=== PATIENT | male | born 1945 | race Caucasian/White ===

== ENCOUNTER 2018-06-20 12:46 | Outpatient (CLI) | payer MEDICARE ==
[~2018-06-20] VITALS: Ht 175.3 cm; Wt 126.7 kg
[2018-06-20] MEDS ORDERED: ALBU6.7H8 INH (13:04)
[2018-06-20] MEDS ORDERED: TADA5TAB13 PO (13:04)
[2018-06-20] MEDS ORDERED: WARF6TAB49 PO (13:04)
[2018-06-20] MEDS ORDERED: SIMV20TA3 PO (13:04)
[2018-06-20] MEDS ORDERED: AMLO5TAB9 PO (13:04)
[2018-06-20] MEDS ORDERED: ASPI-586 PO (13:04)
[2018-06-20] MEDS ORDERED: BISO10TA PO (13:04)
[2018-06-20] MEDS ORDERED: LOSA100T57 PO (13:04)
[2018-06-20] MEDS ORDERED: DOXA4TAB2 PO (13:04)
[2018-06-20] MEDS ORDERED: DIGO250T PO (13:04)
[2018-06-20] MEDS ORDERED: HYDR25TA4 PO (13:04)
[2018-06-20 13:09] VITALS: BP 149/86
[2018-06-20 13:30] LABS: BASOPHILS % (AUTO) 0 % (0-10); EOSINOPHILS # (AUTO) 0.2 10^3/uL (0.0-0.3); EOSINOPHILS % (AUTO) 3 % (0-10); HEMATOCRIT 46 % (40-54); HEMOGLOBIN 15.1 G/DL (13.3-17.7); LYMPHOCYTES % (AUTO) 15 % (12-44); MEAN CORPUSCULAR HEMOGLOBIN 29 PG (25-34); MEAN CORPUSCULAR HGB CONC 33 G/DL (32-36); MEAN CORPUSCULAR VOLUME 86 FL (80-99); MEAN PLATELET VOLUME 10.2 FL (7.4-10.4); MONOCYTES # (AUTO) 0.6 X 10^3 (0.0-1.0); MONOCYTES % (AUTO) 9 % (0-12); NEUTROPHILS # (AUTO) 4.9 X 10^3 (1.8-7.8); NEUTROPHILS % (AUTO) 73 % (42-75); PLATELET COUNT 155 10^3/uL (130-400); RED CELL DISTRIBUTION WIDTH 13.9 % (10.0-14.5); WHITE BLOOD COUNT 6.7 10^3/uL (4.3-11.0)
[2018-06-20 13:48] LABS: BUN/CREATININE RATIO 13; CALCIUM 8.9 MG/DL (8.5-10.1); CARBON DIOXIDE 29 MMOL/L (21-32); CHLORIDE 102 MMOL/L (98-107); CREATININE SERUM 1.15 MG/DL (0.60-1.30); GFR ESTIMATED > 60; GLUCOSE 83 MG/DL (70-105); POTASSIUM 3.7 MMOL/L (3.6-5.0); SODIUM 141 MMOL/L (135-145)
--- NOTE | 2018-06-20 15:05 | Diagnostic Imaging Report ---
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 COMPARISON: None. FINDINGS: Frontal and lateral views of the chest demonstrates cardiac enlargement without overt pulmonary edema. Chronic interstitial changes are seen in the lung bases. There is no pneumothorax, effusion or acute appearing infiltrate. Osseous structures are age-appropriate. IMPRESSION: Cardiac enlargement without pulmonary edema or infiltrate. Dictated by: Dictated on workstation # [id number]
== END 2018-06-20 16:00 | disposition home or self-care (01) ==
LOC: PREOP 12:46
PROVIDERS: ATTEND Otolaryngology Otolaryngology/Facial Plastic Surgery
DX: Z01.811 Encounter for preprocedural respiratory examination (principal); Z01.810 Encounter for preprocedural cardiovascular examination; Z01.812 Encounter for preprocedural laboratory examination; Z11.2 Encounter for screening for other bacterial diseases; C00.9 Malignant neoplasm of lip, unspecified; I48.91 Unspecified atrial fibrillation
CPT/HCPCS: 36415; 71046; 80048; 85025; 87081; 93005

== ENCOUNTER 2018-06-27 06:52 | Day surgery (SDC) | payer MEDICARE ==
[~2018-06-27] VITALS: Ht 175.3 cm; Wt 126.7 kg
[~2018-06-27 06:52] MED LIST: ALBU6.7H8 INH; AMLO5TAB9 PO; ASPI-586 PO; BISO10TA PO; DIGO250T PO; DOXA4TAB2 PO; HYDR25TA4 PO; LOSA100T57 PO; SIMV20TA3 PO; TADA5TAB13 PO; WARF6TAB49 PO
[2018-06-27 07:00] VITALS: BP 153/83
--- NOTE | 2018-06-27 07:05 | Progress Note-Pre Operative ---
Pre-Operative Progress Note H&P Reviewed The H&P was reviewed, patient examined and no changes noted. Date Seen by Provider: Jun 27, 2018 Time Seen by Provider: 07:05 Date H&P Reviewed: Jun 27, 2018 Time H&P Reviewed: 07:05 Pre-Operative Diagnosis: Lower Lip Skin Lesions-mucosal surface CHARITO SHIPLEY MD Jun 27, 2018 07:05
--- OUTSIDE RECORDS SUMMARY | 2018-06-27 07:05 | XMS REPORT ---
Author Author KASIE CHAPMAN Organization [facility] [address] [place] [address] Care Team Providers Care Phone Circuit Operator Name Role Phone KASIE CHAPMAN Unavailable PROBLEMS Type Condition ICD9-CM Code RIK43-AP Code Onset Dates Condition Status SNOMED Code Problem prison current use of anticoagulant therapy Z79.01 Active 411540396 Problem Persistent atrial fibrillation I48.1 Active 830024043 Problem Chronic atrial fibrillation I48.2 Active 479734936 Problem Mixed hyperlipidemia E78.2 Active 477417653 Problem Essential (primary) hypertension I10 Active 99084931 Problem Elevated prostate specific antigen [PSA] R97.2 Active 736078931 Problem 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 762596146 Problem Unspecified atrial fibrillation I48.91 Active 33391598 Problem Hyperlipidemia LDL goal <100 E78.5 Active 96551726 Problem Essential hypertension I10 Active 01923722 Problem Obstructive sleep apnea G47.33 Active 39127222 Problem Chronic obstructive pulmonary disease, unspecified COPD type J44.9 Active 36073977 ALLERGIES No Information ENCOUNTERS Encounter Location Date Diagnosis [facility] [address] [place] [address] Feb, [facility] [address] [place] [address] Jan, [facility] [address] [place] [address] Dec, [facility] [address] [place] [address] Dec, [facility] [address] [place] [address] Dec, [facility] [address] [place] [address] Nov, Medicare annual wellness visit, initial Z00.00 ; Screening for colon cancer Z12.11 ; Screening for osteoporosis Z13.820 ; Essential (primary) hypertension I10 and Encounter for immunization Z23 [facility] [address] [place] [address] Nov, [facility] [address] [place] [address] 30 Oct, 2017 prison current use of anticoagulant therapy Z79.01 [facility] [address] [place] [address] Oct, Chronic atrial fibrillation I48.2 ; Essential hypertension I10 and Elevated prostate specific antigen [PSA] R97.2 [facility] [address] [place] [address] Sep, prison current use of anticoagulant therapy Z79.01 [facility] [address] [place] [address] Sep, prison current use of anticoagulant therapy Z79.01 [facility] [address] [place] [address] Sep, terminal carman current use of anticoagulant therapy Z79.01 and Chronic atrial fibrillation I48.2 [facility] [address] [place] [address] 18 Sep, 2017 prison current use of anticoagulant therapy Z79.01 [facility] [address] [place] [address] 15 Sep, 2017 prison current use of anticoagulant therapy Z79.01 [facility] [address] [place] [address] 13 Sep, 2017 terminal carman current use of anticoagulant therapy Z79.01 [facility] [place] [address] [place] [address] Sep, Chronic obstructive pulmonary disease, unspecified COPD type J44.9 [facility] [address] [place] [address] 11 Sep, 2017 terminal carman current use of anticoagulant therapy Z79.01 [facility] [place] [address] [place] [address] 08 Sep, 2017 terminal carman current use of anticoagulant therapy Z79.01 [facility] [place] [address] [place] [address] Sep, [facility] [place] [address] [place] [address] August, terminal carman current use of anticoagulant therapy Z79.01 [facility] [place] [address] [place] [address] August, [facility] [place] [address] [place] [address] August, prison current use of anticoagulant therapy Z79.01 [facility] [place] [address] [place] [address] August, terminal carman current use of anticoagulant therapy Z79.01 [facility] [place] [address] [place] [address] Jul, terminal carman current use of anticoagulant therapy Z79.01 [facility] [place] [address] [place] [address] Jul, terminal carman current use of anticoagulant therapy Z79.01 [facility] [place] [address] [place] [address] Jul, prison current use of anticoagulant therapy Z79.01 [facility] [place] [address] [place] [address] Jul, prison current use of anticoagulant therapy Z79.01 [facility] [place] [address] [place] [address] Jul, 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 [facility] [address] [place] [address] Jul, Chronic obstructive pulmonary disease, unspecified COPD type J44.9 [facility] [place] [address] [place] [address] Jul, prison current use of anticoagulant therapy Z79.01 [facility] [place] [address] [place] [address] Jul, [facility] [place] [address] [place] [address] 10 Jul, 2017 Bleeding from mouth K13.79 and Lip lesion K13.0 [facility] [place] [address] [place] [address] Jul, terminal carman current use of anticoagulant therapy Z79.01 [facility] [address] [place] [address] Jul, terminal carman current use of anticoagulant therapy Z79.01 [facility] [address] [place] [address] Jul, [facility] [address] [place] [address] Jun, Unspecified atrial fibrillation I48.91 [facility] [address] [place] [address] May, Unspecified atrial fibrillation I48.[address] [address] [address] May, Chronic atrial fibrillation I48.2 ; BMI 40.0-44.9, adult Z68.41 ; Hyperlipidemia LDL goal <100 E78.5 ; terminal carman current use of anticoagulant therapy Z79.01 ; Essential hypertension I10 ; Obstructive sleep apnea G47.33 ; Elevated PSA, less than 10 ng/ml R97.20 and Chronic obstructive pulmonary disease, unspecified COPD type J44.9 [facility] [address] [place] [address] Apr, [facility] [address] [address] Apr, Elevated PSA R97.20 [facility] [address] [id number] [place] [address] Apr, Mild persistent asthma, unspecified whether complicated J45.30 [facility] [place] [address] [place] [address] Apr, Chronic obstructive pulmonary disease, unspecified COPD type J44.9 [facility] [address] [place] [address] Mar, [facility] [place] [address] [place] [address] Mar, [facility] [address] [address] [place] [address] Mar, [facility] [place] [address] [place] [address] Mar, Chronic atrial fibrillation I48.2 ; Hyperlipidemia LDL goal <100 E78.5 ; Essential hypertension I10 ; Obstructive sleep apnea G47.33 ; Has stopped breathing R06.81 ; Elevated PSA, less than 10 ng/ml R97.20 ; Chronic obstructive pulmonary disease, unspecified COPD type J44.9 ; Encounter for immunization Z23 and terminal carman current use of anticoagulant therapy Z79.01 [facility] [address] [address] Feb, [facility] [address] [address] Dec, [facility] [address] [address] Nov, Chronic atrial fibrillation I48.2 and Elevated PSA R97.[address] [address] Nov, Chronic atrial fibrillation I48.2 ; Hyperlipidemia LDL goal <100 E78.5 ; Essential hypertension I10 ; Dyspnea on exertion R06.09 and Elevated PSA R97.[address] [address] August, prison current use of anticoagulant therapy Z79.01 ; Bronchitis J40 and Persistent atrial fibrillation I48.[address] [address] August, [address] [address] May, terminal carman current use of anticoagulant therapy Z79.01 ; Encounter for long-term (current) use of other medications Z79.899 ; Fever, unspecified fever cause R50.9 and Influenza A J10.[address] [address] Apr, [address] [address] Apr, Elevated prostate specific antigen [PSA] R97.[address] [address] Feb, [address] [address] Feb, prison current use of anticoagulant therapy Z79.01 ; Atrial fibrillation 427.31 ; Encounter for long-term (current) use of other medications Z79.899 ; Chronic atrial fibrillation I48.2 ; Encounter for immunization Z23 and Actinic keratoses L57.0 [facility] [address] [address] Dec, 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 and Encounter for immunization Z23 [address] [address] Nov, Hemangioma D18.00 and Actinic keratosis L57.[address] [address] Nov, Chronic atrial fibrillation I48.2 ; prison current use of anticoagulant therapy Z79.01 and Skin lesions L98.[address] [address] Oct, Elevated prostate specific antigen [PSA] R97.2 ; Mixed hyperlipidemia E78.2 and Essential (primary) hypertension I10 [address] [address] August, [address] [address] August, Encounter for long-term (current) use of other medications Z79.899 ; prison current use of anticoagulant therapy Z79.01 and Chronic atrial fibrillation I48.[address] [address] Jul, Unspecified atrial fibrillation I48.91 ; Encounter for long-term (current) use of other medications Z79.899 and prison current use of anticoagulant therapy Z79.[address] [address] Jun, Atrial fibrillation 427.31 ; Encounter for long-term (current) use of other medications Z79.899 and terminal carman current use of anticoagulant therapy Z79.01 [facility] [address] [address] [place] [address] Jun, Unspecified atrial fibrillation I48.91 ; Encounter for long-term (current) use of other medications Z79.899 ; terminal carman current use of anticoagulant therapy Z79.01 and Community acquired bacterial pneumonia J15.9 [facility] [address] [address] Jun, Community acquired bacterial pneumonia J15.9 [facility] [address] [address] May, Chronic atrial fibrillation I48.2 ; Encounter for long-term (current) use of other medications Z79.899 and terminal carman current use [facility]agulant [facility]79.01 [facility] [address] [address] Apr, Elevated prostate specific antigen [PSA] R97.[address] [address] Feb, Chronic atrial fibrillation I48.2 ; terminal carman current use of anticoagulant therapy Z79.01 and Encounter for long-term (current) use of other medications Z79.[address] [address] Dec, Atrial fibrillation 427.31 and terminal carman (current) use of anticoagulants V58.[address] [address] Sep, [address] [address] Sep, Atrial fibrillation 427.31 ; Elevated PSA 790.93 ; Benign prostate hyperplasia 600.00 and Renal insufficiency 593.[address] [address] Sep, Atrial fibrillation 427.31 ; Essential hypertension, benign 401.1 ; Elevated prostate specific antigen (PSA) 790.93 and Mixed hyperlipidemia 272.[address] [id number] [address] Jul, [address] [id number] [address] Jul, [facility] [address] [address] Jun, [facility] [place] [address] [place] [address] 16 Jun, 2014 [facility] [address] [place] [address] 15 Apr, 2014 [facility] [place] [address] [place] [address] Apr, [facility] [place] [address] [place] [address] Mar, [facility] [address], [place] [address] Mar, [facility] [place] [address] [place] [address] Mar, [facility] [address] [address] Mar, [facility] [address] [place] [address] Feb, [facility] [place] [address] [place] [address] Feb, [facility] [address] [address] Jan, [facility] [place] [address] [place] [address] Jan, [facility] [address] [address] Dec, [facility] [place] [address] [place] [address] Dec, [facility] [address] [address] Oct, [facility] [place] [address] [place] [address] Oct, [facility] [place] [address] [place] [address] Oct, [facility] [id number] [address] Oct, [facility] [place] [address] [place] [address] Sep, [facility] [id number] [address] Sep, [facility] [address] [id number] [address] August, [facility] [place] [address] [place] [address] August, [facility] [id number] [address] August, [facility] [address], [place] [address] August, [facility] [place] [address] [place] [address] August, [facility] [place] [address] [place] [address] August, [facility] [id number] [address] August, [facility] [place] [address] [place] [address] Jul, [facility] [id number] [address] Jul, [facility] [place] [address] [place] [address] Jul, [facility] [id number] [address] Jul, [facility] [place] [address] [place] [address] May, [facility] [id number] [address] May, [facility] [place] [address] [place] [address] Apr, [facility] [address] [address] Apr, [facility] [place] [address] [place] [address] Mar, [facility] [address], [place] [address] Mar, [facility] [place] [address] [place] [address] Feb, [facility] [address] [place] [id number] [place] [address] Feb, [facility] [id number] [place] [address] Feb, [facility] [address] [place] [id number] [place] [address] Feb, [facility] [place] [address] [place] [address] Feb, [facility] [address] [place] [address] Feb, [facility] [place] [address] [place] [address] Jan, [facility] [address] [place] [address] [address] Jan, [facility] [place] [address] [place] [address] Dec, [facility] [place] [address] [place] [address] Dec, IMMUNIZATIONS No Known Immunizations SOCIAL HISTORY Never Assessed REASON FOR VISIT PLAN OF CARE VITAL SIGNS MEDICATIONS Medication Instructions Dosage Frequency Start Date End Date Duration Status Warfarin Sodium 6MG TAKE ONE TABLET BY MOUTH ONCE DAILY Active Doxazosin Mesylate 4MG Orally Once a day 1 tablet 24h Active RESULTS No Results PROCEDURES No Known procedures INSTRUCTIONS MEDICATIONS ADMINISTERED No Known Medications MEDICAL (GENERAL) HISTORY Type Description Date Medical History Tear of medial cartilage or meniscus of knee, current Medical History Acute upper respiratory infections of unspecified site Medical History Need for prophylactic vaccination and inoculation, Influenza Medical History Atrial fibrillation Medical History Actinic keratosis Medical History Essential hypertension, benign Medical History Nocturia Medical History Elevated prostate specific antigen (PSA) Medical History Mixed hyperlipidemia Medical History Acute pharyngitis Medical History Pain in joint, lower leg Surgical History tonsillectomy 1950 Surgical History orthopedic surgery; jaw 1967 Surgical History heart cath 2016 Surgical History oral surgery Hospitalization History Surgery(s) only
--- OUTSIDE RECORDS SUMMARY | 2018-06-27 07:06 | XMS REPORT ---
Author Author KASIE CHAPMAN Organization [facility] [address] Address [address] [place] [address] Care Team Providers Care Outside Salesman Name Role Phone KASIE CHAPMAN Unavailable PROBLEMS Type Condition ICD9-CM Code PVL06-ZX Code Onset Dates Condition Status SNOMED Code Problem prison current use of anticoagulant therapy Z79.01 Active 304247978 Problem Persistent atrial fibrillation I48.1 Active 065560589 Problem Chronic atrial fibrillation I48.2 Active 437016215 Problem Mixed hyperlipidemia E78.2 Active 101178623 Problem Essential (primary) hypertension I10 Active 49801919 Problem Elevated prostate specific antigen [PSA] R97.2 Active 769504319 Problem 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 [address] [place] [address] Jan, [facility] [address] [place] [address] Dec, [facility] [address] [place] [address] Dec, [facility] [address] [place] [address] Dec, 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 [facility] [place] [address] [place] [address] Oct, Chronic atrial fibrillation I48.2 ; Essential hypertension I10 and Elevated prostate specific antigen [PSA] R97.2 [facility] [place] [address] [place] [address] Sep, prison current use of anticoagulant therapy Z79.01 [facility] [place] [address] [place] [address] Sep, prison current use of anticoagulant therapy Z79.01 [facility] [place] [address] [place] [address] Sep, prison current use of anticoagulant therapy Z79.01 and Chronic atrial fibrillation I48.2 [facility] [place] [address] [place] [address] 18 Sep, 2017 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 [facility] [place] [address] [place] [address] 15 Sep, 2017 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 [facility] [place] [address] [place] [address] 13 Sep, 2017 prison current use of anticoagulant therapy Z79.01 [facility] [place] [address] [place] [address] Sep, Chronic obstructive pulmonary disease, unspecified COPD type J44.9 [facility] [place] [address] [place] [address] 11 Sep, 2017 prison current use of anticoagulant therapy Z79.01 [facility] [place] [address] [place] [address] 08 Sep, 2017 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 [facility] [place] [address] [place] [address] 04 Sep, 2017 [facility] [place] [address] [place] [address] August, prison current use of anticoagulant therapy Z79.01 [facility] [place] [address] [place] [address] August, [facility] [place] [address] [place] [address] August, prison current use of anticoagulant therapy Z79.01 [facility] [place] [address] [place] [address] August, prison current use of anticoagulant therapy Z79.01 [facility] [place] [address] [place] [address] Jul, 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 [facility] [place] [address] [place] [address] Jul, prison current use of anticoagulant therapy Z79.01 [facility] [place] [address] [place] [address] Jul, 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 [facility] [place] [address] [place] [address] Jul, 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 [facility] [place] [address] [place] [address] Jul, 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 [facility] [address] [place] [address] Jul, Chronic obstructive pulmonary disease, unspecified COPD type J44.9 [facility] [place] [address] [place] [address] Jul, 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 [facility] [place] [address] [place] [address] Jul, [facility] [place] [address] [place] [address] Jul, Bleeding from mouth K13.79 and Lip lesion K13.0 [facility] [place] [address] [place] [address] Jul, prison current use of anticoagulant therapy Z79.01 [facility] [place] [address] [place] [address] Jul, 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 [facility] [address] [address] [place] [address] Jul, [facility] [address] [place] [address] Jun, Unspecified atrial fibrillation I48.[address] [facility] [address] [address] May, Unspecified atrial fibrillation I48.91 [facility] [address] [place] [address] May, Chronic atrial fibrillation I48.2 ; BMI 40.0-44.9, adult Z68.41 ; Hyperlipidemia LDL goal <100 E78.5 ; 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 ; Essential hypertension I10 ; Obstructive sleep apnea G47.33 ; Elevated PSA, less than 10 ng/ml R97.20 and Chronic obstructive pulmonary disease, unspecified COPD type J44.9 [facility] [address] [place] [address] Apr, [facility] [address] [address] Apr, Elevated PSA R97.20 [facility] [address] [id number] [place] [address] Apr, Mild persistent asthma, unspecified whether complicated J45.30 [facility] [address] [place] [address] Apr, Chronic obstructive pulmonary disease, unspecified COPD type J44.9 [facility] [address] [place] [address] Mar, [facility] [address] [address] [place] [address] Mar, [facility] [place] [address] [place] [address] Mar, [facility] [address] [place] [address] Mar, Chronic atrial fibrillation I48.2 ; Hyperlipidemia LDL goal <100 E78.5 ; Essential hypertension I10 ; Obstructive sleep apnea G47.33 ; Has stopped breathing R06.81 ; Elevated PSA, less than 10 ng/ml R97.20 ; Chronic obstructive pulmonary disease, unspecified COPD type J44.9 ; Encounter for immunization Z23 and 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 [facility] [address] [address] Feb, [facility] [address] [address] Dec, [facility] [address] [address] Nov, Chronic atrial fibrillation I48.2 and Elevated PSA R97.20 [facility] [address] [address] Nov, Chronic atrial fibrillation I48.2 ; Hyperlipidemia LDL goal <100 E78.5 ; Essential hypertension I10 ; Dyspnea on exertion R06.09 and Elevated PSA R97.[address] [address] August, 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 ; Bronchitis J40 and Persistent atrial fibrillation I48.[address] [address] August, [address] [address] May, prison current use of anticoagulant therapy Z79.01 ; Encounter for long-term (current) use of other medications Z79.899 ; Fever, unspecified fever cause R50.9 and Influenza A J10.[address] [address] Apr, [facility] [address] [address] Apr, Elevated prostate specific antigen [PSA] R97.20 [facility] [address] [address] Feb, [address] [address] Feb, 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 ; Atrial fibrillation 427.31 ; Encounter for long-term (current) use of other medications Z79.899 ; Chronic atrial fibrillation I48.2 ; Encounter for immunization Z23 and Actinic keratoses L57.0 [facility] [address] [address] 14 Dec, 2015 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 and Encounter for immunization Z23 [facility] [address] [address] Nov, Hemangioma D18.00 and Actinic keratosis L57.[address] [address] Nov, Chronic atrial fibrillation I48.2 ; prison current use of anticoagulant therapy Z79.01 and Skin lesions L98.[address] [address] Oct, Elevated prostate specific antigen [PSA] R97.2 ; Mixed hyperlipidemia E78.2 and Essential (primary) hypertension I10 [address] [address] August, [address] [address] August, Encounter for long-term (current) use of other medications Z79.899 ; prison current use of anticoagulant therapy Z79.01 and Chronic atrial fibrillation I48.[address] [address] Jul, Unspecified atrial fibrillation I48.91 ; Encounter for long-term (current) use of other medications Z79.899 and prison current use of anticoagulant therapy Z79.[address] [address] Jun, Atrial fibrillation 427.31 ; Encounter for long-term (current) use of other medications Z79.899 and 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 [address] Jun, Unspecified atrial fibrillation I48.91 ; Encounter for long-term (current) use of other medications Z79.899 ; prison current use of anticoagulant therapy Z79.01 and Community acquired bacterial pneumonia J15.9 [facility] [address] [address] Jun, Community acquired bacterial pneumonia J15.[address] [address] May, Chronic atrial fibrillation I48.2 ; Encounter for long-term (current) use of other medications Z79.899 and 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 [facility] [address] [address] Apr, Elevated prostate specific antigen [PSA] R97.[address] [address] Feb, Chronic atrial fibrillation I48.2 ; 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 and Encounter for long-term (current) use of other medications Z79.[address] [address] Dec, Atrial fibrillation 427.31 and prison (current) use of anticoagulants V58.[address] [address] Sep, [address] [address] Sep, Atrial fibrillation 427.31 ; Elevated PSA 790.93 ; Benign prostate hyperplasia 600.00 and Renal insufficiency 593.[address] [address] Sep, Atrial fibrillation 427.31 ; Essential hypertension, benign 401.1 ; Elevated prostate specific antigen (PSA) 790.93 and Mixed hyperlipidemia 272.2 [facility] [address] [facility] [id number] [address] Jul, [facility] [address] [place] [address] [id number] [address] Jul, [facility] [address] [address] Jun, [facility] [place] [address] [place] [address] Jun, [facility] [address] [address] Apr, [facility] [place] [address] [place] [address] Apr, [facility] [place] [address] [place] [address] Mar, [facility] [address] [place] [address] Mar, [facility] [place] [address] [place] [address] Mar, [facility] [address] [place] [address] Mar, [facility] [address] [address] Feb, [facility] [place] [address] [place] [address] Feb, [facility] [address] [address] Jan, [facility] [place] [address] [place] [address] Jan, [facility] [address] [address] Dec, [facility] [place] [address] [place] [address] Dec, [facility] [address] [address] Oct, [facility] [place] [address] [place] [address] Oct, [facility] [place] [address] [place] [address] Oct, [facility] [address] [facility] [id number] [address] Oct, [facility] [place] [address] [place] [address] Sep, [facility] [address] [facility] [id number] [address] Sep, [facility] [id number] [address] August, [facility] [place] [address] [place] [address] August, [facility] [id number] [address] August, [facility] [id number] [address] August, [facility] [place] [address] [place] [address] August, [facility] [place] [address] [place] [address] August, [facility] [id number] [address] August, [facility] [place] [address] [place] [address] Jul, [facility] [id number] [address] Jul, [facility] [place] [address] [place] [address] Jul, [facility] [address] [facility] [id number] [address] Jul, [facility] [place] [address] [place] [address] May, [facility] [address] [facility] [id number], [place] [address] May, [facility] [place] [address] [place] [address] Apr, [facility] [address] [address] Apr, [address] [address] Mar, [facility] [id number] [address] Mar, [facility] [address] [place] [address] Feb, [facility] [address] [address] Feb, [facility] [address] [place] [id number] [place] [address] Feb, [facility] [address] [address] Feb, [address] [address] Feb, [address] [address] Feb, [address] [address] Jan, [facility] [address] [place], [place] [id number] [address] Jan, [address] [address] Dec, [address] [address] Dec, IMMUNIZATIONS No Known Immunizations SOCIAL HISTORY Never Assessed REASON FOR VISIT med refill request PLAN OF CARE VITAL SIGNS MEDICATIONS Medication Instructions Dosage Frequency Start Date End Date Duration Status Simvastatin 20 mg TAKE ONE TABLET BY MOUTH AT BEDTIME 90 Active Lanoxin 0.25MG Orally Once a day TAKE 1 Tablet 24h Active RESULTS No Results PROCEDURES No [...]
--- OUTSIDE RECORDS SUMMARY | 2018-06-27 07:06 | XMS REPORT ---
Author Author [facility]MAN [facility] [address] Address [address] [place] [address] Care Team Providers Care Ticket Counter Name Role Phone KASIE CHAPMAN Unavailable PROBLEMS ALLERGIES No Information ENCOUNTERS IMMUNIZATIONS No Known Immunizations SOCIAL HISTORY No smoking Hx information available REASON FOR VISIT PLAN OF CARE VITAL SIGNS MEDICATIONS Unknown Medications RESULTS No Results PROCEDURES No Known procedures INSTRUCTIONS MEDICATIONS ADMINISTERED No Known Medications MEDICAL (GENERAL) HISTORY
--- OUTSIDE RECORDS SUMMARY | 2018-06-27 07:06 | XMS REPORT ---
Author Author KASIE CHAPMAN Organization [facility] [address] Address [address] [place] [address] Care Team Providers Care Lawn Care Technician Name Role Phone KASIE CHAPMAN Unavailable PROBLEMS Type Condition ICD9-CM Code XNA23-CH Code Onset Dates Condition Status SNOMED Code Problem residential current use of anticoagulant therapy Z79.01 Active 360890593 Problem Persistent atrial fibrillation I48.1 Active 711026871 Problem Chronic atrial fibrillation I48.2 Active 577309434 Problem Mixed hyperlipidemia E78.2 Active 043294806 Problem Essential (primary) hypertension I10 Active 83343016 Problem Elevated prostate specific antigen [PSA] R97.2 Active 681118467 Problem 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 317373911 Problem Unspecified atrial fibrillation I48.91 Active 24754342 Problem Hyperlipidemia LDL goal <100 E78.5 Active 79278605 Problem Essential hypertension I10 Active 66511243 Problem Obstructive sleep apnea G47.33 Active 10384706 Problem Chronic obstructive pulmonary disease, unspecified COPD type J44.9 Active 50343540 ALLERGIES Substance Reaction Event Type Date Status Sulfasalazine Unknown Drug Allergy Nov, Active ENCOUNTERS Encounter Location Date Diagnosis [facility] [address] [place] [address] Dec, [facility] [address] [place] [address] Dec, [facility] [address] [place] [address] Dec[facility] [address] [place] [address] Nov, Medicare annual wellness visit, initial Z00.00 ; Screening for colon cancer Z12.11 ; Screening for osteoporosis Z13.820 ; Essential (primary) hypertension I10 and En[facility] for [facility] [address] [place] [address] Nov, [facility] [address] [place] [address] Oct, residential current use of anticoagulant therapy Z79.[facility] [place] [address] [place] [address] Oct, Chronic atrial fibrillation I48.2 ; Essential hypertension I10 and Elevated prostate specific antigen [PSA] R97.[address] [facility] [place] [address] [place] [address] Sep, residential current use of anticoagulant therapy Z79.01 [facility] [place] [address] [place] [address] Sep, [employer] current use of anticoagulant therapy Z79.[address] [facility] [place] [address] [place] [address] Sep, residential current use of anticoagulant therapy Z79.01 and Chronic atrial fibrillation I48.[address] [facility] [place] [address] [place] [address] Sep, [employer] current use of anticoagulant therapy Z79.01 [facility] [place] [address] [place] [address] 15 Sep, 2017 [employer] current use of anticoagulant therapy Z79.01 [facility] [place] [address] [place] [address] 13 Sep, 2017 residential current use of anticoagulant therapy Z79.01 [facility] [place] [address] [place] [address] Sep, Chronic obstructive pulmonary disease, unspecified COPD type J44.9 [facility] [place] [address] [place] [address] Sep, residential current use of anticoagulant therapy Z79.01 [facility] [place] [address] [place] [address] 08 Sep, 2017 residential current use of anticoagulant therapy Z79.01 [facility] [place] [address] [place] [address] Sep, [facility] [place] [address] [place] [address] August, [employer] current use of anticoagulant therapy Z79.01 [facility] [place] [address] [place] [address] August, [facility] [address] [place] [address] August, residential current use of anticoagulant therapy Z79.01 [facility] [place] [address] [place] [address] August, residential current use of anticoagulant therapy Z79.01 [facility] [address] [place] [address] Jul, [employer] current use of anticoagulant therapy Z79.01 [facility] [place] [address] [place] [address] Jul, [employer] current use of anticoagulant therapy Z79.01 [facility] [place] [address] [place] [address] Jul, residential current use of anticoagulant therapy Z79.01 [facility] [place] [address] [place] [address] Jul, [employer] current use of anticoagulant therapy Z79.01 [facility] [place] [address] [place] [address] Jul, 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 [facility] [place] [address] [place] [address] Jul, Chronic obstructive pulmonary disease, unspecified COPD type J44.9 [facility] [place] [address] [place] [address] Jul, [employer] current use of anticoagulant therapy Z79.01 [facility] [place] [address] [place] [address] Jul, [facility] [address] [place] [address] 10 Jul, 2017 Bleeding from mouth K13.79 and Lip lesion K13.0 [facility] [place] [address] [place] [address] 09 Jul, 2017 [employer] current use of anticoagulant therapy Z79.01 [facility] [place] [address] [place] [address] Jul, residential current use of anticoagulant therapy Z79.01 [facility] [address] [place] [address] Jul, [facility] [address] [place] [address] Jun, Unspecified atrial fibrillation I48.[address] [address] May, Unspecified atrial fibrillation [facility]48.91 [facility] [address] [address] May, Chronic atrial fibrillation I48.2 ; BMI 40.0-44.9, adult Z68.41 ; Hyperlipidemia LDL goal <100 E78.5 ; residential current use of anticoagulant therapy Z79.01 ; Essential hypertension I10 ; Obstructive sleep apnea G47.33 ; Elevated PSA, less than 10 ng/ml R97.20 and Chronic obstructive pulmonary disease, unspecified COPD type J44.[address] [address] Apr, [facility] [address] [address] Apr, Elevated PSA R97.20 [facility] [id number] [address] Apr, Mild persistent asthma, unspecified whether complicated J45.30 [facility] [address] [place] [address] Apr, Chronic obstructive pulmonary disease, unspecified COPD type [facility]44.9 [facility] [address] [address] Mar, [facility] [address] [address] Mar, [facility] [address] [address] Mar, [facility] [address] [address] Mar, Chronic atrial fibrillation I48.2 ; Hyperlipidemia LDL goal <100 E78.5 ; Essential hypertension I10 ; Obstructive sleep apnea G47.33 ; Has stopped breathing R06.81 ; Elevated PSA, less than 10 ng/ml R97.20 ; Chronic obstructive pulmonary disease, unspecified COPD type J44.9 ; Encounter for immunization Z23 and residential current use of anticoagulant therapy [facility]79.01 [facility] [address] [address] Feb, [facility] [address] [address] Dec, [facility] [address] [address] Nov, Chronic atrial fibrillation I48.2 and Elevated PSA R97.[address] [address] Nov, Chronic atrial fibrillation I48.2 ; Hyperlipidemia LDL goal <100 E78.5 ; Essential hypertension I10 ; Dyspnea on exertion R06.09 and Elevated PSA R97.[address] [address] August, residential current use of anticoagulant therapy Z79.01 ; Bronchitis J40 and Persistent atrial fibrillation I48.[address] [address] August, [address] [address] May, residential current use of anticoagulant therapy Z79.01 ; Encounter for long-term (current) use of other medications Z79.899 ; Fever, unspecified fever cause R50.9 and Influenza A J10.1 [facility] [address] [address] Apr, [facility] [address] [address] Apr, Elevated prostate specific antigen [PSA] R97.[address] [address] Feb, [address] [address] Feb, [employer] current use of anticoagulant therapy Z79.01 ; Atrial fibrillation 427.31 ; Encounter for long-term (current) use of other medications Z79.899 ; Chronic atrial fibrillation I48.2 ; Encounter for immunization Z23 and Actinic keratoses L57.0 [facility] [address] [address] 14 Dec, 2015 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 and Encounter for immunization Z23 [address] [address] Nov, Hemangioma D18.00 and Actinic keratosis L57.[address] [address] Nov, Chronic atrial fibrillation I48.2 ; residential current use of anticoagulant therapy Z79.01 and Skin lesions L98.[address] [address] Oct, Elevated prostate specific antigen [PSA] R97.2 ; Mixed hyperlipidemia E78.2 and Essential (primary) hypertension I10 [address] [address] August, [facility] [address] [address] August, Encounter for long-term (current) use of other medications Z79.899 ; [employer] current use of anticoagulant therapy Z79.01 and Chronic atrial fibrillation I48.[address] [address] 05 Jul, 2015 Unspecified atrial fibrillation I48.91 ; Encounter for long-term (current) use of other medications Z79.899 and [employer] current use of anticoagulant therapy Z79.[address] [address] 15 Jun, 2015 Atrial fibrillation 427.31 ; Encounter for long-term (current) use of other medications Z79.899 and residential current use of anticoagulant therapy Z79.[address] [address] 08 Jun, 2015 Unspecified atrial fibrillation I48.91 ; Encounter for long-term (current) use of other medications Z79.899 ; residential current use of anticoagulant therapy Z79.01 and Community acquired bacterial pneumonia J15.[address] [address] Jun, Community acquired bacterial pneumonia J15.[address] [address] May, Chronic atrial fibrillation I48.2 ; Encounter for long-term (current) use of other medications Z79.899 and residential current use of anticoagulant therapy Z79.[address] [address] Apr, Elevated prostate specific antigen [PSA] R97.[address] [address] Feb, Chronic atrial fibrillation I48.2 ; [employer] current use of anticoagulant therapy Z79.01 and Encounter for long-term (current) use of other medications Z79.[address] [address] Dec, Atrial fibrillation 427.31 and [employer] (current) use of anticoagulants V58.[address] [address] Sep, [address] [address] Sep, Atrial fibrillation 427.31 ; Elevated PSA 790.93 ; Benign prostate hyperplasia 600.00 and Renal insufficiency 593.[address] [address] Sep, Atrial fibrillation 427.31 ; Essential hypertension, benign 401.1 ; Elevated prostate specific antigen (PSA) 790.93 and Mixed hyperlipidemia 272.2 [facility] [place] [address] [place], [place] [id number] [address] Jul, [facility] [place] [address] [place] [id number] [address] Jul, [place] [id number] [address] 16 Jun, 2014 [facility] [place] [address] [place] [address] Jun, [facility] [id number], [place] [address] Apr, [facility] [place] [address] [place] [address] Apr, [facility] [place] [address] [place] [address] Mar, [facility] [place] [address] [id number], [place] [address] Mar, [facility] [place] [address] [place] [address] Mar, [facility] [place] [address], [place] [address] Mar, [facility] [place] [id number], [place] [address] Feb, [facility] [place] [address] [place] [address] Feb, [facility] [place] [address] [id number], [place] [address] Jan, [facility] [place] [address] [place] [address] Jan, [facility] [place] [id number], [place] [address] Dec, [facility] [place] [address] [place] [address] Dec, [facility] [id number], [place] [address] Oct, [facility] [place] [address] [place] [address] Oct, [facility] [place] [address] [place] [address] Oct, [facility] [address], [place] [address] Oct, [facility] [place] [address] [place] [address] Sep, [facility] [place] [address] [facility] [id number], [place] [address] Sep, [facility] [place] [address], [place] [address] August, [facility] [place] [address] [place] [address] August, [facility] [place] [id number], [place] [address] August, [facility] [place] [address], [place] [address] August, [facility] [place] [address] [place] [address] August, [facility] [place] [address] [place] [address] August, [facility] [place] [address], [place] [address] August, [facility] [place] [address] [place] [address] Jul, [facility] [place] [address], [place] [address] Jul, [facility] [place] [address] [place] [address] Jul, [facility] [place] [id number], [place] [address] Jul, [facility] [address] [place] [address] May, [facility] [place] [id number], [place] [address] May, [facility] [place] [address] [place] [address] Apr, [facility] [place] [id number], [place] [address] Apr, [facility] [address] [place] [address] Mar, [facility] [place] [address], [place] [address] Mar, [facility] [address] [place] [address] Feb, [facility] [place] [address], [place] [address] Feb, [facility] [place] [address], [place] [address] Feb, [facility] [place] [address], [place] [address] Feb, [facility] [address] [place] [address] Feb, [facility] [address] [place] [address] Feb, [facility] [address] [place] [address] Jan, [facility] [place] [id number], [place] [address] Jan, [facility] [address] [place] [address] Dec, [facility] [address] [place] [address] Dec, IMMUNIZATIONS Vaccine Route Administration Date Status PPSV23 (PNEUMOVAX) IM Intramuscular Nov 29, 2017 Administered SOCIAL HISTORY Never Assessed REASON FOR VISIT Medicare AWV, [facility] PLAN OF CARE Activity Details Follow Up 1 Year Reason: Pending Test Bone Density VITAL SIGNS Height 70 in 2017-11-29 Weight 276.7 lbs 2017-11-29 Temperature 96.6 degrees Fahrenheit 2017-11-29 Heart Rate 65 bpm 2017-11-29 Respiratory Rate 16 2017-11-29 BMI 39.70 kg/m2 2017-11-29 Blood pressure systolic 130 mmHg 2017-11-29 Blood pressure diastolic 84 mmHg 2017-11-29 MEDICATIONS Medication Instructions Dosage Frequency Start Date End Date Duration Status Doxazosin Mesylate 4MG Orally Once a day 1 tablet 24h Active Lovenox 120 MG/0.8ML Subcutaneous 2 times a day 0.8ml 12h 30 Jun, 2017 05 days Active Zocor 20 mg 1 Tablet by Oral route 1 time per day at bedtime August, Active Qvar 80 MCG/ACT Inhalation Twice a day 1 puff 12h 12 May, 2017 Active Warfarin Sodium 6MG TAKE ONE TABLET BY MOUTH ONCE DAILY Active Shingrix 50 mcg as directed Nov, Active Zoster Vaccine Live 06335 UNT/0.65ML as directed Mar, Not-Taking Cialis 5MG TAKE ONE TABLET BY MOUTH ONCE DAILY 30 Active Lanoxin 250 MCG TAKE 1 Tablet by Oral route 1 time per day August, 90 days Active Qvar 40 MCG/ACT Inhalation Twice a day 2 puff 12h Nov, Active Losartan Potassium-HCTZ 100-25 TAKE ONE TABLET BY MOUTH ONCE DAILY 90 days Active Efudex 5 % 1 neha by Topical route 2 times per day Jun, Active Flovent Diskus 100 MCG/BLIST Inhalation Twice a day 1 puff 12h 15 Apr, 2017 Active Simvastatin 20MG TAKE ONE TABLET BY MOUTH AT BEDTIME 90 Active Bisoprolol Fumarate 10 mg Orally Once a day 1 tablet 24h Nov, 90 days Active Lanoxin 0.25MG Orally Once a day TAKE 1 Tablet 24h Active Zithromax Tri-Jamaal 500 MG Orally Once a day 1 TAB 24h 03 days Active Zostavax 77417 UNT/0.65ML as directed Mar, Not-Taking Claritin 10 mg 1 Tablet by Oral route 1 time per day PRN Feb, Active RESULTS No Results PROCEDURES Procedure Date Ordered Result Body Site [facility] VISIT IPPE/AWV Nov 29, 2017 ANNUAL TANISHA VST; JIANL PPS INIT Nov 29, 2017 ADMN PNEUMCOC VAC NO FEE DAY Nov 29, 2017 PPSV23 (PNEUMOVAX) Nov 29, 2017 SINGLE IMMUNIZATION ADMIN Nov 29, 2017 INSTRUCTIONS MEDICATIONS ADMINISTERED No Known Medications MEDICAL [...]
--- OUTSIDE RECORDS SUMMARY | 2018-06-27 07:06 | XMS REPORT ---
Author Author KASIE CHAPMAN [facility] [address] Address [address] [place] [address] Care Team Providers Care Visitor Service Assistant Name Role Phone KASIE CHAPMAN Unavailable PROBLEMS Type Condition ICD9-CM Code OGL89-HD Code Onset Dates Condition Status SNOMED Code Problem jail current use of anticoagulant therapy Z79.01 Active 690472104 Problem Persistent atrial fibrillation I48.1 Active 626106149 Problem Chronic atrial fibrillation I48.2 Active 675678563 Problem Mixed hyperlipidemia E78.2 Active 201407863 Problem Essential (primary) hypertension I10 Active 36411052 Problem Elevated prostate specific antigen [PSA] R97.2 Active 034122402 Problem 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 [address] [place] [address] Dec, [facility] [address] [place] [address] Dec, [facility] [address] [place] [address] Dec, [facility] [address] [place] [address] Nov, Medicare annual wellness visit, initial Z00.00 ; Screening for colon cancer Z12.11 ; Screening for osteoporosis Z13.820 ; Essential (primary) hypertension I10 and [facility] for [facility] [address] [place] [address] 16 Nov, [address] 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 [facility] [place] [address] [place] [address] Oct, Chronic atrial fibrillation I48.2 ; Essential hypertension I10 and Elevated prostate specific antigen [PSA] R97.[address] [facility] [place] [address] [place] [address] Sep, jail current use of anticoagulant therapy Z79.01 [facility] [place] [address] [place] [address] Sep, jail current use of anticoagulant therapy Z79.[address] [facility] [place] [address] [place] [address] Sep, jail current use of anticoagulant therapy Z79.01 and Chronic atrial fibrillation I48.2 [facility] [address] [place] [address] 18 Sep, 2017 jail current use of anticoagulant therapy Z79.01 [facility] [place] [address] [place] [address] 15 Sep, 2017 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 [facility] [place] [address] [place] [address] 13 Sep, 2017 jail current use of anticoagulant therapy Z79.01 [facility] [place] [address] [place] [address] Sep, Chronic obstructive pulmonary disease, unspecified COPD type J44.9 [facility] [place] [address] [place] [address] Sep, 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 [facility] [place] [address] [place] [address] Sep, 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 [facility] [place] [address] [place] [address] Sep, [facility] [place] [address] [place] [address] August, 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 [facility] [place] [address] [place] [address] August, [facility] [place] [address] [place] [address] August, 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 [facility] [place] [address] [place] [address] August, 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 [facility] [place] [address] [place] [address] Jul, 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 [facility] [place] [address] [place] [address] Jul, 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 [facility] [place] [address] [place] [address] Jul, 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 [facility] [address] [place] [address] Jul, 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 [facility] [place] [address] [place] [address] Jul, 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 [facility] [address] [address] Jul, Chronic obstructive pulmonary disease, unspecified COPD type J44.[address] [facility] [address] [address] Jul, 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 [facility] [place] [address] [place] [address] Jul, [facility] [place] [address] [place] [address] Jul, Bleeding from mouth K13.79 and Lip lesion K13.0 [facility] [address] [address] [place] [address] Jul, 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 [facility] [place] [address] [place] [address] Jul, jail current use of anticoagulant therapy Z79.01 [facility] [place] [address] [place] [address] Jul, [facility] [address] [address] Jun, Unspecified atrial fibrillation I48.[address] [facility] [address] [address] May, Unspecified atrial fibrillation I48.[address] [address] May, Chronic atrial fibrillation I48.2 ; BMI 40.0-44.9, adult Z68.41 ; Hyperlipidemia LDL goal <100 E78.5 ; jail current use of anticoagulant therapy Z79.01 ; Essential hypertension I10 ; Obstructive sleep apnea G47.33 ; Elevated PSA, less than 10 ng/ml R97.20 and Chronic obstructive pulmonary disease, unspecified COPD type J44.[address] [address] Apr, [facility] [address] Apr, Elevated PSA R97.20 [facility] [address] [id number] [place] [address] Apr, Mild persistent asthma, unspecified whether complicated J45.[address] [facility] [address] [address] Apr, Chronic obstructive pulmonary disease, unspecified COPD type J44.[address] [address] Mar, [facility] [address] Mar, [facility] [address] Mar, [facility] [address] [address] Mar, Chronic atrial fibrillation I48.2 ; Hyperlipidemia LDL goal <100 E78.5 ; Essential hypertension I10 ; Obstructive sleep apnea G47.33 ; Has stopped breathing R06.81 ; Elevated PSA, less than 10 ng/ml R97.20 ; Chronic obstructive pulmonary disease, unspecified COPD type J44.9 ; Encounter for immunization Z23 and 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 [facility] [address] [address] Feb, [facility] [address] [address] Dec, [facility] [address] [address] Nov, Chronic atrial fibrillation I48.2 and Elevated PSA R97.20 [facility] [address] [address] Nov, Chronic atrial fibrillation I48.2 ; Hyperlipidemia LDL goal <100 E78.5 ; Essential hypertension I10 ; Dyspnea on exertion R06.09 and Elevated PSA R97.20 [facility] [address] [address] August, 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 ; Bronchitis J40 and Persistent atrial fibrillation I48.[address] [address] August, [facility] [address] [address] May, jail current use of anticoagulant therapy Z79.01 ; Encounter for long-term (current) use of other medications Z79.899 ; Fever, unspecified fever cause R50.9 and Influenza A J10.1 [facility] [address] [address] Apr, [facility] [address] [address] Apr, Elevated prostate specific antigen [PSA] R97.20 [facility] [address] [address] Feb, [facility] [address] [address] Feb, jail current use of anticoagulant therapy Z79.01 ; Atrial fibrillation 427.31 ; Encounter for long-term (current) use of other medications Z79.899 ; Chronic atrial fibrillation I48.2 ; Encounter for immunization Z23 and Actinic keratoses L57.[address] [address] 14 Dec, 2015 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 and Encounter for immunization Z23 [address] [address] Nov, Hemangioma D18.00 and Actinic keratosis L57.[address] [address] Nov, Chronic atrial fibrillation I48.2 ; 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 and Skin lesions L98.[address] [address] Oct, Elevated prostate specific antigen [PSA] R97.2 ; Mixed hyperlipidemia E78.2 and Essential (primary) hypertension I10 [address] [address] August, [address] [address] August, Encounter for long-term (current) use of other medications Z79.899 ; jail current use of anticoagulant therapy Z79.01 and Chronic atrial fibrillation I48.[address] [address] Jul, Unspecified atrial fibrillation I48.91 ; Encounter for long-term (current) use of other medications Z79.899 and 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 [address] Jun, Atrial fibrillation 427.31 ; Encounter for long-term (current) use of other medications Z79.899 and jail current use of anticoagulant therapy Z79.[address] [address] Jun, Unspecified atrial fibrillation I48.91 ; Encounter for long-term (current) use of other medications Z79.899 ; 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 and Community acquired bacterial pneumonia J15.9 [facility] [address] [address] Jun, Community acquired bacterial pneumonia J15.[address] [address] May, Chronic atrial fibrillation I48.2 ; Encounter for long-term (current) use of other medications Z79.899 and jail current use of anticoagulant therapy Z79.[address] [address] Apr, Elevated prostate specific antigen [PSA] R97.[address] [address] Feb, Chronic atrial fibrillation I48.2 ; 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 and Encounter for long-term (current) use of other medications Z79.[address] [address] Dec, Atrial fibrillation 427.31 and jail (current) use of anticoagulants V58.[address] [address] Sep, [address] [address] Sep, Atrial fibrillation 427.31 ; Elevated PSA 790.93 ; Benign prostate hyperplasia 600.00 and Renal insufficiency 593.[address] [address] Sep, Atrial fibrillation 427.31 ; Essential hypertension, benign 401.1 ; Elevated prostate specific antigen (PSA) 790.93 and Mixed hyperlipidemia [id number] [address] Jul, [facility] [address] [place] [id number] [address] Jul, [place] [id number] [address] Jun, [facility] [place] [address] [place] [address] Jun, [facility] [id number] [address] Apr, [facility] [place] [address] [place] [address] Apr, [facility] [place] [address] [place] [address] Mar, [facility] [id number] [address] Mar, [facility] [place] [address] [place] [address] Mar, [facility] [id number] [address] Mar, [facility] [id number] [address] Feb, [facility] [place] [address] [place] [address] Feb, [facility] [id number] [address] Jan, [facility] [place] [address] [place] [address] Jan, [facility] [id number] [address] Dec, [facility] [place] [address] [place] [address] Dec, [facility] [id number] [address] Oct, [facility] [place] [address] [place] [address] Oct, [facility] [place] [address] [place] [address] Oct, [facility] [id number] [address] Oct, [facility] [place] [address] [place] [address] Sep, [facility] [id number] [address] Sep, [facility] [id number] [address] August, [facility] [place] [address] [place] [address] August, [facility] [id number] [address] August, [facility] [id number] [address] August, [facility] [place] [address] [place] [address] August, [facility] [place] [address] [place] [address] August, [facility] [id number] [address] August, [facility] [place] [address] [place] [address] Jul, [facility] [id number] [address] Jul, [facility] [place] [address] [place] [address] Jul, [facility] [id number] [address] Jul, [facility] [place] [address] [place] [address] May, [facility] [id number] [address] May, [facility] [place] [address] [place] [address] Apr, [facility] [address] [address] Apr, [facility] [place] [address] [place] [address] Mar, [facility] [address] [address] Mar, [facility] [place] [address] [place] [address] Feb, [facility] [address] [place] [address] [place] [address] Feb, [facility] [address] [place] [address] [address] Feb, [facility] [address] [place] [address] [address] Feb, [facility] [place] [address] [place] [address] Feb, [facility] [place] [address] [place] [address] Feb, [facility] [place] [address] [place] [address] Jan, [facility] [address] [place] [address]100[place] [address] Jan, [facility] [place] [address] [place] [address] Dec, [facility] [address] [place] [address] Dec, IMMUNIZATIONS No Known Immunizations SOCIAL HISTORY Never Assessed REASON FOR VISIT Qvar discontinued PLAN OF CARE VITAL SIGNS MEDICATIONS Unknown [...] tonsillectomy 1950 Surgical History orthopedic surgery; jaw 1968 Surgical History heart cath 2017 Surgical History oral surgery -2017 Hospitalization History Surgery(s) only
--- OUTSIDE RECORDS SUMMARY | 2018-06-27 07:07 | XMS REPORT ---
Author Author KASIE CHAPMAN Organization [facility] [address] Address [address] [place] [address] Care Team Providers Care Casing Wringer Operator Name Role Phone KASIE CHAPMAN Unavailable PROBLEMS Type Condition ICD9-CM Code ZGX57-SC Code Onset Dates Condition Status SNOMED Code Problem detention current use of anticoagulant therapy Z79.01 Active 951724789 Problem Persistent atrial fibrillation I48.1 Active 798659868 Problem Chronic atrial fibrillation I48.2 Active 410795483 Problem Mixed hyperlipidemia E78.2 Active 991433876 Problem Essential (primary) hypertension I10 Active 62782531 Problem Elevated prostate specific antigen [PSA] R97.2 Active 142263969 Problem 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 081846719 Problem Unspecified atrial fibrillation I48.91 Active 21930929 Problem Hyperlipidemia LDL goal <100 E78.5 Active 12657411 Problem Essential hypertension I10 Active 61775982 Problem Obstructive sleep apnea G47.33 Active 13982216 Problem Chronic obstructive pulmonary disease, unspecified COPD type J44.9 Active 16003864 ALLERGIES No Information ENCOUNTERS Encounter Location Date Diagnosis [facility] [address] [place] [address] Nov, Medicare annual wellness visit, initial Z00.00 ; Screening for colon cancer Z12.11 ; Screening for osteoporosis Z13.820 ; Essential (primary) hypertension I10 and Encounter for immunization [facility] [address] [place] [address] Nov, [facility] [address] [place] [address] Oct, detention current use of anticoagulant therapy Z79.01 [facility] [address] [place] [address] Oct, Chronic atrial fibrillation I48.2 ; Essential hypertension I10 and Elevated prostate specific antigen [PSA] R97.2 [facility] [address] [place] [address] 29 Sep, 2017 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 [facility] [place] [address] [place] [address] 22 Sep, 2017 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 [facility] [place] [address] [place] [address] 20 Sep, 2017 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 and Chronic atrial fibrillation I48.2 [facility] [place] [address] [place] [address] 18 Sep, 2017 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 [facility] [place] [address] [place] [address] 15 Sep, 2017 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 [facility] [place] [address] [place] [address] 13 Sep, 2017 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 [facility] [place] [address] [place] [address] Sep, Chronic obstructive pulmonary disease, unspecified COPD type J44.9 [facility] [place] [address] [place] [address] Sep, detention current use of anticoagulant therapy Z79.01 [facility] [place] [address] [place] [address] Sep, 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 [facility] [place] [address] [place] [address] Sep, [facility] [address] [place] [address] August, 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 [facility] [place] [address] [place] [address] August, [facility] [address] [place] [address] August, detention current use of anticoagulant therapy Z79.01 [facility] [place] [address] [place] [address] August, detention current use of anticoagulant therapy Z79.01 [facility] [place] [address] [place] [address] Jul, detention current use of anticoagulant therapy Z79.01 [facility] [place] [address] [place] [address] Jul, detention current use of anticoagulant therapy Z79.01 [facility] [place] [address] [place] [address] Jul, 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 [facility] [place] [address] [place] [address] Jul, 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 [facility] [place] [address] [place] [address] Jul, 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 [facility] [place] [address] [place] [address] Jul, 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 [facility] [place] [address] [place] [address] Jul, [facility] [place] [address] [place] [address] Jun, Unspecified atrial fibrillation I48.91 [facility] [address] [place] [address] [place] [address] 13 May, 2017 Unspecified atrial fibrillation I48.[address] [address] 12 May, 2017 Chronic atrial fibrillation I48.2 ; BMI 40.0-44.9, adult Z68.41 ; Hyperlipidemia LDL goal <100 E78.5 ; detention current use of anticoagulant therapy Z79.01 ; Essential hypertension I10 ; Obstructive sleep apnea G47.33 ; Elevated PSA, less than 10 ng/ml R97.20 and Chronic obstructive pulmonary disease, unspecified COPD type J44.[address] [address] Apr, [address] [address] Apr, Elevated PSA R97.20 [facility] [id number] [address] Apr, Mild persistent asthma, unspecified whether complicated J45.[address] [address] Apr, Chronic obstructive pulmonary disease, unspecified COPD type J44.[address] [address] Mar, [address] [address] Mar, [address] [address] Mar, [address] [address] Mar, Chronic atrial fibrillation I48.2 ; Hyperlipidemia LDL goal <100 E78.5 ; Essential hypertension I10 ; Obstructive sleep apnea G47.33 ; Has stopped breathing R06.81 ; Elevated PSA, less than 10 ng/ml R97.20 ; Chronic obstructive pulmonary disease, unspecified COPD type J44.9 ; Encounter for immunization Z23 and detention current use of anticoagulant therapy Z79.[address] [address] Feb, [facility] [address] [address] Dec, [facility] [address] [address] Nov, Chronic atrial fibrillation I48.2 and [facility]vated PSA R97.20 [facility] [address] [place] [address] Nov, Chronic atrial fibrillation I48.2 ; Hyperlipidemia LDL goal <100 E78.5 ; Essential hypertension I10 ; Dyspnea on exertion R06.09 and Elevated PSA R97.20 [facility] [address] [address] August, detention current use of anticoagulant therapy Z79.01 ; Bronchitis J40 and Persistent atrial fibrillation I48.1 [facility] [address] [address] August, [facility] [address] [address] May, 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 ; Encounter for long-term (current) use of other medications Z79.899 ; Fever, unspecified fever cause R50.9 and Influenza A J10.1 [facility] [address] [address] Apr, [facility] [address] [address] Apr, Elevated prostate specific antigen [PSA] R97.[address] [address] Feb, [facility] [address] [address] 16 Feb, 2016 detention current use of anticoagulant therapy Z79.01 ; Atrial fibrillation 427.31 ; Encounter for long-term (current) use of other medications Z79.899 ; Chronic atrial fibrillation I48.2 ; Encounter for immunization Z23 and Actinic keratoses L57.0 [facility] [address] [address] 14 Dec, 2015 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 and Encounter for immunization Z23 [address] [address] Nov, Hemangioma D18.00 and Actinic keratosis L57.[address] [address] Nov, Chronic atrial fibrillation I48.2 ; detention current use of anticoagulant therapy Z79.01 and Skin lesions L98.[address] [address] Oct, Elevated prostate specific antigen [PSA] R97.2 ; Mixed hyperlipidemia E78.2 and Essential (primary) hypertension I10 [address] [address] August, [address] [address] August, Encounter for long-term (current) use of other medications Z79.899 ; detention current use of anticoagulant therapy Z79.01 and Chronic atrial fibrillation I48.[address] [address] Jul, Unspecified atrial fibrillation I48.91 ; Encounter for long-term (current) use of other medications Z79.899 and 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 [address] Jun, Atrial fibrillation 427.31 ; Encounter for long-term (current) use of other medications Z79.899 and detention current use of anticoagulant therapy Z79.[address] [address] Jun, Unspecified atrial fibrillation I48.91 ; Encounter for long-term (current) use of other medications Z79.899 ; detention current use of anticoagulant therapy Z79.01 and Community acquired bacterial pneumonia J15.[address] [address] Jun, Community acquired bacterial pneumonia J15.[address] [address] May, Chronic atrial fibrillation I48.2 ; Encounter for long-term (current) use of other medications Z79.899 and detention current use of anticoagulant therapy Z79.01 [facility] [address] [address] Apr, Elevated prostate specific antigen [PSA] R97.[address] [address] Feb, Chronic atrial fibrillation I48.2 ; detention current use of anticoagulant therapy Z79.01 and Encounter for long-term (current) use of other medications Z79.[address] [address] Dec, Atrial fibrillation 427.31 and terminal make up operator (current) use of anticoagulants V58.[address] [address] Sep, [address] [address] Sep, Atrial fibrillation 427.31 ; Elevated PSA 790.93 ; Benign prostate hyperplasia 600.00 and Renal insufficiency 593.[address] [address] Sep, Atrial fibrillation 427.31 ; Essential hypertension, benign 401.1 ; Elevated prostate specific antigen (PSA) 790.93 and Mixed hyperlipidemia 272.[address] [place] [address] Jul, [place] [id number] [place] [address] Jul, [place] [id number] [place] [address] Jun, [address] [address] Jun, [address] [place] [address] Apr, [address] [address] Apr, [facility] [address] [place] [address] Mar, [facility] [address] [address] Mar, [facility] [place] [address] [place] [address] Mar, [facility] [id number], [place] [address] Mar, [facility] [id number] [place] [address] Feb, [facility] [place] [address] [place] [address] Feb, [facility] [id number], [place] [address] Jan, [facility] [place] [address] [place] [address] Jan, [facility] [id number] [address] Dec, [facility] [place] [address] [place] [address] Dec, [facility] [id number] [address] Oct, [facility] [place] [address] [place] [address] Oct, [facility] [place] [address] [place] [address] Oct, [facility] [id number] [address] Oct, [facility] [place] [address] [place] [address] Sep, [facility] [id number] [address] Sep, [facility] [address], [place] [address] August, [facility] [address] [place] [address] August, [facility] [id number] [address] August, [facility] [id number] [address] August, [facility] [address] [place] [address] August, [facility] [place] [address] [place] [address] August, [facility] [id number] [address] August, [facility] [address] [place] [address] Jul, [facility] [id number], [place] [address] Jul, [facility] [address] [place] [address] Jul, [facility] [id number] [address] Jul, [facility] [place] [address] [place] [address] May, [facility] [id number] [address] May, [facility] [address] [place] [address] Apr, [facility] [id number] [address] Apr, [facility] [address] [place] [address] Mar, [facility] [id number] [address] Mar, [facility] [address] [place] [address] Feb, [facility] [id number] [address] Feb, [facility] [id number] [address] Feb, [facility] [id number] [address] Feb, [facility] [address] [place] [address] Feb, [facility] [address] [place] [address] Feb, [facility] [place] [address] [place] [address] Jan, [facility] [id number] [address] Jan, [facility] [address] [place] [address] Dec, [facility] [address] [place] [address] Dec, IMMUNIZATIONS No Known Immunizations SOCIAL HISTORY Never Assessed REASON FOR VISIT med refill Qvar PLAN OF CARE VITAL SIGNS MEDICATIONS Medication Instructions Dosage Frequency Start Date End Date Duration Status Qvar 40 MCG/ACT Inhalation Twice a day 2 puff 12h 16 Nov, 2017 Active RESULTS No Results PROCEDURES No Known [...] surgery; jaw 1967 Surgical History heart cath 2017 Surgical History oral surgery -2017 Hospitalization History Surgery(s) only
--- OUTSIDE RECORDS SUMMARY | 2018-06-27 07:07 | XMS REPORT ---
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 Name Role Phone KASIE CHAPMAN Unavailable PROBLEMS Type Condition ICD9-CM Code [id number] Code Onset Dates Condition Status SNOMED Code Problem alf current use of anticoagulant therapy Z79.01 Active 448506137 Problem Persistent atrial fibrillation I48.1 Active 002126327 Problem Chronic atrial fibrillation I48.2 Active 991972019 Problem Mixed hyperlipidemia E78.2 Active 203833943 Problem Essential (primary) hypertension I10 Active 69240480 Problem Elevated prostate specific antigen [PSA] R97.2 Active 547386678 Problem 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 067793503 Problem Unspecified atrial fibrillation I48.91 Active 58980270 Problem Hyperlipidemia LDL goal <100 E78.5 Active 96738818 Problem Essential hypertension I10 Active 71022552 Problem Obstructive sleep apnea G47.33 Active 36291164 Problem Chronic obstructive pulmonary disease, unspecified COPD type J44.9 Active 86499173 ALLERGIES No Information ENCOUNTERS Encounter Location Date Diagnosis [facility] [address] [place] [address] Nov, Medicare annual wellness visit, initial Z00.00 ; Screening for colon cancer Z12.11 ; Screening for osteoporosis Z13.820 ; Essential (primary) hypertension I10 and Encounter for immunization [facility] [address] [place] [address] Nov, [facility] [address] [place] [address] Oct, alf current use of anticoagulant therapy Z79.01 [facility] [address] [place] [address] Oct, Chronic atrial fibrillation I48.2 ; Essential hypertension I10 and Elevated prostate specific antigen [PSA] R97.2 [facility] [address] [place] [address] 29 Sep, 2017 [employer] current use of anticoagulant therapy Z79.01 [facility] [place] [address] [place] [address] 22 Sep, 2017 [employer] current use of anticoagulant therapy Z79.01 [facility] [place] [address] [place] [address] 20 Sep, 2017 [employer] current use of anticoagulant therapy Z79.01 and Chronic atrial fibrillation I48.2 [facility] [place] [address] [place] [address] 18 Sep, 2017 [employer] current use of anticoagulant therapy Z79.01 [facility] [place] [address] [place] [address] 15 Sep, 2017 [employer] current use of anticoagulant therapy Z79.01 [facility] [place] [address] [place] [address] 13 Sep, 2017 [employer] current use of anticoagulant therapy Z79.01 [facility] [place] [address] [place] [address] Sep, Chronic obstructive pulmonary disease, unspecified COPD type J44.9 [facility] [place] [address] [place] [address] Sep, alf current use of anticoagulant therapy Z79.01 [facility] [place] [address] [place] [address] Sep, [employer] current use of anticoagulant therapy Z79.01 [facility] [place] [address] [place] [address] Sep, [facility] [place] [address] [place] [address] August, [employer] current use of anticoagulant therapy Z79.01 [facility] [place] [address] [place] [address] August, [facility] [place] [address] [place] [address] August, alf current use of anticoagulant therapy Z79.01 [facility] [place] [address] [place] [address] August, alf current use of anticoagulant therapy Z79.01 [facility] [place] [address] [place] [address] Jul, alf current use of anticoagulant therapy Z79.01 [facility] [place] [address] [place] [address] Jul, alf current use of anticoagulant therapy Z79.01 [facility] [place] [address] [place] [address] Jul, [employer] current use of anticoagulant therapy Z79.01 [facility] [place] [address] [place] [address] Jul, [employer] current use of anticoagulant therapy Z79.01 [facility] [place] [address] [place] [address] Jul, 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 [facility] [place] [address] [place] [address] Jul, Chronic obstructive pulmonary disease, unspecified COPD type J44.9 [facility] [address] [place] [address] Jul, [employer] current use of anticoagulant therapy Z79.01 [facility] [place] [address] [place] [address] Jul, [facility] [place] [address] [place] [address] Jul, Bleeding from mouth K13.79 and Lip lesion K13.0 [facility] [place] [address] [place] [address] Jul, [employer] current use of anticoagulant therapy Z79.01 [facility] [place] [address] [place] [address] Jul, [employer] current use of anticoagulant therapy Z79.01 [facility] [place] [address] [place] [address] Jul, [facility] [place] [address] [place] [address] Jun, Unspecified atrial fibrillation I48.91 [facility] [place] [address] [place] [address] [place] [address] 13 May, 2017 Unspecified atrial fibrillation I48.[address] [address] 12 May, 2017 Chronic atrial fibrillation I48.2 ; BMI 40.0-44.9, adult Z68.41 ; Hyperlipidemia LDL goal <100 E78.5 ; alf current use of anticoagulant therapy Z79.01 ; Essential hypertension I10 ; Obstructive sleep apnea G47.33 ; Elevated PSA, less than 10 ng/ml R97.20 and Chronic obstructive pulmonary disease, unspecified COPD type J44.[address] [address] Apr, [address] [address] Apr, Elevated PSA R97.20 [facility] [id number] [place] [address] Apr, Mild persistent asthma, unspecified whether complicated J45.[address] [address] Apr, Chronic obstructive pulmonary disease, unspecified COPD type J44.[address] [address] Mar, [address] [address] Mar, [address] [address] Mar, [address] [address] Mar, Chronic atrial fibrillation I48.2 ; Hyperlipidemia LDL goal <100 E78.5 ; Essential hypertension I10 ; Obstructive sleep apnea G47.33 ; Has stopped breathing R06.81 ; Elevated PSA, less than 10 ng/ml R97.20 ; Chronic obstructive pulmonary disease, unspecified COPD type J44.9 ; Encounter for immunization Z23 and alf current use of anticoagulant therapy Z79.[address] [address] Feb, [facility] [address] [address] Dec, [facility] [address] [address] Nov, Chronic atrial fibrillation I48.2 and Elevated PSA R97.20 [facility] [place] [address] [place] [address] Nov, Chronic atrial fibrillation I48.2 ; Hyperlipidemia LDL goal <100 E78.5 ; Essential hypertension I10 ; Dyspnea on exertion R06.09 and Elevated PSA R97.20 [facility] [address] [address] August, alf current use of anticoagulant therapy Z79.01 ; Bronchitis J40 and Persistent atrial fibrillation I48.1 [facility] [address] [address] August, [facility] [address] [address] May, [employer] current use of anticoagulant therapy Z79.01 ; Encounter for long-term (current) use of other medications Z79.899 ; Fever, unspecified fever cause R50.9 and Influenza A J10.1 [facility] [address] [address] Apr, [facility] [address] [address] Apr, Elevated prostate specific antigen [PSA] R97.[address] [address] Feb, [facility] [address] [address] 16 Feb, 2016 alf current use of anticoagulant therapy Z79.01 ; Atrial fibrillation 427.31 ; Encounter for long-term (current) use of other medications Z79.899 ; Chronic atrial fibrillation I48.2 ; Encounter for immunization Z23 and Actinic keratoses L57.0 [facility] [address] [address] 14 Dec, 2015 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 and Encounter for immunization Z23 [address] [address] Nov, Hemangioma D18.00 and Actinic keratosis L57.[address] [address] Nov, Chronic atrial fibrillation I48.2 ; alf current use of anticoagulant therapy Z79.01 and Skin lesions L98.[address] [address] Oct, Elevated prostate specific antigen [PSA] R97.2 ; Mixed hyperlipidemia E78.2 and Essential (primary) hypertension I10 [address] [address] August, [address] [address] August, Encounter for long-term (current) use of other medications Z79.899 ; alf current use of anticoagulant therapy Z79.01 and Chronic atrial fibrillation I48.[address] [address] Jul, Unspecified atrial fibrillation I48.91 ; Encounter for long-term (current) use of other medications Z79.899 and [employer] current use of anticoagulant therapy Z79.[address] [address] Jun, Atrial fibrillation 427.31 ; Encounter for long-term (current) use of other medications Z79.899 and alf current use of anticoagulant therapy Z79.[address] [address] Jun, Unspecified atrial fibrillation I48.91 ; Encounter for long-term (current) use of other medications Z79.899 ; alf current use of anticoagulant therapy Z79.01 and Community acquired bacterial pneumonia J15.[address] [address] Jun, Community acquired bacterial pneumonia J15.[address] [address] May, Chronic atrial fibrillation I48.2 ; Encounter for long-term (current) use of other medications Z79.899 and alf current use of anticoagulant therapy Z79.01 [facility] [address] [address] Apr, Elevated prostate specific antigen [PSA] R97.[address] [address] Feb, Chronic atrial fibrillation I48.2 ; alf current use of anticoagulant therapy Z79.01 and Encounter for long-term (current) use of other medications Z79.[address] [address] Dec, Atrial fibrillation 427.31 and [employer] (current) use of anticoagulants V58.[address] [address] Sep, [address] [address] Sep, Atrial fibrillation 427.31 ; Elevated PSA 790.93 ; Benign prostate hyperplasia 600.00 and Renal insufficiency 593.[address] [address] Sep, Atrial fibrillation 427.31 ; Essential hypertension, benign 401.1 ; Elevated prostate specific antigen (PSA) 790.93 and Mixed hyperlipidemia 272.[address] [place] [address] Jul, [place] [id number] [place] [address] Jul, [place] [id number] [place] [address] [address] Jun, [address] [address] Jun, [address] [place] [address] Apr, [address] [address] Apr, [facility] [place] [address] [place] [facility] [place] [address] Mar, [facility] [address] [address] Mar, [facility] [place] [address] [place] [address] Mar, [facility] [address], [place] [address] Mar, [facility] [address] [id number] [place] [address] Feb, [facility] [place] [address] [place] [address] Feb, [facility] [address] [address] Jan, [facility] [place] [address] [place] [address] Jan, [facility] [id number], [place] [address] Dec, [facility] [place] [address] [place] [address] Dec, [facility] [id number], [place] [address] Oct, [facility] [place] [address] [place] [address] Oct, [facility] [place] [address] [place] [address] Oct, [facility] [id number] [address] Oct, [facility] [place] [address] [place] [address] Sep, [facility] [id number], [place] [address] Sep, [facility] [address], [place] [address] August, [facility] [place] [address] [place] [address] August, [facility] [id number], [place] [address] August, [facility] [id number], [place] [address] August, [facility] [place] [address] [place] [address] August, [facility] [place] [address] [place] [address] August, [facility] [id number], [place] [address] August, [facility] [place] [address] [place] [address] Jul, [facility] [address], [place] [address] Jul, [facility] [place] [address] [place] [address] Jul, [facility] [id number], [place] [address] Jul, [facility] [place] [address] [place] [address] May, [facility] [id number], [place] [address] May, [facility] [place] [address] [place] [address] Apr, [facility] [id number], [place] [address] Apr, [facility] [place] [address] [place] [address] Mar, [facility] [id number], [place] [address] Mar, [facility] [place] [address] [place] [address] Feb, [facility] [id number], [place] [address] Feb, [facility] [id number], [place] [address] Feb, [facility] [address] [id number], [place] [address] Feb, [facility] [place] [address] [place] [address] Feb, [facility] [place] [address] [place] [address] Feb, [facility] [place] [address] [place] [address] Jan, [facility] [address] [place] [address] [address] Jan, [facility] [place] [address] [place] [address] Dec, [facility] [place] [address] [place] [address] Dec, IMMUNIZATIONS No Known Immunizations SOCIAL HISTORY Never Assessed REASON FOR VISIT INR. KMillerLPN PLAN OF CARE Activity Details Follow Up prn Reason: VITAL SIGNS MEDICATIONS Unknown Medications RESULTS Name Result Date Reference Range INR (IN HOUSE) INR 3.2 1.10 - 3.30 PREVIOUS INR 3.1 CURRENT COUMADIN DOSE 6mg QD NEW COUMADIN DOSE Lot # [id number] Exp date 11/06/18 PROCEDURES Procedure Date Ordered Result Body Site PROTHROMBIN TIME November 05, 2017 INSTRUCTIONS MEDICATIONS ADMINISTERED No Known Medications [...]
--- OUTSIDE RECORDS SUMMARY | 2018-06-27 07:07 | XMS REPORT ---
Author Author KSAIE CHAPMAN Organization [facility] [address] Address [address] [place] [address] Care Team Providers Care [facility] Location Manager Name Role Phone KASIE CHAPMAN Unavailable PROBLEMS Type Condition ICD9-CM Code IGW46-AD Code Onset Dates Condition Status SNOMED Code Problem longterm current use of anticoagulant therapy Z79.01 Active 286706492 Problem Persistent atrial fibrillation I48.1 Active 039584164 Problem Chronic atrial fibrillation I48.2 Active 476260401 Problem Mixed hyperlipidemia E78.2 Active 983262021 Problem Essential (primary) hypertension I10 Active 39257075 Problem Elevated prostate specific antigen [PSA] R97.2 Active 884486436 Problem 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 051940414 Problem Unspecified atrial fibrillation I48.91 Active 93111122 Problem Hyperlipidemia LDL goal <100 E78.5 Active 04605438 Problem Essential hypertension I10 Active 34975226 Problem Obstructive sleep apnea G47.33 Active 76323944 Problem Chronic obstructive pulmonary disease, unspecified COPD type J44.9 Active 97753402 ALLERGIES No Information ENCOUNTERS Encounter Location Date Diagnosis [facility] [address] [place] [id number] Nov, Medicare annual wellness visit, initial Z00.00 ; Screening for colon cancer Z12.11 ; Screening for osteoporosis Z13.820 ; Essential (primary) hypertension I10 and Encounter for immunization Z23 [facility] [address] [place] [address] Nov, [facility] [address] [place] [address] Oct, longterm current use of anticoagulant therapy Z79.01 [facility] [address] [place] [address] Oct, Chronic atrial fibrillation I48.2 ; Essential hypertension I10 and Elevated prostate specific antigen [PSA] R97.2 [facility] [address] [place] [address] 29 Sep, 2017 longterm current use of anticoagulant therapy Z79.01 [facility] [address] [place] [address] Sep, 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 [facility] [address] [place] [address] 20 Sep, 2017 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 and Chronic atrial fibrillation I48.2 [facility] [address] [place] [address] 18 Sep, 2017 longterm current use of anticoagulant therapy Z79.01 [facility] [address] [place] [address] 15 Sep, 2017 longterm current use of anticoagulant therapy Z79.01 [facility] [address] [place] [address] 13 Sep, 2017 longterm current use of anticoagulant therapy Z79.01 [facility] [address] [place] [address] Sep, Chronic obstructive pulmonary disease, unspecified COPD type J44.9 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 [facility] [address] [place] [address] August, [facility] [address] [place] [address] August, longterm current use of anticoagulant therapy Z79.01 [facility] [address] [place] [address] August, 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 [facility] [address] [place] [address] Jul, longterm current use of anticoagulant therapy Z79.01 [facility] [address] [place] [address] Jul, longterm current use of anticoagulant therapy Z79.01 [facility] [address] [place] [address] Jul, 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 [facility] [address] [place] [address] 16 Jul, 2017 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 [facility] [address] [place] [address] Jul, 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 [address] Jul, Chronic obstructive pulmonary disease, unspecified COPD type J44.[address] [address] Jul, 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 [address] Jul, [address] [address] Jul, Bleeding from mouth K13.79 and Lip lesion K13.[address] [address] Jul, 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 [address] Jul, longterm current use of anticoagulant therapy Z79.[address] [address] Jul, [address] [address] Jun, Unspecified atrial fibrillation I48.[address] [address] May, Unspecified atrial fibrillation I48.[address] [address] May, Chronic atrial fibrillation I48.2 ; BMI 40.0-44.9, adult Z68.41 ; Hyperlipidemia LDL goal <100 E78.5 ; 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 ; Essential hypertension I10 ; Obstructive sleep apnea G47.33 ; Elevated PSA, less than 10 ng/ml R97.20 and Chronic obstructive pulmonary disease, unspecified COPD type J44.[address] [address] Apr, [address] [address] Apr, Elevated PSA R97.20 [facility] [address] [id number] [place] [address] Apr, Mild persistent asthma, unspecified whether complicated J45.[address] [address] Apr, Chronic obstructive pulmonary disease, unspecified COPD type J44.[address] [address] Mar, [address] [address] Mar, [address] [address] Mar, [address] [address] Mar, Chronic atrial fibrillation I48.2 ; Hyperlipidemia LDL goal <100 E78.5 ; Essential hypertension I10 ; Obstructive sleep apnea G47.33 ; Has stopped breathing R06.81 ; Elevated PSA, less than 10 ng/ml R97.20 ; Chronic obstructive pulmonary disease, unspecified COPD type J44.9 ; Encounter for immunization Z23 and 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 [address] Feb, [address] [address] Dec, [address] [address] Nov, Chronic atrial fibrillation I48.2 and Elevated PSA R97.[address] [address] Nov, Chronic atrial fibrillation I48.2 ; Hyperlipidemia LDL goal <100 E78.5 ; Essential hypertension I10 ; Dyspnea on exertion R06.09 and Elevated PSA R97.[address] [address] August, 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 ; Bronchitis J40 and Persistent atrial fibrillation I48.[address] [address] August, [address] [address] May, longterm current use of anticoagulant therapy Z79.01 ; Encounter for long-term (current) use of other medications Z79.899 ; Fever, unspecified fever cause R50.9 and Influenza A J10.[address] [address] Apr, [address] [address] Apr, Elevated prostate specific antigen [PSA] R97.[address] [address] Feb, [address] [address] Feb, longterm current use of anticoagulant therapy Z79.01 ; Atrial fibrillation 427.31 ; Encounter for long-term (current) use of other medications Z79.899 ; Chronic atrial fibrillation I48.2 ; Encounter for immunization Z23 and Actinic keratoses L57.[address] [address] Dec, 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 and Encounter for immunization Z23 [address] [address] Nov, Hemangioma D18.00 and Actinic keratosis L57.[address] [address] Nov, Chronic atrial fibrillation I48.2 ; 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 and Skin lesions L98.[address] [address] Oct, Elevated prostate specific antigen [PSA] R97.2 ; Mixed hyperlipidemia E78.2 and Essential (primary) hypertension I10 [address] [address] August, [address] [address] August, Encounter for long-term (current) use of other medications Z79.899 ; longterm current use of anticoagulant therapy Z79.01 and Chronic atrial fibrillation I48.[address] [address] Jul, Unspecified atrial fibrillation I48.91 ; Encounter for long-term (current) use of other medications Z79.899 and longterm current use of anticoagulant therapy Z79.[address] [address] Jun, Atrial fibrillation 427.31 ; Encounter for long-term (current) use of other medications Z79.899 and 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 [address] Jun, Unspecified atrial fibrillation I48.91 ; Encounter for long-term (current) use of other medications Z79.899 ; longterm current use of anticoagulant therapy Z79.01 and Community acquired bacterial pneumonia J15.[address] [address] Jun, Community acquired bacterial pneumonia J15.[address] [address] May, Chronic atrial fibrillation I48.2 ; Encounter for long-term (current) use of other medications Z79.899 and longterm current use of anticoagulant therapy Z79.[address] [address] Apr, Elevated prostate specific antigen [PSA] R97.[address] [address] Feb, Chronic atrial fibrillation I48.2 ; longterm current use of anticoagulant therapy Z79.01 and Encounter for long-term (current) use of other medications Z79.[address] [address] Dec, Atrial fibrillation 427.31 and longterm (current) use of anticoagulants V58.[address] [address] Sep, [address] [address] Sep, Atrial fibrillation 427.31 ; Elevated PSA 790.93 ; Benign prostate hyperplasia 600.00 and Renal insufficiency 593.[address] [address] Sep, Atrial fibrillation 427.31 ; Essential hypertension, benign 401.1 ; Elevated prostate specific antigen (PSA) 790.93 and Mixed hyperlipidemia 272.2 [place] [id number] [place] [address] 14 Jul, 2014 [place] [id number] [place] [address] 13 Jul, 2014 [place] [id number] [place] [address] 16 Jun, [address] [address] Jun, [place] [id number] [place] [address] 15 Apr, [address] [address] Apr, [address] [address] Mar, [place] [id number] [place] [address] Mar, [address] [address] Mar, [place] [id number] [place] [address] Mar, [address] [address] Feb, [facility] [address] [facility] [place] [address] Feb, [facility] [address] [facility] [id number] [address] Jan, [facility] [address] [facility] [place] [address] Jan, [facility] [address] [facility] [id number] [address] Dec, [facility] [address] [facility] [place] [address] Dec, [facility] [address] [facility] [id number] [address] Oct, [facility] [address] [place] [address] Oct, [facility] [address] [place] [address] Oct, [facility] [address] [id number] [address] Oct, [facility] [address] [place] [address] Sep, [facility] [address] [id number] [address] Sep, [facility] [address] [id number] [address] August, [facility] [address] [place] [address] August, [facility] [address] [facility] [id number] [address] August, [facility] [address] [facility] [id number] [address] August, [facility] [address] [facility] [place] [address] August, [facility] [address] [facility] [place] [address] August, [facility] [address] [facility] [id number][place] [address] August, [facility] [address] [place] [address] Jul, [facility] [address] [facility] [id number] [address] Jul, [facility] [address] [place] [address] Jul, [facility] [address] [id number] [address] Jul, [facility] [address] [place] [address] May, [facility] [address] [id number] [address] May, [facility] [address] [place] [address] Apr, [facility] [address] [id number] [address] Apr, [facility] [address] [place] [address] Mar, [facility] [address] [id number] [address] Mar, [facility] [address] [place] [address] Feb, [facility] [address] [id number] [address] Feb, [facility] [address] [id number] [address] Feb, [facility] [address] [id number] [address] Feb, [facility] [address] [place] [address] 14 Feb, 2013 [facility] [address] [place] [address] Feb, [facility] [address] [place] [address] Jan, [facility] [address] [facility] [id number] [place] [address] Jan, [facility] [address] [place] [address] Dec, [facility] [address] [place] [address] Dec, IMMUNIZATIONS No Known Immunizations SOCIAL HISTORY Never Assessed REASON FOR VISIT Lab (walk-in). [place] PLAN OF CARE Activity Details Follow Up prn Reason: VITAL SIGNS MEDICATIONS Unknown Medications RESULTS No Results PROCEDURES Procedure Date Ordered Result Body Site LAB NOT BILLED BY [facility] October 15, 2017 VENIPUNCT, ROUTINE* October 15, 2017 INSTRUCTIONS MEDICATIONS ADMINISTERED No Known Medications [...]
--- OUTSIDE RECORDS SUMMARY | 2018-06-27 07:08 | XMS REPORT ---
Author Author KASIE CHAPMAN Organization [facility] [address] [place] [address] Care Team Providers Care New Product Trainer Name Role Phone KASIE CHAPMAN Unavailable PROBLEMS Type Condition ICD9-CM Code [id number] Code Onset Dates Condition Status SNOMED Code Problem skilled nursing current use of anticoagulant therapy Z79.01 Active 370590794 Problem Persistent atrial fibrillation I48.1 Active 207087017 Problem Chronic atrial fibrillation I48.2 Active 773643367 Problem Mixed hyperlipidemia E78.2 Active 934325130 Problem Essential (primary) hypertension I10 Active 93465648 Problem Elevated prostate specific antigen [PSA] R97.2 Active 994538797 Problem 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 825761617 Problem Unspecified atrial fibrillation I48.91 Active 37517070 Problem Hyperlipidemia LDL goal <100 E78.5 Active 89740366 Problem Essential hypertension I10 Active 45146769 Problem Obstructive sleep apnea G47.33 Active 32797692 Problem Chronic obstructive pulmonary disease, unspecified COPD type J44.9 Active 47427336 ALLERGIES No Information ENCOUNTERS Encounter Location Date Diagnosis [facility] [address] [place] [address] Nov, Medicare annual wellness visit, initial Z00.00 ; Screening for colon cancer Z12.11 ; Screening for osteoporosis Z13.820 ; Essential (primary) hypertension I10 and Encounter for immunization Z23 [facility] [address] [place] [address] Nov, [facility] [address] [place] [address] Oct, skilled nursing current use of anticoagulant therapy Z79.01 [facility] [address] [place] [address] Oct, Chronic atrial fibrillation I48.2 ; Essential hypertension I10 and Elevated prostate specific antigen [PSA] R97.2 [facility] [address] [place] [address] 29 Sep, 2017 skilled nursing current use of anticoagulant therapy Z79.01 [facility] [address] [place] [address] Sep, 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 [facility] [address] [place] [address] 20 Sep, 2017 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 and Chronic atrial fibrillation I48.2 [facility] [address] [place] [address] 18 Sep, 2017 skilled nursing current use of anticoagulant therapy Z79.01 [facility] [address] [place] [address] 15 Sep, 2017 skilled nursing current use of anticoagulant therapy Z79.01 [facility] [address] [place] [address] 13 Sep, 2017 skilled nursing current use of anticoagulant therapy Z79.01 [facility] [address] [place] [address] Sep, Chronic obstructive pulmonary disease, unspecified COPD type J44.9 [facility] [address] [place] [address] Sep, skilled nursing current use of anticoagulant therapy Z79.01 [facility] [address] [place] [address] Sep, skilled nursing current use of anticoagulant therapy Z79.01 [facility] [address] [place] [address] Sep, [facility] [address] [place] [address] August, 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 [facility] [address] [place] [address] August, [facility] [address] [place] [address] August, skilled nursing current use of anticoagulant therapy Z79.01 [facility] [address] [place] [address] August, 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 [facility] [address] [place] [address] Jul, skilled nursing current use of anticoagulant therapy Z79.01 [facility] [address] [place] [address] Jul, skilled nursing current use of anticoagulant therapy Z79.01 [facility] [address] [place] [address] Jul, 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 [facility] [address] [place] [address] 16 Jul, 2017 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 [facility] [address] [place] [address] Jul, 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 [address] Jul, Chronic obstructive pulmonary disease, unspecified COPD type J44.[address] [address] Jul, 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 [address] Jul, [address] [address] Jul, Bleeding from mouth K13.79 and Lip lesion K13.[address] [address] Jul, 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 [address] Jul, skilled nursing current use of anticoagulant therapy Z79.[address] [address] Jul, [address] [address] Jun, Unspecified atrial fibrillation I48.[address] [address] May, Unspecified atrial fibrillation I48.[address] [address] May, Chronic atrial fibrillation I48.2 ; BMI 40.0-44.9, adult Z68.41 ; Hyperlipidemia LDL goal <100 E78.5 ; 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 ; Essential hypertension I10 ; Obstructive sleep apnea G47.33 ; Elevated PSA, less than 10 ng/ml R97.20 and Chronic obstructive pulmonary disease, unspecified COPD type J44.[address] [address] Apr, [address] [address] Apr, Elevated PSA R97.20 [facility] [address] [id number] [address] Apr, Mild persistent asthma, unspecified whether complicated J45.[address] [address] Apr, Chronic obstructive pulmonary disease, unspecified COPD type J44.[address] [address] Mar, [address] [address] Mar, [address] [address] Mar, [address] [address] Mar, Chronic atrial fibrillation I48.2 ; Hyperlipidemia LDL goal <100 E78.5 ; Essential hypertension I10 ; Obstructive sleep apnea G47.33 ; Has stopped breathing R06.81 ; Elevated PSA, less than 10 ng/ml R97.20 ; Chronic obstructive pulmonary disease, unspecified COPD type J44.9 ; Encounter for immunization Z23 and 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 [address] Feb, [address] [address] Dec, [address] [address] Nov, Chronic atrial fibrillation I48.2 and Elevated PSA R97.[address] [address] Nov, Chronic atrial fibrillation I48.2 ; Hyperlipidemia LDL goal <100 E78.5 ; Essential hypertension I10 ; Dyspnea on exertion R06.09 and Elevated PSA R97.[address] [address] August, 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 ; Bronchitis J40 and Persistent atrial fibrillation I48.[address] [address] August, [address] [address] May, skilled nursing current use of anticoagulant therapy Z79.01 ; Encounter for long-term (current) use of other medications Z79.899 ; Fever, unspecified fever cause R50.9 and Influenza A J10.[address] [address] Apr, [address] [address] Apr, Elevated prostate specific antigen [PSA] R97.[address] [address] Feb, [address] [address] Feb, skilled nursing current use of anticoagulant therapy Z79.01 ; Atrial fibrillation 427.31 ; Encounter for long-term (current) use of other medications Z79.899 ; Chronic atrial fibrillation I48.2 ; Encounter for immunization Z23 and Actinic keratoses L57.[address] [address] Dec, 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 and Encounter for immunization Z23 [address] [address] Nov, Hemangioma D18.00 and Actinic keratosis L57.[address] [address] Nov, Chronic atrial fibrillation I48.2 ; 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 and Skin lesions L98.[address] [address] Oct, Elevated prostate specific antigen [PSA] R97.2 ; Mixed hyperlipidemia E78.2 and Essential (primary) hypertension I10 [address] [address] August, [address] [address] August, Encounter for long-term (current) use of other medications Z79.899 ; skilled nursing current use of anticoagulant therapy Z79.01 and Chronic atrial fibrillation I48.[address] [address] Jul, Unspecified atrial fibrillation I48.91 ; Encounter for long-term (current) use of other medications Z79.899 and skilled nursing current use of anticoagulant therapy Z79.[address] [address] Jun, Atrial fibrillation 427.31 ; Encounter for long-term (current) use of other medications Z79.899 and 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 [address] Jun, Unspecified atrial fibrillation I48.91 ; Encounter for long-term (current) use of other medications Z79.899 ; skilled nursing current use of anticoagulant therapy Z79.01 and Community acquired bacterial pneumonia J15.[address] [address] Jun, Community acquired bacterial pneumonia J15.[address] [address] May, Chronic atrial fibrillation I48.2 ; Encounter for long-term (current) use of other medications Z79.899 and skilled nursing current use of anticoagulant therapy Z79.[address] [address] Apr, Elevated prostate specific antigen [PSA] R97.[address] [address] Feb, Chronic atrial fibrillation I48.2 ; skilled nursing current use of anticoagulant therapy Z79.01 and Encounter for long-term (current) use of other medications Z79.[address] [address] Dec, Atrial fibrillation 427.31 and skilled nursing (current) use of anticoagulants V58.[address] [address] Sep, [address] [address] Sep, Atrial fibrillation 427.31 ; Elevated PSA 790.93 ; Benign prostate hyperplasia 600.00 and Renal insufficiency 593.[address] [address] Sep, Atrial fibrillation 427.31 ; Essential hypertension, benign 401.1 ; Elevated prostate specific antigen (PSA) 790.93 and Mixed hyperlipidemia 272.[address] [place] [id number] [place] [address] 14 Jul, [address] [place] [id number] [place] [address] 13 Jul, [address] [place] [id number] [place] [address] 16 Jun, [address] [address] Jun, [place] [id number] [place] [address] 15 Apr, [address] [address] Apr, [address] [address] Mar, [place] [id number] [place] [address] Mar, [address] [address] Mar, [place] [id number] [place] [address] Mar, [address] [address] Feb, [facility] [address] [facility] [place] [address] Feb, [facility] [address] [facility] [id number], [place] [address] Jan, [facility] [address] [facility] [place] [address] Jan, [facility] [address] [facility] [id number] [address] Dec, [facility] [address] [facility] [place] [address] Dec, [facility] [address] [facility] [id number], [place] [address] Oct, [facility] [address] [place] [address] Oct, [facility] [address] [place] [address] Oct, [facility] [address] [place] [id number] [address] Oct, [facility] [address] [place] [address] Sep, [facility] [address] [id number], [place] [address] Sep, [facility] [address] [id number], [place] [address] August, [facility] [address] [place] [address] August, [facility] [address] [facility] [id number], [place] [address] August, [facility] [address] [facility] [id number], [place] [address] August, [facility] [address] [facility] [place] [address] August, [facility] [address] [facility] [place] [address] August, [facility] [address] [facility] [id number], [place] [address] August, [facility] [address] [place] [address] Jul, [facility] [address] [facility] [id number], [place] [address] Jul, [facility] [address] [place] [address] Jul, [facility] [address] [id number], [place] [address] Jul, [facility] [address] [place] [address] May, [facility] [address] [id number], [place] [address] May, [facility] [address] [place] [address] Apr, [facility] [address] [id number], [place] [address] Apr, [facility] [address] [place] [address] Mar, [facility] [address] [id number], [place] [address] Mar, [facility] [address] [place] [address] Feb, [facility] [address] [id number], [place] [address] Feb, [facility] [address] [id number], [place] [address] Feb, [facility] [address] [id number], [place] [address] Feb, [facility] [address] [place] [address] 14 Feb, 2013 [facility] [address] [place] [address] Feb, [facility] [address] [place] [address] Jan, [facility] [address] [facility] [id number] [place] [address] Jan, [facility] [address] [place] [address] Dec, [facility] [address] [place] [address] Dec, IMMUNIZATIONS No Known Immunizations SOCIAL HISTORY Never Assessed REASON FOR VISIT INR 2.5-amorrisonlpn PLAN OF CARE Activity Details Follow Up prn Reason: VITAL SIGNS MEDICATIONS Unknown Medications RESULTS Name Result Date Reference Range INR (IN HOUSE) 2017-09-26 INR 2.5 1.10 - 3.30 PREVIOUS INR 2.3 CURRENT COUMADIN DOSE 6mg QD NEW COUMADIN DOSE Lot # [id number] Exp date 10/06/2018 PROCEDURES Procedure Date Ordered Result Body Site PROTHROMBIN TIME September 26, 2017 INSTRUCTIONS MEDICATIONS ADMINISTERED No Known Medications [...]
--- OUTSIDE RECORDS SUMMARY | 2018-06-27 07:08 | XMS REPORT ---
Author Author KASIE CHAPMAN Organization [facility] [address] [place] [address] Care Team Providers Care Vtc Technician Name Role Phone KASIE CHAPMAN Unavailable PROBLEMS Type Condition ICD9-CM Code SKL25-XB Code Onset Dates Condition Status SNOMED Code Problem senior care current use of anticoagulant therapy Z79.01 Active 195291037 Problem Persistent atrial fibrillation I48.1 Active 865394290 Problem Chronic atrial fibrillation I48.2 Active 934002917 Problem Mixed hyperlipidemia E78.2 Active 867825254 Problem Essential (primary) hypertension I10 Active 78920535 Problem Elevated prostate specific antigen [PSA] R97.2 Active 057775800 Problem 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 [address] [place] [address] Nov, Medicare annual wellness visit, initial Z00.00 ; Screening for colon cancer Z12.11 ; Screening for osteoporosis Z13.820 ; Essential (primary) hypertension I10 and Encounter for immunization Z23 [facility] [address] [place] [phone] Nov, 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 [facility] [address] [place] [address] 20 Sep, 2017 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 and Chronic atrial fibrillation I48.2 [facility] [address] [place] [address] 18 Sep, 2017 senior care current use of anticoagulant therapy Z79.01 [facility] [place] [address] [place] [address] 15 Sep, 2017 senior care current use of anticoagulant therapy Z79.01 [facility] [address] [place] [address] 13 Sep, 2017 senior care current use of anticoagulant therapy Z79.01 [facility] [address] [place] [address] Sep, Chronic obstructive pulmonary disease, unspecified COPD type J44.9 [facility] [address] [place] [address] Sep, senior care current use of anticoagulant therapy Z79.01 [facility] [address] [place] [address] Sep, senior care current use of anticoagulant therapy Z79.01 [facility] [place] [address] [place] [address] Sep, [facility] [address] [place] [address] August, 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 [facility] [address] [place] [address] August, [facility] [address] [place] [address] August, senior care current use of anticoagulant therapy Z79.01 [facility] [place] [address] [place] [address] August, 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 [facility] [address] [place] [address] Jul, senior care current use of anticoagulant therapy Z79.01 [facility] [address] [place] [address] Jul, senior care current use of anticoagulant therapy Z79.01 [facility] [place] [address] [place] [address] Jul, 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 [facility] [address] [place] [address] 16 Jul, 2017 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 [facility] [address] [place] [address] Jul, 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 [address] Jul, Chronic obstructive pulmonary disease, unspecified COPD type J44.[address] [address] Jul, 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 [address] Jul, [address] [address] Jul, Bleeding from mouth K13.79 and Lip lesion K13.[address] [address] Jul, 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 [address] Jul, senior care current use of anticoagulant therapy Z79.[address] [address] Jul, [address] [address] Jun, Unspecified atrial fibrillation I48.[address] [address] May, Unspecified atrial fibrillation I48.[address] [address] May, Chronic atrial fibrillation I48.2 ; BMI 40.0-44.9, adult Z68.41 ; Hyperlipidemia LDL goal <100 E78.5 ; 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 ; Essential hypertension I10 ; Obstructive sleep apnea G47.33 ; Elevated PSA, less than 10 ng/ml R97.20 and Chronic obstructive pulmonary disease, unspecified COPD type J44.[address] [address] Apr, [address] [address] Apr, Elevated PSA R97.20 [facility] [address] [id number] [place] [address] Apr, Mild persistent asthma, unspecified whether complicated J45.[address] [address] Apr, Chronic obstructive pulmonary disease, unspecified COPD type J44.[address] [address] Mar, [address] [address] Mar, [address] [address] Mar, [address] [address] Mar, Chronic atrial fibrillation I48.2 ; Hyperlipidemia LDL goal <100 E78.5 ; Essential hypertension I10 ; Obstructive sleep apnea G47.33 ; Has stopped breathing R06.81 ; Elevated PSA, less than 10 ng/ml R97.20 ; Chronic obstructive pulmonary disease, unspecified COPD type J44.9 ; Encounter for immunization Z23 and 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 [address] Feb, [address] [address] Dec, [address] [address] Nov, Chronic atrial fibrillation I48.2 and Elevated PSA R97.[address] [address] Nov, Chronic atrial fibrillation I48.2 ; Hyperlipidemia LDL goal <100 E78.5 ; Essential hypertension I10 ; Dyspnea on exertion R06.09 and Elevated PSA R97.[address] [address] August, 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 ; Bronchitis J40 and Persistent atrial fibrillation I48.[address] [address] August, [address] [address] May, senior care current use of anticoagulant therapy Z79.01 ; Encounter for long-term (current) use of other medications Z79.899 ; Fever, unspecified fever cause R50.9 and Influenza A J10.[address] [address] Apr, [address] [address] Apr, Elevated prostate specific antigen [PSA] R97.[address] [address] Feb, [address] [address] Feb, senior care current use of anticoagulant therapy Z79.01 ; Atrial fibrillation 427.31 ; Encounter for long-term (current) use of other medications Z79.899 ; Chronic atrial fibrillation I48.2 ; Encounter for immunization Z23 and Actinic keratoses L57.[address] [address] Dec, 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 and Encounter for immunization Z23 [address] [address] Nov, Hemangioma D18.00 and Actinic keratosis L57.[address] [address] Nov, Chronic atrial fibrillation I48.2 ; 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 and Skin lesions L98.[address] [address] Oct, Elevated prostate specific antigen [PSA] R97.2 ; Mixed hyperlipidemia E78.2 and Essential (primary) hypertension I10 [address] [address] August, [address] [address] August, Encounter for long-term (current) use of other medications Z79.899 ; senior care current use of anticoagulant therapy Z79.01 and Chronic atrial fibrillation I48.[address] [address] Jul, Unspecified atrial fibrillation I48.91 ; Encounter for long-term (current) use of other medications Z79.899 and senior care current use of anticoagulant therapy Z79.[address] [address] Jun, Atrial fibrillation 427.31 ; Encounter for long-term (current) use of other medications Z79.899 and 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 [address] Jun, Unspecified atrial fibrillation I48.91 ; Encounter for long-term (current) use of other medications Z79.899 ; senior care current use of anticoagulant therapy Z79.01 and Community acquired bacterial pneumonia J15.[address] [address] Jun, Community acquired bacterial pneumonia J15.[address] [address] May, Chronic atrial fibrillation I48.2 ; Encounter for long-term (current) use of other medications Z79.899 and senior care current use of anticoagulant therapy Z79.[address] [address] Apr, Elevated prostate specific antigen [PSA] R97.[address] [address] Feb, Chronic atrial fibrillation I48.2 ; senior care current use of anticoagulant therapy Z79.01 and Encounter for long-term (current) use of other medications Z79.[address] [address] Dec, Atrial fibrillation 427.31 and senior care (current) use of anticoagulants V58.[address] [address] Sep, [address] [address] Sep, Atrial fibrillation 427.31 ; Elevated PSA 790.93 ; Benign prostate hyperplasia 600.00 and Renal insufficiency 593.[address] [address] Sep, Atrial fibrillation 427.31 ; Essential hypertension, benign 401.1 ; Elevated prostate specific antigen (PSA) 790.93 and Mixed hyperlipidemia 272.[address] [place] [id number] [place] [address] 14 Jul, [address] [place] [id number] [place] [address] 13 Jul, [address] [place] [id number] [place] [address] 16 Jun, [address] [address] Jun, [place] [id number] [place] [address] 15 Apr, [address] [address] Apr, [address] [address] Mar, [place] [id number] [place] [address] Mar, [address] [address] Mar, [place] [id number] [place] [address] Mar, [address] [address] Feb, [facility] [address] [facility] [place] [address] Feb, [facility] [address] [facility] [id number] [address] Jan, [facility] [address] [facility] [place] [address] Jan, [facility] [address] [facility] [id number], [place] [address] Dec, [facility] [address] [facility] [place] [address] Dec, [facility] [address] [facility] [id number], [place] [address] Oct, [facility] [address] [place] [address] Oct, [facility] [address] [place] [address] Oct, [facility] [address] [id number] [address] Oct, [facility] [address] [place] [address] Sep, [facility] [address] [id number], [place] [address] Sep, [facility] [address] [id number], [place] [address] August, [facility] [address] [place] [address] August, [facility] [address] [facility] [id number][place] [address] August, [facility] [address] [facility] [id number], [place] [address] August, [facility] [address] [facility] [place] [address] August, [facility] [address] [place] [address] August, [facility] [address] [facility] [id number], [place] [address] August, [facility] [address] [place] [address] Jul, [facility] [address] [facility] [id number], [place] [address] Jul, [facility] [address] [place] [address] Jul, [facility] [address] [id number], [place] [address] Jul, [facility] [address] [place] [address] May, [facility] [address] [id number], [place] [address] May, [facility] [address] [place] [address] Apr, [facility] [address] [id number], [place] [address] Apr, [facility] [address] [place] [address] Mar, [facility] [address] [id number], [place] [address] Mar, [facility] [address] [place] [address] Feb, [facility] [address] [id number], [place] [address] Feb, [facility] [address] [id number], [place] [address] Feb, [facility] [address] [id number], [place] [address] Feb, [facility] [address] [place] [address] 14 Feb, 2013 [facility] [address] [place] [address] Feb, [facility] [address] [place] [address] Jan, [facility] [address] [facility] [id number] [place] [address] Jan, [facility] [address] [place] [address] Dec, [facility] [address] [place] [address] Dec, IMMUNIZATIONS No Known Immunizations SOCIAL HISTORY Never Assessed REASON FOR VISIT INR check only Zurdo Cabrera RN PLAN OF CARE Activity Details Follow Up 2 Weeks Reason: VITAL SIGNS MEDICATIONS Unknown Medications RESULTS Name Result Date Reference Range INR (IN HOUSE) 2017-10-05 INR 3.1 1.10 - 3.30 PREVIOUS INR 2.5 CURRENT COUMADIN DOSE 6 mg QD NEW COUMADIN DOSE Lot # [id number] Exp date 10/06/18 PROCEDURES Procedure Date Ordered Result Body Site PROTHROMBIN TIME October 05, 2017 INSTRUCTIONS MEDICATIONS ADMINISTERED No Known [...] heart cath 2016 Surgical History oral surgery -2017 Hospitalization History Surgery(s) only
--- OUTSIDE RECORDS SUMMARY | 2018-06-27 07:08 | XMS REPORT ---
Author Author KASIE CHAPMAN Organization [facility] [address] Address [address] [place] [address] Care Team Providers Care Hospice Fellow Name Role Phone KASIE CHAPMAN Unavailable PROBLEMS Type Condition ICD9-CM Code CZG94-RX Code Onset Dates Condition Status SNOMED Code Problem custodial current use of anticoagulant therapy Z79.01 Active 444017892 Problem Persistent atrial fibrillation I48.1 Active 420788031 Problem Chronic atrial fibrillation I48.2 Active 003349745 Problem Mixed hyperlipidemia E78.2 Active 922474080 Problem Essential (primary) hypertension I10 Active 09440768 Problem Elevated prostate specific antigen [PSA] R97.2 Active 480074706 Problem 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 673476505 Problem Unspecified atrial fibrillation I48.91 Active 28390159 Problem Hyperlipidemia LDL goal <100 E78.5 Active 49533912 Problem Essential hypertension I10 Active 03843860 Problem Obstructive sleep apnea G47.33 Active 01904063 Problem Chronic obstructive pulmonary disease, unspecified COPD type J44.9 Active 08145994 ALLERGIES No Information ENCOUNTERS Encounter Location Date Diagnosis [facility] [address] [place] [address] Nov, Medicare annual wellness visit, initial Z00.00 ; Screening for colon cancer Z12.11 ; Screening for osteoporosis Z13.820 ; Essential (primary) hypertension I10 and Encounter for immunization Z23 [facility] [address] [place] [address] Nov, [facility] [address] [place] [address] Oct, custodial current use of anticoagulant therapy Z79.01 [facility] [address] [place] [address] Oct, Chronic atrial fibrillation I48.2 ; Essential hypertension I10 and Elevated prostate specific antigen [PSA] R97.2 [facility] [address] [place] [address] 29 Sep, 2017 custodial current use of anticoagulant therapy Z79.01 [facility] [address] [place] [address] Sep, terminal gauger current use of anticoagulant therapy Z79.01 [facility] [address] [place] [address] 20 Sep, 2017 terminal gauger current use of anticoagulant therapy Z79.01 and Chronic atrial fibrillation I48.2 [facility] [address] [place] [address] 18 Sep, 2017 custodial current use of anticoagulant therapy Z79.01 [facility] [address] [place] [address] 15 Sep, 2017 custodial current use of anticoagulant therapy Z79.01 [facility] [address] [place] [address] 13 Sep, 2017 custodial current use of anticoagulant therapy Z79.01 [facility] [address] [place] [address] Sep, Chronic obstructive pulmonary disease, unspecified COPD type J44.9 [facility] [address] [place] [address] Sep, custodial current use of anticoagulant therapy Z79.01 [facility] [address] [place] [address] Sep, custodial current use of anticoagulant therapy Z79.01 [facility] [address] [place] [address] Sep, [facility] [address] [place] [address] August, terminal gauger current use of anticoagulant therapy Z79.01 [facility] [address] [place] [address] August, [facility] [address] [place] [address] August, custodial current use of anticoagulant therapy Z79.01 [facility] [address] [place] [address] August, terminal gauger current use of anticoagulant therapy Z79.01 [facility] [address] [place] [address] Jul, custodial current use of anticoagulant therapy Z79.01 [facility] [address] [place] [address] Jul, custodial current use of anticoagulant therapy Z79.01 [facility] [address] [place] [address] Jul, terminal gauger current use of anticoagulant therapy Z79.01 [facility] [address] [place] [address] 16 Jul, 2017 terminal gauger current use of anticoagulant therapy Z79.01 [facility] [address] [place] [address] Jul, 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 [address] Jul, Chronic obstructive pulmonary disease, unspecified COPD type J44.[address] [address] Jul, terminal gauger current use of anticoagulant therapy Z79.[address] [address] Jul, [address] [address] Jul, Bleeding from mouth K13.79 and Lip lesion K13.[address] [address] Jul, terminal gauger current use of anticoagulant therapy Z79.[address] [address] Jul, custodial current use of anticoagulant therapy Z79.[address] [address] Jul, [address] [address] Jun, Unspecified atrial fibrillation I48.[address] [address] May, Unspecified atrial fibrillation I48.[address] [address] May, Chronic atrial fibrillation I48.2 ; BMI 40.0-44.9, adult Z68.41 ; Hyperlipidemia LDL goal <100 E78.5 ; terminal gauger current use of anticoagulant therapy Z79.01 ; Essential hypertension I10 ; Obstructive sleep apnea G47.33 ; Elevated PSA, less than 10 ng/ml R97.20 and Chronic obstructive pulmonary disease, unspecified COPD type J44.[address] [address] Apr, [address] [address] Apr, Elevated PSA R97.20 [facility] [id number] [address] Apr, Mild persistent asthma, unspecified whether complicated J45.[address] [address] Apr, Chronic obstructive pulmonary disease, unspecified COPD type J44.[address] [address] Mar, [address] [address] Mar, [address] [address] Mar, [address] [address] Mar, Chronic atrial fibrillation I48.2 ; Hyperlipidemia LDL goal <100 E78.5 ; Essential hypertension I10 ; Obstructive sleep apnea G47.33 ; Has stopped breathing R06.81 ; Elevated PSA, less than 10 ng/ml R97.20 ; Chronic obstructive pulmonary disease, unspecified COPD type J44.9 ; Encounter for immunization Z23 and terminal gauger current use of anticoagulant therapy Z79.[address] [address] Feb, [address] [address] Dec, [address] [address] Nov, Chronic atrial fibrillation I48.2 and Elevated PSA R97.[address] [address] Nov, Chronic atrial fibrillation I48.2 ; Hyperlipidemia LDL goal <100 E78.5 ; Essential hypertension I10 ; Dyspnea on exertion R06.09 and Elevated PSA R97.[address] [address] August, terminal gauger current use of anticoagulant therapy Z79.01 ; Bronchitis J40 and Persistent atrial fibrillation I48.[address] [address] August, [address] [address] May, custodial current use of anticoagulant therapy Z79.01 ; Encounter for long-term (current) use of other medications Z79.899 ; Fever, unspecified fever cause R50.9 and Influenza A J10.[address] [address] Apr, [address] [address] Apr, Elevated prostate specific antigen [PSA] R97.[address] [address] Feb, [address] [address] Feb, custodial current use of anticoagulant therapy Z79.01 ; Atrial fibrillation 427.31 ; Encounter for long-term (current) use of other medications Z79.899 ; Chronic atrial fibrillation I48.2 ; Encounter for immunization Z23 and Actinic keratoses L57.[address] [address] Dec, 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 and Encounter for immunization Z23 [address] [address] Nov, Hemangioma D18.00 and Actinic keratosis L57.[address] [address] Nov, Chronic atrial fibrillation I48.2 ; terminal gauger current use of anticoagulant therapy Z79.01 and Skin lesions L98.[address] [address] Oct, Elevated prostate specific antigen [PSA] R97.2 ; Mixed hyperlipidemia E78.2 and Essential (primary) hypertension I10 [address] [address] August, [address] [address] August, Encounter for long-term (current) use of other medications Z79.899 ; custodial current use of anticoagulant therapy Z79.01 and Chronic atrial fibrillation I48.[address] [address] Jul, Unspecified atrial fibrillation I48.91 ; Encounter for long-term (current) use of other medications Z79.899 and custodial current use of anticoagulant therapy Z79.[address] [address] Jun, Atrial fibrillation 427.31 ; Encounter for long-term (current) use of other medications Z79.899 and terminal gauger current use of anticoagulant therapy Z79.[address] [address] Jun, Unspecified atrial fibrillation I48.91 ; Encounter for long-term (current) use of other medications Z79.899 ; custodial current use of anticoagulant therapy Z79.01 and Community acquired bacterial pneumonia J15.[address] [address] Jun, Community acquired bacterial pneumonia J15.[address] [address] May, Chronic atrial fibrillation I48.2 ; Encounter for long-term (current) use of other medications Z79.899 and custodial current use of anticoagulant therapy Z79.[address] [address] Apr, Elevated prostate specific antigen [PSA] R97.[address] [address] Feb, Chronic atrial fibrillation I48.2 ; custodial current use of anticoagulant therapy Z79.01 and Encounter for long-term (current) use of other medications Z79.[address] [address] Dec, Atrial fibrillation 427.31 and custodial (current) use of anticoagulants V58.[address] [address] Sep, [address] [address] Sep, Atrial fibrillation 427.31 ; Elevated PSA 790.93 ; Benign prostate hyperplasia 600.00 and Renal insufficiency 593.[address] [address] Sep, Atrial fibrillation 427.31 ; Essential hypertension, benign 401.1 ; Elevated prostate specific antigen (PSA) 790.93 and Mixed hyperlipidemia 272.2 [place] [place] [id number] [place] [address] 14 Jul, 2014 [place] [id number] [place] [address] 13 Jul, 2014 [place] [id number] [place] [address] 16 Jun, [address] [address] Jun, [place] [id number] [place] [address] 15 Apr, [address] [address] Apr, [address] [address] Mar, [place] [id number] [place] [address] Mar, [address] [address] Mar, [place] [id number] [place] [address] Mar, [address] [address] Feb, [facility] [address] [facility] [place] [address] Feb, [facility] [address] [facility] [id number] [address] Jan, [facility] [address] [facility] [place] [address] Jan, [facility] [address] [facility] [id number] [address] Dec, [facility] [address] [facility] [place] [address] Dec, [facility] [address] [facility] [id number], [place] [address] Oct, [facility] [address] [place] [address] Oct, [facility] [address] [place] [address] Oct, [facility] [id number] [address] Oct, [facility] [address] [place] [address] Sep, [facility] [id number] [address] Sep, [facility] [id number] [address] August, [facility] [address] [place] [address] August, [facility] [address] [facility] [id number], [place] [address] August, [facility] [address] [facility] [id number], [place] [address] August, [facility] [address] [facility] [place] [address] August, [facility] [address] [facility] [place] [address] August, [facility] [address] [facility] [id number], [place] [address] August, [facility] [address] [place] [address] Jul, [facility] [address] [facility] [id number], [place] [address] Jul, [facility] [address] [place] [address] Jul, [facility] [id number], [place] [address] Jul, [facility] [address] [place] [address] May, [facility] [id number], [place] [address] May, [facility] [address] [place] [address] Apr, [facility] [id number], [place] [address] Apr, [facility] [address] [place] [address] Mar, [facility] [id number], [place] [address] Mar, [facility] [address] [place] [address] Feb, [facility] [id number], [place] [address] Feb, [facility] [id number], [place] [address] Feb, [facility] [id number], [place] [address] Feb, [facility] [address] [place] [address] 14 Feb, 2013 [facility] [address] [place] [address] Feb, [facility] [address] [place] [address] Jan, [facility] [address] [facility] [id number] [place] [address] Jan, [facility] [address] [place] [address] Dec, [facility] [address] [place] [address] Dec, IMMUNIZATIONS No Known Immunizations SOCIAL HISTORY Never Assessed REASON FOR VISIT INR JBishop PLAN OF CARE Activity Details Follow Up prn Reason: VITAL SIGNS MEDICATIONS Unknown Medications RESULTS Name Result Date Reference Range INR (IN HOUSE) 2017-09-24 INR 2.3 1.10 - 3.30 PREVIOUS INR 1.8 CURRENT COUMADIN DOSE 6MG NEW COUMADIN DOSE Lot # [id number] Exp date 10-06-2018 PROCEDURES Procedure Date Ordered Result Body Site PROTHROMBIN TIME September 24, 2017 INSTRUCTIONS MEDICATIONS ADMINISTERED No Known Medications [...]
--- OUTSIDE RECORDS SUMMARY | 2018-06-27 07:09 | XMS REPORT ---
Author Author KASIE CHAPMAN Organization [facility] [address] Address [address] [place] [address] Care Team Providers Care Production Service Manager Name Role Phone KASIE CHAPMAN Unavailable PROBLEMS Type Condition ICD9-CM Code [id number] Code Onset Dates Condition Status SNOMED Code Problem retirement current use of anticoagulant therapy Z79.01 Active 976873809 Problem Persistent atrial fibrillation I48.1 Active 284916024 Problem Chronic atrial fibrillation I48.2 Active 512150494 Problem Mixed hyperlipidemia E78.2 Active 755957127 Problem Essential (primary) hypertension I10 Active 90872018 Problem Elevated prostate specific antigen [PSA] R97.2 Active 696907191 Problem 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 944641502 Problem Unspecified atrial fibrillation I48.91 Active 24818086 Problem Hyperlipidemia LDL goal <100 E78.5 Active 68331779 Problem Essential hypertension I10 Active 58529927 Problem Obstructive sleep apnea G47.33 Active 63221490 Problem Chronic obstructive pulmonary disease, unspecified COPD type J44.9 Active 19455240 ALLERGIES No Information ENCOUNTERS Encounter Location Date Diagnosis [facility] [address] [place] [phone] Nov, Medicare annual wellness visit, initial Z00.00 ; Screening for colon cancer Z12.11 ; Screening for osteoporosis Z13.820 ; Essential (primary) hypertension I10 and Encounter for immunization Z23 [facility] [address] [place] [phone] Nov, [facility] [address] [place] [address] Oct, retirement current use of anticoagulant therapy Z79.01 [facility] [address] [place] [address] Oct, Chronic atrial fibrillation I48.2 ; Essential hypertension I10 and Elevated prostate specific antigen [PSA] R97.2 [facility] [address] [place] [address] 29 Sep, 2017 retirement current use of anticoagulant therapy Z79.01 [facility] [address] [place] [address] Sep, long term care pharmacist current use of anticoagulant therapy Z79.01 [facility] [address] [place] [address] 20 Sep, 2017 long term care pharmacist current use of anticoagulant therapy Z79.01 and Chronic atrial fibrillation I48.2 [facility] [address] [place] [address] 18 Sep, 2017 retirement current use of anticoagulant therapy Z79.01 [facility] [place] [address] [place] [address] 15 Sep, 2017 retirement current use of anticoagulant therapy Z79.01 [facility] [place] [address] [place] [address] 13 Sep, 2017 retirement current use of anticoagulant therapy Z79.01 [facility] [place] [address] [place] [address] Sep, Chronic obstructive pulmonary disease, unspecified COPD type J44.9 [facility] [address] [place] [address] Sep, retirement current use of anticoagulant therapy Z79.01 [facility] [place] [address] [place] [address] Sep, retirement current use of anticoagulant therapy Z79.01 [facility] [place] [address] [place] [address] Sep, [facility] [place] [address] [place] [address] August, long term care pharmacist current use of anticoagulant therapy Z79.01 [facility] [place] [address] [place] [address] August, [facility] [address] [place] [address] August, retirement current use of anticoagulant therapy Z79.01 [facility] [place] [address] [place] [address] August, long term care pharmacist current use of anticoagulant therapy Z79.01 [facility] [place] [address] [place] [address] Jul, retirement current use of anticoagulant therapy Z79.01 [facility] [address] [place] [address] Jul, retirement current use of anticoagulant therapy Z79.01 [facility] [address] [place] [address] Jul, long term care pharmacist current use of anticoagulant therapy Z79.01 [facility] [address] [place] [address] 16 Jul, 2017 long term care pharmacist current use of anticoagulant therapy Z79.01 [facility] [address] [place] [address] Jul, 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 [address] Jul, Chronic obstructive pulmonary disease, unspecified COPD type J44.[address] [address] Jul, long term care pharmacist current use of anticoagulant therapy Z79.[address] [address] Jul, [address] [address] Jul, Bleeding from mouth K13.79 and Lip lesion K13.[address] [address] Jul, long term care pharmacist current use of anticoagulant therapy Z79.[address] [address] Jul, retirement current use of anticoagulant therapy Z79.[address] [address] Jul, [address] [address] Jun, Unspecified atrial fibrillation I48.[address] [address] May, Unspecified atrial fibrillation I48.[address] [address] May, Chronic atrial fibrillation I48.2 ; BMI 40.0-44.9, adult Z68.41 ; Hyperlipidemia LDL goal <100 E78.5 ; long term care pharmacist current use of anticoagulant therapy Z79.01 ; Essential hypertension I10 ; Obstructive sleep apnea G47.33 ; Elevated PSA, less than 10 ng/ml R97.20 and Chronic obstructive pulmonary disease, unspecified COPD type J44.[address] [address] Apr, [address] [address] Apr, Elevated PSA R97.20 [facility] [id number] [place] [address] Apr, Mild persistent asthma, unspecified whether complicated J45.[address] [address] Apr, Chronic obstructive pulmonary disease, unspecified COPD type J44.[address] [address] Mar, [address] [address] Mar, [address] [address] Mar, [address] [address] Mar, Chronic atrial fibrillation I48.2 ; Hyperlipidemia LDL goal <100 E78.5 ; Essential hypertension I10 ; Obstructive sleep apnea G47.33 ; Has stopped breathing R06.81 ; Elevated PSA, less than 10 ng/ml R97.20 ; Chronic obstructive pulmonary disease, unspecified COPD type J44.9 ; Encounter for immunization Z23 and long term care pharmacist current use of anticoagulant therapy Z79.[address] [address] Feb, [address] [address] Dec, [address] [address] Nov, Chronic atrial fibrillation I48.2 and Elevated PSA R97.[address] [address] Nov, Chronic atrial fibrillation I48.2 ; Hyperlipidemia LDL goal <100 E78.5 ; Essential hypertension I10 ; Dyspnea on exertion R06.09 and Elevated PSA R97.[address] [address] August, long term care pharmacist current use of anticoagulant therapy Z79.01 ; Bronchitis J40 and Persistent atrial fibrillation I48.[address] [address] August, [address] [address] May, retirement current use of anticoagulant therapy Z79.01 ; Encounter for long-term (current) use of other medications Z79.899 ; Fever, unspecified fever cause R50.9 and Influenza A J10.[address] [address] Apr, [address] [address] Apr, Elevated prostate specific antigen [PSA] R97.[address] [address] Feb, [address] [address] Feb, retirement current use of anticoagulant therapy Z79.01 ; Atrial fibrillation 427.31 ; Encounter for long-term (current) use of other medications Z79.899 ; Chronic atrial fibrillation I48.2 ; Encounter for immunization Z23 and Actinic keratoses L57.[address] [address] Dec, 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 and Encounter for immunization Z23 [address] [address] Nov, Hemangioma D18.00 and Actinic keratosis L57.[address] [address] Nov, Chronic atrial fibrillation I48.2 ; long term care pharmacist current use of anticoagulant therapy Z79.01 and Skin lesions L98.[address] [address] Oct, Elevated prostate specific antigen [PSA] R97.2 ; Mixed hyperlipidemia E78.2 and Essential (primary) hypertension I10 [address] [address] August, [address] [address] August, Encounter for long-term (current) use of other medications Z79.899 ; retirement current use of anticoagulant therapy Z79.01 and Chronic atrial fibrillation I48.[address] [address] Jul, Unspecified atrial fibrillation I48.91 ; Encounter for long-term (current) use of other medications Z79.899 and retirement current use of anticoagulant therapy Z79.[address] [address] Jun, Atrial fibrillation 427.31 ; Encounter for long-term (current) use of other medications Z79.899 and long term care pharmacist current use of anticoagulant therapy Z79.[address] [address] Jun, Unspecified atrial fibrillation I48.91 ; Encounter for long-term (current) use of other medications Z79.899 ; retirement current use of anticoagulant therapy Z79.01 and Community acquired bacterial pneumonia J15.[address] [address] Jun, Community acquired bacterial pneumonia J15.[address] [address] May, Chronic atrial fibrillation I48.2 ; Encounter for long-term (current) use of other medications Z79.899 and retirement current use of anticoagulant therapy Z79.[address] [address] Apr, Elevated prostate specific antigen [PSA] R97.[address] [address] Feb, Chronic atrial fibrillation I48.2 ; retirement current use of anticoagulant therapy Z79.01 and Encounter for long-term (current) use of other medications Z79.[address] [address] Dec, Atrial fibrillation 427.31 and retirement (current) use of anticoagulants V58.[address] [address] Sep, [address] [address] Sep, Atrial fibrillation 427.31 ; Elevated PSA 790.93 ; Benign prostate hyperplasia 600.00 and Renal insufficiency 593.[address] [address] Sep, Atrial fibrillation 427.31 ; Essential hypertension, benign 401.1 ; Elevated prostate specific antigen (PSA) 790.93 and Mixed hyperlipidemia 272.[address] [facility] [id number] [place] [address] 14 Jul, [address] [facility] [place] [id number] [place] [address] 13 Jul, [address] [facility] [id number] [place] [address] 16 Jun, [address] [address] Jun, [facility] [id number] [place] [address] 15 Apr, [address] [address] Apr, [address] [address] Mar, [facility] [id number] [place] [address] Mar, [address] [address] Mar, [facility] [id number] [place] [address] Mar, [address] [address] Feb, [facility] [address] [facility] [place] [address] Feb, [facility] [address] [facility] [id number] [address] Jan, [facility] [address] [facility] [place] [address] Jan, [facility] [address] [facility] [id number], [place] [address] Dec, [facility] [address] [facility] [place] [address] Dec, [facility] [address] [facility] [id number], [place] [address] Oct, [facility] [address] [place] [address] Oct, [facility] [address] [place] [address] Oct, [facility] [address] [place] [id number], [place] [address] Oct, [facility] [address] [place] [address] Sep, [facility] [address] [id number], [place] [address] Sep, [facility] [address] [id number], [place] [address] August, [facility] [address] [place] [address] August, [facility] [address] [facility] [id number], [place] [address] August, [facility] [address] [facility] [id number], [place] [address] August, [facility] [address] [facility] [place] [address] August, [facility] [address] [facility] [place] [address] August, [facility] [address] [facility] [id number], [place] [address] August, [facility] [address] [place] [address] Jul, [facility] [address] [facility] [id number], [place] [address] Jul, [facility] [address] [place] [address] Jul, [facility] [address] [id number], [place] [address] Jul, [facility] [address] [place] [address] May, [facility] [address] [id number], [place] [address] May, [facility] [address] [place] [address] Apr, [facility] [address] [id number], [place] [address] Apr, [facility] [address] [place] [address] Mar, [facility] [address] [id number], [place] [address] Mar, [facility] [address] [place] [address] Feb, [facility] [address] [id number], [place] [address] Feb, [facility] [address] [id number], [place] [address] Feb, [facility] [address] [id number], [place] [address] Feb, [facility] [address] [place] [address] 14 Feb, 2013 [facility] [address] [place] [address] Feb, [facility] [address] [place] [address] Jan, [facility] [address] [facility] [id number] [place] [address] Jan, [facility] [address] [place] [address] Dec, [facility] [address] [place] [address] Dec, IMMUNIZATIONS No Known Immunizations SOCIAL HISTORY Never Assessed REASON FOR VISIT Lab (walk-in) INR=1.5, [facility] PLAN OF CARE Activity Details Follow Up prn Reason: VITAL SIGNS MEDICATIONS Unknown Medications RESULTS Name Result Date Reference Range INR (IN HOUSE) 2017-09-19 INR 1.5 1.10 - 3.30 PREVIOUS INR 1.3 CURRENT COUMADIN DOSE NEW COUMADIN DOSE Lot # [id number] Exp date 10/06/2018 PROCEDURES Procedure Date Ordered Result Body Site PROTHROMBIN TIME September 19, 2017 INSTRUCTIONS MEDICATIONS ADMINISTERED No Known Medications [...]
--- OUTSIDE RECORDS SUMMARY | 2018-06-27 07:09 | XMS REPORT ---
Author Author KASIE CHAPMAN Organization [facility] [address] Address [address] [place] [address] Care Team Providers Care Social And Political Studies Professor Name Role Phone KASIE CHAPMAN Unavailable PROBLEMS Type Condition ICD9-CM Code [id number] Code Onset Dates Condition Status SNOMED Code Problem half-way current use of anticoagulant therapy Z79.01 Active 928087078 Problem Persistent atrial fibrillation I48.1 Active 622499138 Problem Chronic atrial fibrillation I48.2 Active 586231687 Problem Mixed hyperlipidemia E78.2 Active 326055723 Problem Essential (primary) hypertension I10 Active 12850261 Problem Elevated prostate specific antigen [PSA] R97.2 Active 838578214 Problem 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 860343388 Problem Unspecified atrial fibrillation I48.91 Active 34282814 Problem Hyperlipidemia LDL goal <100 E78.5 Active 02135546 Problem Essential hypertension I10 Active 39932265 Problem Obstructive sleep apnea G47.33 Active 79875598 Problem Chronic obstructive pulmonary disease, unspecified COPD type J44.9 Active [id number] ALLERGIES No Information ENCOUNTERS Encounter Location Date Diagnosis [facility] [address] [place] [id number] Nov, Medicare annual wellness visit, initial Z00.00 ; Screening for colon cancer Z12.11 ; Screening for osteoporosis Z13.820 ; Essential (primary) hypertension I10 and Encounter for immunization Z23 [facility] [address] [place] [phone] Nov, [facility] [address] [place] [address] Oct, half-way current use of anticoagulant therapy Z79.01 [facility] [address] [place] [address] Oct, Chronic atrial fibrillation I48.2 ; Essential hypertension I10 and Elevated prostate specific antigen [PSA] R97.2 [facility] [address] [place] [address] 29 Sep, 2017 half-way current use of anticoagulant therapy Z79.01 [facility] [address] [place] [address] Sep, 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 [facility] [place] [address] [place] [phone] 20 Sep, 2017 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 and Chronic atrial fibrillation I48.2 [facility] [address] [place] [phone] 18 Sep, 2017 half-way current use of anticoagulant therapy Z79.01 [facility] [address] [place] [phone] 15 Sep, 2017 half-way current use of anticoagulant therapy Z79.01 [facility] [address] [place] [phone] 13 Sep, 2017 half-way current use of anticoagulant therapy Z79.01 [facility] [place] [address] [place] [phone] Sep, Chronic obstructive pulmonary disease, unspecified COPD type J44.9 [facility] [address] [place] [address] Sep, half-way current use of anticoagulant therapy Z79.01 [facility] [address] [place] [phone] Sep, half-way current use of anticoagulant therapy Z79.01 [facility] [address] [place] [address] Sep, [facility] [address] [place] [address] August, 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 [facility] [address] [place] [phone] August, [facility] [address] [place] [address] August, half-way current use of anticoagulant therapy Z79.01 [facility] [address] [place] [address] August, 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 [facility] [address] [place] [address] Jul, half-way current use of anticoagulant therapy Z79.01 [facility] [address] [place] [address] Jul, half-way current use of anticoagulant therapy Z79.01 [facility] [place] [address] [place] [address] Jul, 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 [facility] [address] [place] [address] 16 Jul, 2017 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 [facility] [address] [place] [address] Jul, 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 [address] Jul, Chronic obstructive pulmonary disease, unspecified COPD type J44.[address] [address] Jul, 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 [address] Jul, [address] [address] Jul, Bleeding from mouth K13.79 and Lip lesion K13.[address] [address] Jul, 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 [address] Jul, half-way current use of anticoagulant therapy Z79.[address] [address] Jul, [address] [address] Jun, Unspecified atrial fibrillation I48.[address] [address] May, Unspecified atrial fibrillation I48.[address] [address] May, Chronic atrial fibrillation I48.2 ; BMI 40.0-44.9, adult Z68.41 ; Hyperlipidemia LDL goal <100 E78.5 ; 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 ; Essential hypertension I10 ; Obstructive sleep apnea G47.33 ; Elevated PSA, less than 10 ng/ml R97.20 and Chronic obstructive pulmonary disease, unspecified COPD type J44.[address] [address] Apr, [address] [address] Apr, Elevated PSA R97.20 [facility] [address] [id number] [address] Apr, Mild persistent asthma, unspecified whether complicated J45.[address] [address] Apr, Chronic obstructive pulmonary disease, unspecified COPD type J44.[address] [address] Mar, [address] [address] Mar, [address] [address] Mar, [address] [address] Mar, Chronic atrial fibrillation I48.2 ; Hyperlipidemia LDL goal <100 E78.5 ; Essential hypertension I10 ; Obstructive sleep apnea G47.33 ; Has stopped breathing R06.81 ; Elevated PSA, less than 10 ng/ml R97.20 ; Chronic obstructive pulmonary disease, unspecified COPD type J44.9 ; Encounter for immunization Z23 and 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 [address] Feb, [address] [address] Dec, [address] [address] Nov, Chronic atrial fibrillation I48.2 and Elevated PSA R97.[address] [address] Nov, Chronic atrial fibrillation I48.2 ; Hyperlipidemia LDL goal <100 E78.5 ; Essential hypertension I10 ; Dyspnea on exertion R06.09 and Elevated PSA R97.[address] [address] August, 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 ; Bronchitis J40 and Persistent atrial fibrillation I48.[address] [address] August, [address] [address] May, half-way current use of anticoagulant therapy Z79.01 ; Encounter for long-term (current) use of other medications Z79.899 ; Fever, unspecified fever cause R50.9 and Influenza A J10.[address] [address] Apr, [address] [address] Apr, Elevated prostate specific antigen [PSA] R97.[address] [address] Feb, [address] [address] Feb, half-way current use of anticoagulant therapy Z79.01 ; Atrial fibrillation 427.31 ; Encounter for long-term (current) use of other medications Z79.899 ; Chronic atrial fibrillation I48.2 ; Encounter for immunization Z23 and Actinic keratoses L57.[address] [address] Dec, 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 and Encounter for immunization Z23 [address] [address] Nov, Hemangioma D18.00 and Actinic keratosis L57.[address] [address] Nov, Chronic atrial fibrillation I48.2 ; 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 and Skin lesions L98.[address] [address] Oct, Elevated prostate specific antigen [PSA] R97.2 ; Mixed hyperlipidemia E78.2 and Essential (primary) hypertension I10 [address] [address] August, [address] [address] August, Encounter for long-term (current) use of other medications Z79.899 ; half-way current use of anticoagulant therapy Z79.01 and Chronic atrial fibrillation I48.[address] [address] Jul, Unspecified atrial fibrillation I48.91 ; Encounter for long-term (current) use of other medications Z79.899 and half-way current use of anticoagulant therapy Z79.[address] [address] Jun, Atrial fibrillation 427.31 ; Encounter for long-term (current) use of other medications Z79.899 and 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 [address] Jun, Unspecified atrial fibrillation I48.91 ; Encounter for long-term (current) use of other medications Z79.899 ; half-way current use of anticoagulant therapy Z79.01 and Community acquired bacterial pneumonia J15.[address] [address] Jun, Community acquired bacterial pneumonia J15.[address] [address] May, Chronic atrial fibrillation I48.2 ; Encounter for long-term (current) use of other medications Z79.899 and half-way current use of anticoagulant therapy Z79.[address] [address] Apr, Elevated prostate specific antigen [PSA] R97.[address] [address] Feb, Chronic atrial fibrillation I48.2 ; half-way current use of anticoagulant therapy Z79.01 and Encounter for long-term (current) use of other medications Z79.[address] [address] Dec, Atrial fibrillation 427.31 and half-way (current) use of anticoagulants V58.[address] [address] Sep, [address] [address] Sep, Atrial fibrillation 427.31 ; Elevated PSA 790.93 ; Benign prostate hyperplasia 600.00 and Renal insufficiency 593.[address] [address] Sep, Atrial fibrillation 427.31 ; Essential hypertension, benign 401.1 ; Elevated prostate specific antigen (PSA) 790.93 and Mixed hyperlipidemia 272.[address] [place] [id number] [place] [address] 14 Jul, [address] [place] [id number] [place] [address] 13 Jul, [address] [place] [id number] [place] [address] 16 Jun, [address] [address] Jun, [place] [id number] [place] [address] 15 Apr, [address] [address] Apr, [address] [address] Mar, [place] [id number] [place] [address] [address] Mar, [address] [address] Mar, [place] [id number] [place] [address] Mar, [id number] [address] Feb, [facility] [address] [facility] [place] [address] Feb, [facility] [address] [facility] [id number] [address] Jan, [facility] [address] [facility] [place] [address] Jan, [facility] [address] [facility] [id number] [place] [address] Dec, [facility] [address] [facility] [place] [address] Dec, [facility] [address] [facility] [id number] [place] [address] Oct, [facility] [address] [place] [address] Oct, [facility] [address] [place] [address] Oct, [facility] [id number] [address] Oct, [facility] [address] [place] [address] Sep, [facility] [id number] [address] Sep, [facility] [id number] [address] August, [facility] [address] [place] [address] August, [facility] [address] [facility] [id number] [place] [address] August, [facility] [address] [facility] [id number] [place] [address] August, [facility] [address] [facility] [place] [address] August, [facility] [address] [facility] [place] [address] August, [facility] [address] [facility] [id number] [place] [address] August, [facility] [address] [place] [address] Jul, [facility] [address] [facility] [id number] [place] [address] Jul, [facility] [address] [place] [address] Jul, [facility] [id number] [address] Jul, [facility] [address] [place] [address] May, [facility] [id number] [address] May, [facility] [address] [place] [address] Apr, [facility] [id number] [address] Apr, [facility] [address] [place] [address] Mar, [facility] [id number] [address] Mar, [facility] [address] [place] [address] Feb, [facility] [id number] [address] Feb, [facility] [id number] [address] Feb, [facility] [id number] [address] Feb, [facility] [address] [place] [address] 14 Feb, 2013 [facility] [address] [place] [address] Feb, [facility] [address] [place] [address] Jan, [facility] [address] [facility] [id number] [place] [address] Jan, [facility] [address] [place] [address] Dec, [facility] [address] [place] [address] Dec, IMMUNIZATIONS No Known Immunizations SOCIAL HISTORY Never Assessed REASON FOR VISIT PLAN OF CARE VITAL SIGNS MEDICATIONS Medication Instructions Dosage Frequency Start Date End Date Duration Status Qvar 80 MCG/ACT Inhalation Twice a day 1 puff 12h 12 May, 2017 Active RESULTS No Results PROCEDURES No [...]
--- OUTSIDE RECORDS SUMMARY | 2018-06-27 07:09 | XMS REPORT ---
Author Author KASIE CHAPMAN Organization [facility] [address] Address [address] [place] [address] Care Team Providers Care Chemical Tester Name Role Phone KASIE CHAPMAN Unavailable PROBLEMS Type Condition ICD9-CM Code WHG78-IA Code Onset Dates Condition Status SNOMED Code Problem intermediate current use of anticoagulant therapy Z79.01 Active 004604526 Problem Persistent atrial fibrillation I48.1 Active 076363885 Problem Chronic atrial fibrillation I48.2 Active 428608241 Problem Mixed hyperlipidemia E78.2 Active 717007593 Problem Essential (primary) hypertension I10 Active 74382337 Problem Elevated prostate specific antigen [PSA] R97.2 Active 821240006 Problem 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 788634363 Problem Unspecified atrial fibrillation I48.91 Active 87438161 Problem Hyperlipidemia LDL goal <100 E78.5 Active 03225471 Problem Essential hypertension I10 Active 57664882 Problem Obstructive sleep apnea G47.33 Active 58927538 Problem Chronic obstructive pulmonary disease, unspecified COPD type J44.9 Active 29245438 ALLERGIES No Information ENCOUNTERS Encounter Location Date Diagnosis [facility] [address] [place] [address] Nov, Medicare annual wellness visit, initial Z00.00 ; Screening for colon cancer Z12.11 ; Screening for osteoporosis Z13.820 ; Essential (primary) hypertension I10 and Encounter for immunization Z23 [facility] [address] [place] [address] Nov, [facility] [address] [place] [address] Oct, intermediate current use of anticoagulant therapy Z79.01 [facility] [address] [place] [address] Oct, Chronic atrial fibrillation I48.2 ; Essential hypertension I10 and Elevated prostate specific antigen [PSA] R97.2 [facility] [address] [place] [address] 29 Sep, 2017 intermediate current use of anticoagulant therapy Z79.01 [facility] [address] [place] [address] Sep, 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 [facility] [address] [place] [address] 20 Sep, 2017 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 and Chronic atrial fibrillation I48.2 [facility] [place] [address] [place] [address] 18 Sep, 2017 intermediate current use of anticoagulant therapy Z79.01 [facility] [place] [address] [place] [address] 15 Sep, 2017 intermediate current use of anticoagulant therapy Z79.01 [facility] [place] [address] [place] [address] 13 Sep, 2017 intermediate current use of anticoagulant therapy Z79.01 [facility] [place] [address] [place] [address] Sep, Chronic obstructive pulmonary disease, unspecified COPD type J44.9 [facility] [address] [place] [address] Sep, intermediate current use of anticoagulant therapy Z79.01 [facility] [place] [address] [place] [address] Sep, intermediate current use of anticoagulant therapy Z79.01 [facility] [place] [address] [place] [address] Sep, [facility] [place] [address] [place] [address] August, 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 [facility] [place] [address] [place] [address] August, [facility] [place] [address] [place] [address] August, intermediate current use of anticoagulant therapy Z79.01 [facility] [address] [place] [address] August, 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 [facility] [place] [address] [place] [address] Jul, intermediate current use of anticoagulant therapy Z79.01 [facility] [address] [place] [address] Jul, intermediate current use of anticoagulant therapy Z79.01 [facility] [place] [address] [place] [address] Jul, 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 [facility] [address] [place] [address] 16 Jul, 2017 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 [facility] [address] [place] [address] Jul, 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 [address] Jul, Chronic obstructive pulmonary disease, unspecified COPD type J44.[address] [address] Jul, 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 [address] Jul, [address] [address] Jul, Bleeding from mouth K13.79 and Lip lesion K13.[address] [address] Jul, 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 [address] Jul, intermediate current use of anticoagulant therapy Z79.[address] [address] Jul, [address] [address] Jun, Unspecified atrial fibrillation I48.[address] [address] May, Unspecified atrial fibrillation I48.[address] [address] May, Chronic atrial fibrillation I48.2 ; BMI 40.0-44.9, adult Z68.41 ; Hyperlipidemia LDL goal <100 E78.5 ; 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 ; Essential hypertension I10 ; Obstructive sleep apnea G47.33 ; Elevated PSA, less than 10 ng/ml R97.20 and Chronic obstructive pulmonary disease, unspecified COPD type J44.[address] [address] Apr, [address] [address] Apr, Elevated PSA R97.20 [facility] [address] [id number] [place] [address] Apr, Mild persistent asthma, unspecified whether complicated J45.[address] [address] Apr, Chronic obstructive pulmonary disease, unspecified COPD type J44.[address] [address] Mar, [address] [address] Mar, [address] [address] Mar, [address] [address] Mar, Chronic atrial fibrillation I48.2 ; Hyperlipidemia LDL goal <100 E78.5 ; Essential hypertension I10 ; Obstructive sleep apnea G47.33 ; Has stopped breathing R06.81 ; Elevated PSA, less than 10 ng/ml R97.20 ; Chronic obstructive pulmonary disease, unspecified COPD type J44.9 ; Encounter for immunization Z23 and 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 [address] Feb, [address] [address] Dec, [address] [address] Nov, Chronic atrial fibrillation I48.2 and Elevated PSA R97.[address] [address] Nov, Chronic atrial fibrillation I48.2 ; Hyperlipidemia LDL goal <100 E78.5 ; Essential hypertension I10 ; Dyspnea on exertion R06.09 and Elevated PSA R97.[address] [address] August, 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 ; Bronchitis J40 and Persistent atrial fibrillation I48.[address] [address] August, [address] [address] May, intermediate current use of anticoagulant therapy Z79.01 ; Encounter for long-term (current) use of other medications Z79.899 ; Fever, unspecified fever cause R50.9 and Influenza A J10.[address] [address] Apr, [address] [address] Apr, Elevated prostate specific antigen [PSA] R97.[address] [address] Feb, [address] [address] Feb, intermediate current use of anticoagulant therapy Z79.01 ; Atrial fibrillation 427.31 ; Encounter for long-term (current) use of other medications Z79.899 ; Chronic atrial fibrillation I48.2 ; Encounter for immunization Z23 and Actinic keratoses L57.[address] [address] Dec, 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 and Encounter for immunization Z23 [address] [address] Nov, Hemangioma D18.00 and Actinic keratosis L57.[address] [address] Nov, Chronic atrial fibrillation I48.2 ; 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 and Skin lesions L98.[address] [address] Oct, Elevated prostate specific antigen [PSA] R97.2 ; Mixed hyperlipidemia E78.2 and Essential (primary) hypertension I10 [address] [address] August, [address] [address] August, Encounter for long-term (current) use of other medications Z79.899 ; intermediate current use of anticoagulant therapy Z79.01 and Chronic atrial fibrillation I48.[address] [address] Jul, Unspecified atrial fibrillation I48.91 ; Encounter for long-term (current) use of other medications Z79.899 and intermediate current use of anticoagulant therapy Z79.[address] [address] Jun, Atrial fibrillation 427.31 ; Encounter for long-term (current) use of other medications Z79.899 and 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 [address] Jun, Unspecified atrial fibrillation I48.91 ; Encounter for long-term (current) use of other medications Z79.899 ; intermediate current use of anticoagulant therapy Z79.01 and Community acquired bacterial pneumonia J15.[address] [address] Jun, Community acquired bacterial pneumonia J15.[address] [address] May, Chronic atrial fibrillation I48.2 ; Encounter for long-term (current) use of other medications Z79.899 and intermediate current use of anticoagulant therapy Z79.[address] [address] Apr, Elevated prostate specific antigen [PSA] R97.[address] [address] Feb, Chronic atrial fibrillation I48.2 ; intermediate current use of anticoagulant therapy Z79.01 and Encounter for long-term (current) use of other medications Z79.[address] [address] Dec, Atrial fibrillation 427.31 and intermediate (current) use of anticoagulants V58.[address] [address] Sep, [address] [address] Sep, Atrial fibrillation 427.31 ; Elevated PSA 790.93 ; Benign prostate hyperplasia 600.00 and Renal insufficiency 593.[address] [address] Sep, Atrial fibrillation 427.31 ; Essential hypertension, benign 401.1 ; Elevated prostate specific antigen (PSA) 790.93 and Mixed hyperlipidemia 272.[address] [place] [id number] [place] [address] 14 Jul, 2014 [place] [id number] [place] [address] 13 Jul, 2014 [place] [id number] [place] [address] 16 Jun, [address] [address] Jun, [place] [id number] [place] [address] 15 Apr, [address] [address] Apr, [address] [address] Mar, [place] [id number] [place] [address] Mar, [address] [address] Mar, [place] [id number] [place] [address] Mar, [address] [address] Feb, [facility] [address] [place] [facility] [place] [address] Feb, [facility] [address] [facility] [id number], [place] [address] Jan, [facility] [address] [place] [facility] [place] [address] Jan, [facility] [address] [facility] [id number], [place] [address] Dec, [facility] [address] [place] [facility] [place] [address] Dec, [facility] [address] [facility] [id number], [place] [address] Oct, [facility] [address] [place] [address] Oct, [facility] [address] [place] [address] Oct, [facility] [address] [id number], [place] [address] Oct, [facility] [address] [place] [address] Sep, [facility] [address] [place] [id number], [place] [address] Sep, [facility] [address] [id number], [place] [address] August, [facility] [address] [place] [address] August, [facility] [address] [facility] [id number], [place] [address] August, [facility] [address] [facility] [id number], [place] [address] August, [facility] [address] [place] [facility] [place] [address] August, [facility] [address] [place] [facility] [place] [address] August, [facility] [address] [facility] [id number], [place] [address] August, [facility] [address] [place] [address] Jul, [facility] [address] [facility] [id number], [place] [address] Jul, [facility] [address] [place] [address] Jul, [facility] [address] [place] [id number], [place] [address] Jul, [facility] [address] [place] [address] May, [facility] [address] [id number], [place] [address] May, [facility] [address] [place] [address] Apr, [facility] [address] [place] [id number], [place] [address] Apr, [facility] [address] [place] [address] Mar, [facility] [address] [id number], [place] [address] Mar, [facility] [address] [place] [address] Feb, [facility] [address] [id number], [place] [address] Feb, [facility] [id number], [place] [address] Feb, [facility] [id number], [place] [address] Feb, [facility] [address] [place] [address] 14 Feb, 2013 [facility] [address] [place] [address] Feb, [facility] [address] [place] [address] Jan, [facility] [address] [facility] [id number] [place] [address] Jan, [facility] [address] [place] [address] Dec, [facility] [address] [place] [address] Dec, IMMUNIZATIONS No Known Immunizations SOCIAL HISTORY Never Assessed REASON FOR VISIT inr=1.3, [employer] PLAN OF CARE Activity Details Follow Up prn Reason: VITAL SIGNS MEDICATIONS Unknown Medications RESULTS Name Result Date Reference Range INR (IN HOUSE) 2017-09-17 INR 1.3 1.10 - 3.30 PREVIOUS INR 1.5 CURRENT COUMADIN DOSE NEW COUMADIN DOSE Lot # [id number] Exp date 10/06/2018 PROCEDURES Procedure Date Ordered Result Body Site PROTHROMBIN TIME September 17, 2017 INSTRUCTIONS MEDICATIONS ADMINISTERED No Known Medications [...]
--- OUTSIDE RECORDS SUMMARY | 2018-06-27 07:10 | XMS REPORT ---
Author Author KASIE CHAPMAN [facility] [address] Address [address] [place] [address] Care Team Providers Care Acquisition Analyst Name Role Phone KASIE CHAPMAN Unavailable PROBLEMS Type Condition ICD9-CM Code TWD95-VC Code Onset Dates Condition Status SNOMED Code Problem detention current use of anticoagulant therapy Z79.01 Active 845113450 Problem Persistent atrial fibrillation I48.1 Active 424709469 Problem Chronic atrial fibrillation I48.2 Active 856433253 Problem Mixed hyperlipidemia E78.2 Active 356606299 Problem Essential (primary) hypertension I10 Active 72106731 Problem Elevated prostate specific antigen [PSA] R97.2 Active 436372707 Problem 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 236601015 Problem Unspecified atrial fibrillation I48.91 Active 94400661 Problem Hyperlipidemia LDL goal <100 E78.5 Active 61515828 Problem Essential hypertension I10 Active 78895490 Problem Obstructive sleep apnea G47.33 Active 44333857 Problem Chronic obstructive pulmonary disease, unspecified COPD type J44.9 Active 58837800 ALLERGIES No Information ENCOUNTERS Encounter Location Date Diagnosis [facility] [address] [place] [address] Nov, Medicare annual wellness visit, initial Z00.00 [facility] [address] [place] [address] Nov, [facility] [address] [place] [address] Oct, detention current use of anticoagulant therapy Z79.01 [facility] [address] [place] [address] Oct, Chronic atrial fibrillation I48.2 ; Essential hypertension I10 and Elevated prostate specific antigen [PSA] R97.2 [facility] [address] [place] [address] Sep, 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.01 [facility] [address] [place] [address] 22 Sep, 2017 detention current use of anticoagulant therapy Z79.01 [facility] [address] [place] [address] 20 Sep, 2017 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.01 and Chronic atrial fibrillation I48.2 [facility] [address] [place] [address] 18 Sep, 2017 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.01 [facility] [address] [place] [address] 15 Sep, 2017 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.01 [facility] [address] [place] [address] 13 Sep, 2017 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.01 [facility] [address] [place] [address] 11 Sep, 2017 Chronic obstructive pulmonary disease, unspecified COPD type J44.9 [facility] [address] [place] [address] Sep, 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.01 [facility] [address] [place] [address] Sep, detention current use of anticoagulant therapy Z79.01 [facility] [address] [place] [address] Sep, [facility] [address] [place] [address] August, detention current use of anticoagulant therapy Z79.01 [facility] [address] [place] [address] August, [facility] [address] [place] [address] August, detention current use of anticoagulant therapy Z79.01 [facility] [address] [place] [address] August, 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.01 [facility] [address] [place] [address] Jul, 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.01 [facility] [address] [place] [address] Jul, detention current use of anticoagulant therapy Z79.01 [facility] [address] [place] [address] 18 Jul, 2017 detention current use of anticoagulant therapy Z79.01 [facility] [address] [place] [address] 16 Jul, 2017 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.[address] [address] Jul, 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 [address] Jul, Chronic obstructive pulmonary disease, unspecified COPD type J44.[address] [address] Jul, detention current use of anticoagulant therapy Z79.[address] [address] Jul, [address] [address] Jul, Bleeding from mouth K13.79 and Lip lesion K13.[address] [address] Jul, detention current use of anticoagulant therapy Z79.[address] [address] Jul, detention current use of anticoagulant therapy Z79.[address] [address] Jul, [address] [address] Jun, Unspecified atrial fibrillation I48.[address] [address] May, Unspecified atrial fibrillation I48.[address] [address] May, Chronic atrial fibrillation I48.2 ; BMI 40.0-44.9, adult Z68.41 ; Hyperlipidemia LDL goal <100 E78.5 ; detention current use of anticoagulant therapy Z79.01 ; Essential hypertension I10 ; Obstructive sleep apnea G47.33 ; Elevated PSA, less than 10 ng/ml R97.20 and Chronic obstructive pulmonary disease, unspecified COPD type J44.[address] [address] Apr, [address] [address] Apr, Elevated PSA R97.20 [facility] [address] [id number] [address] Apr, Mild persistent asthma, unspecified whether complicated J45.[address] [address] Apr, Chronic obstructive pulmonary disease, unspecified COPD type J44.[address] [address] Mar, [address] [address] Mar, [address] [address] Mar, [address] [address] Mar, Chronic atrial fibrillation I48.2 ; Hyperlipidemia LDL goal <100 E78.5 ; Essential hypertension I10 ; Obstructive sleep apnea G47.33 ; Has stopped breathing R06.81 ; Elevated PSA, less than 10 ng/ml R97.20 ; Chronic obstructive pulmonary disease, unspecified COPD type J44.9 ; Encounter for immunization Z23 and 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.[address] [address] Feb, [address] [address] Dec, [address] [address] Nov, Chronic atrial fibrillation I48.2 and Elevated PSA R97.[address] [address] Nov, Chronic atrial fibrillation I48.2 ; Hyperlipidemia LDL goal <100 E78.5 ; Essential hypertension I10 ; Dyspnea on exertion R06.09 and Elevated PSA R97.[address] [address] August, detention current use of anticoagulant therapy Z79.01 ; Bronchitis J40 and Persistent atrial fibrillation I48.[address] [address] August, [address] [address] May, 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.01 ; Encounter for long-term (current) use of other medications Z79.899 ; Fever, unspecified fever cause R50.9 and Influenza A J10.[address] [address] Apr, [address] [address] Apr, Elevated prostate specific antigen [PSA] R97.[address] [address] Feb, [address] [address] Feb, 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.01 ; Atrial fibrillation 427.31 ; Encounter for long-term (current) use of other medications Z79.899 ; Chronic atrial fibrillation I48.2 ; Encounter for immunization Z23 and Actinic keratoses L57.[address] [address] Dec, 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 and Encounter for immunization Z23 [address] [address] Nov, Hemangioma D18.00 and Actinic keratosis L57.[address] [address] Nov, Chronic atrial fibrillation I48.2 ; 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.01 and Skin lesions L98.[address] [address] Oct, Elevated prostate specific antigen [PSA] R97.2 ; Mixed hyperlipidemia E78.2 and Essential (primary) hypertension I10 [address] [address] August, [address] [address] August, Encounter for long-term (current) use of other medications Z79.899 ; 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.01 and Chronic atrial fibrillation I48.[address] [address] Jul, Unspecified atrial fibrillation I48.91 ; Encounter for long-term (current) use of other medications Z79.899 and detention current use of anticoagulant therapy Z79.[address] [address] Jun, Atrial fibrillation 427.31 ; Encounter for long-term (current) use of other medications Z79.899 and 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.[address] [address] Jun, Unspecified atrial fibrillation I48.91 ; Encounter for long-term (current) use of other medications Z79.899 ; 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.01 and Community acquired bacterial pneumonia J15.[address] [address] Jun, Community acquired bacterial pneumonia J15.[address] [address] May, Chronic atrial fibrillation I48.2 ; Encounter for long-term (current) use of other medications Z79.899 and detention current use of anticoagulant therapy Z79.[address] [address] Apr, Elevated prostate specific antigen [PSA] R97.[address] [address] Feb, Chronic atrial fibrillation I48.2 ; detention current use of anticoagulant therapy Z79.01 and Encounter for long-term (current) use of other medications Z79.[address] [place] [address] Dec, Atrial fibrillation 427.31 and terminal operations manager (current) use of anticoagulants V58.[address] [address] Sep, [address] [address] Sep, Atrial fibrillation 427.31 ; Elevated PSA 790.93 ; Benign prostate hyperplasia 600.00 and Renal insufficiency 593.[address] [address] Sep, Atrial fibrillation 427.31 ; Essential hypertension, benign 401.1 ; Elevated prostate specific antigen (PSA) 790.93 and Mixed hyperlipidemia 272.[id number] [place] [address] 14 Jul, 2014 [place] [id number] [place] [address] Jul, [place] [id number] [place] [address] 16 Jun, [address] [address] Jun, [id number] [place] [address] Apr, [address] [address] Apr, [address] [address] Mar, [facility] [address] [place] [id number] [place] [address] Mar, [address] [address] Mar, [id number] [place] [address] Mar, [facility] [address] [place] [id number] [address] Feb, [address] [place] [address] Feb, [facility] [place] [facility] [address] [facility] [id number] [place] [address] Jan, [facility] [address] [place] [facility] [address] Jan, [facility] [place] [facility] [address] [id number] [address] Dec, [facility] [address] [place] [facility] [place] [address] Dec, [facility] [place] [facility] [address] [facility] [id number] [address] Oct, [facility] [address] [place] [address] Oct, [facility] [address] [place] [address] Oct, [facility] [place] [facility] [address] [id number] [address] Oct, [facility] [address] [place] [address] Sep, [facility] [place] [facility] [address] [id number] [address] Sep, [facility] [place] [facility] [address] [id number] [address] August, [facility] [address] [place] [address] August, [facility] [place] [facility] [address] [id number] [address] August, [facility] [place] [facility] [address] [facility] [id number] [place] [address] August, [facility] [address] [place] [address] August, [facility] [address] [place] [address] August, [facility] [place] [facility] [address] [id number], [place] [address] August, [facility] [address] [place] [facility] [address] Jul, [facility] [place] [facility] [address] [id number] [address] Jul, [facility] [address] [place] [address] Jul, [facility] [place] [facility] [address] [id number] [address] Jul, [facility] [address] [place] [address] May, [facility] [place] [facility] [address] [id number] [address] May, [facility] [address] [place] [address] Apr, [facility] [place] [facility] [address] [id number] [address] Apr, [facility] [address] [place] [address] Mar, [facility] [place] [facility] [address] [id number], [place] [address] Mar, [facility] [address] [place] [address] Feb, [facility] [place] [facility] [address] [id number] [address] 20 Feb, 2013 [facility] [place] [facility] [address] [id number] [address] 14 Feb, 2013 [facility] [place] [facility] [address] [id number] [address] 14 Feb, 2013 [facility] [address] [place] [address] 14 Feb, 2013 [facility] [address] [place] [address] 14 Feb, 2013 [facility] [address] [place] [address] 24 Jan, 2013 [facility] [place] [facility] [address] [id number] [address] Jan, [facility] [address] [place] [address] Dec, [facility] [address] [place] [address] Dec, IMMUNIZATIONS No Known Immunizations SOCIAL HISTORY Never Assessed REASON FOR VISIT FYI only PLAN OF CARE VITAL SIGNS MEDICATIONS Unknown [...]
--- OUTSIDE RECORDS SUMMARY | 2018-06-27 07:10 | XMS REPORT ---
Author Author KASIE CHAPMAN [facility] [address] Address [address] [place] [address] Care Team Providers Care Meat Counter Worker Name Role Phone KASIE CHAPMAN Unavailable PROBLEMS Type Condition ICD9-CM Code ZAL49-ZR Code Onset Dates Condition Status SNOMED Code Problem snf current use of anticoagulant therapy Z79.01 Active 546788079 Problem Persistent atrial fibrillation I48.1 Active 927076177 Problem Chronic atrial fibrillation I48.2 Active 580144462 Problem Mixed hyperlipidemia E78.2 Active 036206516 Problem Essential (primary) hypertension I10 Active 36509247 Problem Elevated prostate specific antigen [PSA] R97.2 Active 674361579 Problem 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 010677363 Problem Unspecified atrial fibrillation I48.91 Active 38148292 Problem Hyperlipidemia LDL goal <100 E78.5 Active 06260166 Problem Essential hypertension I10 Active 39922447 Problem Obstructive sleep apnea G47.33 Active 91225769 Problem Chronic obstructive pulmonary disease, unspecified COPD type J44.9 Active 56935038 ALLERGIES No Information ENCOUNTERS Encounter Location Date Diagnosis [facility] [address] [place] [phone] Nov, [facility] [address] [place] [address] Oct, 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 [facility] [address] [place] [address] Oct, Chronic atrial fibrillation I48.2 ; Essential hypertension I10 and Elevated prostate specific antigen [PSA] R97.2 [facility] [address] [place] [address] Sep, 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 [facility] [address] [place] [address] Sep, 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 [facility] [address] [place] [address] 20 Sep, 2017 snf current use of anticoagulant therapy Z79.01 and Chronic atrial fibrillation I48.2 [facility] [address] [place] [address] 18 Sep, 2017 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 [facility] [place] [address] [place] [address] 15 Sep, 2017 snf current use of anticoagulant therapy Z79.01 [facility] [place] [address] [place] [address] 13 Sep, 2017 snf current use of anticoagulant therapy Z79.01 [facility] [place] [address] [place] [address] 11 Sep, 2017 Chronic obstructive pulmonary disease, unspecified COPD type J44.9 [facility] [address] [address] 11 Sep, 2017 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 [facility] [place] [address] [place] [address] 08 Sep, 2017 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 [facility] [place] [address] [place] [address] Sep, [facility] [place] [address] [place] [address] August, snf current use of anticoagulant therapy Z79.01 [facility] [place] [address] [place] [address] August, [facility] [place] [address] [place] [address] August, 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 [facility] [place] [address] [place] [address] August, 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 [facility] [place] [address] [place] [address] Jul, 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 [facility] [place] [address] [place] [address] Jul, snf current use of anticoagulant therapy Z79.01 [facility] [place] [address] [place] [address] 18 Jul, 2017 snf current use of anticoagulant therapy Z79.[address] [address] 16 Jul, 2017 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 [address] 13 Jul, 2017 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 [address] Jul, Chronic obstructive pulmonary disease, unspecified COPD type J44.[address] [address] Jul, snf current use of anticoagulant therapy Z79.[address] [address] Jul, [address] [address] Jul, Bleeding from mouth K13.79 and Lip lesion K13.[address] [address] Jul, snf current use of anticoagulant therapy Z79.[address] [address] Jul, 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 [address] Jul, [address] [address] Jun, Unspecified atrial fibrillation I48.[address] [address] May, Unspecified atrial fibrillation I48.[address] [address] May, Chronic atrial fibrillation I48.2 ; BMI 40.0-44.9, adult Z68.41 ; Hyperlipidemia LDL goal <100 E78.5 ; 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 ; Essential hypertension I10 ; Obstructive sleep apnea G47.33 ; Elevated PSA, less than 10 ng/ml R97.20 and Chronic obstructive pulmonary disease, unspecified COPD type J44.[address] [address] Apr, [address] [address] Apr, Elevated PSA R97.20 [facility] [address] [id number] [place] [address] Apr, Mild persistent asthma, unspecified whether complicated J45.[address] [address] Apr, Chronic obstructive pulmonary disease, unspecified COPD type J44.[address] [address] Mar, [address] [address] Mar, [address] [address] Mar, [address] [address] Mar, Chronic atrial fibrillation I48.2 ; Hyperlipidemia LDL goal <100 E78.5 ; Essential hypertension I10 ; Obstructive sleep apnea G47.33 ; Has stopped breathing R06.81 ; Elevated PSA, less than 10 ng/ml R97.20 ; Chronic obstructive pulmonary disease, unspecified COPD type J44.9 ; Encounter for immunization Z23 and snf current use of anticoagulant therapy Z79.[address] [address] Feb, [address] [address] Dec, [address] [address] Nov, Chronic atrial fibrillation I48.2 and Elevated PSA R97.[address] [address] Nov, Chronic atrial fibrillation I48.2 ; Hyperlipidemia LDL goal <100 E78.5 ; Essential hypertension I10 ; Dyspnea on exertion R06.09 and Elevated PSA R97.[address] [address] August, snf current use of anticoagulant therapy Z79.01 ; Bronchitis J40 and Persistent atrial fibrillation I48.[address] [address] August, [address] [address] May, snf current use of anticoagulant therapy Z79.01 ; Encounter for long-term (current) use of other medications Z79.899 ; Fever, unspecified fever cause R50.9 and Influenza A J10.[address] [address] Apr, [address] [address] Apr, Elevated prostate specific antigen [PSA] R97.[address] [address] Feb, [address] [address] Feb, snf current use of anticoagulant therapy Z79.01 ; Atrial fibrillation 427.31 ; Encounter for long-term (current) use of other medications Z79.899 ; Chronic atrial fibrillation I48.2 ; Encounter for immunization Z23 and Actinic keratoses L57.[address] [address] Dec, 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 and Encounter for immunization Z23 [address] [address] Nov, Hemangioma D18.00 and Actinic keratosis L57.[address] [address] Nov, Chronic atrial fibrillation I48.2 ; 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 and Skin lesions L98.[address] [address] Oct, Elevated prostate specific antigen [PSA] R97.2 ; Mixed hyperlipidemia E78.2 and Essential (primary) hypertension I10 [address] [address] August, [address] [address] August, Encounter for long-term (current) use of other medications Z79.899 ; snf current use of anticoagulant therapy Z79.01 and Chronic atrial fibrillation I48.[address] [address] Jul, Unspecified atrial fibrillation I48.91 ; Encounter for long-term (current) use of other medications Z79.899 and 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 [address] Jun, Atrial fibrillation 427.31 ; Encounter for long-term (current) use of other medications Z79.899 and 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 [address] Jun, Unspecified atrial fibrillation I48.91 ; Encounter for long-term (current) use of other medications Z79.899 ; 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 and Community acquired bacterial pneumonia J15.[address] [address] Jun, Community acquired bacterial pneumonia J15.[address] [address] May, Chronic atrial fibrillation I48.2 ; Encounter for long-term (current) use of other medications Z79.899 and 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 [address] Apr, Elevated prostate specific antigen [PSA] R97.[address] [address] Feb, Chronic atrial fibrillation I48.2 ; 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 and Encounter for long-term (current) use of other medications Z79.[address] [address] Dec, Atrial fibrillation 427.31 and buttermaker continuous churn (current) use of anticoagulants V58.61 [facility] [address] [place] [address] Sep, [facility] [address] [place] [address] Sep, Atrial fibrillation 427.31 ; Elevated PSA 790.93 ; Benign prostate hyperplasia 600.00 and Renal insufficiency 593.9 [facility] [address] [place] [address] 17 Sep, 2014 Atrial fibrillation 427.31 ; Essential hypertension, benign 401.1 ; Elevated prostate specific antigen (PSA) 790.93 and Mixed hyperlipidemia 272.2 [facility] [address] [id number] [address] 14 Jul, 2014 [facility] [address] [place] [id number] [place] [address] Jul, [facility] [address] [place] [id number] [place] [address] 16 Jun, [address] [address] Jun, [facility] [address] [place] [id number] [place] [address] Apr, [address] [address] Apr, [address] [address] Mar, [facility] [address] [id number] [address] Mar, [address] [address] Mar, [facility] [address] [id number] [address] Mar, [facility] [address] [place] [id number] [place] [address] Feb, [address] [address] Feb, [facility] [address] [place] [id number] [place] [address] Jan, [facility] [address] [facility] [place] [address] Jan, [facility] [place] [facility] [address] [facility] [id number] [address] Dec, [facility] [address] [facility] [place] [address] Dec, [facility] [place] [facility] [address] [id number] [address] Oct, [facility] [address] [facility] [place] [address] Oct, [facility] [address] [facility] [place] [address] Oct, [facility] [place] [facility] [address] [id number] [address] Oct, [facility] [address] [place] [address] Sep, [facility] [place] [facility] [address] [id number] [address] Sep, [facility] [place] [facility] [address] [id number] [address] August, [facility] [address] [place] [address] August, [facility] [place] [facility] [address] [id number] [address] August, [facility] [place] [facility] [address] [facility] [id number] [address] August, [facility] [address] [facility] [place] [address] August, [facility] [address] [facility] [place] [address] August, [facility] [place] [facility] [address] [facility] [id number] [place] [address] August, [facility] [address] [facility] [place] [address] Jul, [facility] [place] [facility] [address] [id number] [address] Jul, [facility] [address] [place] [address] Jul, [facility] [place] [facility] [address] [id number] [address] Jul, [facility] [address] [place] [address] May, [facility] [place] [facility] [address] [id number] [address] May, [facility] [address] [place] [address] Apr, [facility] [place] [facility] [address] [id number] [address] Apr, [facility] [address] [place] [address] Mar, [facility] [address] [id number] [address] 17 Mar, 2013 [facility] [address] [place] [address] Feb, [facility] [address] [id number] [address] 20 Feb, 2013 [facility] [address] [id number] [address] 14 Feb, 2013 [facility] [place] [facility] [address] [id number] [address] 14 Feb, 2013 [facility] [address] [place] [address] 14 Feb, 2013 [facility] [address] [place] [address] 14 Feb, 2013 [facility] [address] [place] [address] 24 Jan, 2013 [facility] [place] [facility] [id number] [address] Jan, [facility] [address] [place] [address] Dec, [facility] [address] [place] [address] Dec, IMMUNIZATIONS No Known Immunizations SOCIAL HISTORY Never Assessed REASON FOR VISIT INR JBishop PLAN OF CARE Activity Details Follow Up prn Reason: VITAL SIGNS MEDICATIONS Unknown Medications RESULTS Name Result Date Reference Range INR (IN HOUSE) 2017-08-28 INR 3.0 1.10 - 3.30 PREVIOUS INR 2.8 CURRENT COUMADIN DOSE 6MG daily NEW COUMADIN DOSE Lot # [id number] Exp date 10/06/2018 PROCEDURES Procedure Date Ordered Result Body Site PROTHROMBIN TIME August 28, 2017 INSTRUCTIONS MEDICATIONS ADMINISTERED No Known Medications [...]
--- OUTSIDE RECORDS SUMMARY | 2018-06-27 07:10 | XMS REPORT ---
Author Author KASIE CHAPMAN [facility] [address] [place] [address] Care Team Providers Care Room Service Clerk Name Role Phone KASIE CHAPMAN Unavailable PROBLEMS Type Condition ICD9-CM Code HCP43-QC Code Onset Dates Condition Status SNOMED Code Problem half-way current use of anticoagulant therapy Z79.01 Active 020445200 Problem Persistent atrial fibrillation I48.1 Active 487601525 Problem Chronic atrial fibrillation I48.2 Active 153875197 Problem Mixed hyperlipidemia E78.2 Active 650226918 Problem Essential (primary) hypertension I10 Active 04993227 Problem Elevated prostate specific antigen [PSA] R97.2 Active 157331033 Problem 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 588904304 Problem Unspecified atrial fibrillation I48.91 Active 39420995 Problem Hyperlipidemia LDL goal <100 E78.5 Active 94234644 Problem Essential hypertension I10 Active 61070970 Problem Obstructive sleep apnea G47.33 Active 63781171 Problem Chronic obstructive pulmonary disease, unspecified COPD type J44.9 Active 38483993 ALLERGIES No Information ENCOUNTERS Encounter Location Date Diagnosis [facility] [address] [place] [address] Nov, Medicare annual wellness visit, initial Z00.00 [facility] [address] [place] [address] Nov, [facility] [address] [place] [address] Oct, half-way current use of anticoagulant therapy Z79.01 [facility] [address] [place] [address] Oct, Chronic atrial fibrillation I48.2 ; Essential hypertension I10 and Elevated prostate specific antigen [PSA] R97.2 [facility] [address] [place] [address] Sep, 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 [facility] [address] [place] [address] 22 Sep, 2017 half-way current use of anticoagulant therapy Z79.01 [facility] [address] [place] [address] 20 Sep, 2017 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 and Chronic atrial fibrillation I48.2 [facility] [address] [place] [address] 18 Sep, 2017 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 [facility] [address] [place] [address] 15 Sep, 2017 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 [facility] [address] [place] [address] 13 Sep, 2017 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 [facility] [address] [place] [address] 11 Sep, 2017 Chronic obstructive pulmonary disease, unspecified COPD type J44.9 [facility] [place] [address] [place] [address] Sep, 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 [facility] [address] [place] [address] Sep, half-way current use of anticoagulant therapy Z79.01 [facility] [address] [place] [address] Sep, [facility] [address] [place] [address] August, half-way current use of anticoagulant therapy Z79.01 [facility] [address] [place] [address] August, [facility] [address] [place] [address] August, half-way current use of anticoagulant therapy Z79.01 [facility] [address] [place] [address] August, 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 [facility] [address] [place] [address] Jul, 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 [facility] [address] [place] [address] Jul, half-way current use of anticoagulant therapy Z79.01 [facility] [address] [place] [address] 18 Jul, 2017 half-way current use of anticoagulant therapy Z79.01 [facility] [address] [place] [address] 16 Jul, 2017 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 [address] Jul, 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 [address] Jul, Chronic obstructive pulmonary disease, unspecified COPD type J44.[address] [address] Jul, half-way current use of anticoagulant therapy Z79.[address] [address] Jul, [address] [address] Jul, Bleeding from mouth K13.79 and Lip lesion K13.[address] [address] Jul, half-way current use of anticoagulant therapy Z79.[address] [address] Jul, half-way current use of anticoagulant therapy Z79.[address] [address] Jul, [address] [address] Jun, Unspecified atrial fibrillation I48.[address] [address] May, Unspecified atrial fibrillation I48.[address] [address] May, Chronic atrial fibrillation I48.2 ; BMI 40.0-44.9, adult Z68.41 ; Hyperlipidemia LDL goal <100 E78.5 ; half-way current use of anticoagulant therapy Z79.01 ; Essential hypertension I10 ; Obstructive sleep apnea G47.33 ; Elevated PSA, less than 10 ng/ml R97.20 and Chronic obstructive pulmonary disease, unspecified COPD type J44.[address] [address] Apr, [address] [address] Apr, Elevated PSA R97.20 [facility] [address] [id number] [place] [address] Apr, Mild persistent asthma, unspecified whether complicated J45.[address] [address] Apr, Chronic obstructive pulmonary disease, unspecified COPD type J44.[address] [address] Mar, [address] [address] Mar, [address] [address] Mar, [address] [address] Mar, Chronic atrial fibrillation I48.2 ; Hyperlipidemia LDL goal <100 E78.5 ; Essential hypertension I10 ; Obstructive sleep apnea G47.33 ; Has stopped breathing R06.81 ; Elevated PSA, less than 10 ng/ml R97.20 ; Chronic obstructive pulmonary disease, unspecified COPD type J44.9 ; Encounter for immunization Z23 and 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 [address] Feb, [address] [address] Dec, [address] [address] Nov, Chronic atrial fibrillation I48.2 and Elevated PSA R97.[address] [address] Nov, Chronic atrial fibrillation I48.2 ; Hyperlipidemia LDL goal <100 E78.5 ; Essential hypertension I10 ; Dyspnea on exertion R06.09 and Elevated PSA R97.[address] [address] August, half-way current use of anticoagulant therapy Z79.01 ; Bronchitis J40 and Persistent atrial fibrillation I48.[address] [address] August, [address] [address] May, 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 ; Encounter for long-term (current) use of other medications Z79.899 ; Fever, unspecified fever cause R50.9 and Influenza A J10.[address] [address] Apr, [address] [address] Apr, Elevated prostate specific antigen [PSA] R97.[address] [address] Feb, [address] [address] Feb, 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 ; Atrial fibrillation 427.31 ; Encounter for long-term (current) use of other medications Z79.899 ; Chronic atrial fibrillation I48.2 ; Encounter for immunization Z23 and Actinic keratoses L57.[address] [address] Dec, 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 and Encounter for immunization Z23 [address] [address] Nov, Hemangioma D18.00 and Actinic keratosis L57.[address] [address] Nov, Chronic atrial fibrillation I48.2 ; 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 and Skin lesions L98.[address] [address] Oct, Elevated prostate specific antigen [PSA] R97.2 ; Mixed hyperlipidemia E78.2 and Essential (primary) hypertension I10 [address] [address] August, [address] [address] August, Encounter for long-term (current) use of other medications Z79.899 ; 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 and Chronic atrial fibrillation I48.[address] [address] Jul, Unspecified atrial fibrillation I48.91 ; Encounter for long-term (current) use of other medications Z79.899 and half-way current use of anticoagulant therapy Z79.[address] [address] Jun, Atrial fibrillation 427.31 ; Encounter for long-term (current) use of other medications Z79.899 and 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 [address] Jun, Unspecified atrial fibrillation I48.91 ; Encounter for long-term (current) use of other medications Z79.899 ; 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 and Community acquired bacterial pneumonia J15.[address] [address] Jun, Community acquired bacterial pneumonia J15.[address] [address] May, Chronic atrial fibrillation I48.2 ; Encounter for long-term (current) use of other medications Z79.899 and half-way current use of anticoagulant therapy Z79.[address] [address] Apr, Elevated prostate specific antigen [PSA] R97.[address] [address] Feb, Chronic atrial fibrillation I48.2 ; half-way current use of anticoagulant therapy Z79.01 and Encounter for long-term (current) use of other medications Z79.[address] [place] [address] Dec, Atrial fibrillation 427.31 and terminal operator (current) use of anticoagulants V58.[address] [address] Sep, [address] [address] Sep, Atrial fibrillation 427.31 ; Elevated PSA 790.93 ; Benign prostate hyperplasia 600.00 and Renal insufficiency 593.[address] [address] Sep, Atrial fibrillation 427.31 ; Essential hypertension, benign 401.1 ; Elevated prostate specific antigen (PSA) 790.93 and Mixed hyperlipidemia 272.[id number] [place] [address] 14 Jul, [address] [place] [id number] [place] [address] Jul, [place] [id number] [place] [address] 16 Jun, [address] [address] Jun, [id number] [place] [address] Apr, [address] [address] Apr, [address] [address] Mar, [facility] [address] [place], [place] [id number] [place] [address] Mar, [address] [address] Mar, [id number] [place] [address] Mar, [facility] [address] [place] [id number] [address] Feb, [address] [place] [address] Feb, [facility] [place] [facility] [address] [facility] [id number] [place] [address] Jan, [facility] [address] [facility] [place] [address] Jan, [facility] [place] [facility] [id number] [address] Dec, [facility] [address] [facility] [place] [address] Dec, [facility] [place] [facility] [address] [facility] [id number] [address] Oct, [facility] [address] [place] [address] Oct, [facility] [address] [place] [address] Oct, [facility] [place] [facility] [id number] [address] Oct, [facility] [address] [place] [address] Sep, [facility] [place] [facility] [id number] [address] Sep, [facility] [place] [facility] [id number] [address] August, [facility] [address] [place] [address] August, [facility] [place] [facility] [id number] [address] August, [facility] [place] [facility] [address] [facility] [id number] [place] [address] August, [facility] [address] [place] [address] August, [facility] [address] [place] [address] August, [facility] [place] [facility] [id number] [address] August, [facility] [address] [facility] [place] [address] Jul, [facility] [place] [facility] [id number] [address] Jul, [facility] [address] [place] [address] Jul, [facility] [place] [facility] [id number] [address] Jul, [facility] [address] [place] [address] May, [facility] [place] [facility] [id number] [address] May, [facility] [address] [place] [address] Apr, [facility] [place] [facility] [id number] [address] Apr, [facility] [address] [place] [address] Mar, [facility] [place] [facility] [id number] [address] Mar, [facility] [address] [place] [address] Feb, [facility] [place] [facility] [id number] [address] 20 Feb, 2013 [facility] [place] [facility] [id number] [address] 14 Feb, 2013 [facility] [place] [facility] [id number] [address] 14 Feb, 2013 [facility] [address] [place] [address] 14 Feb, 2013 [facility] [address] [place] [address] 14 Feb, 2013 [facility] [address] [place] [address] 24 Jan, 2013 [facility] [place] [facility] [id number] [address] Jan, [facility] [address] [place] [address] Dec, [facility] [address] [place] [address] Dec, IMMUNIZATIONS No Known Immunizations SOCIAL HISTORY Never Assessed REASON FOR VISIT Lab (walk-in) [facility] VITAL SIGNS MEDICATIONS Unknown Medications RESULTS Name Result Date Reference Range INR (IN HOUSE) INR 1.5 1.10 - 3.30 PREVIOUS INR 3.0 CURRENT COUMADIN DOSE on hold NEW COUMADIN DOSE Lot # [id number] Exp date 10/06/18 PROCEDURES Procedure Date Ordered Result Body Site PROTHROMBIN TIME September 14, 2017 INSTRUCTIONS MEDICATIONS ADMINISTERED No Known Medications [...]
--- OUTSIDE RECORDS SUMMARY | 2018-06-27 07:11 | XMS REPORT ---
Author Author KASIE CHAPMAN Organization [facility] [address] [place] [address] Care Team Providers Care Litigation Counsel Name Role Phone KASIE CHAPMAN Unavailable PROBLEMS Type Condition ICD9-CM Code [id number] Code Onset Dates Condition Status SNOMED Code Problem penitentiary current use of anticoagulant therapy Z79.01 Active 266102150 Problem Persistent atrial fibrillation I48.1 Active 481978611 Problem Chronic atrial fibrillation I48.2 Active 488536966 Problem Mixed hyperlipidemia E78.2 Active 430277013 Problem Essential (primary) hypertension I10 Active 12995224 Problem Elevated prostate specific antigen [PSA] R97.2 Active 651739744 Problem 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 385397991 Problem Unspecified atrial fibrillation I48.91 Active 12498896 Problem Hyperlipidemia LDL goal <100 E78.5 Active 01413209 Problem Essential hypertension I10 Active 89037908 Problem Obstructive sleep apnea G47.33 Active 92093517 Problem Chronic obstructive pulmonary disease, unspecified COPD type J44.9 Active 34992720 ALLERGIES No Information ENCOUNTERS Encounter Location Date Diagnosis [facility] [address] [place] [address] Nov, [facility] [address] [place] [address] Oct, 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 [facility] [place] [address] [place] [address] Oct, Chronic atrial fibrillation I48.2 ; Essential hypertension I10 and Elevated prostate specific antigen [PSA] R97.2 [facility] [address] [place] [address] Sep, penitentiary current use of anticoagulant therapy Z79.01 [facility] [address] [place] [address] Sep, 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 [facility] [place] [address] [place] [address] 20 Sep, 2017 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 and Chronic atrial fibrillation I48.2 [facility] [place] [address] [place] [address] 18 Sep, 2017 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 [facility] [place] [address] [place] [address] 15 Sep, 2017 penitentiary current use of anticoagulant therapy Z79.01 [facility] [place] [address] [place] [address] 13 Sep, 2017 penitentiary current use of anticoagulant therapy Z79.01 [facility] [place] [address] [place] [address] 11 Sep, 2017 Chronic obstructive pulmonary disease, unspecified COPD type J44.9 [facility] [place] [address] [place] [address] 11 Sep, 2017 penitentiary current use of anticoagulant therapy Z79.01 [facility] [place] [address] [place] [address] 08 Sep, 2017 penitentiary current use of anticoagulant therapy Z79.01 [facility] [place] [address] [place] [address] Sep, [facility] [place] [address] [place] [address] August, penitentiary current use of anticoagulant therapy Z79.01 [facility] [place] [address] [place] [address] August, [facility] [place] [address] [place] [address] August, 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 [facility] [place] [address] [place] [address] August, penitentiary current use of anticoagulant therapy Z79.01 [facility] [place] [address] [place] [address] Jul, 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 [facility] [place] [address] [place] [address] Jul, penitentiary current use of anticoagulant therapy Z79.01 [facility] [place] [address] [place] [address] Jul, 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 [facility] [place] [address] [place] [address] Jul, 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 [facility] [place] [address] [place] [address] Jul, 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 [facility] [place] [address] [place] [address] Jul, Chronic obstructive pulmonary disease, unspecified COPD type J44.9 [facility] [place] [address] [place] [address] Jul, 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 [facility] [place] [address] [place] [address] Jul, [facility] [place] [address] [place] [address] Jul, Bleeding from mouth K13.79 and Lip lesion K13.0 [facility] [place] [address] [place] [address] Jul, penitentiary current use of anticoagulant therapy Z79.01 [facility] [address] [address] Jul, penitentiary current use of anticoagulant therapy Z79.01 [facility] [address] [address] Jul, [facility] [address] [address] Jun, Unspecified atrial fibrillation I48.91 [facility] [address] [address] May, Unspecified atrial fibrillation I48.91 [facility] [address] [address] May, Chronic atrial fibrillation I48.2 ; BMI 40.0-44.9, adult Z68.41 ; Hyperlipidemia LDL goal <100 E78.5 ; penitentiary current use of anticoagulant therapy Z79.01 ; Essential hypertension I10 ; Obstructive sleep apnea G47.33 ; Elevated PSA, less than 10 ng/ml R97.20 and Chronic obstructive pulmonary disease, unspecified COPD type J44.9 [facility] [address] [address] Apr, [facility] [place] [address] [place] [address] Apr, Elevated PSA R97.20 [facility] [id number] [place] [address] Apr, Mild persistent asthma, unspecified whether complicated J45.[address] [address] Apr, Chronic obstructive pulmonary disease, unspecified COPD type J44.[address] [address] Mar, [address] [address] Mar, [address] [address] Mar, [address] [address] Mar, Chronic atrial fibrillation I48.2 ; Hyperlipidemia LDL goal <100 E78.5 ; Essential hypertension I10 ; Obstructive sleep apnea G47.33 ; Has stopped breathing R06.81 ; Elevated PSA, less than 10 ng/ml R97.20 ; Chronic obstructive pulmonary disease, unspecified COPD type J44.9 ; Encounter for immunization Z23 and 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 [address] Feb, [address] [address] Dec, [address] [address] Nov, Chronic atrial fibrillation I48.2 and Elevated PSA R97.[address] [address] Nov, Chronic atrial fibrillation I48.2 ; Hyperlipidemia LDL goal <100 E78.5 ; Essential hypertension I10 ; Dyspnea on exertion R06.09 and Elevated PSA R97.[address] [address] August, 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 ; Bronchitis J40 and Persistent atrial fibrillation I48.[address] [address] August, [address] [address] May, penitentiary current use of anticoagulant therapy Z79.01 ; Encounter for long-term (current) use of other medications Z79.899 ; Fever, unspecified fever cause R50.9 and Influenza A J10.[address] [address] Apr, [address] [address] 10 Apr, 2016 Elevated prostate specific antigen [PSA] R97.[address] [address] Feb, [address] [address] Feb, 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 ; Atrial fibrillation 427.31 ; Encounter for long-term (current) use of other medications Z79.899 ; Chronic atrial fibrillation I48.2 ; Encounter for immunization Z23 and Actinic keratoses L57.[address] [address] 14 Dec, 2015 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 and Encounter for immunization Z23 [address] [address] Nov, Hemangioma D18.00 and Actinic keratosis L57.[address] [address] Nov, Chronic atrial fibrillation I48.2 ; 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 and Skin lesions L98.[address] [address] Oct, Elevated prostate specific antigen [PSA] R97.2 ; Mixed hyperlipidemia E78.2 and Essential (primary) hypertension I10 [address] [address] August, [address] [address] August, Encounter for long-term (current) use of other medications Z79.899 ; 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 and Chronic atrial fibrillation I48.[address] [address] Jul, Unspecified atrial fibrillation I48.91 ; Encounter for long-term (current) use of other medications Z79.899 and 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 [address] Jun, Atrial fibrillation 427.31 ; Encounter for long-term (current) use of other medications Z79.899 and penitentiary current use of anticoagulant therapy Z79.[address] [address] Jun, Unspecified atrial fibrillation I48.91 ; Encounter for long-term (current) use of other medications Z79.899 ; 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 and Community acquired bacterial pneumonia J15.[address] [address] Jun, Community acquired bacterial pneumonia J15.[address] [address] May, Chronic atrial fibrillation I48.2 ; Encounter for long-term (current) use of other medications Z79.899 and 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 [address] Apr, Elevated prostate specific antigen [PSA] R97.[address] [address] Feb, Chronic atrial fibrillation I48.2 ; 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 and Encounter for long-term (current) use of other medications Z79.[address] [address] Dec, Atrial fibrillation 427.31 and penitentiary (current) use of anticoagulants V58.[address] [address] Sep, [address] [address] Sep, Atrial fibrillation 427.31 ; Elevated PSA 790.93 ; Benign prostate hyperplasia 600.00 and Renal insufficiency 593.[address] [address] Sep, Atrial fibrillation 427.31 ; Essential hypertension, benign 401.1 ; Elevated prostate specific antigen (PSA) 790.93 and Mixed hyperlipidemia 272.2 [facility] [id number] [address] 14 Jul, 2014 [facility] [address] [address] 13 Jul, 2014 [facility] [id number] [address] 16 Jun, 2014 [facility] [place] [address] [place] [address] 16 Jun, 2014 [facility] [address], [place] [address] 15 Apr, 2014 [facility] [place] [address] [place] [address] Apr, [facility] [place] [address] [place] [address] Mar, [facility] [address], [place] [address] Mar, [facility] [place] [address] [place] [address] Mar, [facility] [address], [place] [address] Mar, [facility] [address], [place] [address] Feb, [facility] [place] [address] [place] [address] Feb, [facility] [address], [place] [address] Jan, [facility] [place] [address] [place] [address] Jan, [facility] [address], [place] [address] Dec, [facility] [place] [address] [place] [address] Dec, [facility] [address], [place] [address] Oct, [facility] [place] [address] [place] [address] Oct, [facility] [place] [address] [place] [address] Oct, [facility] [address] [facility] [id number] [address] Oct, [facility] [place] [address] [place] [address] Sep, [facility] [address] [facility] [id number] [address] Sep, [facility] [address] [facility] [id number] [place] [address] August, [facility] [place] [address] [place] [address] August, [facility] [id number] [place] [address] August, [facility] [id number] [place] [address] August, [facility] [place] [address] [place] [address] August, [facility] [place] [address] [place] [address] August, [facility] [id number], [place] [address] August, [facility] [place] [address] [place] [address] Jul, [facility] [id number] [address] Jul, [facility] [place] [address] [place] [address] Jul, [facility] [address] [facility] [id number] [address] Jul, [facility] [place] [address] [facility] [place] [address] May, [facility] [id number] [address] May, [facility] [place] [address] [place] [address] Apr, [facility] [id number], [place] [address] Apr, [facility] [address] [place] [address] Mar, [facility] [address], [place] [address] Mar, [facility] [address] [place] [address] Feb, [facility] [address], [place] [address] Feb, [facility] [id number] [place] [address] Feb, [facility] [address], [place] [address] Feb, [facility] [address] [place] [address] Feb, [facility] [address] [place] [address] Feb, [facility] [address] [place] [address] Jan, [facility] [address], [place] [address] Jan, [facility] [address] [place] [address] Dec, [facility] [address] [place] [address] Dec, IMMUNIZATIONS No Known Immunizations SOCIAL HISTORY Never Assessed REASON FOR VISIT INR recheck per PCP ...........................[id number] PLAN OF CARE Activity Details Follow Up 08/27/2017 @0900 am Reason: VITAL SIGNS MEDICATIONS Unknown Medications RESULTS Name Result Date Reference Range INR (IN HOUSE) INR 2.8 1.10 - 3.30 PREVIOUS INR 3.1 CURRENT COUMADIN DOSE 6 mg daily NEW COUMADIN DOSE Lot # [id number] Exp date 09/06/2018 PROCEDURES Procedure Date Ordered Result Body Site PROTHROMBIN TIME August 14, 2017 INSTRUCTIONS MEDICATIONS ADMINISTERED No Known [...]
--- OUTSIDE RECORDS SUMMARY | 2018-06-27 07:11 | XMS REPORT ---
Author Author KASIE CHAPMAN Organization [facility] [address] [place] [address] Care Team Providers Care Smash Hand Name Role Phone KASIE CHAPMAN Unavailable PROBLEMS Type Condition ICD9-CM Code BSN73-DP Code Onset Dates Condition Status SNOMED Code Problem correction current use of anticoagulant therapy Z79.01 Active 302397556 Problem Persistent atrial fibrillation I48.1 Active 000692792 Problem Chronic atrial fibrillation I48.2 Active 472442090 Problem Mixed hyperlipidemia E78.2 Active 395443111 Problem Essential (primary) hypertension I10 Active 78125435 Problem Elevated prostate specific antigen [PSA] R97.2 Active 541492023 Problem 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 945084782 Problem Unspecified atrial fibrillation I48.91 Active 75968663 Problem Hyperlipidemia LDL goal <100 E78.5 Active 39850852 Problem Essential hypertension I10 Active 25455086 Problem Obstructive sleep apnea G47.33 Active 20078368 Problem Chronic obstructive pulmonary disease, unspecified COPD type J44.9 Active 41301100 ALLERGIES No Information ENCOUNTERS Encounter Location Date Diagnosis [facility] [address] [place] [address] Nov, [facility] [address] [place] [address] Oct, medical terminologist current use of anticoagulant therapy Z79.01 [facility] [place] [address] [place] [address] Oct, Chronic atrial fibrillation I48.2 ; Essential hypertension I10 and Elevated prostate specific antigen [PSA] R97.2 [facility] [address] [place] [address] Sep, correction current use of anticoagulant therapy Z79.01 [facility] [address] [place] [address] Sep, medical terminologist current use of anticoagulant therapy Z79.01 [facility] [place] [address] [place] [address] 20 Sep, 2017 medical terminologist current use of anticoagulant therapy Z79.01 and Chronic atrial fibrillation I48.2 [facility] [place] [address] [place] [address] 18 Sep, 2017 medical terminologist current use of anticoagulant therapy Z79.01 [facility] [place] [address] [place] [address] 15 Sep, 2017 correction current use of anticoagulant therapy Z79.01 [facility] [place] [address] [place] [address] 13 Sep, 2017 correction current use of anticoagulant therapy Z79.01 [facility] [place] [address] [place] [address] 11 Sep, 2017 Chronic obstructive pulmonary disease, unspecified COPD type J44.9 [facility] [place] [address] [place] [address] 11 Sep, 2017 correction current use of anticoagulant therapy Z79.01 [facility] [place] [address] [place] [address] 08 Sep, 2017 correction current use of anticoagulant therapy Z79.01 [facility] [place] [address] [place] [address] Sep, [facility] [place] [address] [place] [address] August, correction current use of anticoagulant therapy Z79.01 [facility] [place] [address] [place] [address] August, [facility] [place] [address] [place] [address] August, medical terminologist current use of anticoagulant therapy Z79.01 [facility] [place] [address] [place] [address] August, correction current use of anticoagulant therapy Z79.01 [facility] [place] [address] [place] [address] Jul, medical terminologist current use of anticoagulant therapy Z79.01 [facility] [place] [address] [place] [address] Jul, correction current use of anticoagulant therapy Z79.01 [facility] [place] [address] [place] [address] Jul, medical terminologist current use of anticoagulant therapy Z79.01 [facility] [place] [address] [place] [address] Jul, medical terminologist current use of anticoagulant therapy Z79.01 [facility] [place] [address] [place] [address] Jul, 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 [facility] [place] [address] [place] [address] Jul, Chronic obstructive pulmonary disease, unspecified COPD type J44.9 [facility] [place] [address] [place] [address] Jul, medical terminologist current use of anticoagulant therapy Z79.01 [facility] [place] [address] [place] [address] Jul, [facility] [place] [address] [place] [address] Jul, Bleeding from mouth K13.79 and Lip lesion K13.0 [facility] [place] [address] [place] [address] Jul, correction current use of anticoagulant therapy Z79.01 [facility] [address] [address] Jul, correction current use of anticoagulant therapy Z79.01 [facility] [address] [address] Jul, [facility] [address] [address] Jun, Unspecified atrial fibrillation I48.91 [facility] [address] [address] May, Unspecified atrial fibrillation I48.91 [facility] [address] [address] May, Chronic atrial fibrillation I48.2 ; BMI 40.0-44.9, adult Z68.41 ; Hyperlipidemia LDL goal <100 E78.5 ; correction current use of anticoagulant therapy Z79.01 ; Essential hypertension I10 ; Obstructive sleep apnea G47.33 ; Elevated PSA, less than 10 ng/ml R97.20 and Chronic obstructive pulmonary disease, unspecified COPD type J44.9 [facility] [address] [address] Apr, [facility] [place] [address] [place] [address] Apr, Elevated PSA R97.20 [facility] [id number] [place] [address] Apr, Mild persistent asthma, unspecified whether complicated J45.[address] [address] Apr, Chronic obstructive pulmonary disease, unspecified COPD type J44.[address] [address] Mar, [address] [address] Mar, [address] [address] Mar, [address] [address] Mar, Chronic atrial fibrillation I48.2 ; Hyperlipidemia LDL goal <100 E78.5 ; Essential hypertension I10 ; Obstructive sleep apnea G47.33 ; Has stopped breathing R06.81 ; Elevated PSA, less than 10 ng/ml R97.20 ; Chronic obstructive pulmonary disease, unspecified COPD type J44.9 ; Encounter for immunization Z23 and medical terminologist current use of anticoagulant therapy Z79.[address] [address] Feb, [address] [address] Dec, [address] [address] Nov, Chronic atrial fibrillation I48.2 and Elevated PSA R97.[address] [address] Nov, Chronic atrial fibrillation I48.2 ; Hyperlipidemia LDL goal <100 E78.5 ; Essential hypertension I10 ; Dyspnea on exertion R06.09 and Elevated PSA R97.[address] [address] August, medical terminologist current use of anticoagulant therapy Z79.01 ; Bronchitis J40 and Persistent atrial fibrillation I48.[address] [address] August, [address] [address] May, correction current use of anticoagulant therapy Z79.01 ; Encounter for long-term (current) use of other medications Z79.899 ; Fever, unspecified fever cause R50.9 and Influenza A J10.[address] [address] Apr, [address] [address] 10 Apr, 2016 Elevated prostate specific antigen [PSA] R97.[address] [address] Feb, [address] [address] Feb, medical terminologist current use of anticoagulant therapy Z79.01 ; Atrial fibrillation 427.31 ; Encounter for long-term (current) use of other medications Z79.899 ; Chronic atrial fibrillation I48.2 ; Encounter for immunization Z23 and Actinic keratoses L57.[address] [address] 14 Dec, 2015 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 and Encounter for immunization Z23 [address] [address] Nov, Hemangioma D18.00 and Actinic keratosis L57.[address] [address] Nov, Chronic atrial fibrillation I48.2 ; medical terminologist current use of anticoagulant therapy Z79.01 and Skin lesions L98.[address] [address] Oct, Elevated prostate specific antigen [PSA] R97.2 ; Mixed hyperlipidemia E78.2 and Essential (primary) hypertension I10 [address] [address] August, [address] [address] August, Encounter for long-term (current) use of other medications Z79.899 ; medical terminologist current use of anticoagulant therapy Z79.01 and Chronic atrial fibrillation I48.[address] [address] Jul, Unspecified atrial fibrillation I48.91 ; Encounter for long-term (current) use of other medications Z79.899 and medical terminologist current use of anticoagulant therapy Z79.[address] [address] Jun, Atrial fibrillation 427.31 ; Encounter for long-term (current) use of other medications Z79.899 and correction current use of anticoagulant therapy Z79.[address] [address] Jun, Unspecified atrial fibrillation I48.91 ; Encounter for long-term (current) use of other medications Z79.899 ; medical terminologist current use of anticoagulant therapy Z79.01 and Community acquired bacterial pneumonia J15.[address] [address] Jun, Community acquired bacterial pneumonia J15.[address] [address] May, Chronic atrial fibrillation I48.2 ; Encounter for long-term (current) use of other medications Z79.899 and medical terminologist current use of anticoagulant therapy Z79.[address] [address] Apr, Elevated prostate specific antigen [PSA] R97.[address] [address] Feb, Chronic atrial fibrillation I48.2 ; medical terminologist current use of anticoagulant therapy Z79.01 and Encounter for long-term (current) use of other medications Z79.[address] [address] Dec, Atrial fibrillation 427.31 and correction (current) use of anticoagulants V58.[address] [address] Sep, [address] [address] Sep, Atrial fibrillation 427.31 ; Elevated PSA 790.93 ; Benign prostate hyperplasia 600.00 and Renal insufficiency 593.[address] [address] Sep, Atrial fibrillation 427.31 ; Essential hypertension, benign 401.1 ; Elevated prostate specific antigen (PSA) 790.93 and Mixed hyperlipidemia 272.2 [facility] [id number] [address] 14 Jul, 2014 [facility] [address], [place] [address] 13 Jul, 2014 [facility] [address] [id number], [place] [address] 16 Jun, 2014 [facility] [place] [address] [place] [address] 16 Jun, 2014 [facility] [address], [place] [address] 15 Apr, 2014 [facility] [place] [address] [place] [address] Apr, [facility] [place] [address] [place] [address] Mar, [facility] [address], [place] [address] Mar, [facility] [place] [address] [place] [address] Mar, [facility] [address], [place] [address] Mar, [facility] [address], [place] [address] Feb, [facility] [place] [address] [place] [address] Feb, [facility] [address], [place] [address] Jan, [facility] [place] [address] [place] [address] Jan, [facility] [address], [place] [address] Dec, [facility] [place] [address] [place] [address] Dec, [facility] [address], [place] [address] Oct, [facility] [place] [address] [place] [address] Oct, [facility] [place] [address] [place] [address] Oct, [facility] [address] [facility] [id number], [place] [address] Oct, [facility] [place] [address] [place] [address] Sep, [facility] [address] [facility] [id number], [place] [address] Sep, [facility] [address] [facility] [id number] [place] [address] August, [facility] [place] [address] [place] [address] August, [facility] [id number] [place] [address] August, [facility] [id number] [place] [address] August, [facility] [place] [address] [place] [address] August, [facility] [place] [address] [place] [address] August, [facility] [id number], [place] [address] August, [facility] [place] [address] [place] [address] Jul, [facility] [id number], [place] [address] Jul, [facility] [place] [address] [place] [address] Jul, [facility] [address] [facility] [id number], [place] [address] Jul, [facility] [place] [address] [place] [address] May, [facility] [id number], [place] [address] May, [facility] [place] [address] [place] [address] Apr, [facility] [id number], [place] [address] Apr, [facility] [address] [place] [address] Mar, [facility] [id number], [place] [address] Mar, [facility] [address] [place] [address] Feb, [facility] [address], [place] [address] Feb, [facility] [address], [place] [address] Feb, [facility] [address], [place] [address] Feb, [facility] [address] [place] [address] Feb, [facility] [address] [place] [address] Feb, [facility] [address] [place] [address] Jan, [facility] [address], [place] [address] Jan, [facility] [address] [place] [address] Dec, [facility] [address] [place] [address] Dec, IMMUNIZATIONS No Known Immunizations SOCIAL HISTORY Never Assessed REASON FOR VISIT f/u INR PLAN OF CARE VITAL SIGNS MEDICATIONS Unknown [...]
--- OUTSIDE RECORDS SUMMARY | 2018-06-27 07:11 | XMS REPORT ---
Author Author KASIE CHAPMAN Organization [facility] [address] [place] [address] Care Team Providers Care Mobile Heavy Equipment Operator Name Role Phone KASIE CHAPMAN Unavailable PROBLEMS Type Condition ICD9-CM Code MEX60-DA Code Onset Dates Condition Status SNOMED Code Problem USP current use of anticoagulant therapy Z79.01 Active 365742983 Problem Persistent atrial fibrillation I48.1 Active 571808647 Problem Chronic atrial fibrillation I48.2 Active 743742456 Problem Mixed hyperlipidemia E78.2 Active 011478949 Problem Essential (primary) hypertension I10 Active 78017539 Problem Elevated prostate specific antigen [PSA] R97.2 Active 090210499 Problem 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 398253971 Problem Unspecified atrial fibrillation I48.91 Active 60531292 Problem Hyperlipidemia LDL goal <100 E78.5 Active 15626699 Problem Essential hypertension I10 Active 55162621 Problem Obstructive sleep apnea G47.33 Active 46699875 Problem Chronic obstructive pulmonary disease, unspecified COPD type J44.9 Active 28226882 ALLERGIES No Information ENCOUNTERS Encounter Location Date Diagnosis [facility] [address] [place] [address] Nov, [facility] [address] [place] [address] Oct, 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 [facility] [place] [address] [place] [address] Oct, Chronic atrial fibrillation I48.2 ; Essential hypertension I10 and Elevated prostate specific antigen [PSA] R97.2 [facility] [address] [place] [address] Sep, USP current use of anticoagulant therapy Z79.01 [facility] [address] [place] [address] Sep, 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 [facility] [place] [address] [place] [address] 20 Sep, 2017 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 and Chronic atrial fibrillation I48.2 [facility] [place] [address] [place] [address] 18 Sep, 2017 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 [facility] [place] [address] [place] [address] 15 Sep, 2017 USP current use of anticoagulant therapy Z79.01 [facility] [place] [address] [place] [address] 13 Sep, 2017 USP current use of anticoagulant therapy Z79.01 [facility] [place] [address] [place] [address] 11 Sep, 2017 Chronic obstructive pulmonary disease, unspecified COPD type J44.9 [facility] [place] [address] [place] [address] 11 Sep, 2017 USP current use of anticoagulant therapy Z79.01 [facility] [place] [address] [place] [address] 08 Sep, 2017 USP current use of anticoagulant therapy Z79.01 [facility] [place] [address] [place] [address] Sep, [facility] [place] [address] [place] [address] August, USP current use of anticoagulant therapy Z79.01 [facility] [place] [address] [place] [address] August, [facility] [place] [address] [place] [address] August, 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 [facility] [place] [address] [place] [address] August, USP current use of anticoagulant therapy Z79.01 [facility] [place] [address] [place] [address] Jul, 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 [facility] [place] [address] [place] [address] Jul, USP current use of anticoagulant therapy Z79.01 [facility] [place] [address] [place] [address] Jul, 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 [facility] [place] [address] [place] [address] Jul, 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 [facility] [place] [address] [place] [address] Jul, 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 [facility] [place] [address] [place] [address] Jul, Chronic obstructive pulmonary disease, unspecified COPD type J44.9 [facility] [place] [address] [place] [address] Jul, 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 [facility] [place] [address] [place] [address] Jul, [facility] [place] [address] [place] [address] Jul, Bleeding from mouth K13.79 and Lip lesion K13.0 [facility] [place] [address] [place] [address] Jul, USP current use of anticoagulant therapy Z79.01 [facility] [address] [address] Jul, USP current use of anticoagulant therapy Z79.01 [facility] [address] [address] Jul, [facility] [address] [address] Jun, Unspecified atrial fibrillation I48.91 [facility] [address] [address] May, Unspecified atrial fibrillation I48.91 [facility] [address] [address] May, Chronic atrial fibrillation I48.2 ; BMI 40.0-44.9, adult Z68.41 ; Hyperlipidemia LDL goal <100 E78.5 ; USP current use of anticoagulant therapy Z79.01 ; Essential hypertension I10 ; Obstructive sleep apnea G47.33 ; Elevated PSA, less than 10 ng/ml R97.20 and Chronic obstructive pulmonary disease, unspecified COPD type J44.9 [facility] [address] [address] Apr, [facility] [place] [address] [place] [address] Apr, Elevated PSA R97.20 [facility] [address] [id number] [address] Apr, Mild persistent asthma, unspecified whether complicated J45.[address] [address] Apr, Chronic obstructive pulmonary disease, unspecified COPD type J44.[address] [address] Mar, [address] [address] Mar, [address] [address] Mar, [address] [address] Mar, Chronic atrial fibrillation I48.2 ; Hyperlipidemia LDL goal <100 E78.5 ; Essential hypertension I10 ; Obstructive sleep apnea G47.33 ; Has stopped breathing R06.81 ; Elevated PSA, less than 10 ng/ml R97.20 ; Chronic obstructive pulmonary disease, unspecified COPD type J44.9 ; Encounter for immunization Z23 and 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 [address] Feb, [address] [address] Dec, [address] [address] Nov, Chronic atrial fibrillation I48.2 and Elevated PSA R97.[address] [address] Nov, Chronic atrial fibrillation I48.2 ; Hyperlipidemia LDL goal <100 E78.5 ; Essential hypertension I10 ; Dyspnea on exertion R06.09 and Elevated PSA R97.[address] [address] August, 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 ; Bronchitis J40 and Persistent atrial fibrillation I48.[address] [address] August, [address] [address] May, USP current use of anticoagulant therapy Z79.01 ; Encounter for long-term (current) use of other medications Z79.899 ; Fever, unspecified fever cause R50.9 and Influenza A J10.[address] [address] Apr, [address] [address] 10 Apr, 2016 Elevated prostate specific antigen [PSA] R97.[address] [address] Feb, [address] [address] Feb, 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 ; Atrial fibrillation 427.31 ; Encounter for long-term (current) use of other medications Z79.899 ; Chronic atrial fibrillation I48.2 ; Encounter for immunization Z23 and Actinic keratoses L57.[address] [address] 14 Dec, 2015 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 and Encounter for immunization Z23 [address] [address] Nov, Hemangioma D18.00 and Actinic keratosis L57.[address] [address] Nov, Chronic atrial fibrillation I48.2 ; 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 and Skin lesions L98.[address] [address] Oct, Elevated prostate specific antigen [PSA] R97.2 ; Mixed hyperlipidemia E78.2 and Essential (primary) hypertension I10 [address] [address] August, [address] [address] August, Encounter for long-term (current) use of other medications Z79.899 ; 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 and Chronic atrial fibrillation I48.[address] [address] Jul, Unspecified atrial fibrillation I48.91 ; Encounter for long-term (current) use of other medications Z79.899 and 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 [address] Jun, Atrial fibrillation 427.31 ; Encounter for long-term (current) use of other medications Z79.899 and USP current use of anticoagulant therapy Z79.[address] [address] Jun, Unspecified atrial fibrillation I48.91 ; Encounter for long-term (current) use of other medications Z79.899 ; 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 and Community acquired bacterial pneumonia J15.[address] [address] Jun, Community acquired bacterial pneumonia J15.[address] [address] May, Chronic atrial fibrillation I48.2 ; Encounter for long-term (current) use of other medications Z79.899 and 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 [address] Apr, Elevated prostate specific antigen [PSA] R97.[address] [address] Feb, Chronic atrial fibrillation I48.2 ; 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 and Encounter for long-term (current) use of other medications Z79.[address] [address] Dec, Atrial fibrillation 427.31 and USP (current) use of anticoagulants V58.[address] [address] Sep, [address] [address] Sep, Atrial fibrillation 427.31 ; Elevated PSA 790.93 ; Benign prostate hyperplasia 600.00 and Renal insufficiency 593.[address] [address] Sep, Atrial fibrillation 427.31 ; Essential hypertension, benign 401.1 ; Elevated prostate specific antigen (PSA) 790.93 and Mixed hyperlipidemia 272.2 [facility] [id number], [place] [address] 14 Jul, 2014 [facility] [address], [place] [address] 13 Jul, 2014 [facility] [id number], [place] [address] 16 Jun, 2014 [facility] [place] [address] [place] [address] 16 Jun, 2014 [facility] [address], [place] [address] 15 Apr, 2014 [facility] [place] [address] [place] [address] Apr, [facility] [place] [address] [place] [address] Mar, [facility] [address], [place] [address] Mar, [facility] [place] [address] [place] [address] Mar, [facility] [address], [place] [address] Mar, [facility] [address], [place] [address] Feb, [facility] [place] [address] [place] [address] Feb, [facility] [address], [place] [address] Jan, [facility] [place] [address] [place] [address] Jan, [facility] [address], [place] [address] Dec, [facility] [place] [address] [place] [address] Dec, [facility] [address], [place] [address] Oct, [facility] [place] [address] [place] [address] Oct, [facility] [place] [address] [place] [address] Oct, [facility] [address] [facility] [id number], [place] [address] Oct, [facility] [place] [address] [place] [address] Sep, [facility] [address] [facility] [id number], [place] [address] Sep, [facility] [address] [facility] [id number] [place] [address] August, [facility] [place] [address] [facility] [address] August, [facility] [id number] [place] [address] August, [facility] [id number] [place] [address] August, [facility] [place] [address] [facility] [address] August, [facility] [place] [address] [facility] [address] August, [facility] [id number], [place] [address] August, [facility] [place] [address] [place] [address] Jul, [facility] [id number], [place] [address] Jul, [facility] [place] [address] [place] [address] Jul, [facility] [address] [facility] [id number], [place] [address] Jul, [facility] [place] [address] [facility] [place] [address] May, [facility] [id number], [place] [address] May, [facility] [place] [address] [facility] [address] Apr, [facility] [id number], [place] [address] Apr, [facility] [address] [place] [address] Mar, [facility] [address], [place] [address] Mar, [facility] [address] [place] [address] Feb, [facility] [address], [place] [address] Feb, [facility] [id number] [place] [address] Feb, [facility] [address], [place] [address] Feb, [facility] [address] [place] [address] Feb, [facility] [address] [place] [address] Feb, [facility] [address] [place] [address] Jan, [facility] [address], [place] [address] Jan, [facility] [address] [place] [address] Dec, [facility] [address] [place] [address] Dec, IMMUNIZATIONS No Known Immunizations SOCIAL HISTORY Never Assessed REASON FOR VISIT INR PLAN OF CARE Activity Details Follow Up 1 Week Reason: VITAL SIGNS MEDICATIONS Unknown Medications RESULTS Name Result Date Reference Range INR (IN HOUSE) 2017-08-07 INR 3.1 1.10 - 3.30 PREVIOUS INR 2.2 CURRENT COUMADIN DOSE 6mg NEW COUMADIN DOSE Lot # [id number] Exp date 09/06/2018 PROCEDURES Procedure Date Ordered Result Body Site PROTHROMBIN TIME August 07, 2017 INSTRUCTIONS MEDICATIONS ADMINISTERED No Known Medications [...]
--- OUTSIDE RECORDS SUMMARY | 2018-06-27 07:12 | XMS REPORT ---
Author Author KASIE CHAPMAN Organization [facility] [address] [place] [address] Care Team Providers Care [facility] Receptionist Name Role Phone KASIE CHAPMAN Unavailable PROBLEMS Type Condition ICD9-CM Code ZQQ45-PM Code Onset Dates Condition Status SNOMED Code Problem halfway current use of anticoagulant therapy Z79.01 Active 512436021 Problem Persistent atrial fibrillation I48.1 Active 239203363 Problem Chronic atrial fibrillation I48.2 Active 872059684 Problem Mixed hyperlipidemia E78.2 Active 553830527 Problem Essential (primary) hypertension I10 Active 74802666 Problem Elevated prostate specific antigen [PSA] R97.2 Active 953108945 Problem 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 [address] [place] [phone] Nov, [facility] [address] [place] [address] Oct, halfway current use of anticoagulant therapy Z79.01 [facility] [address] [place] [address] Oct, Chronic atrial fibrillation I48.2 ; Essential hypertension I10 and Elevated prostate specific antigen [PSA] R97.2 [facility] [address] [place] [address] Sep, halfway current use of anticoagulant therapy Z79.01 [facility] [address] [place] [address] Sep, halfway current use of anticoagulant therapy Z79.01 [facility] [place] [address] [place] [address] 20 Sep, 2017 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 and Chronic atrial fibrillation I48.2 [facility] [place] [address] [place] [phone] 18 Sep, 2017 halfway current use of anticoagulant therapy Z79.01 [facility] [place] [address] [place] [address] 15 Sep, 2017 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 [facility] [place] [address] [place] [address] 13 Sep, 2017 halfway current use of anticoagulant therapy Z79.01 [facility] [place] [address] [place] [address] 11 Sep, 2017 Chronic obstructive pulmonary disease, unspecified COPD type J44.9 [facility] [place] [address] [place] [address] 11 Sep, 2017 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 [facility] [place] [address] [place] [address] 08 Sep, 2017 halfway current use of anticoagulant therapy Z79.01 [facility] [place] [address] [place] [address] Sep, [facility] [place] [address] [place] [address] August, 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 [facility] [place] [address] [place] [address] August, [facility] [place] [address] [place] [phone] August, 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 [facility] [place] [address] [place] [address] August, halfway current use of anticoagulant therapy Z79.01 [facility] [place] [address] [place] [address] Jul, 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 [facility] [place] [address] [place] [address] Jul, halfway current use of anticoagulant therapy Z79.01 [facility] [place] [address] [place] [address] Jul, 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 [facility] [place] [address] [place] [address] 16 Jul, 2017 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 [facility] [place] [address] [place] [address] Jul, 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 [facility] [place] [address] [place] [address] Jul, Chronic obstructive pulmonary disease, unspecified COPD type J44.[address] [address] Jul, halfway current use of anticoagulant therapy Z79.01 [facility] [address] [place] [address] Jul, [facility] [address] [address] Jul, Bleeding from mouth K13.79 and Lip lesion K13.[address] [address] Jul, halfway current use of anticoagulant therapy Z79.01 [facility] [address] [address] Jul, 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 [address] Jul, [facility] [address] [address] Jun, Unspecified atrial fibrillation I48.[address] [address] May, Unspecified atrial fibrillation I48.[address] [address] May, Chronic atrial fibrillation I48.2 ; BMI 40.0-44.9, adult Z68.41 ; Hyperlipidemia LDL goal <100 E78.5 ; halfway current use of anticoagulant therapy Z79.01 ; Essential hypertension I10 ; Obstructive sleep apnea G47.33 ; Elevated PSA, less than 10 ng/ml R97.20 and Chronic obstructive pulmonary disease, unspecified COPD type J44.[address] [address] Apr, [facility] [address] [address] Apr, Elevated PSA R97.20 [facility] [id number] [place] [address] Apr, Mild persistent asthma, unspecified whether complicated J45.[address] [address] Apr, Chronic obstructive pulmonary disease, unspecified COPD type J44.[address] [address] Mar, [address] [address] Mar, [address] [address] Mar, [address] [address] Mar, Chronic atrial fibrillation I48.2 ; Hyperlipidemia LDL goal <100 E78.5 ; Essential hypertension I10 ; Obstructive sleep apnea G47.33 ; Has stopped breathing R06.81 ; Elevated PSA, less than 10 ng/ml R97.20 ; Chronic obstructive pulmonary disease, unspecified COPD type J44.9 ; Encounter for immunization Z23 and 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 [address] Feb, [address] [address] Dec, [address] [address] Nov, Chronic atrial fibrillation I48.2 and Elevated PSA R97.[address] [address] Nov, Chronic atrial fibrillation I48.2 ; Hyperlipidemia LDL goal <100 E78.5 ; Essential hypertension I10 ; Dyspnea on exertion R06.09 and Elevated PSA R97.[address] [address] August, 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 ; Bronchitis J40 and Persistent atrial fibrillation I48.[address] [address] August, [address] [address] May, halfway current use of anticoagulant therapy Z79.01 ; Encounter for long-term (current) use of other medications Z79.899 ; Fever, unspecified fever cause R50.9 and Influenza A J10.[address] [address] Apr, [address] [address] Apr, Elevated prostate specific antigen [PSA] R97.[address] [address] Feb, [address] [address] Feb, 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 ; Atrial fibrillation 427.31 ; Encounter for long-term (current) use of other medications Z79.899 ; Chronic atrial fibrillation I48.2 ; Encounter for immunization Z23 and Actinic keratoses L57.[address] [address] Dec, 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 and Encounter for immunization Z23 [address] [address] Nov, Hemangioma D18.00 and Actinic keratosis L57.[address] [address] Nov, Chronic atrial fibrillation I48.2 ; halfway current use of anticoagulant therapy Z79.01 and Skin lesions L98.[address] [address] Oct, Elevated prostate specific antigen [PSA] R97.2 ; Mixed hyperlipidemia E78.2 and Essential (primary) hypertension I10 [address] [address] August, [address] [address] August, Encounter for long-term (current) use of other medications Z79.899 ; 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 and Chronic atrial fibrillation I48.[address] [address] Jul, Unspecified atrial fibrillation I48.91 ; Encounter for long-term (current) use of other medications Z79.899 and 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 [address] Jun, Atrial fibrillation 427.31 ; Encounter for long-term (current) use of other medications Z79.899 and 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 [address] Jun, Unspecified atrial fibrillation I48.91 ; Encounter for long-term (current) use of other medications Z79.899 ; halfway current use of anticoagulant therapy Z79.01 and Community acquired bacterial pneumonia J15.[address] [address] Jun, Community acquired bacterial pneumonia J15.[address] [address] May, Chronic atrial fibrillation I48.2 ; Encounter for long-term (current) use of other medications Z79.899 and halfway current use of anticoagulant therapy Z79.[address] [address] Apr, Elevated prostate specific antigen [PSA] R97.[address] [address] Feb, Chronic atrial fibrillation I48.2 ; 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 and Encounter for long-term (current) use of other medications Z79.[address] [address] Dec, Atrial fibrillation 427.31 and halfway (current) use of anticoagulants V58.[address] [address] Sep, [address] [address] Sep, Atrial fibrillation 427.31 ; Elevated PSA 790.93 ; Benign prostate hyperplasia 600.00 and Renal insufficiency 593.[address] [address] Sep, Atrial fibrillation 427.31 ; Essential hypertension, benign 401.1 ; Elevated prostate specific antigen (PSA) 790.93 and Mixed hyperlipidemia 272.2 [facility] [address] [address] 14 Jul, 2014 [facility] [address] [address] 13 Jul, 2014 [facility] [address] [place] [address] 16 Jun, 2014 [facility] [address] [place] [address] Jun, [facility] [address] [place] [address] Apr, [facility] [place] [address] [place] [address] Apr, [facility] [address] [place] [address] Mar, [facility] [address] [place] [address] Mar, [facility] [place] [address] [place] [address] Mar, [facility] [address] [place] [address] Mar, [facility] [address] [address] Feb, [facility] [place] [address] [place] [address] Feb, [facility] [address] [address] Jan, [facility] [place] [address] [place] [address] Jan, [facility] [address] [place] [address] Dec, [facility] [place] [address] [place] [address] Dec, [facility] [address] [address] Oct, [facility] [place] [address] [place] [address] Oct, [facility] [place] [address] [place] [address] Oct, [facility] [address] [facility] [id number] [address] Oct, [facility] [place] [address] [place] [address] Sep, [facility] [address] [facility] [id number] [address] Sep, [facility] [address] [facility] [id number] [address] August, [facility] [place] [address] [place] [address] August, [facility] [id number] [address] August, [facility] [id number] [address] August, [facility] [place] [address] [place] [address] August, [facility] [place] [address] [place] [address] August, [facility] [id number] [address] August, [facility] [place] [address] [place] [address] Jul, [facility] [address] [facility] [id number] [address] Jul, [facility] [place] [address] [place] [address] Jul, [facility] [address] [facility] [id number] [address] Jul, [facility] [place] [address] [place] [address] May, [facility] [address] [facility] [id number] [address] May, [facility] [place] [address] [place] [address] Apr, [facility] [address] [address] Apr, [facility] [place] [address] [place] [address] Mar, [facility] [address] [address] Mar, [facility] [address] [place] [address] Feb, [facility] [address] [address] Feb, [facility] [id number] [place] [address] Feb, [facility] [address] [address] Feb, [facility] [place] [address] [place] [address] Feb, [facility] [address] [place] [address] Feb, [facility] [address] [place] [address] Jan, [facility] [address] [address] Jan, [facility] [address] [place] [address] Dec, [facility] [address] [address] [place] [address] Dec, IMMUNIZATIONS No Known Immunizations SOCIAL HISTORY Never Assessed REASON FOR VISIT Hospital f/u, had oral surgery on 07-13 continueing to bleed [facility] PLAN OF CARE Activity Details Follow Up 2 days Reason:recheck bleeding VITAL SIGNS Height 70 in 2017-07-17 Temperature 98.4 degrees Fahrenheit 2017-07-17 Heart Rate 70 bpm 2017-07-17 Respiratory Rate 20 2017-07-17 Blood pressure systolic 128 mmHg 2017-07-17 Blood pressure diastolic 66 mmHg 2017-07-17 MEDICATIONS Medication Instructions Dosage Frequency Start Date End Date Duration Status Zoster Vaccine Live 79342 UNT/0.65ML as directed Mar, Active Lovenox 120 MG/0.8ML Subcutaneous 2 times a day 0.8ml 12h 30 Jun, 2017 05 days Active Losartan Potassium-HCTZ 100-25 TAKE ONE TABLET BY MOUTH ONCE DAILY 90 Active Zostavax 09612 UNT/0.65ML as directed Mar, Active Doxazosin Mesylate 4MG Orally Once a day 1 tablet 24h Active Cialis 5MG TAKE ONE TABLET BY MOUTH ONCE DAILY 30 Active Claritin 10 mg 1 Tablet by Oral route 1 time per day PRN Feb, Active Qvar 80 MCG/ACT Inhalation Twice a day 1 puff 12h 12 May, 2017 Active Efudex 5 % 1 neha by Topical route 2 times per day Jun, Active Zocor 20 mg 1 Tablet by Oral route 1 time per day at bedtime August, Active Lanoxin 0.25MG Orally Once a day TAKE 1 Tablet 24h Active Lanoxin 250 MCG TAKE 1 Tablet by Oral route 1 time per day August, 90 days Active Warfarin Sodium 6MG TAKE ONE TABLET BY MOUTH ONCE DAILY Active Flovent Diskus 100 MCG/BLIST Inhalation Twice a day 1 puff 12h 15 Apr, 2017 Active Bisoprolol-Hydrochlorothiazide 10/6.25MG Orally Once a day TAKE ONE TABLET BY MOUTH ONCE DAILY 24h 90 Active Simvastatin 20MG TAKE ONE TABLET BY MOUTH AT BEDTIME 90 Active Zithromax Tri-Jamaal 500 MG Orally Once a day 1 TAB 24h 03 days Active RESULTS No Results PROCEDURES Procedure Date Ordered Result Body Site [facility] VISIT ESTABLISHED PATIENT July 17, 2017 INSTRUCTIONS MEDICATIONS ADMINISTERED No Known [...]
--- OUTSIDE RECORDS SUMMARY | 2018-06-27 07:12 | XMS REPORT ---
Author Author KASIE CHAPMAN Organization [facility] [address] [place] [address] Care Team Providers Care Pressure Dispatcher Name Role Phone KASIE CHAPMAN Unavailable PROBLEMS Type Condition ICD9-CM Code BPT77-NF Code Onset Dates Condition Status SNOMED Code Problem FDC current use of anticoagulant therapy Z79.01 Active 806056713 Problem Persistent atrial fibrillation I48.1 Active 947374488 Problem Chronic atrial fibrillation I48.2 Active 121846717 Problem Mixed hyperlipidemia E78.2 Active 692097096 Problem Essential (primary) hypertension I10 Active 30478669 Problem Elevated prostate specific antigen [PSA] R97.2 Active 890686198 Problem 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 238521169 Problem Unspecified atrial fibrillation I48.91 Active 94986718 Problem Hyperlipidemia LDL goal <100 E78.5 Active 35160576 Problem Essential hypertension I10 Active 36109973 Problem Obstructive sleep apnea G47.33 Active 64868231 Problem Chronic obstructive pulmonary disease, unspecified COPD type J44.9 Active [id number] ALLERGIES No Information ENCOUNTERS Encounter Location Date Diagnosis [facility] [address] [place] [address] Nov, [facility] [address] [place] [address] Oct, oysterman current use of anticoagulant therapy Z79.01 [facility] [place] [address] [place] [address] Oct, Chronic atrial fibrillation I48.2 ; Essential hypertension I10 and Elevated prostate specific antigen [PSA] R97.2 [facility] [address] [place] [address] Sep, FDC current use of anticoagulant therapy Z79.01 [facility] [address] [place] [address] Sep, oysterman current use of anticoagulant therapy Z79.01 [facility] [place] [address] [place] [address] 20 Sep, 2017 oysterman current use of anticoagulant therapy Z79.01 and Chronic atrial fibrillation I48.2 [facility] [place] [address] [place] [address] 18 Sep, 2017 oysterman current use of anticoagulant therapy Z79.01 [facility] [place] [address] [place] [address] 15 Sep, 2017 FDC current use of anticoagulant therapy Z79.01 [facility] [place] [address] [place] [address] 13 Sep, 2017 FDC current use of anticoagulant therapy Z79.01 [facility] [place] [address] [place] [address] 11 Sep, 2017 Chronic obstructive pulmonary disease, unspecified COPD type J44.9 [facility] [place] [address] [place] [address] 11 Sep, 2017 FDC current use of anticoagulant therapy Z79.01 [facility] [place] [address] [place] [address] 08 Sep, 2017 FDC current use of anticoagulant therapy Z79.01 [facility] [place] [address] [place] [address] Sep, [facility] [place] [address] [place] [address] August, FDC current use of anticoagulant therapy Z79.01 [facility] [place] [address] [place] [address] August, [facility] [place] [address] [place] [address] August, oysterman current use of anticoagulant therapy Z79.01 [facility] [place] [address] [place] [address] August, FDC current use of anticoagulant therapy Z79.01 [facility] [place] [address] [place] [address] Jul, oysterman current use of anticoagulant therapy Z79.01 [facility] [place] [address] [place] [address] Jul, FDC current use of anticoagulant therapy Z79.01 [facility] [place] [address] [place] [address] Jul, oysterman current use of anticoagulant therapy Z79.01 [facility] [place] [address] [place] [address] Jul, oysterman current use of anticoagulant therapy Z79.01 [facility] [place] [address] [place] [address] Jul, 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 [facility] [place] [address] [place] [address] Jul, Chronic obstructive pulmonary disease, unspecified COPD type J44.9 [facility] [place] [address] [place] [phone] Jul, oysterman current use of anticoagulant therapy Z79.01 [facility] [place] [address] [place] [address] Jul, [facility] [place] [address] [place] [address] Jul, Bleeding from mouth K13.79 and Lip lesion K13.0 [facility] [place] [address] [place] [address] Jul, FDC current use of anticoagulant therapy Z79.01 [facility] [address] [address] Jul, FDC current use of anticoagulant therapy Z79.01 [facility] [address] [address] Jul, [facility] [address] [address] Jun, Unspecified atrial fibrillation I48.91 [facility] [address] [address] May, Unspecified atrial fibrillation I48.91 [facility] [address] [address] May, Chronic atrial fibrillation I48.2 ; BMI 40.0-44.9, adult Z68.41 ; Hyperlipidemia LDL goal <100 E78.5 ; FDC current use of anticoagulant therapy Z79.01 ; Essential hypertension I10 ; Obstructive sleep apnea G47.33 ; Elevated PSA, less than 10 ng/ml R97.20 and Chronic obstructive pulmonary disease, unspecified COPD type J44.9 [facility] [address] [address] Apr, [facility] [place] [address] [place] [address] Apr, Elevated PSA R97.20 [facility] [address] [id number] [address] Apr, Mild persistent asthma, unspecified whether complicated J45.[address] [address] Apr, Chronic obstructive pulmonary disease, unspecified COPD type J44.[address] [address] Mar, [address] [address] Mar, [address] [address] Mar, [address] [address] Mar, Chronic atrial fibrillation I48.2 ; Hyperlipidemia LDL goal <100 E78.5 ; Essential hypertension I10 ; Obstructive sleep apnea G47.33 ; Has stopped breathing R06.81 ; Elevated PSA, less than 10 ng/ml R97.20 ; Chronic obstructive pulmonary disease, unspecified COPD type J44.9 ; Encounter for immunization Z23 and oysterman current use of anticoagulant therapy Z79.[address] [address] Feb, [address] [address] Dec, [address] [address] Nov, Chronic atrial fibrillation I48.2 and Elevated PSA R97.[address] [address] Nov, Chronic atrial fibrillation I48.2 ; Hyperlipidemia LDL goal <100 E78.5 ; Essential hypertension I10 ; Dyspnea on exertion R06.09 and Elevated PSA R97.[address] [address] August, oysterman current use of anticoagulant therapy Z79.01 ; Bronchitis J40 and Persistent atrial fibrillation I48.[address] [address] August, [address] [address] May, FDC current use of anticoagulant therapy Z79.01 ; Encounter for long-term (current) use of other medications Z79.899 ; Fever, unspecified fever cause R50.9 and Influenza A J10.[address] [address] Apr, [address] [address] 10 Apr, 2016 Elevated prostate specific antigen [PSA] R97.[address] [address] Feb, [address] [address] Feb, oysterman current use of anticoagulant therapy Z79.01 ; Atrial fibrillation 427.31 ; Encounter for long-term (current) use of other medications Z79.899 ; Chronic atrial fibrillation I48.2 ; Encounter for immunization Z23 and Actinic keratoses L57.[address] [address] 14 Dec, 2015 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 and Encounter for immunization Z23 [address] [address] Nov, Hemangioma D18.00 and Actinic keratosis L57.[address] [address] Nov, Chronic atrial fibrillation I48.2 ; oysterman current use of anticoagulant therapy Z79.01 and Skin lesions L98.[address] [address] Oct, Elevated prostate specific antigen [PSA] R97.2 ; Mixed hyperlipidemia E78.2 and Essential (primary) hypertension I10 [address] [address] August, [address] [address] August, Encounter for long-term (current) use of other medications Z79.899 ; oysterman current use of anticoagulant therapy Z79.01 and Chronic atrial fibrillation I48.[address] [address] Jul, Unspecified atrial fibrillation I48.91 ; Encounter for long-term (current) use of other medications Z79.899 and oysterman current use of anticoagulant therapy Z79.[address] [address] Jun, Atrial fibrillation 427.31 ; Encounter for long-term (current) use of other medications Z79.899 and FDC current use of anticoagulant therapy Z79.[address] [address] Jun, Unspecified atrial fibrillation I48.91 ; Encounter for long-term (current) use of other medications Z79.899 ; oysterman current use of anticoagulant therapy Z79.01 and Community acquired bacterial pneumonia J15.[address] [address] Jun, Community acquired bacterial pneumonia J15.[address] [address] May, Chronic atrial fibrillation I48.2 ; Encounter for long-term (current) use of other medications Z79.899 and oysterman current use of anticoagulant therapy Z79.[address] [address] Apr, Elevated prostate specific antigen [PSA] R97.[address] [address] Feb, Chronic atrial fibrillation I48.2 ; oysterman current use of anticoagulant therapy Z79.01 and Encounter for long-term (current) use of other medications Z79.[address] [address] Dec, Atrial fibrillation 427.31 and FDC (current) use of anticoagulants V58.[address] [address] Sep, [address] [address] Sep, Atrial fibrillation 427.31 ; Elevated PSA 790.93 ; Benign prostate hyperplasia 600.00 and Renal insufficiency 593.[address] [address] Sep, Atrial fibrillation 427.31 ; Essential hypertension, benign 401.1 ; Elevated prostate specific antigen (PSA) 790.93 and Mixed hyperlipidemia 272.2 [facility] [id number] [address] 14 Jul, 2014 [facility] [address] [address] 13 Jul, 2014 [facility] [id number] [address] 16 Jun, 2014 [facility] [place] [address] [place] [address] 16 Jun, 2014 [facility] [address], [place] [address] 15 Apr, 2014 [facility] [place] [address] [place] [address] Apr, [facility] [place] [address] [place] [address] Mar, [facility] [address] [address] Mar, [facility] [place] [address] [place] [address] Mar, [facility] [address] [address] Mar, [facility] [address] [address] Feb, [facility] [place] [address] [place] [address] Feb, [facility] [address] [address] Jan, [facility] [place] [address] [place] [address] Jan, [facility] [address] [address] Dec, [facility] [place] [address] [place] [address] Dec, [facility] [address] [address] Oct, [facility] [place] [address] [place] [address] Oct, [facility] [place] [address] [facility] [place] [address] Oct, [facility] [address] [facility] [id number] [address] Oct, [facility] [place] [address] [facility] [place] [address] Sep, [facility] [address] [facility] [id number] [address] Sep, [facility] [address] [facility] [id number] [place] [address] August, [facility] [place] [address] [facility] [place] [address] August, [facility] [id number] [place] [address] August, [facility] [address] [place] [address] August, [facility] [place] [address] [facility] [place] [address] August, [facility] [place] [address] [facility] [place] [address] August, [facility] [id number] [address] August, [facility] [place] [address] [place] [address] Jul, [facility] [id number] [address] Jul, [facility] [place] [address] [place] [address] Jul, [facility] [address] [facility] [id number] [address] Jul, [facility] [place] [address] [place] [address] May, [facility] [id number] [address] May, [facility] [place] [address] [facility] [place] [address] Apr, [facility] [id number] [address] Apr, [facility] [address] [place] [address] Mar, [facility] [id number] [address] Mar, [facility] [address] [place] [address] Feb, [facility] [address] [address] Feb, [facility] [address] [place] [address] Feb, [facility] [address] [address] Feb, [facility] [address] [place] [address] Feb, [facility] [address] [place] [address] Feb, [facility] [address] [place] [address] Jan, [facility] [address] [address] Jan, [facility] [address] [place] [address] Dec, [facility] [address] [place] [address] Dec, IMMUNIZATIONS No Known Immunizations SOCIAL HISTORY Never Assessed REASON FOR VISIT INR, 2.2 Dasia Myers RN PLAN OF CARE Activity Details Follow Up prn, 4 Weeks Reason: VITAL SIGNS MEDICATIONS Unknown Medications RESULTS Name Result Date Reference Range INR (IN HOUSE) 2017-07-31 INR 2.2 1.10 - 3.30 PREVIOUS INR 1.7 CURRENT COUMADIN DOSE 6 mg NEW COUMADIN DOSE Lot # [id number] Exp date 09/06/2018 PROCEDURES Procedure Date Ordered Result Body Site PROTHROMBIN TIME July 31, 2017 INSTRUCTIONS MEDICATIONS ADMINISTERED No Known Medications [...]
--- OUTSIDE RECORDS SUMMARY | 2018-06-27 07:12 | XMS REPORT ---
Author Author KASIE CHAPMAN Organization [facility] [address] [place] [address] Care Team Providers Care Front End Java Developer Name Role Phone KASIE CHAPMAN Unavailable PROBLEMS Type Condition ICD9-CM Code AFP28-ZN Code Onset Dates Condition Status SNOMED Code Problem intermediate current use of anticoagulant therapy Z79.01 Active 449454288 Problem Persistent atrial fibrillation I48.1 Active 176685990 Problem Chronic atrial fibrillation I48.2 Active 580671670 Problem Mixed hyperlipidemia E78.2 Active 353833614 Problem Essential (primary) hypertension I10 Active 54491074 Problem Elevated prostate specific antigen [PSA] R97.2 Active 839544633 Problem 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 282061087 Problem Unspecified atrial fibrillation I48.91 Active 71681434 Problem Hyperlipidemia LDL goal <100 E78.5 Active 26753227 Problem Essential hypertension I10 Active 09502939 Problem Obstructive sleep apnea G47.33 Active 79743865 Problem Chronic obstructive pulmonary disease, unspecified COPD type J44.9 Active 48492618 ALLERGIES No Information ENCOUNTERS Encounter Location Date Diagnosis [facility] [address] [place] [address] Nov, [facility] [address] [place] [address] Oct, certified nursing assistant current use of anticoagulant therapy Z79.01 [facility] [place] [address] [place] [address] Oct, Chronic atrial fibrillation I48.2 ; Essential hypertension I10 and Elevated prostate specific antigen [PSA] R97.2 [facility] [address] [place] [address] Sep, intermediate current use of anticoagulant therapy Z79.01 [facility] [address] [place] [address] Sep, certified nursing assistant current use of anticoagulant therapy Z79.01 [facility] [place] [address] [place] [address] 20 Sep, 2017 certified nursing assistant current use of anticoagulant therapy Z79.01 and Chronic atrial fibrillation I48.2 [facility] [place] [address] [place] [address] 18 Sep, 2017 certified nursing assistant current use of anticoagulant therapy Z79.01 [facility] [place] [address] [place] [address] 15 Sep, 2017 intermediate current use of anticoagulant therapy Z79.01 [facility] [place] [address] [place] [address] 13 Sep, 2017 intermediate current use of anticoagulant therapy Z79.01 [facility] [place] [address] [place] [address] 11 Sep, 2017 Chronic obstructive pulmonary disease, unspecified COPD type J44.9 [facility] [place] [address] [place] [address] 11 Sep, 2017 intermediate current use of anticoagulant therapy Z79.01 [facility] [place] [address] [place] [address] 08 Sep, 2017 intermediate current use of anticoagulant therapy Z79.01 [facility] [place] [address] [place] [address] Sep, [facility] [place] [address] [place] [address] August, intermediate current use of anticoagulant therapy Z79.01 [facility] [place] [address] [place] [address] August, [facility] [place] [address] [place] [address] August, certified nursing assistant current use of anticoagulant therapy Z79.01 [facility] [place] [address] [place] [address] August, intermediate current use of anticoagulant therapy Z79.01 [facility] [place] [address] [place] [address] Jul, certified nursing assistant current use of anticoagulant therapy Z79.01 [facility] [place] [address] [place] [address] Jul, intermediate current use of anticoagulant therapy Z79.01 [facility] [place] [address] [place] [address] Jul, certified nursing assistant current use of anticoagulant therapy Z79.01 [facility] [place] [address] [place] [address] Jul, certified nursing assistant current use of anticoagulant therapy Z79.01 [facility] [place] [address] [place] [address] Jul, 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 [facility] [place] [address] [place] [address] Jul, Chronic obstructive pulmonary disease, unspecified COPD type J44.9 [facility] [place] [address] [place] [address] Jul, certified nursing assistant current use of anticoagulant therapy Z79.01 [facility] [place] [address] [place] [address] Jul, [facility] [place] [address] [place] [address] Jul, Bleeding from mouth K13.79 and Lip lesion K13.0 [facility] [place] [address] [place] [address] Jul, intermediate current use of anticoagulant therapy Z79.01 [facility] [address] [address] Jul, intermediate current use of anticoagulant therapy Z79.01 [facility] [address] [address] Jul, [facility] [address] [address] Jun, Unspecified atrial fibrillation I48.91 [facility] [address] [address] May, Unspecified atrial fibrillation I48.91 [facility] [address] [address] May, Chronic atrial fibrillation I48.2 ; BMI 40.0-44.9, adult Z68.41 ; Hyperlipidemia LDL goal <100 E78.5 ; intermediate current use of anticoagulant therapy Z79.01 ; Essential hypertension I10 ; Obstructive sleep apnea G47.33 ; Elevated PSA, less than 10 ng/ml R97.20 and Chronic obstructive pulmonary disease, unspecified COPD type J44.9 [facility] [address] [address] Apr, [facility] [place] [address] [place] [address] Apr, Elevated PSA R97.20 [facility] [address] [id number] [address] Apr, Mild persistent asthma, unspecified whether complicated J45.[address] [address] Apr, Chronic obstructive pulmonary disease, unspecified COPD type J44.[address] [address] Mar, [address] [address] Mar, [address] [address] Mar, [address] [address] Mar, Chronic atrial fibrillation I48.2 ; Hyperlipidemia LDL goal <100 E78.5 ; Essential hypertension I10 ; Obstructive sleep apnea G47.33 ; Has stopped breathing R06.81 ; Elevated PSA, less than 10 ng/ml R97.20 ; Chronic obstructive pulmonary disease, unspecified COPD type J44.9 ; Encounter for immunization Z23 and certified nursing assistant current use of anticoagulant therapy Z79.[address] [address] Feb, [address] [address] Dec, [address] [address] Nov, Chronic atrial fibrillation I48.2 and Elevated PSA R97.[address] [address] Nov, Chronic atrial fibrillation I48.2 ; Hyperlipidemia LDL goal <100 E78.5 ; Essential hypertension I10 ; Dyspnea on exertion R06.09 and Elevated PSA R97.[address] [address] August, certified nursing assistant current use of anticoagulant therapy Z79.01 ; Bronchitis J40 and Persistent atrial fibrillation I48.[address] [address] August, [address] [address] May, intermediate current use of anticoagulant therapy Z79.01 ; Encounter for long-term (current) use of other medications Z79.899 ; Fever, unspecified fever cause R50.9 and Influenza A J10.[address] [address] Apr, [address] [address] 10 Apr, 2016 Elevated prostate specific antigen [PSA] R97.[address] [address] Feb, [address] [address] Feb, certified nursing assistant current use of anticoagulant therapy Z79.01 ; Atrial fibrillation 427.31 ; Encounter for long-term (current) use of other medications Z79.899 ; Chronic atrial fibrillation I48.2 ; Encounter for immunization Z23 and Actinic keratoses L57.[address] [address] 14 Dec, 2015 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 and Encounter for immunization Z23 [address] [address] Nov, Hemangioma D18.00 and Actinic keratosis L57.[address] [address] Nov, Chronic atrial fibrillation I48.2 ; certified nursing assistant current use of anticoagulant therapy Z79.01 and Skin lesions L98.[address] [address] Oct, Elevated prostate specific antigen [PSA] R97.2 ; Mixed hyperlipidemia E78.2 and Essential (primary) hypertension I10 [address] [address] August, [address] [address] August, Encounter for long-term (current) use of other medications Z79.899 ; certified nursing assistant current use of anticoagulant therapy Z79.01 and Chronic atrial fibrillation I48.[address] [address] Jul, Unspecified atrial fibrillation I48.91 ; Encounter for long-term (current) use of other medications Z79.899 and certified nursing assistant current use of anticoagulant therapy Z79.[address] [address] Jun, Atrial fibrillation 427.31 ; Encounter for long-term (current) use of other medications Z79.899 and intermediate current use of anticoagulant therapy Z79.[address] [address] Jun, Unspecified atrial fibrillation I48.91 ; Encounter for long-term (current) use of other medications Z79.899 ; certified nursing assistant current use of anticoagulant therapy Z79.01 and Community acquired bacterial pneumonia J15.[address] [address] Jun, Community acquired bacterial pneumonia J15.[address] [address] May, Chronic atrial fibrillation I48.2 ; Encounter for long-term (current) use of other medications Z79.899 and certified nursing assistant current use of anticoagulant therapy Z79.[address] [address] Apr, Elevated prostate specific antigen [PSA] R97.[address] [address] Feb, Chronic atrial fibrillation I48.2 ; certified nursing assistant current use of anticoagulant therapy Z79.01 and Encounter for long-term (current) use of other medications Z79.[address] [address] Dec, Atrial fibrillation 427.31 and intermediate (current) use of anticoagulants V58.[address] [address] Sep, [address] [address] Sep, Atrial fibrillation 427.31 ; Elevated PSA 790.93 ; Benign prostate hyperplasia 600.00 and Renal insufficiency 593.[address] [address] Sep, Atrial fibrillation 427.31 ; Essential hypertension, benign 401.1 ; Elevated prostate specific antigen (PSA) 790.93 and Mixed hyperlipidemia 272.2 [facility] [id number] [address] 14 Jul, 2014 [facility] [address] [place] [address] 13 Jul, 2014 [facility] [id number], [place] [address] 16 Jun, 2014 [facility] [place] [address] [place] [address] 16 Jun, 2014 [facility] [address], [place] [address] 15 Apr, 2014 [facility] [place] [address] [place] [address] Apr, [facility] [place] [address] [place] [address] Mar, [facility] [address], [place] [address] Mar, [facility] [place] [address] [place] [address] Mar, [facility] [address], [place] [address] Mar, [facility] [address], [place] [address] Feb, [facility] [place] [address] [place] [address] Feb, [facility] [address], [place] [address] Jan, [facility] [place] [address] [place] [address] Jan, [facility] [address], [place] [address] Dec, [facility] [place] [address] [place] [address] Dec, [facility] [address], [place] [address] Oct, [facility] [place] [address] [place] [address] Oct, [facility] [place] [address] [place] [address] Oct, [facility] [address] [facility] [id number], [place] [address] Oct, [facility] [place] [address] [place] [address] Sep, [facility] [address] [facility] [id number], [place] [address] Sep, [facility] [address] [facility] [id number] [place] [address] August, [facility] [place] [address] [place] [address] August, [facility] [id number] [place] [address] August, [facility] [id number] [place] [address] August, [facility] [place] [address] [place] [address] August, [facility] [place] [address] [place] [address] August, [facility] [id number], [place] [address] August, [facility] [place] [address] [place] [address] Jul, [facility] [id number], [place] [address] Jul, [facility] [place] [address] [place] [address] Jul, [facility] [address] [facility] [id number], [place] [address] Jul, [facility] [place] [address] [place] [address] May, [facility] [id number], [place] [address] May, [facility] [place] [address] [place] [address] Apr, [facility] [id number], [place] [address] Apr, [facility] [address] [place] [address] Mar, [facility] [address], [place] [address] Mar, [facility] [address] [place] [address] Feb, [facility] [address], [place] [address] Feb, [facility] [address] [place] [address] Feb, [facility] [address], [place] [address] Feb, [facility] [address] [place] [address] Feb, [facility] [address] [place] [address] Feb, [facility] [address] [place] [address] Jan, [facility] [address], [place] [address] Jan, [facility] [address] [place] [address] Dec, [facility] [address] [place] [address] Dec, IMMUNIZATIONS No Known Immunizations SOCIAL HISTORY Never Assessed [facility] OF CARE Activity Details Follow Up prn Reason: VITAL SIGNS MEDICATIONS Unknown Medications RESULTS Name Result Date Reference Range INR (IN HOUSE) 2017-07-26 INR 1.7 1.10 - 3.30 PREVIOUS INR 1.6 CURRENT COUMADIN DOSE 6MG NEW COUMADIN DOSE Lot # [id number] Exp date 09-06-2018 PROCEDURES Procedure Date Ordered Result Body Site PROTHROMBIN TIME July 26, 2017 INSTRUCTIONS MEDICATIONS ADMINISTERED No Known [...]
--- OUTSIDE RECORDS SUMMARY | 2018-06-27 07:13 | XMS REPORT ---
Author Author KASIE CHAPMAN Organization [facility] [address] [place] [address] Care Team Providers Care Aerobics Instructor Name Role Phone KASIE CHAPMAN Unavailable PROBLEMS Type Condition ICD9-CM Code ATT20-LT Code Onset Dates Condition Status SNOMED Code Problem nursing home current use of anticoagulant therapy Z79.01 Active 846447401 Problem Persistent atrial fibrillation I48.1 Active 266607694 Problem Chronic atrial fibrillation I48.2 Active 932243152 Problem Mixed hyperlipidemia E78.2 Active 770490531 Problem Essential (primary) hypertension I10 Active 85842475 Problem Elevated prostate specific antigen [PSA] R97.2 Active 116414786 Problem 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 025946518 Problem Unspecified atrial fibrillation I48.91 Active 41969474 Problem Hyperlipidemia LDL goal <100 E78.5 Active 43890168 Problem Essential hypertension I10 Active 48154144 Problem Obstructive sleep apnea G47.33 Active 28337919 Problem Chronic obstructive pulmonary disease, unspecified COPD type J44.9 Active 86573427 ALLERGIES No Information ENCOUNTERS Encounter Location Date Diagnosis [facility] [address] [place] [address] Nov, [facility] [address] [place] [address] Oct, [employer] current use of anticoagulant therapy Z79.01 [facility] [place] [address] [place] [address] Oct, Chronic atrial fibrillation I48.2 ; Essential hypertension I10 and Elevated prostate specific antigen [PSA] R97.2 [facility] [address] [place] [address] Sep, nursing home current use of anticoagulant therapy Z79.01 [facility] [address] [place] [address] Sep, [employer] current use of anticoagulant therapy Z79.01 [facility] [place] [address] [place] [address] 20 Sep, 2017 [employer] current use of anticoagulant therapy Z79.01 and Chronic atrial fibrillation I48.2 [facility] [place] [address] [place] [address] 18 Sep, 2017 [employer] current use of anticoagulant therapy Z79.01 [facility] [place] [address] [place] [address] 15 Sep, 2017 nursing home current use of anticoagulant therapy Z79.01 [facility] [place] [address] [place] [address] 13 Sep, 2017 nursing home current use of anticoagulant therapy Z79.01 [facility] [place] [address] [place] [address] 11 Sep, 2017 Chronic obstructive pulmonary disease, unspecified COPD type J44.9 [facility] [place] [address] [place] [address] 11 Sep, 2017 nursing home current use of anticoagulant therapy Z79.01 [facility] [place] [address] [place] [address] 08 Sep, 2017 nursing home current use of anticoagulant therapy Z79.01 [facility] [place] [address] [place] [address] Sep, [facility] [place] [address] [place] [address] August, nursing home current use of anticoagulant therapy Z79.01 [facility] [place] [address] [place] [address] August, [facility] [place] [address] [place] [address] August, [employer] current use of anticoagulant therapy Z79.01 [facility] [place] [address] [place] [address] August, nursing home current use of anticoagulant therapy Z79.01 [facility] [place] [address] [place] [address] Jul, [employer] current use of anticoagulant therapy Z79.01 [facility] [place] [address] [place] [address] Jul, nursing home current use of anticoagulant therapy Z79.01 [facility] [place] [address] [place] [address] Jul, [employer] current use of anticoagulant therapy Z79.01 [facility] [place] [address] [place] [address] Jul, [employer] current use of anticoagulant therapy Z79.01 [facility] [place] [address] [place] [address] Jul, 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 [facility] [place] [address] [place] [address] Jul, Chronic obstructive pulmonary disease, unspecified COPD type J44.9 [facility] [place] [address] [place] [address] Jul, [employer] intermedi[employer] current use of anticoagulant therapy Z79.01 [facility] [place] [address] [place] [address] Jul, [facility] [place] [address] [place] [address] Jul, Bleeding from mouth K13.79 and Lip lesion K13.0 [facility] [place] [address] [place] [address] Jul, nursing home current use of anticoagulant therapy Z79.01 [facility] [address] [address] Jul, nursing home current use of anticoagulant therapy Z79.01 [facility] [address] [address] Jul, [facility] [address] [address] Jun, Unspecified atrial fibrillation I48.91 [facility] [address] [address] May, Unspecified atrial fibrillation I48.91 [facility] [address] [address] May, Chronic atrial fibrillation I48.2 ; BMI 40.0-44.9, adult Z68.41 ; Hyperlipidemia LDL goal <100 E78.5 ; nursing home current use of anticoagulant therapy Z79.01 ; Essential hypertension I10 ; Obstructive sleep apnea G47.33 ; Elevated PSA, less than 10 ng/ml R97.20 and Chronic obstructive pulmonary disease, unspecified COPD type J44.9 [facility] [address] [address] Apr, [facility] [place] [address] [place] [address] Apr, Elevated PSA R97.20 [facility] [address] [id number] [place] [address] Apr, Mild persistent asthma, unspecified whether complicated J45.[address] [address] Apr, Chronic obstructive pulmonary disease, unspecified COPD type J44.[address] [address] Mar, [address] [address] Mar, [address] [address] Mar, [address] [address] Mar, Chronic atrial fibrillation I48.2 ; Hyperlipidemia LDL goal <100 E78.5 ; Essential hypertension I10 ; Obstructive sleep apnea G47.33 ; Has stopped breathing R06.81 ; Elevated PSA, less than 10 ng/ml R97.20 ; Chronic obstructive pulmonary disease, unspecified COPD type J44.9 ; Encounter for immunization Z23 and [employer] intermedi[employer] current use of anticoagulant therapy Z79.[address] [address] Feb, [address] [address] Dec, [address] [address] Nov, Chronic atrial fibrillation I48.2 and Elevated PSA R97.[address] [address] Nov, Chronic atrial fibrillation I48.2 ; Hyperlipidemia LDL goal <100 E78.5 ; Essential hypertension I10 ; Dyspnea on exertion R06.09 and Elevated PSA R97.[address] [address] August, [employer] current use of anticoagulant therapy Z79.01 ; Bronchitis J40 and Persistent atrial fibrillation I48.[address] [address] August, [address] [address] May, nursing home current use of anticoagulant therapy Z79.01 ; Encounter for long-term (current) use of other medications Z79.899 ; Fever, unspecified fever cause R50.9 and Influenza A J10.[address] [address] Apr, [address] [address] 10 Apr, 2016 Elevated prostate specific antigen [PSA] R97.[address] [address] Feb, [address] [address] Feb, [employer] current use of anticoagulant therapy Z79.01 ; Atrial fibrillation 427.31 ; Encounter for long-term (current) use of other medications Z79.899 ; Chronic atrial fibrillation I48.2 ; Encounter for immunization Z23 and Actinic keratoses L57.[address] [address] 14 Dec, 2015 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 and Encounter for immunization Z23 [address] [address] Nov, Hemangioma D18.00 and Actinic keratosis L57.[address] [address] Nov, Chronic atrial fibrillation I48.2 ; [employer] current use of anticoagulant therapy Z79.01 and Skin lesions L98.[address] [address] Oct, Elevated prostate specific antigen [PSA] R97.2 ; Mixed hyperlipidemia E78.2 and Essential (primary) hypertension I10 [address] [address] August, [address] [address] August, Encounter for long-term (current) use of other medications Z79.899 ; [employer] intermedi[employer] current use of anticoagulant therapy Z79.01 and Chronic atrial fibrillation I48.[address] [address] Jul, Unspecified atrial fibrillation I48.91 ; Encounter for long-term (current) use of other medications Z79.899 and [employer] intermedi[employer] current use of anticoagulant therapy Z79.[address] [address] Jun, Atrial fibrillation 427.31 ; Encounter for long-term (current) use of other medications Z79.899 and nursing home current use of anticoagulant therapy Z79.[address] [address] Jun, Unspecified atrial fibrillation I48.91 ; Encounter for long-term (current) use of other medications Z79.899 ; [employer] current use of anticoagulant therapy Z79.01 and Community acquired bacterial pneumonia J15.[address] [address] Jun, Community acquired bacterial pneumonia J15.[address] [address] May, Chronic atrial fibrillation I48.2 ; Encounter for long-term (current) use of other medications Z79.899 and [employer] intermedi[employer] current use of anticoagulant therapy Z79.[address] [address] Apr, Elevated prostate specific antigen [PSA] R97.[address] [address] Feb, Chronic atrial fibrillation I48.2 ; [employer] intermedi[employer] current use of anticoagulant therapy Z79.01 and Encounter for long-term (current) use of other medications Z79.[address] [address] Dec, Atrial fibrillation 427.31 and nursing home (current) use of anticoagulants V58.[address] [address] Sep, [address] [address] Sep, Atrial fibrillation 427.31 ; Elevated PSA 790.93 ; Benign prostate hyperplasia 600.00 and Renal insufficiency 593.[address] [address] Sep, Atrial fibrillation 427.31 ; Essential hypertension, benign 401.1 ; Elevated prostate specific antigen (PSA) 790.93 and Mixed hyperlipidemia 272.2 [facility] [id number] [address] 14 Jul, 2014 [facility] [address], [place] [address] 13 Jul, 2014 [facility] [id number], [place] [address] 16 Jun, 2014 [facility] [place] [address] [place] [address] 16 Jun, 2014 [facility] [address], [place] [address] 15 Apr, 2014 [facility] [place] [address] [place] [address] Apr, [facility] [place] [address] [place] [address] Mar, [facility] [address], [place] [address] Mar, [facility] [place] [address] [place] [address] Mar, [facility] [address], [place] [address] Mar, [facility] [address], [place] [address] Feb, [facility] [place] [address] [place] [address] Feb, [facility] [address], [place] [address] Jan, [facility] [place] [address] [place] [address] Jan, [facility] [address] [address] Dec, [facility] [place] [address] [place] [address] Dec, [facility] [address], [place] [address] Oct, [facility] [place] [address] [place] [address] Oct, [facility] [place] [address] [facility] [address] Oct, [facility] [address] [facility] [id number] [address] Oct, [facility] [place] [address] [facility] [address] Sep, [facility] [address] [facility] [id number], [place] [address] Sep, [facility] [address] [facility] [id number] [place] [address] August, [facility] [place] [address] [facility] [address] August, [facility] [id number] [place] [address] August, [facility] [id number] [place] [address] August, [facility] [place] [address] [facility] [address] August, [facility] [place] [address] [facility] [address] August, [facility] [id number], [place] [address] August, [facility] [place] [address] [place] [address] Jul, [facility] [id number], [place] [address] Jul, [facility] [place] [address] [place] [address] Jul, [facility] [address] [facility] [id number] [address] Jul, [facility] [place] [address] [facility] [place] [address] May, [facility] [id number], [place] [address] May, [facility] [place] [address] [facility] [address] Apr, [facility] [id number], [place] [address] Apr, [facility] [address] [place] [address] Mar, [facility] [id number], [place] [address] Mar, [facility] [address] [place] [address] Feb, [facility] [address] [address] Feb, [facility] [address] [place] [address] Feb, [facility] [address], [place] [address] Feb, [facility] [address] [place] [address] Feb, [facility] [address] [place] [address] Feb, [facility] [address] [place] [address] Jan, [facility] [address], [place] [address] Jan, [facility] [address] [place] [address] Dec, [facility] [address] [place] [address] Dec, IMMUNIZATIONS No Known Immunizations SOCIAL HISTORY Never Assessed REASON FOR VISIT Lip biopsy PLAN OF CARE VITAL SIGNS MEDICATIONS Unknown Medications RESULTS Name Result Date Reference Range [facility] 2017-07-24 Request Problem Specimen Identification Status Please note Request Problem Sodium, Serum Potassium, Serum Chloride, Serum Carbon Dioxide, Total Ambig Abbrev [id number] Default BUN Creatinine, Serum BUN/Creatinine Ratio eGFR If NonAfricn Am eGFR If Africn Am Glucose, Serum Calcium, Serum GLUCOSE UREA NITROGEN (BUN) CREATININE eGFR NON-AFR. AFGHAN eGFR BUN/CREATININE RATIO SODIUM POTASSIUM CHLORIDE CARBON DIOXIDE CALCIUM CT Scan : Neck Soft Tissue w/ Contrast 2017-07-25 PROCEDURES Procedure Date Ordered Result Body Site LAB NOT BILLED BY [facility] July 20, 2017 INSTRUCTIONS MEDICATIONS ADMINISTERED No Known Medications [...]
--- OUTSIDE RECORDS SUMMARY | 2018-06-27 07:13 | XMS REPORT ---
Author Author KASIE CHAPMAN Organization [facility] [address] [place] [address] Care Team Providers Care Actionscript Developer Name Role Phone KASIE CHAPMAN Unavailable PROBLEMS Type Condition ICD9-CM Code UBK88-TX Code Onset Dates Condition Status SNOMED Code Problem senior living current use of anticoagulant therapy Z79.01 Active 811897419 Problem Persistent atrial fibrillation I48.1 Active 208001622 Problem Chronic atrial fibrillation I48.2 Active 429977909 Problem Mixed hyperlipidemia E78.2 Active 466432821 Problem Essential (primary) hypertension I10 Active 35316642 Problem Elevated prostate specific antigen [PSA] R97.2 Active 007508047 Problem 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 698962792 Problem Unspecified atrial fibrillation I48.91 Active 23019633 Problem Hyperlipidemia LDL goal <100 E78.5 Active 39871144 Problem Essential hypertension I10 Active 95414881 Problem Obstructive sleep apnea G47.33 Active 69505222 Problem Chronic obstructive pulmonary disease, unspecified COPD type J44.9 Active 57109247 ALLERGIES No Information ENCOUNTERS Encounter Location Date Diagnosis [facility] [address] [place] [address] Nov, [facility] [address] [place] [address] Oct, 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 [facility] [place] [address] [place] [address] Oct, Chronic atrial fibrillation I48.2 ; Essential hypertension I10 and Elevated prostate specific antigen [PSA] R97.2 [facility] [address] [place] [address] Sep, senior living current use of anticoagulant therapy Z79.01 [facility] [address] [place] [address] Sep, 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 [facility] [place] [address] [place] [address] 20 Sep, 2017 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 and Chronic atrial fibrillation I48.2 [facility] [place] [address] [place] [address] 18 Sep, 2017 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 [facility] [place] [address] [place] [address] 15 Sep, 2017 senior living current use of anticoagulant therapy Z79.01 [facility] [place] [address] [place] [address] 13 Sep, 2017 senior living current use of anticoagulant therapy Z79.01 [facility] [place] [address] [place] [address] 11 Sep, 2017 Chronic obstructive pulmonary disease, unspecified COPD type J44.9 [facility] [place] [address] [place] [address] 11 Sep, 2017 senior living current use of anticoagulant therapy Z79.01 [facility] [place] [address] [place] [address] 08 Sep, 2017 senior living current use of anticoagulant therapy Z79.01 [facility] [place] [address] [place] [address] Sep, [facility] [place] [address] [place] [address] August, senior living current use of anticoagulant therapy Z79.01 [facility] [place] [address] [place] [address] August, [facility] [place] [address] [place] [address] August, 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 [facility] [place] [address] [place] [address] August, senior living current use of anticoagulant therapy Z79.01 [facility] [place] [address] [place] [address] Jul, 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 [facility] [place] [address] [place] [address] Jul, senior living current use of anticoagulant therapy Z79.01 [facility] [place] [address] [place] [address] Jul, 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 [facility] [place] [address] [place] [address] Jul, 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 [facility] [place] [address] [place] [address] Jul, 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 [facility] [place] [address] [place] [address] Jul, Chronic obstructive pulmonary disease, unspecified COPD type J44.9 [facility] [place] [address] [place] [address] Jul, 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 [facility] [place] [address] [place] [address] Jul, [facility] [place] [address] [place] [address] Jul, Bleeding from mouth K13.79 and Lip lesion K13.0 [facility] [place] [address] [place] [address] Jul, senior living current use of anticoagulant therapy Z79.01 [facility] [address] [address] Jul, senior living current use of anticoagulant therapy Z79.01 [facility] [address] [address] Jul, [facility] [address] [address] Jun, Unspecified atrial fibrillation I48.91 [facility] [address] [address] May, Unspecified atrial fibrillation I48.91 [facility] [address] [address] May, Chronic atrial fibrillation I48.2 ; BMI 40.0-44.9, adult Z68.41 ; Hyperlipidemia LDL goal <100 E78.5 ; senior living current use of anticoagulant therapy Z79.01 ; Essential hypertension I10 ; Obstructive sleep apnea G47.33 ; Elevated PSA, less than 10 ng/ml R97.20 and Chronic obstructive pulmonary disease, unspecified COPD type J44.9 [facility] [address] [address] Apr, [facility] [place] [address] [place] [address] Apr, Elevated PSA R97.20 [facility] [id number] [address] Apr, Mild persistent asthma, unspecified whether complicated J45.[address] [address] Apr, Chronic obstructive pulmonary disease, unspecified COPD type J44.[address] [address] Mar, [address] [address] Mar, [address] [address] Mar, [address] [address] Mar, Chronic atrial fibrillation I48.2 ; Hyperlipidemia LDL goal <100 E78.5 ; Essential hypertension I10 ; Obstructive sleep apnea G47.33 ; Has stopped breathing R06.81 ; Elevated PSA, less than 10 ng/ml R97.20 ; Chronic obstructive pulmonary disease, unspecified COPD type J44.9 ; Encounter for immunization Z23 and 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 [address] Feb, [address] [address] Dec, [address] [address] Nov, Chronic atrial fibrillation I48.2 and Elevated PSA R97.[address] [address] Nov, Chronic atrial fibrillation I48.2 ; Hyperlipidemia LDL goal <100 E78.5 ; Essential hypertension I10 ; Dyspnea on exertion R06.09 and Elevated PSA R97.[address] [address] August, 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 ; Bronchitis J40 and Persistent atrial fibrillation I48.[address] [address] August, [address] [address] May, senior living current use of anticoagulant therapy Z79.01 ; Encounter for long-term (current) use of other medications Z79.899 ; Fever, unspecified fever cause R50.9 and Influenza A J10.[address] [address] Apr, [address] [address] 10 Apr, 2016 Elevated prostate specific antigen [PSA] R97.[address] [address] Feb, [address] [address] Feb, 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 ; Atrial fibrillation 427.31 ; Encounter for long-term (current) use of other medications Z79.899 ; Chronic atrial fibrillation I48.2 ; Encounter for immunization Z23 and Actinic keratoses L57.[address] [address] 14 Dec, 2015 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 and Encounter for immunization Z23 [address] [address] Nov, Hemangioma D18.00 and Actinic keratosis L57.[address] [address] Nov, Chronic atrial fibrillation I48.2 ; 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 and Skin lesions L98.[address] [address] Oct, Elevated prostate specific antigen [PSA] R97.2 ; Mixed hyperlipidemia E78.2 and Essential (primary) hypertension I10 [address] [address] August, [address] [address] August, Encounter for long-term (current) use of other medications Z79.899 ; 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 and Chronic atrial fibrillation I48.[address] [address] Jul, Unspecified atrial fibrillation I48.91 ; Encounter for long-term (current) use of other medications Z79.899 and 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 [address] Jun, Atrial fibrillation 427.31 ; Encounter for long-term (current) use of other medications Z79.899 and senior living current use of anticoagulant therapy Z79.[address] [address] Jun, Unspecified atrial fibrillation I48.91 ; Encounter for long-term (current) use of other medications Z79.899 ; 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 and Community acquired bacterial pneumonia J15.[address] [address] Jun, Community acquired bacterial pneumonia J15.[address] [address] May, Chronic atrial fibrillation I48.2 ; Encounter for long-term (current) use of other medications Z79.899 and 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 [address] Apr, Elevated prostate specific antigen [PSA] R97.[address] [address] Feb, Chronic atrial fibrillation I48.2 ; 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 and Encounter for long-term (current) use of other medications Z79.[address] [address] Dec, Atrial fibrillation 427.31 and senior living (current) use of anticoagulants V58.[address] [address] Sep, [address] [address] Sep, Atrial fibrillation 427.31 ; Elevated PSA 790.93 ; Benign prostate hyperplasia 600.00 and Renal insufficiency 593.[address] [address] Sep, Atrial fibrillation 427.31 ; Essential hypertension, benign 401.1 ; Elevated prostate specific antigen (PSA) 790.93 and Mixed hyperlipidemia 272.2 [facility] [id number] [address] 14 Jul, 2014 [facility] [address], [place] [address] 13 Jul, 2014 [facility] [id number], [place] [address] 16 Jun, 2014 [facility] [place] [address] [place] [address] 16 Jun, 2014 [facility] [address], [place] [address] 15 Apr, 2014 [facility] [place] [address] [place] [address] Apr, [facility] [place] [address] [place] [address] Mar, [facility] [address], [place] [address] Mar, [facility] [place] [address] [place] [address] Mar, [facility] [address], [place] [address] Mar, [facility] [address], [place] [address] Feb, [facility] [place] [address] [place] [address] Feb, [facility] [address], [place] [address] Jan, [facility] [place] [address] [place] [address] Jan, [facility] [address], [place] [address] Dec, [facility] [place] [address] [place] [address] Dec, [facility] [address], [place] [address] Oct, [facility] [place] [address] [place] [address] Oct, [facility] [place] [address] [place] [address] Oct, [facility] [address] [facility] [id number], [place] [address] Oct, [facility] [place] [address] [place] [address] Sep, [facility] [address] [facility] [id number], [place] [address] Sep, [facility] [address] [facility] [id number] [place] [address] August, [facility] [place] [address] [place] [address] August, [facility] [id number] [place] [address] August, [facility] [id number] [place] [address] August, [facility] [place] [address] [place] [address] August, [facility] [place] [address] [place] [address] August, [facility] [id number], [place] [address] August, [facility] [place] [address] [place] [address] Jul, [facility] [id number], [place] [address] Jul, [facility] [place] [address] [place] [address] Jul, [facility] [address] [facility] [id number], [place] [address] Jul, [facility] [place] [address] [place] [address] May, [facility] [id number], [place] [address] May, [facility] [place] [address] [place] [address] Apr, [facility] [id number], [place] [address] Apr, [facility] [address] [place] [address] Mar, [facility] [address], [place] [address] Mar, [facility] [address] [place] [address] Feb, [facility] [address], [place] [address] Feb, [facility] [id number] [place] [address] Feb, [facility] [address], [place] [address] Feb, [facility] [address] [place] [address] Feb, [facility] [address] [place] [address] Feb, [facility] [address] [place] [address] Jan, [facility] [address], [place] [address] Jan, [facility] [address] [place] [address] Dec, [facility] [address] [place] [address] Dec, IMMUNIZATIONS No Known Immunizations SOCIAL HISTORY Never Assessed [facility] Activity Details Follow Up prn Reason: VITAL SIGNS MEDICATIONS Unknown Medications RESULTS Name Result Date Reference Range INR (IN HOUSE) 2017-07-25 INR 1.6 1.10 - 3.30 PREVIOUS INR 1.4 CURRENT COUMADIN DOSE 6mg NEW COUMADIN DOSE Lot # [id number] Exp date 09-06-2018 PROCEDURES Procedure Date Ordered Result Body Site PROTHROMBIN TIME July 25, 2017 INSTRUCTIONS MEDICATIONS ADMINISTERED No Known Medications [...]
--- OUTSIDE RECORDS SUMMARY | 2018-06-27 07:14 | XMS REPORT ---
Author Author KASIE CHAPMAN [facility] [address] Address [address] [place] [address] Care Team Providers Care Gear Technician Name Role Phone KASIE CHAPMAN Unavailable PROBLEMS Type Condition ICD9-CM Code DPA32-CA Code Onset Dates Condition Status SNOMED Code Problem skilled nursing current use of anticoagulant therapy Z79.01 Active 621253860 Problem Persistent atrial fibrillation I48.1 Active 087706318 Problem Chronic atrial fibrillation I48.2 Active 480447896 Problem Mixed hyperlipidemia E78.2 Active 017434893 Problem Essential (primary) hypertension I10 Active 38850852 Problem Elevated prostate specific antigen [PSA] R97.2 Active 661137455 Problem 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 291330591 Problem Unspecified atrial fibrillation I48.91 Active 69421921 Problem Hyperlipidemia LDL goal <100 E78.5 Active 32990127 Problem Essential hypertension I10 Active 93331186 Problem Obstructive sleep apnea G47.33 Active 61709524 Problem Chronic obstructive pulmonary disease, unspecified COPD type J44.9 Active 12091182 ALLERGIES No Information ENCOUNTERS Encounter Location Date Diagnosis [facility] [address] [place] [address] Nov, [facility] [place] [address] [place] [address] Oct, Chronic atrial fibrillation I48.2 ; Essential hypertension I10 and Elevated prostate specific antigen [PSA] R97.2 [facility] [place] [address] [place] [address] Sep, skilled nursing current use of anticoagulant therapy Z79.01 [facility] [place] [address] [place] [address] Sep, skilled nursing current use of anticoagulant therapy Z79.01 [facility] [place] [address] [place] [address] Sep, skilled nursing current use of anticoagulant therapy Z79.01 and Chronic atrial fibrillation I48.2 [facility] [place] [address] [place] [address] 18 Sep, 2017 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 [facility] [place] [address] [place] [address] 15 Sep, 2017 skilled nursing current use of anticoagulant therapy Z79.01 [facility] [place] [address] [place] [address] 13 Sep, 2017 skilled nursing current use of anticoagulant therapy Z79.01 [facility] [place] [address] [place] [address] Sep, Chronic obstructive pulmonary disease, unspecified COPD type J44.9 [facility] [place] [address] [place] [address] 11 Sep, 2017 skilled nursing current use of anticoagulant therapy Z79.01 [facility] [place] [address] [place] [address] 08 Sep, 2017 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 [facility] [place] [address] [place] [address] Sep, [facility] [place] [address] [place] [address] August, skilled nursing current use of anticoagulant therapy Z79.01 [facility] [place] [address] [place] [address] August, [facility] [place] [address] [place] [address] August, skilled nursing current use of anticoagulant therapy Z79.01 [facility] [place] [address] [place] [address] August, 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 [facility] [place] [address] [place] [address] Jul, 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 [facility] [place] [address] [place] [address] Jul, 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 [facility] [place] [address] [place] [address] 18 Jul, 2017 skilled nursing current use of anticoagulant therapy Z79.01 [facility] [place] [address] [place] [address] 16 Jul, 2017 skilled nursing current use of anticoagulant therapy Z79.01 [facility] [place] [address] [place] [address] Jul, 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 [address] Jul, Chronic obstructive pulmonary disease, unspecified COPD type J44.[address] [address] Jul, skilled nursing current use of anticoagulant therapy Z79.[address] [address] Jul, [address] [address] Jul, Bleeding from mouth K13.79 and Lip lesion K13.[address] [address] Jul, 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 [address] Jul, 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 [address] Jul, [address] [address] Jun, Unspecified atrial fibrillation I48.[address] [address] May, Unspecified atrial fibrillation I48.[address] [address] May, Chronic atrial fibrillation I48.2 ; BMI 40.0-44.9, adult Z68.41 ; Hyperlipidemia LDL goal <100 E78.5 ; 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 ; Essential hypertension I10 ; Obstructive sleep apnea G47.33 ; Elevated PSA, less than 10 ng/ml R97.20 and Chronic obstructive pulmonary disease, unspecified COPD type J44.[address] [address] Apr, [address] [address] Apr, Elevated PSA R97.20 [facility] [address] [id number] [address] Apr, Mild persistent asthma, unspecified whether complicated J45.[address] [address] Apr, Chronic obstructive pulmonary disease, unspecified COPD type J44.[address] [address] Mar, [address] [address] Mar, [address] [address] Mar, [address] [address] Mar, Chronic atrial fibrillation I48.2 ; Hyperlipidemia LDL goal <100 E78.5 ; Essential hypertension I10 ; Obstructive sleep apnea G47.33 ; Has stopped breathing R06.81 ; Elevated PSA, less than 10 ng/ml R97.20 ; Chronic obstructive pulmonary disease, unspecified COPD type J44.9 ; Encounter for immunization Z23 and 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 [address] Feb, [address] [address] Dec, [address] [address] Nov, Chronic atrial fibrillation I48.2 and Elevated PSA R97.[address] [address] 10 Nov, 2016 Chronic atrial fibrillation I48.2 ; Hyperlipidemia LDL goal <100 E78.5 ; Essential hypertension I10 ; Dyspnea on exertion R06.09 and Elevated PSA R97.[address] [address] August, 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31 ; Encounter for long-term (current) use of other medications Z79.899 ; Chronic atrial fibrillation I48.2 ; Encounter for immunization Z23 and Actinic keratoses L57.[address] [address] 14 Dec, 2015 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 and Encounter for immunization Z23 [address] [address] Nov, Hemangioma D18.00 and Actinic keratosis L57.[address] [address] Nov, Chronic atrial fibrillation I48.2 ; 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 and Skin lesions L98.[address] [address] Oct, Elevated prostate specific antigen [PSA] R97.2 ; Mixed hyperlipidemia E78.2 and Essential (primary) hypertension I10 [address] [address] August, [address] [address] August, Encounter for long-term (current) use of other medications Z79.899 ; 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 and Chronic atrial fibrillation I48.[address] [address] 05 Jul, 2015 Unspecified atrial fibrillation I48.91 ; Encounter for long-term (current) use of other medications Z79.899 and skilled nursing current use of anticoagulant therapy Z79.[address] [address] Jun, Atrial fibrillation 427.31 ; Encounter for long-term (current) use of other medications Z79.899 and skilled nursing current use of anticoagulant therapy Z79.[address] [address] Jun, Unspecified atrial fibrillation I48.91 ; Encounter for long-term (current) use of other medications Z79.899 ; 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 and Community acquired bacterial pneumonia J15.[address] [address] Jun, Community acquired bacterial pneumonia J15.[address] [address] May, Chronic atrial fibrillation I48.2 ; Encounter for long-term (current) use of other medications Z79.899 and skilled nursing current use of anticoagulant therapy Z79.[address] [address] Apr, Elevated prostate specific antigen [PSA] R97.[address] [address] Feb, Chronic atrial fibrillation I48.2 ; 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 and Encounter for long-term (current) use of other medications Z79.[address] [address] Dec, Atrial fibrillation 427.31 and skilled nursing (current) use of anticoagulants V58.[address] [address] Sep, [address] [address] Sep, Atrial fibrillation 427.31 ; Elevated PSA 790.93 ; Benign prostate hyperplasia 600.00 and Renal insufficiency 593.[address] [address] Sep, Atrial fibrillation 427.31 ; Essential hypertension, benign 401.1 ; Elevated prostate specific antigen (PSA) 790.93 and Mixed hyperlipidemia 272.2 [facility] [address] [facility] [id number] [place] [address] Jul, [facility] [id number] [address] Jul, [facility] [address] [id number] [address] Jun, [facility] [place] [address] [place] [address] 16 Jun, 2014 [facility] [id number] [place] [address] Apr, [facility] [place] [address] [place] [address] Apr, [facility] [place] [address] [place] [address] Mar, [facility] [address] [address] Mar, [facility] [place] [address] [place] [address] Mar, [facility] [address] [place] [address] Mar, [facility] [id number] [address] Feb, [facility] [place] [address] [place] [address] Feb, [facility] [address] [address] Jan, [facility] [place] [address] [place] [address] Jan, [facility] [id number] [address] Dec, [facility] [place] [address] [place] [address] Dec, [facility] [id number] [address] Oct, [facility] [place] [address] [facility] [place] [address] Oct, [facility] [place] [address] [place] [address] Oct, [facility] [id number] [address] Oct, [facility] [place] [address] [place] [address] Sep, [facility] [address] [facility] [id number] [address] Sep, [facility] [address] [address] August, [facility] [place] [address] [place] [address] August, [facility] [id number] [address] August, [facility] [id number] [address] August, [facility] [place] [address] [place] [address] August, [facility] [place] [address] [place] [address] August, [facility] [id number] [address] August, [facility] [place] [address] [place] [address] Jul, [facility] [id number] [address] Jul, [facility] [place] [address] [place] [address] Jul, [facility] [id number] [address] Jul, [facility] [place] [address] [place] [address] May, [facility] [id number] [address] May, [facility] [place] [address] [place] [address] Apr, [facility] [id number] [address] Apr, [facility] [place] [address] [place] [address] Mar, [facility] [id number] [address] Mar, [facility] [address] [place] [address] Feb, [facility] [id number] [address] Feb, [facility] [address] [address] Feb, [facility] [id number] [address] Feb, [facility] [address] [place] [address] Feb, [facility] [address] [place] [address] Feb, [facility] [address] [place] [address] Jan, [facility] [id number] [address] Jan, [facility] [address] [place] [address] Dec, [address] [address] Dec, IMMUNIZATIONS No Known Immunizations SOCIAL HISTORY Never Assessed REASON FOR VISIT PLAN OF CARE VITAL SIGNS MEDICATIONS Medication Instructions Dosage Frequency Start Date End Date Duration Status Qvar 80 MCG/ACT Inhalation Twice a day 1 puff 12h May, Active RESULTS No Results PROCEDURES No Known [...]
--- OUTSIDE RECORDS SUMMARY | 2018-06-27 07:14 | XMS REPORT ---
Author Author KASIE CHAPMAN [facility] [address] [place] [address] Care Team Providers Care Horse Riding Coach Or Instructor Name Role Phone KASIE CHAPMAN Unavailable PROBLEMS Type Condition ICD9-CM Code UPQ80-QR Code Onset Dates Condition Status SNOMED Code Problem senior living current use of anticoagulant therapy Z79.01 Active 189233693 Problem Persistent atrial fibrillation I48.1 Active 286729488 Problem Chronic atrial fibrillation I48.2 Active 351023241 Problem Mixed hyperlipidemia E78.2 Active 723260256 Problem Essential (primary) hypertension I10 Active 81522962 Problem Elevated prostate specific antigen [PSA] R97.2 Active 475650306 Problem 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 285170177 Problem Unspecified atrial fibrillation I48.91 Active 02197880 Problem Hyperlipidemia LDL goal <100 E78.5 Active 19290731 Problem Essential hypertension I10 Active 24893790 Problem Obstructive sleep apnea G47.33 Active 98765498 Problem Chronic obstructive pulmonary disease, unspecified COPD type J44.9 Active 06943906 ALLERGIES No Information ENCOUNTERS Encounter Location Date Diagnosis [facility] [address] [place] [address] Nov, [facility] [place] [address] [place] [address] Oct, Chronic atrial fibrillation I48.2 ; Essential hypertension I10 and Elevated prostate specific antigen [PSA] R97.2 [facility] [place] [address] [place] [address] Sep, senior living current use of anticoagulant therapy Z79.01 [facility] [place] [address] [place] [address] Sep, senior living current use of anticoagulant therapy Z79.01 [facility] [place] [address] [place] [address] Sep, senior living current use of anticoagulant therapy Z79.01 and Chronic atrial fibrillation I48.2 [facility] [place] [address] [place] [address] 18 Sep, 2017 intermediate project 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.01 [facility] [place] [address] [place] [address] 15 Sep, 2017 senior living current use of anticoagulant therapy Z79.01 [facility] [place] [address] [place] [address] 13 Sep, 2017 senior living current use of anticoagulant therapy Z79.01 [facility] [place] [address] [place] [address] Sep, Chronic obstructive pulmonary disease, unspecified COPD type J44.9 [facility] [place] [address] [place] [address] 11 Sep, 2017 senior living current use of anticoagulant therapy Z79.01 [facility] [place] [address] [place] [address] 08 Sep, 2017 intermediate project 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.01 [facility] [place] [address] [place] [address] Sep, [facility] [place] [address] [place] [address] August, senior living current use of anticoagulant therapy Z79.01 [facility] [place] [address] [place] [address] August, [facility] [place] [address] [place] [address] August, senior living current use of anticoagulant therapy Z79.01 [facility] [place] [address] [place] [address] August, intermediate project 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.01 [facility] [place] [address] [place] [address] Jul, intermediate project 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.01 [facility] [place] [address] [place] [address] Jul, intermediate project 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.01 [facility] [place] [address] [place] [address] 18 Jul, 2017 senior living current use of anticoagulant therapy Z79.01 [facility] [place] [address] [place] [address] 16 Jul, 2017 senior living current use of anticoagulant therapy Z79.01 [facility] [place] [address] [place] [address] Jul, 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 [address] Jul, Chronic obstructive pulmonary disease, unspecified COPD type J44.[address] [address] Jul, senior living current use of anticoagulant therapy Z79.[address] [address] Jul, [address] [address] Jul, Bleeding from mouth K13.79 and Lip lesion K13.[address] [address] Jul, intermediate project 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.[address] [address] Jul, intermediate project 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.[address] [address] Jul, [address] [address] Jun, Unspecified atrial fibrillation I48.[address] [address] May, Unspecified atrial fibrillation I48.[address] [address] May, Chronic atrial fibrillation I48.2 ; BMI 40.0-44.9, adult Z68.41 ; Hyperlipidemia LDL goal <100 E78.5 ; intermediate project 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.01 ; Essential hypertension I10 ; Obstructive sleep apnea G47.33 ; Elevated PSA, less than 10 ng/ml R97.20 and Chronic obstructive pulmonary disease, unspecified COPD type J44.[address] [address] Apr, [address] [address] Apr, Elevated PSA R97.20 [facility] [address] [id number] [place] [address] Apr, Mild persistent asthma, unspecified whether complicated J45.[address] [address] Apr, Chronic obstructive pulmonary disease, unspecified COPD type J44.[address] [address] Mar, [address] [address] Mar, [address] [address] Mar, [address] [address] Mar, Chronic atrial fibrillation I48.2 ; Hyperlipidemia LDL goal <100 E78.5 ; Essential hypertension I10 ; Obstructive sleep apnea G47.33 ; Has stopped breathing R06.81 ; Elevated PSA, less than 10 ng/ml R97.20 ; Chronic obstructive pulmonary disease, unspecified COPD type J44.9 ; Encounter for immunization Z23 and intermediate project 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.[address] [address] Feb, [address] [address] Dec, [address] [address] Nov, Chronic atrial fibrillation I48.2 and Elevated PSA R97.[address] [address] 10 Nov, 2016 Chronic atrial fibrillation I48.2 ; Hyperlipidemia LDL goal <100 E78.5 ; Essential hypertension I10 ; Dyspnea on exertion R06.09 and Elevated PSA R97.[address] [address] August, intermediate project 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.01 ; Bronchitis J40 and Persistent atrial fibrillation I48.[address] [address] August, [address] [address] May, intermediate project 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.01 ; Encounter for long-term (current) use of other medications Z79.899 ; Fever, unspecified fever cause R50.9 and Influenza A J10.[address] [address] Apr, [address] [address] Apr, Elevated prostate specific antigen [PSA] R97.[address] [address] Feb, [address] [address] Feb, intermediate project 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.01 ; Atrial fibrillation 427.31 ; Encounter for long-term (current) use of other medications Z79.899 ; Chronic atrial fibrillation I48.2 ; Encounter for immunization Z23 and Actinic keratoses L57.[address] [address] 14 Dec, 2015 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 and Encounter for immunization Z23 [address] [address] Nov, Hemangioma D18.00 and Actinic keratosis L57.[address] [address] Nov, Chronic atrial fibrillation I48.2 ; intermediate project 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.01 and Skin lesions L98.[address] [address] Oct, Elevated prostate specific antigen [PSA] R97.2 ; Mixed hyperlipidemia E78.2 and Essential (primary) hypertension I10 [address] [address] August, [address] [address] August, Encounter for long-term (current) use of other medications Z79.899 ; intermediate project 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.01 and Chronic atrial fibrillation I48.[address] [address] 05 Jul, 2015 Unspecified atrial fibrillation I48.91 ; Encounter for long-term (current) use of other medications Z79.899 and senior living current use of anticoagulant therapy Z79.[address] [address] Jun, Atrial fibrillation 427.31 ; Encounter for long-term (current) use of other medications Z79.899 and senior living current use of anticoagulant therapy Z79.[address] [address] Jun, Unspecified atrial fibrillation I48.91 ; Encounter for long-term (current) use of other medications Z79.899 ; intermediate project 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.01 and Community acquired bacterial pneumonia J15.[address] [address] Jun, Community acquired bacterial pneumonia J15.[address] [address] May, Chronic atrial fibrillation I48.2 ; Encounter for long-term (current) use of other medications Z79.899 and senior living current use of anticoagulant therapy Z79.[address] [address] Apr, Elevated prostate specific antigen [PSA] R97.[address] [address] Feb, Chronic atrial fibrillation I48.2 ; intermediate project 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.01 and Encounter for long-term (current) use of other medications Z79.[address] [address] Dec, Atrial fibrillation 427.31 and senior living (current) use of anticoagulants V58.[address] [address] Sep, [address] [address] Sep, Atrial fibrillation 427.31 ; Elevated PSA 790.93 ; Benign prostate hyperplasia 600.00 and Renal insufficiency 593.[address] [address] Sep, Atrial fibrillation 427.31 ; Essential hypertension, benign 401.1 ; Elevated prostate specific antigen (PSA) 790.93 and Mixed hyperlipidemia 272.2 [facility] [address] [facility] [id number] [place] [address] Jul, [facility] [id number] [address] Jul, [facility] [id number] [address] Jun, [facility] [place] [address] [place] [address] 16 Jun, 2014 [facility] [id number] [place] [address] Apr, [facility] [place] [address] [place] [address] Apr, [facility] [place] [address] [place] [address] Mar, [facility] [id number] [address] Mar, [facility] [place] [address] [place] [address] Mar, [facility] [id number] [place] [address] Mar, [facility] [id number] [address] Feb, [facility] [place] [address] [place] [address] Feb, [facility] [id number] [address] Jan, [facility] [place] [address] [place] [address] Jan, [facility] [id number] [address] Dec, [facility] [place] [address] [place] [address] Dec, [facility] [id number] [address] Oct, [facility] [place] [address] [place] [address] Oct, [facility] [place] [address] [place] [address] Oct, [facility] [id number] [address] Oct, [facility] [place] [address] [place] [address] Sep, [facility] [address] [facility] [id number] [address] Sep, [facility] [id number] [address] August, [facility] [place] [address] [place] [address] August, [facility] [id number] [address] August, [facility] [id number] [address] August, [facility] [place] [address] [place] [address] August, [facility] [place] [address] [place] [address] August, [facility] [id number] [address] August, [facility] [place] [address] [place] [address] Jul, [facility] [id number] [address] Jul, [facility] [place] [address] [place] [address] Jul, [facility] [id number] [address] Jul, [facility] [place] [address] [place] [address] May, [facility] [id number] [address] May, [facility] [place] [address] [place] [address] Apr, [facility] [id number] [address] Apr, [facility] [place] [address] [place] [address] Mar, [facility] [id number] [address] Mar, [facility] [address] [place] [address] Feb, [facility] [id number] [address] Feb, [facility] [id number] [address] Feb, [facility] [id number] [address] Feb, [facility] [address] [place] [address] Feb, [facility] [address] [place] [address] Feb, [facility] [address] [place] [address] Jan, [facility] [id number] [address] Jan, [facility] [address] [place] [address] Dec, [address] [address] Dec, IMMUNIZATIONS No Known Immunizations SOCIAL HISTORY Never Assessed REASON FOR VISIT INR check Zurdo Cabrera RN PLAN OF CARE VITAL SIGNS MEDICATIONS Unknown Medications RESULTS Name Result Date Reference Range INR (IN HOUSE) 2017-07-19 INR 1.2 1.10 - 3.30 PREVIOUS INR 1.3 CURRENT COUMADIN DOSE on hold NEW COUMADIN DOSE Lot # [id number] Exp date 09/06/2018 PROCEDURES Procedure Date Ordered Result Body Site PROTHROMBIN TIME July 19, 2017 INSTRUCTIONS MEDICATIONS ADMINISTERED No Known [...]
--- OUTSIDE RECORDS SUMMARY | 2018-06-27 07:14 | XMS REPORT ---
Author Author KASIE CHAPMAN [facility] [address] [place] [address] Care Team Providers Care Stage Builder Name Role Phone KASIE CHAPMAN Unavailable PROBLEMS Type Condition ICD9-CM Code JEI19-CM Code Onset Dates Condition Status SNOMED Code Problem nursing home current use of anticoagulant therapy Z79.01 Active 756110723 Problem Persistent atrial fibrillation I48.1 Active 846827567 Problem Chronic atrial fibrillation I48.2 Active 659359011 Problem Mixed hyperlipidemia E78.2 Active 717187572 Problem Essential (primary) hypertension I10 Active 94821442 Problem Elevated prostate specific antigen [PSA] R97.2 Active 422563436 Problem 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 991298786 Problem Unspecified atrial fibrillation I48.91 Active 35464314 Problem Hyperlipidemia LDL goal <100 E78.5 Active 45030406 Problem Essential hypertension I10 Active 94474539 Problem Obstructive sleep apnea G47.33 Active 84716181 Problem Chronic obstructive pulmonary disease, unspecified COPD type J44.9 Active 14414166 ALLERGIES No Information ENCOUNTERS Encounter Location Date Diagnosis [facility] [address] [place] [address] Nov, [facility] [place] [address] [place] [address] Oct, Chronic atrial fibrillation I48.2 ; Essential hypertension I10 and Elevated prostate specific antigen [PSA] R97.2 [facility] [place] [address] [place] [address] Sep, nursing home current use of anticoagulant therapy Z79.01 [facility] [place] [address] [place] [address] Sep, nursing home current use of anticoagulant therapy Z79.01 [facility] [place] [address] [place] [address] Sep, nursing home current use of anticoagulant therapy Z79.01 and Chronic atrial fibrillation I48.2 [facility] [place] [address] [place] [address] 18 Sep, 2017 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 [facility] [place] [address] [place] [address] 15 Sep, 2017 nursing home current use of anticoagulant therapy Z79.01 [facility] [place] [address] [place] [address] 13 Sep, 2017 nursing home current use of anticoagulant therapy Z79.01 [facility] [place] [address] [place] [address] Sep, Chronic obstructive pulmonary disease, unspecified COPD type J44.9 [facility] [place] [address] [place] [address] 11 Sep, 2017 nursing home current use of anticoagulant therapy Z79.01 [facility] [place] [address] [place] [address] 08 Sep, 2017 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 [facility] [place] [address] [place] [address] Sep, [facility] [place] [address] [place] [address] August, nursing home current use of anticoagulant therapy Z79.01 [facility] [place] [address] [place] [address] August, [facility] [place] [address] [place] [address] August, nursing home current use of anticoagulant therapy Z79.01 [facility] [place] [address] [place] [address] August, 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 [facility] [place] [address] [place] [address] Jul, 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 [facility] [place] [address] [place] [address] Jul, 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 [facility] [place] [address] [place] [address] 18 Jul, 2017 nursing home current use of anticoagulant therapy Z79.01 [facility] [place] [address] [place] [address] 16 Jul, 2017 nursing home current use of anticoagulant therapy Z79.01 [facility] [place] [address] [place] [address] Jul, 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 [address] Jul, Chronic obstructive pulmonary disease, unspecified COPD type J44.[address] [address] Jul, nursing home current use of anticoagulant therapy Z79.[address] [address] Jul, [address] [address] Jul, Bleeding from mouth K13.79 and Lip lesion K13.[address] [address] Jul, 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 [address] Jul, 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 [address] Jul, [address] [address] Jun, Unspecified atrial fibrillation I48.[address] [address] May, Unspecified atrial fibrillation I48.[address] [address] May, Chronic atrial fibrillation I48.2 ; BMI 40.0-44.9, adult Z68.41 ; Hyperlipidemia LDL goal <100 E78.5 ; 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 ; Essential hypertension I10 ; Obstructive sleep apnea G47.33 ; Elevated PSA, less than 10 ng/ml R97.20 and Chronic obstructive pulmonary disease, unspecified COPD type J44.[address] [address] Apr, [address] [address] Apr, Elevated PSA R97.20 [facility] [id number] [place] [address] Apr, Mild persistent asthma, unspecified whether complicated J45.[address] [address] Apr, Chronic obstructive pulmonary disease, unspecified COPD type J44.[address] [address] Mar, [address] [address] Mar, [address] [address] Mar, [address] [address] Mar, Chronic atrial fibrillation I48.2 ; Hyperlipidemia LDL goal <100 E78.5 ; Essential hypertension I10 ; Obstructive sleep apnea G47.33 ; Has stopped breathing R06.81 ; Elevated PSA, less than 10 ng/ml R97.20 ; Chronic obstructive pulmonary disease, unspecified COPD type J44.9 ; Encounter for immunization Z23 and 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 [address] Feb, [address] [address] Dec, [address] [address] Nov, Chronic atrial fibrillation I48.2 and Elevated PSA R97.[address] [address] 10 Nov, 2016 Chronic atrial fibrillation I48.2 ; Hyperlipidemia LDL goal <100 E78.5 ; Essential hypertension I10 ; Dyspnea on exertion R06.09 and Elevated PSA R97.[address] [address] August, 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 ; Bronchitis J40 and Persistent atrial fibrillation I48.[address] [address] August, [address] [address] May, 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 ; Encounter for long-term (current) use of other medications Z79.899 ; Fever, unspecified fever cause R50.9 and Influenza A J10.[address] [address] Apr, [address] [address] Apr, Elevated prostate specific antigen [PSA] R97.[address] [address] Feb, [address] [address] Feb, 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 ; Atrial fibrillation 427.31 ; Encounter for long-term (current) use of other medications Z79.899 ; Chronic atrial fibrillation I48.2 ; Encounter for immunization Z23 and Actinic keratoses L57.[address] [address] 14 Dec, 2015 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 and Encounter for immunization Z23 [address] [address] Nov, Hemangioma D18.00 and Actinic keratosis L57.[address] [address] Nov, Chronic atrial fibrillation I48.2 ; 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 and Skin lesions L98.[address] [address] Oct, Elevated prostate specific antigen [PSA] R97.2 ; Mixed hyperlipidemia E78.2 and Essential (primary) hypertension I10 [address] [address] August, [address] [address] August, Encounter for long-term (current) use of other medications Z79.899 ; 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 and Chronic atrial fibrillation I48.[address] [address] 05 Jul, 2015 Unspecified atrial fibrillation I48.91 ; Encounter for long-term (current) use of other medications Z79.899 and nursing home current use of anticoagulant therapy Z79.[address] [address] Jun, Atrial fibrillation 427.31 ; Encounter for long-term (current) use of other medications Z79.899 and nursing home current use of anticoagulant therapy Z79.[address] [address] Jun, Unspecified atrial fibrillation I48.91 ; Encounter for long-term (current) use of other medications Z79.899 ; 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 and Community acquired bacterial pneumonia J15.[address] [address] Jun, Community acquired bacterial pneumonia J15.[address] [address] May, Chronic atrial fibrillation I48.2 ; Encounter for long-term (current) use of other medications Z79.899 and nursing home current use of anticoagulant therapy Z79.[address] [address] Apr, Elevated prostate specific antigen [PSA] R97.[address] [address] Feb, Chronic atrial fibrillation I48.2 ; 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 and Encounter for long-term (current) use of other medications Z79.[address] [address] Dec, Atrial fibrillation 427.31 and nursing home (current) use of anticoagulants V58.[address] [address] Sep, [address] [address] Sep, Atrial fibrillation 427.31 ; Elevated PSA 790.93 ; Benign prostate hyperplasia 600.00 and Renal insufficiency 593.[address] [address] Sep, Atrial fibrillation 427.31 ; Essential hypertension, benign 401.1 ; Elevated prostate specific antigen (PSA) 790.93 and Mixed hyperlipidemia 272.2 [facility] [address] [facility] [id number] [place] [address] Jul, [facility] [id number] [address] Jul, [facility] [id number], [place] [address] Jun, [facility] [place] [address] [place] [address] 16 Jun, 2014 [facility] [id number] [place] [address] Apr, [facility] [place] [address] [place] [address] Apr, [facility] [place] [address] [place] [address] Mar, [facility] [address], [place] [address] Mar, [facility] [place] [address] [place] [address] Mar, [facility] [id number] [place] [address] Mar, [facility] [id number], [place] [address] Feb, [facility] [place] [address] [place] [address] Feb, [facility] [address], [place] [address] Jan, [facility] [place] [address] [place] [address] Jan, [facility] [id number], [place] [address] Dec, [facility] [place] [address] [place] [address] Dec, [facility] [id number], [place] [address] Oct, [facility] [place] [address] [facility] [place] [address] Oct, [facility] [place] [address] [place] [address] Oct, [facility] [id number], [place] [address] Oct, [facility] [place] [address] [place] [address] Sep, [facility] [address] [facility] [id number], [place] [address] Sep, [facility] [address], [place] [address] August, [facility] [place] [address] [place] [address] August, [facility] [id number], [place] [address] August, [facility] [id number], [place] [address] August, [facility] [place] [address] [place] [address] August, [facility] [place] [address] [place] [address] August, [facility] [id number], [place] [address] August, [facility] [place] [address] [place] [address] Jul, [facility] [id number], [place] [address] Jul, [facility] [place] [address] [place] [address] Jul, [facility] [id number], [place] [address] Jul, [facility] [place] [address] [place] [address] May, [facility] [id number], [place] [address] May, [facility] [place] [address] [place] [address] Apr, [facility] [id number], [place] [address] Apr, [facility] [place] [address] [place] [address] Mar, [facility] [id number], [place] [address] Mar, [facility] [address] [place] [address] Feb, [facility] [id number], [place] [address] Feb, [facility] [address], [place] [address] Feb, [facility] [id number], [place] [address] Feb, [facility] [address] [place] [address] Feb, [facility] [address] [place] [address] Feb, [facility] [address] [place] [address] Jan, [facility] [id number], [place] [address] Jan, [facility] [address] [place] [address] Dec, [facility] [address] [place] [address] Dec, IMMUNIZATIONS No Known Immunizations SOCIAL HISTORY Never Assessed REASON FOR VISIT INR - 1.4 , [facility] PLAN OF CARE Activity Details Follow Up prn Reason: VITAL SIGNS MEDICATIONS Unknown Medications RESULTS Name Result Date Reference Range INR (IN HOUSE) 2017-07-23 INR 1.4 1.10 - 3.30 PREVIOUS INR 1.2 CURRENT COUMADIN DOSE NEW COUMADIN DOSE Lot # [id number] Exp date 09/06/2018 PROCEDURES Procedure Date Ordered Result Body Site PROTHROMBIN TIME July 23, 2017 INSTRUCTIONS MEDICATIONS ADMINISTERED No Known Medications [...]
--- OUTSIDE RECORDS SUMMARY | 2018-06-27 07:15 | XMS REPORT ---
Author Author DAWN LIZAMA [facility] [address] [place] [address] Care Team Providers Care Physics Instructor Name Role Phone DAWN LIZAMA Unavailable PROBLEMS Type Condition ICD9-CM Code [id number] Code Onset Dates Condition Status SNOMED Code Problem correction current use of anticoagulant therapy Z79.01 Active 059775363 Problem Persistent atrial fibrillation I48.1 Active 464838853 Problem Chronic atrial fibrillation I48.2 Active 192098944 Problem Mixed hyperlipidemia E78.2 Active 791452536 Problem Essential (primary) hypertension I10 Active 53470905 Problem Elevated prostate specific antigen [PSA] R97.2 Active 674069819 Problem 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 591441186 Problem Unspecified atrial fibrillation I48.91 Active 72297657 Problem Hyperlipidemia LDL goal <100 E78.5 Active 29873562 Problem Essential hypertension I10 Active 33506155 Problem Obstructive sleep apnea G47.33 Active 15763994 Problem Chronic obstructive pulmonary disease, unspecified COPD type J44.9 Active 78338788 ALLERGIES No Information ENCOUNTERS Encounter Location Date Diagnosis [facility] [address] [place] [address] Nov, [facility] [place] [address] [place] [address] Oct, Chronic atrial fibrillation I48.2 ; Essential hypertension I10 and Elevated prostate specific antigen [PSA] R97.2 [facility] [address] [place] [address] Sep, correction current use of anticoagulant therapy Z79.01 [facility] [address] [place] [address] Sep, correction current use of anticoagulant therapy Z79.01 [facility] [place] [address] [place] [address] Sep, correction current use of anticoagulant therapy Z79.01 and Chronic atrial fibrillation I48.2 [facility] [address] [place] [address] 18 Sep, 2017 exterminator current use of anticoagulant therapy Z79.01 [facility] [place] [address] [place] [address] 15 Sep, 2017 correction current use of anticoagulant therapy Z79.01 [facility] [address] [place] [address] 13 Sep, 2017 correction current use of anticoagulant therapy Z79.01 [facility] [address] [place] [address] Sep, Chronic obstructive pulmonary disease, unspecified COPD type J44.9 [facility] [address] [place] [address] 11 Sep, 2017 correction current use of anticoagulant therapy Z79.01 [facility] [address] [place] [address] 08 Sep, 2017 exterminator current use of anticoagulant therapy Z79.01 [facility] [place] [address] [place] [address] Sep, [facility] [place] [address] [place] [address] August, correction current use of anticoagulant therapy Z79.01 [facility] [address] [place] [address] August, [facility] [address] [place] [address] August, correction current use of anticoagulant therapy Z79.01 [facility] [place] [address] [place] [address] August, exterminator current use of anticoagulant therapy Z79.01 [facility] [place] [address] [place] [address] Jul, exterminator current use of anticoagulant therapy Z79.01 [facility] [place] [address] [place] [address] Jul, exterminator current use of anticoagulant therapy Z79.01 [facility] [address] [place] [address] 18 Jul, 2017 correction current use of anticoagulant therapy Z79.01 [facility] [address] [place] [address] 16 Jul, 2017 correction current use of anticoagulant therapy Z79.01 [facility] [place] [address] [place] [address] Jul, 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 [address] Jul, Chronic obstructive pulmonary disease, unspecified COPD type J44.[address] [address] Jul, correction current use of anticoagulant therapy Z79.[address] [address] Jul, [address] [address] Jul, Bleeding from mouth K13.79 and Lip lesion K13.[address] [address] Jul, exterminator current use of anticoagulant therapy Z79.[address] [address] Jul, exterminator current use of anticoagulant therapy Z79.[address] [address] Jul, [address] [address] Jun, Unspecified atrial fibrillation I48.[address] [address] May, Unspecified atrial fibrillation I48.[address] [address] May, Chronic atrial fibrillation I48.2 ; BMI 40.0-44.9, adult Z68.41 ; Hyperlipidemia LDL goal <100 E78.5 ; exterminator current use of anticoagulant therapy Z79.01 ; Essential hypertension I10 ; Obstructive sleep apnea G47.33 ; Elevated PSA, less than 10 ng/ml R97.20 and Chronic obstructive pulmonary disease, unspecified COPD type J44.[address] [address] Apr, [address] [address] Apr, Elevated PSA R97.20 [facility] [address] [id number] [place] [address] Apr, Mild persistent asthma, unspecified whether complicated J45.[address] [address] Apr, Chronic obstructive pulmonary disease, unspecified COPD type J44.[address] [address] Mar, [address] [address] Mar, [address] [address] Mar, [address] [address] Mar, Chronic atrial fibrillation I48.2 ; Hyperlipidemia LDL goal <100 E78.5 ; Essential hypertension I10 ; Obstructive sleep apnea G47.33 ; Has stopped breathing R06.81 ; Elevated PSA, less than 10 ng/ml R97.20 ; Chronic obstructive pulmonary disease, unspecified COPD type J44.9 ; Encounter for immunization Z23 and exterminator current use of anticoagulant therapy Z79.[address] [address] Feb, [address] [address] Dec, [address] [address] Nov, Chronic atrial fibrillation I48.2 and Elevated PSA R97.[address] [address] 10 Nov, 2016 Chronic atrial fibrillation I48.2 ; Hyperlipidemia LDL goal <100 E78.5 ; Essential hypertension I10 ; Dyspnea on exertion R06.09 and Elevated PSA R97.[address] [address] August, exterminator current use of anticoagulant therapy Z79.01 ; Bronchitis J40 and Persistent atrial fibrillation I48.[address] [address] August, [address] [address] May, exterminator current use of anticoagulant therapy Z79.01 ; Encounter for long-term (current) use of other medications Z79.899 ; Fever, unspecified fever cause R50.9 and Influenza A J10.[address] [address] Apr, [address] [address] Apr, Elevated prostate specific antigen [PSA] R97.[address] [address] Feb, [address] [address] Feb, exterminator current use of anticoagulant therapy Z79.01 ; Atrial fibrillation 427.31 ; Encounter for long-term (current) use of other medications Z79.899 ; Chronic atrial fibrillation I48.2 ; Encounter for immunization Z23 and Actinic keratoses L57.[address] [address] 14 Dec, 2015 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 and Encounter for immunization Z23 [address] [address] Nov, Hemangioma D18.00 and Actinic keratosis L57.[address] [address] Nov, Chronic atrial fibrillation I48.2 ; exterminator current use of anticoagulant therapy Z79.01 and Skin lesions L98.[address] [address] Oct, Elevated prostate specific antigen [PSA] R97.2 ; Mixed hyperlipidemia E78.2 and Essential (primary) hypertension I10 [address] [address] August, [address] [address] August, Encounter for long-term (current) use of other medications Z79.899 ; exterminator current use of anticoagulant therapy Z79.01 and Chronic atrial fibrillation I48.[address] [address] 05 Jul, 2015 Unspecified atrial fibrillation I48.91 ; Encounter for long-term (current) use of other medications Z79.899 and correction current use of anticoagulant therapy Z79.[address] [address] Jun, Atrial fibrillation 427.31 ; Encounter for long-term (current) use of other medications Z79.899 and correction current use of anticoagulant therapy Z79.[address] [address] Jun, Unspecified atrial fibrillation I48.91 ; Encounter for long-term (current) use of other medications Z79.899 ; exterminator current use of anticoagulant therapy Z79.01 and Community acquired bacterial pneumonia J15.[address] [address] Jun, Community acquired bacterial pneumonia J15.[address] [address] May, Chronic atrial fibrillation I48.2 ; Encounter for long-term (current) use of other medications Z79.899 and correction current use of anticoagulant therapy Z79.[address] [address] Apr, Elevated prostate specific antigen [PSA] R97.[address] [address] Feb, Chronic atrial fibrillation I48.2 ; exterminator current use of anticoagulant therapy Z79.01 and Encounter for long-term (current) use of other medications Z79.[address] [address] Dec, Atrial fibrillation 427.31 and correction (current) use of anticoagulants V58.[address] [address] Sep, [address] [address] Sep, Atrial fibrillation 427.31 ; Elevated PSA 790.93 ; Benign prostate hyperplasia 600.00 and Renal insufficiency 593.[address] [address] Sep, Atrial fibrillation 427.31 ; Essential hypertension, benign 401.1 ; Elevated prostate specific antigen (PSA) 790.93 and Mixed hyperlipidemia 272.2 [facility] [address] [facility] [id number] [place] [address] Jul, [facility] [address] [id number] [address] Jul, [facility] [id number], [place] [address] Jun, [facility] [place] [address] [place] [address] 16 Jun, 2014 [facility] [id number] [place] [address] Apr, [facility] [place] [address] [place] [address] Apr, [facility] [place] [address] [place] [address] Mar, [facility] [address], [place] [address] Mar, [facility] [place] [address] [place] [address] Mar, [facility] [id number] [place] [address] Mar, [facility] [id number], [place] [address] Feb, [facility] [place] [address] [place] [address] Feb, [facility] [address], [place] [address] Jan, [facility] [place] [address] [place] [address] Jan, [facility] [address] [id number], [place] [address] Dec, [facility] [place] [address] [place] [address] Dec, [facility] [id number], [place] [address] Oct, [facility] [place] [address] [place] [address] Oct, [facility] [place] [address] [place] [address] Oct, [facility] [id number], [place] [address] Oct, [facility] [place] [address] [place] [address] Sep, [facility] [address] [facility] [id number], [place] [address] Sep, [facility] [address], [place] [address] August, [facility] [place] [address] [place] [address] August, [facility] [id number], [place] [address] August, [facility] [id number], [place] [address] August, [facility] [place] [address] [place] [address] August, [facility] [place] [address] [place] [address] August, [facility] [id number], [place] [address] August, [facility] [place] [address] [place] [address] Jul, [facility] [address] [id number], [place] [address] Jul, [facility] [place] [address] [place] [address] Jul, [facility] [id number], [place] [address] Jul, [facility] [place] [address] [place] [address] May, [facility] [id number], [place] [address] May, [facility] [place] [address] [place] [address] Apr, [facility] [id number], [place] [address] Apr, [facility] [place] [address] [place] [address] Mar, [facility] [address] [id number], [place] [address] Mar, [facility] [address] [place] [address] Feb, [facility] [id number], [place] [address] Feb, [facility] [id number], [place] [address] Feb, [facility] [address] [id number], [place] [address] Feb, [facility] [address] [place] [address] Feb, [facility] [address] [place] [address] Feb, [facility] [address] [place] [address] Jan, [facility] [id number], [place] [address] Jan, [facility] [address] [place] [address] Dec, [facility] [address] [place] [address] Dec, IMMUNIZATIONS No Known Immunizations SOCIAL HISTORY [...] in joint, lower leg Surgical History tonsillectomy 195 Surgical History orthopedic surgery; jaw 1968 Surgical History heart cath 2017 Surgical History oral surgery -2017 Hospitalization History Surgery(s) only
--- OUTSIDE RECORDS SUMMARY | 2018-06-27 07:15 | XMS REPORT ---
Author Author [facility]MAN [facility] [address] [place] [address] Care Team Providers Care General Production Laborer Name Role Phone KASIE CHAPMAN Unavailable PROBLEMS Type Condition ICD9-CM Code FSG26-IW Code Onset Dates Condition Status SNOMED Code Problem halfway current use of anticoagulant therapy Z79.01 Active 828341269 Problem Persistent atrial fibrillation I48.1 Active 523598818 Problem Chronic atrial fibrillation I48.2 Active 694618620 Problem Mixed hyperlipidemia E78.2 Active 091920965 Problem Essential (primary) hypertension I10 Active 71464991 Problem Elevated prostate specific antigen [PSA] R97.2 Active 804437679 Problem 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 313436889 Problem Unspecified atrial fibrillation I48.91 Active 80474174 Problem Hyperlipidemia LDL goal <100 E78.5 Active 79379857 Problem Essential hypertension I10 Active 50376400 Problem Obstructive sleep apnea G47.33 Active 91397029 Problem Chronic obstructive pulmonary disease, unspecified COPD type J44.9 Active 04068470 ALLERGIES No Information ENCOUNTERS Encounter Location Date Diagnosis [address] [address] Oct, Chronic atrial fibrillation I48.2 ; Essential hypertension I10 and Elevated prostate specific antigen [PSA] R97.[address] [address] Sep, halfway current use of anticoagulant therapy Z79.[address] [address] Sep, 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 [address] Sep, 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 and Chronic atrial fibrillation I48.[address] [address] Sep, halfway current use of anticoagulant therapy Z79.01 [facility] [address] [place] [address] 15 Sep, 2017 halfway current use of anticoagulant therapy Z79.01 [facility] [address] [place] [address] 13 Sep, 2017 halfway current use of anticoagulant therapy Z79.01 [facility] [address] [place] [address] 11 Sep, 2017 Chronic obstructive pulmonary disease, unspecified COPD type J44.9 [facility] [address] [place] [address] 11 Sep, 2017 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 [facility] [address] [place] [address] 08 Sep, 2017 halfway current use of anticoagulant therapy Z79.01 [facility] [address] [place] [address] Sep, [facility] [address] [place] [address] August, 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 [facility] [address] [place] [address] August, [facility] [address] [place] [address] August, halfway current use of anticoagulant therapy Z79.01 [facility] [address] [place] [address] August, 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 [facility] [address] [place] [address] 24 Jul, 2017 halfway current use of anticoagulant therapy Z79.01 [facility] [address] [place] [address] Jul, 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 [facility] [address] [place] [address] 18 Jul, 2017 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 [facility] [address] [place] [address] 16 Jul, 2017 halfway current use of anticoagulant therapy Z79.01 [facility] [address] [place] [address] 13 Jul, 2017 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 [facility] [address] [place] [address] [place] [address] Jul, Chronic obstructive pulmonary disease, unspecified COPD type J44.[address] [address] Jul, halfway current use of anticoagulant therapy Z79.[address] [address] Jul, [address] [address] Jul, Bleeding from mouth K13.79 and Lip lesion K13.[address] [address] Jul, 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 [address] Jul, 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 [address] Jul, [address] [address] Jun, Unspecified atrial fibrillation I48.[address] [address] May, Unspecified atrial fibrillation I48.[address] [address] May, Chronic atrial fibrillation I48.2 ; BMI 40.0-44.9, adult Z68.41 ; Hyperlipidemia LDL goal <100 E78.5 ; halfway current use of anticoagulant therapy Z79.01 ; Essential hypertension I10 ; Obstructive sleep apnea G47.33 ; Elevated PSA, less than 10 ng/ml R97.20 and Chronic obstructive pulmonary disease, unspecified COPD type J44.[address] [address] Apr, [address] [address] Apr, Elevated PSA R97.20 [facility] [id number] [place] [address] Apr, Mild persistent asthma, unspecified whether complicated J45.[address] [address] Apr, Chronic obstructive pulmonary disease, unspecified COPD type J44.[address] [address] Mar, [address] [address] Mar, [address] [address] Mar, [address] [address] Mar, Chronic atrial fibrillation I48.2 ; Hyperlipidemia LDL goal <100 E78.5 ; Essential hypertension I10 ; Obstructive sleep apnea G47.33 ; Has stopped breathing R06.81 ; Elevated PSA, less than 10 ng/ml R97.20 ; Chronic obstructive pulmonary disease, unspecified COPD type J44.9 ; Encounter for immunization Z23 and halfway current use of anticoagulant therapy Z79.[address] [address] Feb, [address] [address] Dec, [address] [address] Nov, Chronic atrial fibrillation I48.2 and Elevated PSA R97.[address] [address] Nov, Chronic atrial fibrillation I48.2 ; Hyperlipidemia LDL goal <100 E78.5 ; Essential hypertension I10 ; Dyspnea on exertion R06.09 and Elevated PSA R97.[address] [address] August, 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 ; Bronchitis J40 and Persistent atrial fibrillation I48.[address] [address] August, [address] [address] May, halfway current use of anticoagulant therapy Z79.01 ; Encounter for long-term (current) use of other medications Z79.899 ; Fever, unspecified fever cause R50.9 and Influenza A J10.[address] [address] Apr, [address] [address] 10 Apr, 2016 Elevated prostate specific antigen [PSA] R97.[address] [address] Feb, [address] [address] Feb, 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 ; Atrial fibrillation 427.31 ; Encounter for long-term (current) use of other medications Z79.899 ; Chronic atrial fibrillation I48.2 ; Encounter for immunization Z23 and Actinic keratoses L57.[address] [address] Dec, 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 and Encounter for immunization Z23 [address] [address] Nov, Hemangioma D18.00 and Actinic keratosis L57.[address] [address] Nov, Chronic atrial fibrillation I48.2 ; 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 and Skin lesions L98.[address] [address] Oct, Elevated prostate specific antigen [PSA] R97.2 ; Mixed hyperlipidemia E78.2 and Essential (primary) hypertension I10 [address] [address] August, [address] [address] August, Encounter for long-term (current) use of other medications Z79.899 ; 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 and Chronic atrial fibrillation I48.[address] [address] 05 Jul, 2015 Unspecified atrial fibrillation I48.91 ; Encounter for long-term (current) use of other medications Z79.899 and 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 [address] Jun, Atrial fibrillation 427.31 ; Encounter for long-term (current) use of other medications Z79.899 and halfway current use of anticoagulant therapy Z79.[address] [address] Jun, Unspecified atrial fibrillation I48.91 ; Encounter for long-term (current) use of other medications Z79.899 ; 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 and Community acquired bacterial pneumonia J15.[address] [address] Jun, Community acquired bacterial pneumonia J15.[address] [address] May, Chronic atrial fibrillation I48.2 ; Encounter for long-term (current) use of other medications Z79.899 and 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 [address] Apr, Elevated prostate specific antigen [PSA] R97.[address] [address] Feb, Chronic atrial fibrillation I48.2 ; 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 and Encounter for long-term (current) use of other medications Z79.[address] [address] Dec, Atrial fibrillation 427.31 and halfway (current) use of anticoagulants V58.[address] [address] Sep, [address] [address] Sep, Atrial fibrillation 427.31 ; Elevated PSA 790.93 ; Benign prostate hyperplasia 600.00 and Renal insufficiency 593.[address] [address] Sep, Atrial fibrillation 427.31 ; Essential hypertension, benign 401.1 ; Elevated prostate specific antigen (PSA) 790.93 and Mixed hyperlipidemia 272.2 [facility] [address] [id number] [address] Jul, [facility] [address] [id number] [address] Jul, [facility] [address] [facility] [id number] [address] Jun, [facility] [address] [place] [address] Jun, [facility] [address] [id number], [place] [address] Apr, [facility] [address] [place] [address] Apr, [facility] [address] [place] [address] Mar, [facility] [id number] [place] [address] Mar, [facility] [address] [place] [address] Mar, [facility] [address], [place] [address] Mar, [facility] [id number] [place] [address] Feb, [facility] [address] [place] [address] Feb, [facility] [id number] [place] [address] Jan, [facility] [address] [place] [address] Jan, [facility] [address], [place] [address] Dec, [facility] [address] [place] [address] Dec, [facility] [id number], [place] [address] Oct, [facility] [address] [place] [address] Oct, [facility] [address] [place] [address] Oct, [facility] [address], [place] [address] Oct, [facility] [address] [place] [address] Sep, [facility] [address] [facility] [id number], [place] [address] Sep, [facility] [address] [facility] [id number], [place] [address] August, [facility] [address] [place] [address] August, [facility] [id number], [place] [address] August, [facility] [id number], [place] [address] August, [facility] [address] [place] [address] August, [facility] [address] [place] [address] August, [facility] [address], [place] [address] August, [facility] [address] [place] [address] Jul, [facility] [id number], [place] [address] Jul, [facility] [address] [place] [address] Jul, [facility] [id number], [place] [address] Jul, [facility] [address] [place] [address] May, [facility] [id number], [place] [address] May, [facility] [address] [facility] [address] Apr, [facility] [id number], [place] [address] Apr, [facility] [address] [place] [address] Mar, [facility] [id number], [place] [address] Mar, [facility] [address] [place] [address] Feb, [facility] [id number], [place] [address] Feb, [facility] [id number], [place] [address] Feb, [facility] [address], [place] [address] Feb, [facility] [address] [place] [address] Feb, [facility] [address] [place] [address] Feb, [facility] [address] [place] [address] Jan, [facility] [id number], [place] [address] Jan, [facility] [address] [place] [address] Dec, [facility] [place] [address] [place] [address] Dec, IMMUNIZATIONS No Known Immunizations SOCIAL HISTORY Never Assessed REASON FOR VISIT bridge medication for coumadin PLAN OF CARE VITAL SIGNS MEDICATIONS Unknown [...]
--- OUTSIDE RECORDS SUMMARY | 2018-06-27 07:15 | XMS REPORT ---
Author Author [facility] CHAPMAN [facility] [address] [place] [address] Care Team Providers Care Course Developer Name Role Phone KASIE CHAPMAN Unavailable PROBLEMS Type Condition ICD9-CM Code [id number] Code Onset Dates Condition Status SNOMED Code Problem snf current use of anticoagulant therapy Z79.01 Active 889664244 Problem Persistent atrial fibrillation I48.1 Active 862315381 Problem Chronic atrial fibrillation I48.2 Active 227245498 Problem Mixed hyperlipidemia E78.2 Active 604149738 Problem Essential (primary) hypertension I10 Active 95165360 Problem Elevated prostate specific antigen [PSA] R97.2 Active 830225676 Problem 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 313784209 Problem Unspecified atrial fibrillation I48.91 Active 60872329 Problem Hyperlipidemia LDL goal <100 E78.5 Active 67912244 Problem Essential hypertension I10 Active 89740138 Problem Obstructive sleep apnea G47.33 Active 27471829 Problem Chronic obstructive pulmonary disease, unspecified COPD type J44.9 Active 91525855 ALLERGIES No Information ENCOUNTERS Encounter Location Date Diagnosis [address] [address] Oct, Chronic atrial fibrillation I48.2 ; Essential hypertension I10 and Elevated prostate specific antigen [PSA] R97.[address] [address] Sep, snf current use of anticoagulant therapy Z79.[address] [address] Sep, 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 [address] Sep, 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 and Chronic atrial fibrillation I48.[address] [address] Sep, snf current use of anticoagulant therapy Z79.01 [facility] [address] [place] [address] 15 Sep, 2017 snf current use of anticoagulant therapy Z79.01 [facility] [address] [place] [address] 13 Sep, 2017 snf current use of anticoagulant therapy Z79.01 [facility] [address] [place] [address] 11 Sep, 2017 Chronic obstructive pulmonary disease, unspecified COPD type J44.9 [facility] [address] [place] [address] 11 Sep, 2017 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 [facility] [address] [place] [address] 08 Sep, 2017 snf current use of anticoagulant therapy Z79.01 [facility] [address] [place] [address] Sep, [facility] [address] [place] [address] August, 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 [facility] [address] [place] [address] August, [facility] [address] [place] [address] August, snf current use of anticoagulant therapy Z79.01 [facility] [address] [place] [address] August, 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 [facility] [address] [place] [address] 24 Jul, 2017 snf current use of anticoagulant therapy Z79.01 [facility] [address] [place] [address] Jul, 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 [facility] [address] [place] [address] 18 Jul, 2017 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 [facility] [address] [place] [address] 16 Jul, 2017 snf current use of anticoagulant therapy Z79.01 [facility] [address] [place] [address] 13 Jul, 2017 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 [facility] [address] [place] [address] [place] [address] Jul, Chronic obstructive pulmonary disease, unspecified COPD type J44.[address] [address] Jul, snf current use of anticoagulant therapy Z79.[address] [address] Jul, [address] [address] Jul, Bleeding from mouth K13.79 and Lip lesion K13.[address] [address] Jul, 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 [address] Jul, 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 [address] Jul, [address] [address] Jun, Unspecified atrial fibrillation I48.[address] [address] May, Unspecified atrial fibrillation I48.[address] [address] May, Chronic atrial fibrillation I48.2 ; BMI 40.0-44.9, adult Z68.41 ; Hyperlipidemia LDL goal <100 E78.5 ; snf current use of anticoagulant therapy Z79.01 ; Essential hypertension I10 ; Obstructive sleep apnea G47.33 ; Elevated PSA, less than 10 ng/ml R97.20 and Chronic obstructive pulmonary disease, unspecified COPD type J44.[address] [address] Apr, [address] [address] Apr, Elevated PSA R97.20 [facility] [address] [id number] [address] Apr, Mild persistent asthma, unspecified whether complicated J45.[address] [address] Apr, Chronic obstructive pulmonary disease, unspecified COPD type J44.[address] [address] Mar, [address] [address] Mar, [address] [address] Mar, [address] [address] Mar, Chronic atrial fibrillation I48.2 ; Hyperlipidemia LDL goal <100 E78.5 ; Essential hypertension I10 ; Obstructive sleep apnea G47.33 ; Has stopped breathing R06.81 ; Elevated PSA, less than 10 ng/ml R97.20 ; Chronic obstructive pulmonary disease, unspecified COPD type J44.9 ; Encounter for immunization Z23 and snf current use of anticoagulant therapy Z79.[address] [address] Feb, [address] [address] Dec, [address] [address] Nov, Chronic atrial fibrillation I48.2 and Elevated PSA R97.[address] [address] Nov, Chronic atrial fibrillation I48.2 ; Hyperlipidemia LDL goal <100 E78.5 ; Essential hypertension I10 ; Dyspnea on exertion R06.09 and Elevated PSA R97.[address] [address] August, 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 ; Bronchitis J40 and Persistent atrial fibrillation I48.[address] [address] August, [address] [address] May, snf current use of anticoagulant therapy Z79.01 ; Encounter for long-term (current) use of other medications Z79.899 ; Fever, unspecified fever cause R50.9 and Influenza A J10.[address] [address] Apr, [address] [address] 10 Apr, 2016 Elevated prostate specific antigen [PSA] R97.[address] [address] Feb, [address] [address] Feb, 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 ; Atrial fibrillation 427.31 ; Encounter for long-term (current) use of other medications Z79.899 ; Chronic atrial fibrillation I48.2 ; Encounter for immunization Z23 and Actinic keratoses L57.[address] [address] Dec, 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 and Encounter for immunization Z23 [address] [address] Nov, Hemangioma D18.00 and Actinic keratosis L57.[address] [address] Nov, Chronic atrial fibrillation I48.2 ; 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 and Skin lesions L98.[address] [address] Oct, Elevated prostate specific antigen [PSA] R97.2 ; Mixed hyperlipidemia E78.2 and Essential (primary) hypertension I10 [address] [address] August, [address] [address] August, Encounter for long-term (current) use of other medications Z79.899 ; 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 and Chronic atrial fibrillation I48.[address] [address] 05 Jul, 2015 Unspecified atrial fibrillation I48.91 ; Encounter for long-term (current) use of other medications Z79.899 and 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 [address] Jun, Atrial fibrillation 427.31 ; Encounter for long-term (current) use of other medications Z79.899 and snf current use of anticoagulant therapy Z79.[address] [address] Jun, Unspecified atrial fibrillation I48.91 ; Encounter for long-term (current) use of other medications Z79.899 ; 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 and Community acquired bacterial pneumonia J15.[address] [address] Jun, Community acquired bacterial pneumonia J15.[address] [address] May, Chronic atrial fibrillation I48.2 ; Encounter for long-term (current) use of other medications Z79.899 and 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 [address] Apr, Elevated prostate specific antigen [PSA] R97.[address] [address] Feb, Chronic atrial fibrillation I48.2 ; 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 and Encounter for long-term (current) use of other medications Z79.[address] [address] Dec, Atrial fibrillation 427.31 and snf (current) use of anticoagulants V58.[address] [address] Sep, [address] [address] Sep, Atrial fibrillation 427.31 ; Elevated PSA 790.93 ; Benign prostate hyperplasia 600.00 and Renal insufficiency 593.[address] [address] Sep, Atrial fibrillation 427.31 ; Essential hypertension, benign 401.1 ; Elevated prostate specific antigen (PSA) 790.93 and Mixed hyperlipidemia 272.2 [facility] [id number] [address] Jul, [facility] [id number] [address] Jul, [facility] [address] [facility] [id number] [address] Jun, [facility] [address] [place] [address] Jun, [facility] [id number] [address] Apr, [facility] [address] [place] [address] Apr, [facility] [address] [place] [address] Mar, [facility] [id number] [place] [address] Mar, [facility] [address] [place] [address] Mar, [facility] [address] [address] Mar, [facility] [id number] [place] [address] Feb, [facility] [address] [place] [address] Feb, [facility] [id number] [place] [address] Jan, [facility] [address] [place] [address] Jan, [facility] [address] [address] Dec, [facility] [address] [place] [address] Dec, [facility] [id number] [address] Oct, [facility] [address] [place] [address] Oct, [facility] [address] [place] [address] Oct, [facility] [address] [address] Oct, [facility] [address] [place] [address] Sep, [facility] [address] [facility] [id number] [address] Sep, [facility] [address] [facility] [id number] [address] August, [facility] [address] [place] [address] August, [facility] [id number] [address] August, [facility] [id number] [address] August, [facility] [address] [place] [address] August, [facility] [address] [place] [address] August, [facility] [address] [address] August, [facility] [address] [place] [address] Jul, [facility] [id number] [address] Jul, [facility] [address] [place] [address] Jul, [facility] [id number] [address] Jul, [facility] [address] [place] [address] May, [facility] [id number] [address] May, [facility] [address] [place] [address] Apr, [facility] [id number] [address] Apr, [facility] [address] [place] [address] Mar, [facility] [id number] [address] Mar, [facility] [address] [place] [address] Feb, [facility] [id number] [address] Feb, [facility] [address] [address] Feb, [facility] [address] [address] Feb, [facility] [address] [place] [address] Feb, [facility] [address] [place] [address] Feb, [facility] [address] [place] [address] Jan, [facility] [address] [address] Jan, [facility] [address] [place] [address] Dec, [facility] [address] [place] [address] Dec, IMMUNIZATIONS No Known Immunizations SOCIAL HISTORY Never Assessed [facility] Activity Details Follow Up 08-27-2017 Reason: VITAL SIGNS MEDICATIONS Unknown Medications RESULTS Name Result Date Reference Range INR (IN HOUSE) 2017-07-16 INR 1.3 1.10 - 3.30 PREVIOUS INR 1.5 CURRENT COUMADIN DOSE 6MG, but had stoped for a week because he had teeth pulled, but started taking aging on [id number] NEW COUMADIN DOSE Lot # [id number] Exp date 07-07-2018 PROCEDURES Procedure Date Ordered Result Body Site PROTHROMBIN TIME July 16, 2017 INSTRUCTIONS MEDICATIONS ADMINISTERED No Known Medications [...]
--- OUTSIDE RECORDS SUMMARY | 2018-06-27 07:16 | XMS REPORT ---
Author Author [facility]APMAN [facility] [address] Address [address] [place] [address] Care Team Providers Care Ham Facer Name Role Phone KASIE CHAPMAN Unavailable PROBLEMS Type Condition ICD9-CM Code BIE14-PR Code Onset Dates Condition Status SNOMED Code Problem senior living current use of anticoagulant therapy Z79.01 Active 866961737 Problem Persistent atrial fibrillation I48.1 Active 634104492 Problem Chronic atrial fibrillation I48.2 Active 049258011 Problem Mixed hyperlipidemia E78.2 Active 168093477 Problem Essential (primary) hypertension I10 Active 04669897 Problem Elevated prostate specific antigen [PSA] R97.2 Active 031310055 Problem 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 339121070 Problem Unspecified atrial fibrillation I48.91 Active 68246128 Problem Hyperlipidemia LDL goal <100 E78.5 Active 45044278 Problem Essential hypertension I10 Active 95957696 Problem Obstructive sleep apnea G47.33 Active 67033008 Problem Chronic obstructive pulmonary disease, unspecified COPD type J44.9 Active [id number] ALLERGIES No Information ENCOUNTERS Encounter Location Date Diagnosis [address] [address] Oct, Chronic atrial fibrillation I48.2 ; Essential hypertension I10 and Elevated prostate specific antigen [PSA] R97.[address] [address] Sep, senior living current use of anticoagulant therapy Z79.[address] [address] Sep, 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 [address] Sep, 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 and Chronic atrial fibrillation I48.[address] [address] Sep, senior living current use of anticoagulant therapy Z79.01 [facility] [address] [place] [address] 15 Sep, 2017 senior living current use of anticoagulant therapy Z79.01 [facility] [address] [place] [address] 13 Sep, 2017 senior living current use of anticoagulant therapy Z79.01 [facility] [address] [place] [address] 11 Sep, 2017 Chronic obstructive pulmonary disease, unspecified COPD type J44.9 [facility] [address] [place] [address] 11 Sep, 2017 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 [facility] [address] [place] [address] 08 Sep, 2017 senior living current use of anticoagulant therapy Z79.01 [facility] [address] [place] [address] Sep, [facility] [address] [place] [address] August, 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 [facility] [address] [place] [address] August, [facility] [address] [place] [address] August, senior living current use of anticoagulant therapy Z79.01 [facility] [address] [place] [address] August, 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 [facility] [place] [address] [place] [address] 24 Jul, 2017 senior living current use of anticoagulant therapy Z79.01 [facility] [address] [place] [address] Jul, 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 [facility] [address] [place] [address] 18 Jul, 2017 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 [facility] [address] [place] [address] 16 Jul, 2017 senior living current use of anticoagulant therapy Z79.01 [facility] [address] [place] [address] 13 Jul, 2017 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 [facility] [address] [place] [address] [place] [address] Jul, Chronic obstructive pulmonary disease, unspecified COPD type J44.[address] [address] Jul, senior living current use of anticoagulant therapy Z79.[address] [address] Jul, [address] [address] Jul, Bleeding from mouth K13.79 and Lip lesion K13.[address] [address] Jul, 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 [address] Jul, 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 [address] Jul, [address] [address] Jun, Unspecified atrial fibrillation I48.[address] [address] May, Unspecified atrial fibrillation I48.[address] [address] May, Chronic atrial fibrillation I48.2 ; BMI 40.0-44.9, adult Z68.41 ; Hyperlipidemia LDL goal <100 E78.5 ; senior living current use of anticoagulant therapy Z79.01 ; Essential hypertension I10 ; Obstructive sleep apnea G47.33 ; Elevated PSA, less than 10 ng/ml R97.20 and Chronic obstructive pulmonary disease, unspecified COPD type J44.[address] [address] Apr, [address] [address] Apr, Elevated PSA R97.20 [facility] [id number] [address] Apr, Mild persistent asthma, unspecified whether complicated J45.[address] [address] Apr, Chronic obstructive pulmonary disease, unspecified COPD type J44.[address] [address] Mar, [address] [address] Mar, [address] [address] Mar, [address] [address] Mar, Chronic atrial fibrillation I48.2 ; Hyperlipidemia LDL goal <100 E78.5 ; Essential hypertension I10 ; Obstructive sleep apnea G47.33 ; Has stopped breathing R06.81 ; Elevated PSA, less than 10 ng/ml R97.20 ; Chronic obstructive pulmonary disease, unspecified COPD type J44.9 ; Encounter for immunization Z23 and senior living current use of anticoagulant therapy Z79.[address] [address] Feb, [address] [address] Dec, [address] [address] Nov, Chronic atrial fibrillation I48.2 and Elevated PSA R97.[address] [address] Nov, Chronic atrial fibrillation I48.2 ; Hyperlipidemia LDL goal <100 E78.5 ; Essential hypertension I10 ; Dyspnea on exertion R06.09 and Elevated PSA R97.[address] [address] August, 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 ; Bronchitis J40 and Persistent atrial fibrillation I48.[address] [address] August, [address] [address] May, senior living current use of anticoagulant therapy Z79.01 ; Encounter for long-term (current) use of other medications Z79.899 ; Fever, unspecified fever cause R50.9 and Influenza A J10.[address] [address] Apr, [address] [address] 10 Apr, 2016 Elevated prostate specific antigen [PSA] R97.[address] [address] Feb, [address] [address] Feb, 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 ; Atrial fibrillation 427.31 ; Encounter for long-term (current) use of other medications Z79.899 ; Chronic atrial fibrillation I48.2 ; Encounter for immunization Z23 and Actinic keratoses L57.[address] [address] Dec, 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 and Encounter for immunization Z23 [address] [address] Nov, Hemangioma D18.00 and Actinic keratosis L57.[address] [address] Nov, Chronic atrial fibrillation I48.2 ; 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 and Skin lesions L98.[address] [address] Oct, Elevated prostate specific antigen [PSA] R97.2 ; Mixed hyperlipidemia E78.2 and Essential (primary) hypertension I10 [address] [address] August, [address] [address] August, Encounter for long-term (current) use of other medications Z79.899 ; 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 and Chronic atrial fibrillation I48.[address] [address] 05 Jul, 2015 Unspecified atrial fibrillation I48.91 ; Encounter for long-term (current) use of other medications Z79.899 and 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 [address] Jun, Atrial fibrillation 427.31 ; Encounter for long-term (current) use of other medications Z79.899 and senior living current use of anticoagulant therapy Z79.[address] [address] Jun, Unspecified atrial fibrillation I48.91 ; Encounter for long-term (current) use of other medications Z79.899 ; 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 and Community acquired bacterial pneumonia J15.[address] [address] Jun, Community acquired bacterial pneumonia J15.[address] [address] May, Chronic atrial fibrillation I48.2 ; Encounter for long-term (current) use of other medications Z79.899 and 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 [address] Apr, Elevated prostate specific antigen [PSA] R97.[address] [address] Feb, Chronic atrial fibrillation I48.2 ; 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 and Encounter for long-term (current) use of other medications Z79.[address] [address] Dec, Atrial fibrillation 427.31 and senior living (current) use of anticoagulants V58.[address] [address] Sep, [address] [address] Sep, Atrial fibrillation 427.31 ; Elevated PSA 790.93 ; Benign prostate hyperplasia 600.00 and Renal insufficiency 593.[address] [address] Sep, Atrial fibrillation 427.31 ; Essential hypertension, benign 401.1 ; Elevated prostate specific antigen (PSA) 790.93 and Mixed hyperlipidemia 272.2 [facility] [id number] [address] Jul, [facility] [address] [id number], [place] [address] Jul, [facility] [address] [facility] [id number] [address] Jun, [facility] [address] [facility] [place] [address] Jun, [facility] [id number], [place] [address] Apr, [facility] [address] [facility] [place] [address] Apr, [facility] [address] [place] [address] Mar, [facility] [id number] [place] [address] Mar, [facility] [address] [place] [address] Mar, [facility] [address] [address] Mar, [facility] [id number] [place] [address] Feb, [facility] [address] [place] [address] Feb, [facility] [id number] [place] [address] Jan, [facility] [address] [place] [address] Jan, [facility] [address], [place] [address] Dec, [facility] [address] [place] [address] Dec, [facility] [id number], [place] [address] Oct, [facility] [address] [place] [address] Oct, [facility] [address] [place] [address] Oct, [facility] [address], [place] [address] Oct, [facility] [address] [facility] [place] [address] Sep, [facility] [address] [facility] [id number], [place] [address] Sep, [facility] [address] [facility] [id number] [address] August, [facility] [address] [facility] [place] [address] August, [facility] [id number], [place] [address] August, [facility] [id number], [place] [address] August, [facility] [address] [place] [address] August, [facility] [address] [place] [address] August, [facility] [address], [place] [address] August, [facility] [address] [facility] [place] [address] Jul, [facility] [id number], [place] [address] Jul, [facility] [address] [place] [address] Jul, [facility] [id number], [place] [address] Jul, [facility] [address] [place] [address] May, [facility] [id number], [place] [address] May, [facility] [address] [facility] [place] [address] Apr, [facility] [id number], [place] [address] Apr, [facility] [address] [facility] [place] [address] Mar, [facility] [id number], [place] [address] Mar, [facility] [place] [address] [place] [address] Feb, [facility] [id number], [place] [address] Feb, [facility] [id number], [place] [address] Feb, [facility] [address], [place] [address] Feb, [facility] [address] [place] [address] Feb, [facility] [address] [place] [address] Feb, [facility] [address] [place] [address] Jan, [facility] [id number], [place] [address] Jan, [facility] [address] [place] [address] Dec, [facility] [address] [place] [address] Dec, IMMUNIZATIONS No Known Immunizations SOCIAL HISTORY Never Assessed REASON FOR VISIT Requests return call PLAN OF CARE VITAL SIGNS MEDICATIONS Medication Instructions Dosage Frequency Start Date End Date Duration Status Lovenox 120 MG/0.8ML Subcutaneous 2 times a day 0.8ml 12h 30 Jun, 2017 05 days Active RESULTS No Results PROCEDURES No Known [...]
--- OUTSIDE RECORDS SUMMARY | 2018-06-27 07:16 | XMS REPORT ---
Author Author KASIE CHAPMAN [facility] Address [address] [place] [address] Care Team Providers Care Supervisor [employer] Name Role Phone CHRISTOSKARENKASIE Unavailable PROBLEMS Type Condition ICD9-CM Code PWV63-TV Code Onset Dates Condition Status SNOMED Code Problem MCC current use of anticoagulant therapy Z79.01 Active 337995309 Problem Persistent atrial fibrillation I48.1 Active 526569540 Problem Chronic atrial fibrillation I48.2 Active 641597871 Problem Mixed hyperlipidemia E78.2 Active 718595047 Problem Essential (primary) hypertension I10 Active 40603113 Problem Elevated prostate specific antigen [PSA] R97.2 Active 935276613 Problem 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 [facility] [place] [address] [place] [address] C [id number] [place], [place] [id number] 13 Sep, 2017 M[facility] current use of anticoagulant therapy Z79.01 [facility] [place] [address] [place] [address] C [id number] [place] [id number] Sep, Chronic obstructive pulmonary disease, unspecified COPD type J44.9 [facility] [place] [address] [id number] [place] [address]24[address] Sep, 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 [facility] [place] [address] [id number] [place] [address]9739 Sep, 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 [facility] [place] [address] [id number] [place] 490889802 Sep, [facility] [place] [address] [facility] [address] [id number] [place] [id number] August, 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 [facility] [place] [address] [facility] [address] [id number] [place] [id number] August, [facility] [place] [address] [facility] [address] [id number] [place] [id number] August, 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 [facility] [place] [address] [facility] [address] [id number] [place] [id number] August, M[facility] current use of anticoagulant therapy Z79.01 [facility] [place] [address] [facility] [address] [id number] [place] [id number] Jul, 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 [facility] [place] [address] [facility] [address] [id number] [place] 988500789 Jul, 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 [facility] [place] [address] [id number] [place] 193800234 Jul, 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 [facility] [place] [address] [id number] [place] [id number] 16 Jul, 2017 M[facility] current use of anticoagulant therapy Z79.01 [facility] [place] [address] [id number] [place] 187639815 13 Jul, 2017 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 [facility] [place] [address] [id number] [place] 635895902 Jul, Chronic obstructive pulmonary disease, unspecified COPD type J44.9 [facility] [place] [address] [facility] [address] [id number] [place] 6506[address]400 Jul, 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 [facility] [place] [address] [facility] [address] [id number] [place] 679[address]3277 Jul, [facility] [place] [address] [facility] [address] [id number] [place] [id number] Jul, Bleeding from mouth K13.79 and Lip lesion K13.0 [facility] [place] [address] [facility] [address] [id number] [place] [id number] Jul, 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 [facility] [place] [address] [place] [address] [address] [id number] [place] [id number] Jul, 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 [facility] [place] [address] [place] [address] C [id number] [place] [id number] Jul, [facility] [place] [address] [place] [address] [address] [id number] [place] 228937052 Jun, Unspecified atrial fibrillation I48.91 [facility] [place] [address] [place] [address] [address] [id number] [place] [id number] May, Unspecified atrial fibrillation I48.91 [facility] [place] [address] [place] [address] C [id number] [place] [id number] May, Chronic atrial fibrillation I48.2 ; BMI 40.0-44.9, adult Z68.41 ; Hyperlipidemia LDL goal <100 E78.5 ; MCC current use of anticoagulant therapy Z79.01 ; Essential hypertension I10 ; Obstructive sleep apnea G47.33 ; Elevated PSA, less than 10 ng/ml R97.20 and Chronic obstructive pulmonary disease, unspecified COPD type J44.9 [facility] [place] [address] [facility] [address] [id number] [place] [id number] Apr, [facility] [place] [address] [facility] [address] [id number] [place] 658[address]385 Apr, Elevated PSA R97.20 [facility] [address] [id number] [place] [address] Apr, Mild persistent asthma, unspecified whether complicated J45.[address] [facility] [place] [address] [place] [address] [address] [id number] [place] 934[address]1428 Apr, Chronic obstructive pulmonary disease, unspecified COPD type J44.9 [facility] [place] [address] [place] [address] [address] [id number] [place] [id number] Mar, [facility] [place] [address] [place] [address] [address] [id number] [place] [id number] Mar, [facility] [place] [address] [place] [address] [address] [id number] [place] [id number] Mar, [facility] [place] [address] [place] [address] C [id number] [place] [id number] Mar, Chronic atrial fibrillation I48.2 ; Hyperlipidemia LDL goal <100 E78.5 ; Essential hypertension I10 ; Obstructive sleep apnea G47.33 ; Has stopped breathing R06.81 ; Elevated PSA, less than 10 ng/ml R97.20 ; Chronic obstructive pulmonary disease, unspecified COPD type J44.9 ; Encounter for immunization Z23 and MCC current use of anticoagulant therapy Z79.[address] [facility] [place] [address] [place] [address] [address] [id number] [place] [id number] Feb, [facility] [place] [address] [place] [address] [address] [id number] [place] [id number] Dec, [facility] [place] [address] [place] [address] [address] [id number] [place] 533148891 Nov, Chronic atrial fibrillation I48.2 and Elevated PSA R97.20 [facility] [place] [address] [place] [address] [address] [id number] [place] 730566113 Nov, Chronic atrial fibrillation I48.2 ; Hyperlipidemia LDL goal <100 E78.5 ; Essential hypertension I10 ; Dyspnea on exertion R06.09 and Elevated PSA R97.[address] [facility] [place] [address] [place] [address] [address] [id number] [place] [id number] August, MCC current use of anticoagulant therapy Z79.01 ; Bronchitis J40 and Persistent atrial fibrillation I48.[address] [id number] [place] [id number] August, [facility] [place] [address] [place] [address] [id number] [place] [id number] May, MCC current use of anticoagulant therapy Z79.01 ; Encounter for long -term (current) use of other medications Z79.899 ; Fever, unspecified fever cause R50.9 and Influenza A J10.[address] [id number] [place] [id number] Apr, [address] [id number] [place] 775924679 Apr, Elevated prostate specific antigen [PSA] R97.[address] [id number] [place] 305[address] Feb, [address] [id number] [place] 027923632 Feb, MCC current use of anticoagulant therapy Z79.01 ; Atrial fibrillation 427.31 ; Encounter for long-term (current) use of other medications Z79.899 ; Chronic atrial fibrillation I48.2 ; Encounter for immunization Z23 and Actinic keratoses L57.[address] [id number] [place] [id number] Dec, 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 and Encounter for immunization Z23 [address] [id number] [place] 024965874 Nov, Hemangioma D18.00 and Actinic keratosis L57.[address] [id number] [place] 988120484 Nov, Chronic atrial fibrillation I48.2 ; 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 C [id number] [place] [id number] August, Encounter for long-term (current) use of other medications Z79.899 ; MCC current use of anticoagulant therapy Z79.01 and Chronic atrial fibrillation I48.2 [facility] [place] [address] [place] [address] [id number] [place] [id number] Jul, Unspecified atrial fibrillation I48.91 ; Encounter for long-term (current ) use of other medications Z79.899 and MCC current use of anticoagulant therapy Z79.01 [facility] [place] [address] [place] [address] [id number] [place] [id number] Jun, Atrial fibrillation 427.31 ; Encounter for long-term (current) use of other medications Z79.899 and MCC current use of anticoagulant therapy Z79.01 [facility] [place] [address] [place] [address] [id number] [place] [id number] Jun, Unspecified atrial fibrillation I48.91 ; Encounter for long-term (current ) use of other medications Z79.899 ; MCC current use of anticoagulant therapy Z79.01 and Community acquired bacterial pneumonia J15.9 [facility] [place] [address] [place] [address] [id number] [place] 146287082 Jun, Community acquired bacterial pneumonia J15.9 [facility] [place] [address] [place] [address] [id number] [place] [id number] May, Chronic atrial fibrillation I48.2 ; Encounter for long-term (current) use of other medications Z79.899 and 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 [facility] [place] [address] [facility] C [id number] [place] [id number] Apr, Elevated prostate specific antigen [PSA] R97.2 [facility] [place] [address] [place] [address] C [id number] [place] [id number] Feb, Chronic atrial fibrillation I48.2 ; MCC current use of anticoagulant therapy Z79.01 and Encounter for long-term (current) use of other medications Z79.899 [facility] [place] [address] [id number] [place] 822921852 Dec, Atrial fibrillation 427.31 and MCC (current) use of anticoagulants V58.61 [facility] [place] [address] [id number] [place] [id number] Sep, [facility] [place] [address] [id number] [place] 516384386 Sep, Atrial fibrillation 427.31 ; Elevated PSA 790.93 ; Benign prostate hyperplasia 600.00 and Renal insufficiency 593.9 [facility] [place] [address] [id number] [place] 163495072 Sep, Atrial fibrillation 427.31 ; Essential hypertension, benign 401.1 ; Elevated prostate specific antigen (PSA) 790.93 and Mixed hyperlipidemia 272.2 [facility] [place] [address] [address] Jul, [facility] [place] [address] [facility] [id number] [address] Jul, [facility] [place] [address] [facility] [id number] [address] Jun, [facility] [address] [place] [address] [address] [id number] [place] [id number] Jun, [facility] [place] [address] [place] [id number] [address] Apr, [facility] [place] [address] [facility] [address] [id number] [place] [id number] Apr, [facility] [place] [address] [id number] [place] 868744239 Mar, [facility] [place] [address] [facility] [id number] [address] Mar, [facility] [address] [facility] [address] [id number] [place] [id number] Mar, [facility] [place] [address] [id number] [address] Mar, [facility] [address] [id number] [place] [address] Feb, [facility] [place] [address] [id number] [place] [id number] Feb, [facility] [place] [facility] [address] [id number] [place] [address] Jan, [facility] [place] [address] [id number] [place] [id number] Jan, [facility] [address] [id number] [place] [address] Dec, [facility] [place] [address] [id number] [place] [id number] Dec, [facility] [place] [facility] [address] [id number] [place] [address] Oct, [facility] [place] [address] [id number] [place] [id number] Oct, [facility] [place] [address] [id number] [place] [id number] Oct, [facility] [place] [facility] [address] [id number] [facility] [address] Oct, [facility] [place] [address] [id number] [place] [id number] Sep, [facility] [place] [facility] [address] [id number] [facility] [address] Sep, [facility] [place] [facility] [address] [id number] [place] [address] August, [facility] [place] [address] [id number] [place] [id number] August, [facility] [place] [facility] [address] [id number] [facility] [address] August, [facility] [place] [facility] [address] [id number] [facility] [address] August, [facility] [place] [address] [id number] [place] [id number] August, [facility] [place] [address] [id number] [place] [id number] August, [facility] [address] [id number] [place] [address] August, [facility] [place] [address] [id number] [place] 154768081 Jul, [facility] [address] [id number] [place] [address] Jul, [facility] [place] [address] [id number] [place] [id number] Jul, [facility] [address] [facility] [id number] [address] Jul, [facility] [place] [address] [facility] [address] [id number] [place] [id number] May, [facility] [address] [facility] [id number] [place] [address] May, [facility] [place] [address] [id number] [place] 959508321 Apr, [facility] [address] [facility] [id number] [place] [address] Apr, [facility] [place] [address] [facility] [address] [id number] [place] [id number] Mar, [facility] [address] [id number] [place] [address] Mar, [facility] [place] [address] [facility] [address] [id number] [place] [id number] Feb, [facility] [address] [id number] [place] [address] Feb, [facility] [place] [facility] [address] [facility] [id number] [address] 14 Feb, 2013 [facility] [address] [facility] [id number] [address] Feb, [facility] [place] [address] [facility] [address] [id number] [place] [id number] Feb, [facility] [place] [address] [facility] C [id number] [place] [id number] Feb, [facility] [place] [address] [facility] C [id number] [place] [id number] Jan, [facility] [place] [address] [facility] [id number] [place] [address] Jan, [facility] [place] [address] [facility] [address] [id number] [place] [id number] Dec, [facility] [place] [address] [facility] C [id number] [place], [place] [id number] Dec, IMMUNIZATIONS No Known Immunizations SOCIAL HISTORY Never Assessed REASON FOR VISIT lab walk in. [facility] PLAN OF CARE Activity Details Follow Up prn Reason: VITAL SIGNS MEDICATIONS Unknown Medications RESULTS No Results PROCEDURES Procedure Date Ordered Result Body Site ROUTINE VENIPUNCTURE 2017-04-25 N/A LAB NOT BILLED BY [facility] Apr 25, 2017 INSTRUCTIONS MEDICATIONS ADMINISTERED No Known [...]
--- OUTSIDE RECORDS SUMMARY | 2018-06-27 07:16 | XMS REPORT ---
Author Author KASIE CHAPMAN [facility] [address] Address [address] [place] [address] Care Team Providers Care Transport Corps Officer Name Role Phone KASIE CHAPMAN Unavailable PROBLEMS Type Condition ICD9-CM Code VUS32-EC Code Onset Dates Condition Status SNOMED Code Problem alf current use of anticoagulant therapy Z79.01 Active 056898812 Problem Persistent atrial fibrillation I48.1 Active 763930247 Problem Chronic atrial fibrillation I48.2 Active 719119405 Problem Mixed hyperlipidemia E78.2 Active 543271228 Problem Essential (primary) hypertension I10 Active 22521776 Problem Elevated prostate specific antigen [PSA] R97.2 Active 920725037 Problem 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 789081933 Problem Unspecified atrial fibrillation I48.91 Active 06145702 Problem Hyperlipidemia LDL goal <100 E78.5 Active 20895028 Problem Essential hypertension I10 Active 90456516 Problem Obstructive sleep apnea G47.33 Active 01051207 Problem Chronic obstructive pulmonary disease, unspecified COPD type J44.9 Active 85106277 ALLERGIES No Information ENCOUNTERS Encounter Location Date Diagnosis [address] [address] Oct, Chronic atrial fibrillation I48.2 ; Essential hypertension I10 and Elevated prostate specific antigen [PSA] R97.[address] [address] Sep, alf current use of anticoagulant therapy Z79.[address] [address] Sep, marketing operations coordinator current use of anticoagulant therapy Z79.[address] [address] Sep, marketing operations coordinator current use of anticoagulant therapy Z79.01 and Chronic atrial fibrillation I48.[address] [address] Sep, alf current use of anticoagulant therapy Z79.01 [facility] [address] [place] [address] 15 Sep, 2017 alf current use of anticoagulant therapy Z79.01 [facility] [address] [place] [address] 13 Sep, 2017 alf current use of anticoagulant therapy Z79.01 [facility] [address] [place] [address] 11 Sep, 2017 Chronic obstructive pulmonary disease, unspecified COPD type J44.9 [facility] [address] [place] [address] 11 Sep, 2017 marketing operations coordinator current use of anticoagulant therapy Z79.01 [facility] [address] [place] [address] 08 Sep, 2017 alf current use of anticoagulant therapy Z79.01 [facility] [address] [place] [address] Sep, [facility] [address] [place] [address] August, marketing operations coordinator current use of anticoagulant therapy Z79.01 [facility] [address] [place] [address] August, [facility] [address] [place] [address] August, alf current use of anticoagulant therapy Z79.01 [facility] [address] [place] [address] August, marketing operations coordinator current use of anticoagulant therapy Z79.01 [facility] [address] [place] [address] 24 Jul, 2017 alf current use of anticoagulant therapy Z79.01 [facility] [address] [place] [address] Jul, marketing operations coordinator current use of anticoagulant therapy Z79.01 [facility] [address] [place] [address] 18 Jul, 2017 marketing operations coordinator current use of anticoagulant therapy Z79.01 [facility] [address] [place] [address] 16 Jul, 2017 alf current use of anticoagulant therapy Z79.01 [facility] [address] [place] [address] 13 Jul, 2017 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 [facility] [address] [place] [address] [place] [address] Jul, Chronic obstructive pulmonary disease, unspecified COPD type J44.[address] [address] Jul, alf current use of anticoagulant therapy Z79.[address] [address] Jul, [address] [address] Jul, Bleeding from mouth K13.79 and Lip lesion K13.[address] [address] Jul, marketing operations coordinator current use of anticoagulant therapy Z79.[address] [address] Jul, marketing operations coordinator current use of anticoagulant therapy Z79.[address] [address] Jul, [address] [address] Jun, Unspecified atrial fibrillation I48.[address] [address] May, Unspecified atrial fibrillation I48.[address] [address] May, Chronic atrial fibrillation I48.2 ; BMI 40.0-44.9, adult Z68.41 ; Hyperlipidemia LDL goal <100 E78.5 ; alf current use of anticoagulant therapy Z79.01 ; Essential hypertension I10 ; Obstructive sleep apnea G47.33 ; Elevated PSA, less than 10 ng/ml R97.20 and Chronic obstructive pulmonary disease, unspecified COPD type J44.[address] [address] Apr, [address] [address] Apr, Elevated PSA R97.20 [facility] [address] [id number] [place] [address] Apr, Mild persistent asthma, unspecified whether complicated J45.[address] [address] Apr, Chronic obstructive pulmonary disease, unspecified COPD type J44.[address] [address] Mar, [address] [address] Mar, [address] [address] Mar, [address] [address] Mar, Chronic atrial fibrillation I48.2 ; Hyperlipidemia LDL goal <100 E78.5 ; Essential hypertension I10 ; Obstructive sleep apnea G47.33 ; Has stopped breathing R06.81 ; Elevated PSA, less than 10 ng/ml R97.20 ; Chronic obstructive pulmonary disease, unspecified COPD type J44.9 ; Encounter for immunization Z23 and alf current use of anticoagulant therapy Z79.[address] [address] Feb, [address] [address] Dec, [address] [address] Nov, Chronic atrial fibrillation I48.2 and Elevated PSA R97.[address] [address] Nov, Chronic atrial fibrillation I48.2 ; Hyperlipidemia LDL goal <100 E78.5 ; Essential hypertension I10 ; Dyspnea on exertion R06.09 and Elevated PSA R97.[address] [address] August, marketing operations coordinator current use of anticoagulant therapy Z79.01 ; Bronchitis J40 and Persistent atrial fibrillation I48.[address] [address] August, [address] [address] May, alf current use of anticoagulant therapy Z79.01 ; Encounter for long-term (current) use of other medications Z79.899 ; Fever, unspecified fever cause R50.9 and Influenza A J10.[address] [address] Apr, [address] [address] 10 Apr, 2016 Elevated prostate specific antigen [PSA] R97.[address] [address] Feb, [address] [address] Feb, marketing operations coordinator current use of anticoagulant therapy Z79.01 ; Atrial fibrillation 427.31 ; Encounter for long-term (current) use of other medications Z79.899 ; Chronic atrial fibrillation I48.2 ; Encounter for immunization Z23 and Actinic keratoses L57.[address] [address] Dec, 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 and Encounter for immunization Z23 [address] [address] Nov, Hemangioma D18.00 and Actinic keratosis L57.[address] [address] Nov, Chronic atrial fibrillation I48.2 ; marketing operations coordinator current use of anticoagulant therapy Z79.01 and Skin lesions L98.[address] [address] Oct, Elevated prostate specific antigen [PSA] R97.2 ; Mixed hyperlipidemia E78.2 and Essential (primary) hypertension I10 [address] [address] August, [address] [address] August, Encounter for long-term (current) use of other medications Z79.899 ; marketing operations coordinator current use of anticoagulant therapy Z79.01 and Chronic atrial fibrillation I48.[address] [address] 05 Jul, 2015 Unspecified atrial fibrillation I48.91 ; Encounter for long-term (current) use of other medications Z79.899 and marketing operations coordinator current use of anticoagulant therapy Z79.[address] [address] Jun, Atrial fibrillation 427.31 ; Encounter for long-term (current) use of other medications Z79.899 and alf current use of anticoagulant therapy Z79.[address] [address] Jun, Unspecified atrial fibrillation I48.91 ; Encounter for long-term (current) use of other medications Z79.899 ; marketing operations coordinator current use of anticoagulant therapy Z79.01 and Community acquired bacterial pneumonia J15.[address] [address] Jun, Community acquired bacterial pneumonia J15.[address] [address] May, Chronic atrial fibrillation I48.2 ; Encounter for long-term (current) use of other medications Z79.899 and marketing operations coordinator current use of anticoagulant therapy Z79.[address] [address] Apr, Elevated prostate specific antigen [PSA] R97.[address] [address] Feb, Chronic atrial fibrillation I48.2 ; marketing operations coordinator current use of anticoagulant therapy Z79.01 and Encounter for long-term (current) use of other medications Z79.[address] [address] Dec, Atrial fibrillation 427.31 and alf (current) use of anticoagulants V58.[address] [address] Sep, [address] [address] Sep, Atrial fibrillation 427.31 ; Elevated PSA 790.93 ; Benign prostate hyperplasia 600.00 and Renal insufficiency 593.[address] [address] Sep, Atrial fibrillation 427.31 ; Essential hypertension, benign 401.1 ; Elevated prostate specific antigen (PSA) 790.93 and Mixed hyperlipidemia 272.2 [facility] [id number] [address] Jul, [facility] [address] [id number] [address] Jul, [facility] [address] [facility] [id number] [address] Jun, [facility] [address] [facility] [place] [address] Jun, [facility] [id number] [address] Apr, [facility] [address] [facility] [place] [address] Apr, [facility] [address] [place] [address] Mar, [facility] [id number] [place] [address] Mar, [facility] [address] [place] [address] Mar, [facility] [address] [address] Mar, [facility] [id number] [place] [address] Feb, [facility] [address] [place] [address] Feb, [facility] [id number] [place] [address] Jan, [facility] [address] [place] [address] Jan, [facility] [address] [address] Dec, [facility] [address] [place] [address] Dec, [facility] [id number] [address] Oct, [facility] [address] [place] [address] Oct, [facility] [address] [place] [address] Oct, [facility] [address] [address] Oct, [facility] [address] [facility] [address] Sep, [facility] [address] [facility] [id number] [address] Sep, [facility] [address] [facility] [id number] [address] August, [facility] [address] [facility] [address] August, [facility] [id number] [address] August, [facility] [id number] [address] August, [facility] [address] [place] [address] August, [facility] [address] [place] [address] August, [facility] [address] [address] August, [facility] [address] [facility] [address] Jul, [facility] [id number] [address] Jul, [facility] [address] [place] [address] Jul, [facility] [id number] [address] Jul, [facility] [address] [place] [address] May, [facility] [id number] [address] May, [facility] [address] [facility] [address] Apr, [facility] [id number] [address] Apr, [facility] [address] [facility] [address] Mar, [facility] [id number] [address] Mar, [facility] [address] [place] [address] Feb, [facility] [id number] [address] Feb, [facility] [address] [address] Feb, [facility] [address] [address] Feb, [facility] [address] [place] [address] Feb, [facility] [address] [place] [address] Feb, [facility] [address] [place] [address] Jan, [facility] [address] [address] Jan, [facility] [address] [place] [address] Dec, [facility] [address] [place] [address] Dec, IMMUNIZATIONS No Known Immunizations SOCIAL HISTORY Never Assessed REASON FOR VISIT INR for tooth being pulled Zurdo Cabrera RN PLAN OF CARE Activity Details Follow Up prn Reason: VITAL SIGNS MEDICATIONS Unknown Medications RESULTS Name Result Date Reference Range INR (IN HOUSE) 2017-07-12 INR 1.5 1.10 - 3.30 PREVIOUS INR 3.2 CURRENT COUMADIN DOSE on hold NEW COUMADIN DOSE Lot # [id number] Exp date 07/07/18 PROCEDURES Procedure Date Ordered Result Body Site PROTHROMBIN TIME July 12, 2017 INSTRUCTIONS MEDICATIONS ADMINISTERED No Known Medications [...] surgery; jaw 1968 Surgical History heart cath 2016 Surgical History oral surgery -2017 Hospitalization History Surgery(s) only
--- OUTSIDE RECORDS SUMMARY | 2018-06-27 07:17 | XMS REPORT ---
Author Author MERARY WISE [facility] Address [address] [place] [address] Care Team Providers Care Medical Device Sales Representative Name Role Phone MERARY WISE Unavailable PROBLEMS Type Condition ICD9-CM Code KMP88-TV Code Onset Dates Condition Status SNOMED Code Problem Mixed hyperlipidemia 272.2 Active 709926969 Problem Essential (primary) hypertension I10 Active 86035929 Problem Mixed hyperlipidemia E78.2 Active 273960805 Problem Essential hypertension I10 Active 30015501 Problem Hyperlipidemia LDL goal <100 E78.5 Active 79398275 Problem terminologist current use of anticoagulant therapy Z79.01 Active 252918348 Problem Elevated prostate specific antigen [PSA] R97.2 Active 420557366 Problem Persistent atrial fibrillation I48.1 Active 398488695 Problem Chronic atrial fibrillation I48.2 Active 904689943 Problem Elevated prostate specific antigen (PSA) 790.93 Active 595932807 Problem Nocturia 788.43 Active 031063635 Problem Need for prophylactic vaccination and inoculation, Influenza V04.81 Active 027361156 Problem Tear of medial cartilage or meniscus of knee, current 836.0 Active 485810403 Problem Acute upper respiratory infections of unspecified site 465.9 Active 87904945 Problem Acute pharyngitis 462 Active 936202668 Problem Pain in joint, lower leg 719.46 Active 050078728 Problem Atrial fibrillation 427.31 Active 72376350 Problem Actinic keratosis 702.0 Active 495029298 Problem Essential hypertension, benign 401.1 Active 4989766 ALLERGIES Substance Reaction Event Type Date Status Sulfasalazine Unknown Drug Allergy May, Active SOCIAL HISTORY Never Assessed PLAN OF CARE Activity Details Follow Up prn Reason: VITAL SIGNS Height 70 in 2016-05-18 Weight 283.4 lbs 2016-05-18 Temperature 98.8 degrees Fahrenheit 2016-05-18 Heart Rate 72 bpm 2016-05-18 Respiratory Rate 16 2016-05-18 BMI 40.66 kg/m2 2016-05-18 Blood pressure systolic 168 mmHg 2016-05-18 Blood pressure diastolic 98 mmHg 2016-05-18 MEDICATIONS Medication Instructions Dosage Frequency Start Date End Date Duration Status Lanoxin 250 MCG TAKE 1 Tablet by Oral route 1 time per day August, 90 days Active Efudex 5 % 1 neha by Topical route 2 times per day Jun, Active Zocor 20 mg 1 Tablet by Oral route 1 time per day at bedtime August, Active Cialis 5MG TAKE ONE TABLET BY MOUTH ONCE DAILY 30 Active Tamiflu 75 MG Orally Twice a day 1 capsule 12h May, 5 day(s) Active Lanoxin 0.25MG TAKE 1 Tablet by Oral route 1 time per day 90 Active Bisoprolol-Hydrochlorothiazide 10/6.25MG TAKE ONE TABLET BY MOUTH ONCE DAILY 90 Active Warfarin Sodium 6MG TAKE ONE TABLET BY MOUTH ONCE DAILY 90 Active Claritin 10 mg 1 Tablet by Oral route 1 time per day PRN Feb, Active Doxazosin Mesylate 4MG Orally Once a day 1 tablet 24h 90 Active Simvastatin 20MG TAKE ONE TABLET BY MOUTH AT BEDTIME 90 Active Losartan Potassium-HCTZ 100-25 TAKE ONE TABLET BY MOUTH ONCE DAILY 90 Active RESULTS Name Result Date Reference Range INFLUENZA A & B (IN HOUSE) 2016-05-18 INFLUENZA A pos INFLUENZA B neg Control valid Lot # [id number] Exp date 05/18/17 INR (IN HOUSE) 2016-05-18 INR 2.5 1.10 - 3.30 PREVIOUS INR 2.8 CURRENT COUMADIN DOSE 6mg QD NEW COUMADIN DOSE Lot # [id number] Exp date 12/2016 PROCEDURES Procedure Date Ordered Result Body Site PROTHROMBIN TIME May 18, 2016 [facility] VISIT ESTABLISHED PATIENT May 18, 2016 INFLUENZA ASSAY W/OPTIC May 18, 2016 IMMUNIZATIONS No Known Immunizations MEDICAL (GENERAL) HISTORY Type Description Date Medical [...] jaw 1967 Surgical History heart cath 2016 Hospitalization History Surgery(s) only
--- OUTSIDE RECORDS SUMMARY | 2018-06-27 07:17 | XMS REPORT ---
Author Author MERARY WISE Organization [employer] Address Unknown Phone Unavailable Care Team Providers Care Timber Treatment Plant Operator Name Role Phone MERARY WISE CP Unavailable Allergies No Known Allergies Problems Problem Type Condition Code Onset Dates Condition Status Problem Actinic keratosis 702.0 Active Problem Need for prophylactic vaccination and inoculation, Influenza V04.81 Active Problem Atrial fibrillation 427.31 Active Problem Chronic atrial fibrillation I48.2 Active Problem Elevated prostate specific antigen [PSA] R97.2 Active Problem ocean transportation intermediary current use of anticoagulant therapy Z79.01 Active Problem Tear of medial cartilage or meniscus of knee, current 836.0 Active Problem Acute upper respiratory infections of unspecified site 465.9 Active Problem Mixed hyperlipidemia E78.2 Active Problem Essential (primary) hypertension I10 Active Problem Mixed hyperlipidemia 272.2 Active Problem Elevated prostate specific antigen (PSA) 790.93 Active Problem Pain in joint, lower leg 719.46 Active Problem Nocturia 788.43 Active Problem Acute pharyngitis 462 Active Problem Essential hypertension, benign 401.1 Active Medications Medication Code System Code Instructions Start Date End Date Status Dosage Claritin [facility] [address]-53 10 mg Feb 20, 2013 1 Tablet by Oral route 1 time per day PRN Results No Known Results Summary Purpose [employer] Submission
--- OUTSIDE RECORDS SUMMARY | 2018-06-27 07:17 | XMS REPORT ---
Author Author MERARY WISE Organization [facility] Address [address] [place] [address] Care Team Providers Care Farm Mechanic Name Role Phone MERARY WISE Unavailable PROBLEMS Type Condition ICD9-CM Code WOY92-[id number] Code Onset Dates Condition Status SNOMED Code Problem Essential (primary) hypertension I10 Active 15999715 Problem Mixed hyperlipidemia E78.2 Active 386865683 Problem Essential hypertension I10 Active 82200947 Problem Hyperlipidemia LDL goal <100 E78.5 Active 66358798 Problem 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 Active 469975406 Problem Elevated prostate specific antigen [PSA] R97.2 Active 104266416 Problem Persistent atrial fibrillation I48.1 Active 763717609 Problem Chronic atrial fibrillation I48.2 Active 299117424 ALLERGIES No Information SOCIAL HISTORY Never Assessed PLAN OF CARE Activity Details Follow Up prn Reason: VITAL SIGNS MEDICATIONS Unknown Medications RESULTS Name Result Date Reference Range PSA 2016-04-18 Prostate Specific Ag, Serum 6.5 0.0-4.0 PROCEDURES Procedure Date Ordered Result Body Site LAB NOT BILLED BY [facility] Apr 18, 2016 VENIPUNCT, ROUTINE* Apr 18, 2016 IMMUNIZATIONS No Known Immunizations MEDICAL [...] jaw 1967 Surgical History heart cath 2017 Hospitalization History Surgery(s) only
--- OUTSIDE RECORDS SUMMARY | 2018-06-27 07:17 | XMS REPORT ---
Author Author KASIE CHAPMAN [facility] Address [address] [place] [address] Care Team Providers Care Communications Attendant Name Role Phone CHRISTOSKASIE JONES Unavailable PROBLEMS Type Condition ICD9-CM Code OZW15-NJ Code Onset Dates Condition Status SNOMED Code Problem [facility] current use of anticoagulant therapy Z79.01 Active 689294333 Problem Persistent atrial fibrillation I48.1 Active 515458917 Problem Chronic atrial fibrillation I48.2 Active 362178976 Problem Mixed hyperlipidemia E78.2 Active 562417668 Problem Essential (primary) hypertension I10 Active 21228499 Problem Elevated prostate specific antigen [PSA] R97.2 Active 736986171 Problem 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 998346591 Problem Unspecified atrial fibrillation I48.91 Active 94786697 Problem Hyperlipidemia LDL goal <100 E78.5 Active 39272208 Problem Essential hypertension I10 Active 97022319 Problem Obstructive sleep apnea G47.33 Active 30517644 Problem Chronic obstructive pulmonary disease, unspecified COPD type J44.9 Active 78917463 ALLERGIES No Information ENCOUNTERS Encounter Location Date Diagnosis [address] C [id number] [place] [id number] 18 Sep, 2017 [facility] current use of anticoagulant therapy Z79.01 [facility] [place] [address] [place] [address] C [id number] [place] [id number] 15 Sep, 2017 [facility] current use of anticoagulant therapy Z79.01 [facility] [place] [address] [place] [address] C [id number] [place] [id number] 13 Sep, 2017 [facility] current use of anticoagulant therapy Z79.01 [facility] [address] [place] [address] C [id number] [place] [id number] 11 Sep, 2017 Chronic obstructive pulmonary disease, unspecified COPD type J44.9 [facility] [address] [place] [address] C [id number] [place] [id number] Sep, [facility] t[facility] current use of anticoagulant therapy Z79.01 [facility] [place] [address] [id number] [place] [id number] Sep, [facility] tanner current use of anticoagulant therapy Z79.01 [facility] [place] [address] [id number] [place] [id number] Sep, [facility] [place] [address] [facility] [address] [id number] [place] [id number] August, [facility] current use of anticoagulant therapy Z79.01 [facility] [place] [address] [id number] [place] [id number] August, [facility] [place] [address] [facility] [address] [id number] [place] [id number] August, [facility] current use of anticoagulant therapy Z79.01 [facility] [place] [address] [facility] [address] [id number] [place] [id number] August, [facility] current use of anticoagulant therapy Z79.01 [facility] [place] [address] [facility] [address] [id number] [place] [id number] Jul, [facility] tanner current use of anticoagulant therapy Z79.01 [facility] [place] [address] [facility] [address] [id number] [place] [id number] Jul, [facility] current use of anticoagulant therapy Z79.01 [facility] [place] [address] [facility] [address] [id number] [place] [address] Jul, [facility] tanner current use of anticoagulant therapy Z79.01 [facility] [place] [address] [facility] [address] [id number] [place] [id number] Jul, [facility] current use of anticoagulant therapy Z79.01 [facility] [place] [address] [facility] [address] [id number] [place] [id number] 13 Jul, 2017 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 [place] [address] [facility] [address] [id number] [place] [id number] Jul, [facility] [place] [address] [place] [address] C [id number] [place] [id number] Jul, Bleeding from mouth K13.79 and Lip lesion K13.0 [facility] [place] [address] [place] [address] C [id number] [place] [id number] Jul, [facility] current use of anticoagulant therapy Z79.01 [facility] [place] [address] [facility] [address] [id number] [place] [id number] Jul, [facility] current use of anticoagulant therapy Z79.01 [facility] [place] [address] [facility] [address] [id number] [place] [id number] Jul, [facility] [place] [address] [place] [address] C [id number] [place] [address] Jun, Unspecified atrial fibrillation I48.91 [facility] [place] [address] [place] [address] C [id number] [place] [id number] May, Unspecified atrial fibrillation I48.91 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 [place] [address] [place] [address] C [id number] [place] [id number] Apr, Elevated PSA R97.20 [facility] [address] [id number] [place] [address] Apr, Mild persistent asthma, unspecified whether complicated J45.30 [facility] [place] [address] [place] [address] C [id number] [place] [id number] Apr, Chronic obstructive pulmonary disease, unspecified COPD type J44.9 [facility] [place] [address] [facility] [address] [id number] [place] [id number] Mar, [facility] [place] [address] [facility] [address] [id number] [place] [id number] Mar, [facility] [place] [address] [facility] [address] [id number] [place] [id number] Mar, [facility] [place] [address] [facility] [address] [id number] [place] [id number] Mar, Chronic atrial fibrillation I48.2 ; Hyperlipidemia LDL goal <100 E78.5 ; Essential hypertension I10 ; Obstructive sleep apnea G47.33 ; Has stopped breathing R06.81 ; Elevated PSA, less than 10 ng/ml R97.20 ; Chronic obstructive pulmonary disease, unspecified COPD type J44.9 ; Encounter for immunization Z23 and [facility] current use of anticoagulant therapy Z79.01 [facility] [place] [address] [place] [address] [address] [id number] [place] [id number] Feb, [facility] [place] [address] [place] [address] [address] [id number] [place] [id number] Dec, [facility] [place] [address] [place] [address] [address] [id number] [place] [id number] Nov, Chronic atrial fibrillation I48.2 and Elevated PSA R97.20 [facility] [place] [address] [place] [address] [address] [id number] [place] [id number] Nov, Chronic atrial fibrillation I48.2 ; Hyperlipidemia LDL goal <100 E78.5 ; Essential hypertension I10 ; Dyspnea on exertion R06.09 and Elevated PSA R97.20 [facility] [place] [address] [facility] [address] [id number] [place] [id number] August, [facility] current use of anticoagulant therapy Z79.01 ; Bronchitis J40 and Persistent atrial fibrillation I48.1 [facility] [place] [address] [facility] [address] [id number] [place] [id number] August, [facility] [place] [address] [facility] [address] [id number] [place] [address] May, [facility] current use of anticoagulant therapy Z79.01 ; Encounter for long -term (current) use of other medications Z79.899 ; Fever, unspecified fever cause R50.9 and Influenza A J10.1 [facility] [place] [address] [place] [address] C [id number] [place] [id number] Apr, [facility] [place] [address] [place] [address] C [id number] [place] [id number] Apr, Elevated prostate specific antigen [PSA] R97.20 [facility] [place] [address] [place] [address] C [id number] [place] [id number] Feb, [facility] [place] [address] [place] [address] C [id number] [place] [id number] Feb, [facility] current use of anticoagulant therapy Z79.01 ; Atrial fibrillation 427.31 ; Encounter for long-term (current) use of other medications Z79.899 ; Chronic atrial fibrillation I48.2 ; Encounter for immunization Z23 and Actinic keratoses L57.0 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 [place] [address] [place] [address] C [id number] [place] [id number] Nov, Hemangioma D18.00 and Actinic keratosis L57.0 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 [place] [address] [place] [address] C [id number] [place] [id number] Oct, Elevated prostate specific antigen [PSA] R97.2 ; Mixed hyperlipidemia E78.2 and Essential (primary) hypertension I10 [facility] [place] [address] [place] [address] C [id number] [place] [id number] August, [facility] [place] [address] [place] [address] C [id number] [place] [id number] August, Encounter for long-term (current) use of other medications Z79.899 ; [facility] current use of anticoagulant therapy Z79.01 and Chronic atrial fibrillation I48.2 [facility] [place] [address] [facility] [address] [id number] [place] [id number] Jul, Unspecified atrial fibrillation I48.91 ; Encounter for long-term (current ) use of other medications Z79.899 and [facility] current use of anticoagulant therapy Z79.01 [facility] [place] [address] [facility] C [id number] [place] [id number] Jun, Atrial fibrillation 427.31 ; Encounter for long-term (current) use of other medications Z79.899 and [facility] current use of anticoagulant therapy Z79.01 [facility] [place] [address] [facility] [address] [id number] [place] [address] Jun, Unspecified atrial fibrillation I48.91 ; Encounter for long-term (current ) use of other medications Z79.899 ; [facility] current use of anticoagulant therapy Z79.01 and Community acquired bacterial pneumonia J15.9 [facility] [place] [address] [facility] [address] [id number] [place] [id number] Jun, Community acquired bacterial pneumonia J15.9 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 [place] [address] [facility] [address] [id number] [place] [id number] Dec, Atrial fibrillation 427.31 and [facility] (current) use of anticoagulants V58.61 [facility] [place] [address] [id number] [place] [id number] Sep, [facility] [place] [address] [id number] [place] 645[address]3088 Sep, Atrial fibrillation 427.31 ; Elevated PSA 790.93 ; Benign prostate hyperplasia 600.00 and Renal insufficiency 593.9 [facility] [place] [address] [id number] [place] [id number] Sep, Atrial fibrillation 427.31 ; Essential hypertension, benign 401.1 ; Elevated prostate specific antigen (PSA) 790.93 and Mixed hyperlipidemia 272.2 [facility] [address] [facility] [id number] [address] Jul, [facility] [address] [facility] [id number], [place] [address] Jul, [facility] [address] [facility] [id number], [place] [address] 16 Jun, 2014 [facility] [place] [address] [facility] [address] [id number] [place] [address] Jun, [facility] [address] [facility] [id number], [place] [address] Apr, [facility] [place] [address] [facility] [address] [id number] [place] [id number] Apr, [facility] [place] [address] [facility] [address] [id number] [place] [id number] Mar, [facility] [address] [facility] [id number], [place] [address] Mar, [facility] [place] [address] [id number] [place] [id number] Mar, [facility] [address] [facility] [id number], [place] [address] Mar, [facility] [address] [facility] [id number], [place] [address] Feb, [facility] [place] [address] [id number] [place] [id number] Feb, [facility] [place] [facility] [address] [id number] [place] [address] Jan, [facility] [place] [address] [facility] [address] [id number] [place] [id number] Jan, [facility] [place] [facility] [address] [id number] [place] [address] Dec, [facility] [place] [address] [facility] [address] [id number] [place] [id number] Dec, [facility] [place] [facility] [address] [id number] [place] [address] Oct, [facility] [place] [address] [facility] [address] [id number] [place] [id number] Oct, [facility] [place] [address] [facility] [address] [id number] [place] [id number] Oct, [facility] [place] [facility] [address] [id number] [place] [address] Oct, [facility] [place] [address] [facility] [address] [id number] [place] [id number] Sep, [facility] [place] [facility] [address] [facility] [id number] [facility] [address] Sep, [facility] [place] [facility] [address] [facility] [id number] [place] [address] August, [facility] [place] [address] [facility] [address] [id number] [place] [id number] August, [facility] [place] [facility] [address] [facility] [id number] [place] [address] August, [facility] [place] [facility] [address] [id number] [place] [address] August, [facility] [place] [address] [facility] [address] [id number] [place] [id number] August, [facility] [place] [address] [facility] [address] [id number] [place] 884[address]47[address] August, [facility] [address] [id number] [place] [address] August, [facility] [place] [address] [id number] [place] [address]32[address] Jul, [facility] [address] [id number] [place] [address] Jul, [facility] [place] [address] [id number] [place] [address] Jul, [facility] [address] [id number] [place] [address] Jul, [facility] [place] [address] [id number] [place] [address]130 May, [facility] [address] [id number] [place] [address] May, [facility] [place] [address] [facility] [address] [id number] [place] [id number] Apr, [facility] [place] [facility] [address] [id number] [facility] [address] Apr, [facility] [place] [address] [facility] [address] [id number] [place] [id number] Mar, [facility] [address] [id number] [facility] [address] Mar, [facility] [place] [address] [facility] [address] [id number] [place] 370639266 Feb, [facility] [place] [facility] [address] [id number] [place] [address] Feb, [facility] [place] [facility] [address] [id number] [place] [address] Feb, [facility] [place] [facility] [address] [id number] [place] [address] Feb, [facility] [place] [address] [facility] [address] [id number] [place] 8[address] Feb, [facility] [place] [address] [facility] [address] [id number] [place] [id number] Feb, [facility] [place] [address] [facility] [address] [id number] [place] [id number] Jan, [facility] [address] [facility] [id number] [place] [address] Jan, [facility] [place] [address] [facility] [address] [id number] [place] [id number] Dec, [facility] [place] [address] [facility] [address] [id number] [place] [id number] Dec, IMMUNIZATIONS No Known Immunizations SOCIAL HISTORY Never Assessed REASON FOR VISIT Faxed refill request PLAN OF CARE VITAL SIGNS MEDICATIONS Medication Instructions Dosage Frequency Start Date End Date Duration Status Flovent Diskus 100 MCG/BLIST Inhalation Twice a day 1 puff 12h 15 Apr, 2017 Active RESULTS No Results PROCEDURES No [...]
--- OUTSIDE RECORDS SUMMARY | 2018-06-27 07:17 | XMS REPORT ---
Author Author MERARY WISE [employer] Address Unknown Phone Unavailable Care Team Providers Care Starting Gate Driver Name Role Phone MERARY WISE CP Unavailable Allergies, Adverse Reactions, Alerts Substance Reaction Event Type Sulfasalazine Info Not Available Drug Allergy Problems Problem Type Condition Code Onset Dates Condition Status Problem Nocturia 788.43 Active Problem Actinic keratosis 702.0 Active Problem Essential hypertension, benign 401.1 Active Problem Mixed hyperlipidemia E78.2 Active Problem Essential (primary) hypertension I10 Active Problem Elevated prostate specific antigen [PSA] R97.2 Active Problem Need for prophylactic vaccination and inoculation, Influenza V04.81 Active Problem Atrial fibrillation 427.31 Active Problem Tear of medial cartilage or meniscus of knee, current 836.0 Active Problem Acute upper respiratory infections of unspecified site 465.9 Active Assessment Skin lesions L98.9 Active Problem Pain in joint, lower leg 719.46 Active Problem Acute pharyngitis 462 Active Assessment jail current use of anticoagulant therapy Z79.01 Active Problem Mixed hyperlipidemia 272.2 Active Assessment Chronic atrial fibrillation I48.2 Active Problem Elevated prostate specific antigen (PSA) 790.93 Active Medications Medication Code System Code Instructions Start Date End Date Status Dosage Simvastatin [facility] 08836894176 20MG TAKE ONE TABLET BY MOUTH AT BEDTIME Doxazosin Mesylate [facility] 88618136987 4MG Orally Once a day 1 tablet Bisoprolol-Hydrochlorothiazide [facility] 29492335385 10/6.25MG TAKE ONE TABLET BY MOUTH ONCE DAILY Losartan Potassium-HCTZ [facility] 24770294999 100-25 TAKE ONE TABLET BY MOUTH ONCE DAILY Efudex [facility] [address]-42 5 % June 22, 2014 1 neha by Topical route 2 times per day Claritin [facility] [address]-18 10 mg Feb 20, 2013 1 Tablet by Oral route 1 time per day PRN Cialis [facility] 52521688629 5MG TAKE ONE TABLET BY MOUTH ONCE DAILY Lanoxin [facility] [address]-06 250 MCG August 25, 2013 TAKE 1 Tablet by Oral route 1 time per day Warfarin Sodium [facility] 07521210469 6MG TAKE ONE TABLET BY MOUTH ONCE DAILY Zocor [facility] [address]-81 20 mg August 25, 2013 1 Tablet by Oral route 1 time per day at bedtime Procedures Procedure Coding System Code Date [facility] VISIT ESTABLISHED PATIENT CPT-4 G0467 Nov 23, 2015 Office Visit, Est Pt., Level 3 CPT-4 41566 Nov 23, 2015 PROTHROMBIN TIME CPT-4 07547 Nov 23, 2015 Vital Signs Date/Time: Nov 23, 2015 Cardiac Monitoring Heart Rate 66 bpm Weight 277.6 lbs Height 70 in BMI 39.83 Index Blood Pressure Diastolic 94 mmHg Blood Pressure Systolic 148 mmHg Results No Known Results Summary Purpose [employer]ClinicalWorks Submission
--- OUTSIDE RECORDS SUMMARY | 2018-06-27 07:18 | XMS REPORT ---
Author Author KASIE CHAPMAN [facility] Address [address] [place] [address] Care Team Providers Care Thread Dresser Name Role Phone CHRISTOSKASIE JONES Unavailable PROBLEMS Type Condition ICD9-CM Code SOM22-SX Code Onset Dates Condition Status SNOMED Code Problem long-term current use of anticoagulant therapy Z79.01 Active 318081500 Problem Persistent atrial fibrillation I48.1 Active 317282794 Problem Chronic atrial fibrillation I48.2 Active 287749768 Problem Mixed hyperlipidemia E78.2 Active 409188467 Problem Essential (primary) hypertension I10 Active 34857519 Problem Elevated prostate specific antigen [PSA] R97.2 Active 235743670 Problem 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 751742486 Problem Unspecified atrial fibrillation I48.91 Active 14409674 Problem Hyperlipidemia LDL goal <100 E78.5 Active 34655276 Problem Essential hypertension I10 Active 38417458 Problem Obstructive sleep apnea G47.33 Active 18121662 Problem Chronic obstructive pulmonary disease, unspecified COPD type J44.9 Active 26368865 ALLERGIES No Information ENCOUNTERS Encounter Location Date Diagnosis [address] [id number] [place] [id number] Sep, long-term current use of anticoagulant therapy Z79.01 [facility] [place] [address] [place] [address] C [id number] [place] [id number] Sep, long-term current use of anticoagulant therapy Z79.01 [facility] [place] [address] [place] [address] [address] [id number] [place] 686267559 Sep, 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 and Chronic atrial fibrillation I48.2 [facility] [place] [address] [place] [address] C [id number] [facility] [place] [id number] Sep, long-term current use of anticoagulant therapy Z79.01 [facility] [place] [address] [place] [address] [address] [id number] [place] [id number] 15 Sep, 2017 long-term current use of anticoagulant therapy Z79.01 [facility] [place] [address] [id number] [place] [id number] 13 Sep, 2017 long-term current use of anticoagulant therapy Z79.01 [facility] [place] [address] [id number] [place] [address] Sep, Chronic obstructive pulmonary disease, unspecified COPD type J44.9 [facility] [place] [address] [id number] [place] [address] Sep, 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 [facility] [place] [address] [id number] [place] [id number] Sep, long-term current use of anticoagulant therapy Z79.01 [facility] [place] [address] [id number] [place] [id number] Sep, [facility] [place] [address] [id number] [place] [id number] August, long-term current use of anticoagulant therapy Z79.01 [facility] [place] [address] [id number] [place] [id number] August, [facility] [place] [address] [id number] [place] [address] August, 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 [facility] [place] [address] [id number] [place] [id number] August, 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 [facility] [place] [address] [id number] [place] [address] Jul, 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 [facility] [place] [address] [id number] [place] [address]40 Jul, long-term current use of anticoagulant therapy Z79.01 [facility] [place] [address] [id number] [place] [address]3736 Jul, long-term current use of anticoagulant therapy Z79.01 [facility] [place] [address] [id number] [place] [address] Jul, 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 [facility] [place] [address] [facility] [address] [id number] [place] [id number] 13 Jul, 2017 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 [facility] [place] [address] [facility] [address] [id number] [place] [id number] Jul, Chronic obstructive pulmonary disease, unspecified COPD type J44.9 [facility] [place] [address] [place] [address] [address] [id number] [place] 94[address] Jul, long-term current use of anticoagulant therapy Z79.01 [facility] [place] [address] [facility] [address] [id number] [place] [id number] Jul, [facility] [place] [address] [place] [address] C [id number] [place] 7427[address]341 Jul, Bleeding from mouth K13.79 and Lip lesion K13.0 [facility] [place] [address] [place] [address] C [id number] [place] [address]39[address] Jul, long-term current use of anticoagulant therapy Z79.01 [facility] [place] [address] [place] [address] [address] [id number] [place] [id number] Jul, 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 [facility] [place] [address] [facility] [address] [id number] [place] [address] Jul, [facility] [place] [address] [place] [address] C [id number] [place] 692[address] Jun, Unspecified atrial fibrillation I48.91 [facility] [place] [address] [place] [address] C [id number] [place] [id number] May, Unspecified atrial fibrillation I48.91 [facility] [place] [address] [place] [address] C [id number] [place], [place] 128[address]18 May, Chronic atrial fibrillation I48.2 ; BMI 40.0-44.9, adult Z68.41 ; Hyperlipidemia LDL goal <100 E78.5 ; 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 [place] [address] [facility] [address] [id number] [place] [address] Apr, [facility] [place] [address] [facility] [address] [id number] [place] [address] Apr, Elevated PSA R97.20 [facility] [address] [id number] [place] [address] Apr, Mild persistent asthma, unspecified whether complicated J45.30 [facility] [place] [address] [facility] [address] [id number] [place] [id number] Apr, Chronic obstructive pulmonary disease, unspecified COPD type J44.9 [facility] [place] [address] [facility] [address] [id number] [place] [id number] Mar, [facility] [place] [address] [place] [address] [address] [id number] [place] [id number] Mar, [facility] [place] [address] [place] [address] [address] [id number] [place] [id number] Mar, 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 [facility] [place] [address] [facility] [address] [id number] [place] 1478[address] Feb, [facility] [place] [address] [facility] [address] [id number] [place] [id number] Dec, [facility] [place] [address] [place] [address] [address] [id number] [place] [id number] Nov, Chronic atrial fibrillation I48.2 and Elevated PSA R97.20 [facility] [place] [address] [facility] [address] [id number] [place] [id number] Nov, Chronic atrial fibrillation I48.2 ; Hyperlipidemia LDL goal <100 E78.5 ; Essential hypertension I10 ; Dyspnea on exertion R06.09 and Elevated PSA R97.20 [facility] [place] [address] [place] [address] C [id number] [place] [address]79[address] August, 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 ; Atrial fibrillation 427.31 ; Encounter for long-term (current) use of other medications Z79.899 ; Chronic atrial fibrillation I48.2 ; Encounter for immunization Z23 and Actinic keratoses L57.0 [facility] [place] [address] [place] [address] C [id number] [place] [id number] Dec, 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 and Encounter for immunization Z23 [facility] [place] [address] [place] [address] C [id number] [place] [id number] Nov, Hemangioma D18.00 and Actinic keratosis L57.0 [facility] [place] [address] [place] [address] C [id number] [place] 307356413 Nov, Chronic atrial fibrillation I48.2 ; long-term current use of anticoagulant therapy Z79.01 and Skin lesions L98.9 [facility] [place] [address] [place] [address] C [id number] [place] 665406562 Oct, Elevated prostate specific antigen [PSA] R97.2 ; Mixed hyperlipidemia E78.2 and Essential (primary) hypertension I10 [facility] [place] [address] [place] [address] [id number] [place] [id number] August, [facility] [place] [address] [place] [address] [id number] [place] [id number] August, Encounter for long-term (current) use of other medications Z79.899 ; long-term current use of anticoagulant therapy Z79.01 and Chronic atrial fibrillation I48.2 [facility] [place] [address] [place] [address] [id number] [place] [id number] Jul, Unspecified atrial fibrillation I48.91 ; Encounter for long-term (current ) use of other medications Z79.899 and long-term current use of anticoagulant therapy Z79.01 [facility] [place] [address] [place] [address] [id number] [place] 310780358 Jun, Atrial fibrillation 427.31 ; Encounter for long-term (current) use of other medications Z79.899 and 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 [facility] [place] [address] [place] [address] [id number] [place] 089434882 Jun, Unspecified atrial fibrillation I48.91 ; Encounter for long-term (current ) use of other medications Z79.899 ; long-term current use of anticoagulant therapy Z79.01 and Community acquired bacterial pneumonia J15.9 [facility] [place] [address] [place] [address] [id number] [place] [id number] Jun, Community acquired bacterial pneumonia J15.9 [facility] [place] [address] [place] [address] C [id number] [place] [id number] May, Chronic atrial fibrillation I48.2 ; Encounter for long-term (current) use of other medications Z79.899 and 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 [facility] [place] [address] [place] [address] C [id number] [place] [id number] Apr, Elevated prostate specific antigen [PSA] R97.2 [facility] [place] [address] [facility] [address] [id number] [place] [id number] Feb, Chronic atrial fibrillation I48.2 ; 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 and Encounter for long-term (current) use of other medications Z79.899 [facility] [place] [address] [facility] C [id number] [place] 397608064 Dec, Atrial fibrillation 427.31 and long-term (current) use of anticoagulants V58.61 [facility] [place] [address] [facility] C [id number] [place] 658708701 Sep, [facility] [place] [address] [place] [address] C [id number] [place] 720976210 Sep, Atrial fibrillation 427.31 ; Elevated PSA 790.93 ; Benign prostate hyperplasia 600.00 and Renal insufficiency 593.9 [facility] [place] [address] [facility] [address] [id number] [place] [id number] Sep, Atrial fibrillation 427.31 ; Essential hypertension, benign 401.1 ; Elevated prostate specific antigen (PSA) 790.93 and Mixed hyperlipidemia 272.2 [facility] [address] [id number] [address] Jul, [facility] [address] [id number] [address] Jul, [facility] [address] [id number], [place] [address] Jun, [facility] [place] [address] [place] [address] [id number] [place] [id number] Jun, [facility] [address] [id number] [address] Apr, [facility] [place] [address] [place] [address] [id number] [place] [id number] Apr, [facility] [place] [address] [place] [address] C [id number] [place] [id number] Mar, [facility] [id number] [place] [address] Mar, [facility] [place] [address] [id number] [place] 030522208 Mar, [facility] [address] [facility] [id number] [place] [address] Mar, [facility] [address] [facility] [id number] [facility] [place] [address] Feb, [facility] [place] [address] [facility] [address] [id number] [place] [id number] Feb, [facility] [address] [facility] [id number] [facility] Jan, [facility] [place] [address] [facility] [address] [id number] [place] 859048064 Jan, [facility] [address] [facility] [id number] [place] [address] Dec, [facility] [place] [address] [facility] [address] [id number] [place] 656192469 Dec, [facility] [address] [id number] [facility] [place] [address] Oct, [facility] [place] [address] [facility] [address] [id number] [place] 069557851 Oct, [facility] [place] [address] [facility] [address] [id number] [place] 560390184 Oct, [facility] [place] [facility] [address] [facility] [id number] [facility] [place] [place] [address] Oct, [facility] [place] [address] [facility] [address] [id number] [place] [id number] Sep, [facility] [place] [facility] [address] [facility] [id number] [facility] [place] [address] Sep, [facility] [place] [facility] [address] [facility] [id number] [facility] [place] [place] [address] August, [facility] [place] [address] [facility] [address] [id number] [place] [id number] August, [facility] [address] [id number] [place] [address] August, [facility] [place] [facility] [address] [id number] [place] [address] August, [facility] [place] [address] [id number] [place] [id number] August, [facility] [place] [address] [id number] [place] 719580535 August, [facility] [address] [id number] [place] [address] August, [facility] [place] [address] [id number] [place] [id number] Jul, [facility] [address] [facility] [id number] [place] [address] Jul, [facility] [place] [address] [facility] [address] [id number] [place] [id number] Jul, [facility] [address] [id number] [place] [address] Jul, [facility] [place] [address] [facility] [address] [id number] [place] [id number] May, [facility] [address] [id number] [facility] [place] [place] [address] May, [facility] [place] [address] [id number] [place] [id number] Apr, [facility] [place] [facility] [address] [id number] [place] [address] Apr, [facility] [place] [address] [id number] [place] 859696594 Mar, [facility] [place] [facility] [address] [id number] [place] [address] Mar, [facility] [place] [address] [facility] [address] [id number] [place] 000413417 Feb, [facility] [address] [facility] [id number] [place] [address] Feb, [facility] [address] [facility] [id number] [place] [address] Feb, [facility] [address] [facility] [id number] [place] [address]- [address] Feb, [facility] [place] [address] [facility] [address] [id number] [place] [id number] Feb, [facility] [place] [address] [facility] [address] [id number] [place], [place] [id number] Feb, [facility] [place] [address] [facility] [address] [id number] [place] [id number] Jan, [facility] [address] [facility] [id number] [place] [address] Jan, [facility] [place] [address] [facility] [address] [id number] [place], [place] [id number] Dec, [facility] [place] [address] [facility] [address] [id number] [place] [id number] Dec, IMMUNIZATIONS No Known Immunizations SOCIAL HISTORY Never Assessed REASON FOR VISIT Lab (walk-in). [facility] PLAN OF CARE Activity Details Follow Up prn Reason: VITAL SIGNS MEDICATIONS Unknown Medications RESULTS No Results PROCEDURES Procedure Date Ordered Result Body Site ROUTINE VENIPUNCTURE 2017-05-22 N/A LAB NOT BILLED BY [facility] May 22, 2017 INSTRUCTIONS MEDICATIONS ADMINISTERED No Known Medications [...]
--- OUTSIDE RECORDS SUMMARY | 2018-06-27 07:18 | XMS REPORT ---
Author Author [facility]MAN [facility] Address [address] [place] [address] Care Team Providers Care Frickertron Checker Name Role Phone KASIE CHAPMAN Unavailable PROBLEMS Type Condition ICD9-CM Code KPF56-HT Code Onset Dates Condition Status SNOMED Code Problem intermediate current use of anticoagulant therapy Z79.01 Active 590384689 Problem Persistent atrial fibrillation I48.1 Active 495462041 Problem Chronic atrial fibrillation I48.2 Active 522239328 Problem Mixed hyperlipidemia E78.2 Active 504505822 Problem Essential (primary) hypertension I10 Active 95444883 Problem Elevated prostate specific antigen [PSA] R97.2 Active 034835353 Problem 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 394163968 Problem Unspecified atrial fibrillation I48.91 Active 75189224 Problem Hyperlipidemia LDL goal <100 E78.5 Active 32462251 Problem Essential hypertension I10 Active 15126571 Problem Obstructive sleep apnea G47.33 Active 06341965 Problem Chronic obstructive pulmonary disease, unspecified COPD type J44.9 Active 96786810 ALLERGIES No Information ENCOUNTERS Encounter Location Date Diagnosis [facility] [place] [facility] C [id number] [place] [id number] Sep, [facility] [place] [address] [place] [address] [address] [id number] [place] [id number] August, 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 [facility] [place] [address] [facility] [address] [id number] [place] [id number] August, [facility] [place] [address] [place] [address] [address] [id number] [place] [id number] August, 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 [facility] [place] [address] [facility] [address] [id number] [place] [id number] August, intermediate current use of anticoagulant therapy Z79.01 [facility] [place] [address] [place] [address] [address] [id number] [place] [id number] Jul, intermediate current use of anticoagulant therapy Z79.01 [facility] [place] [address] [facility] [address] [id number] [place] [id number] Jul, 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 [facility] [place] [address] [facility] [address] [id number] [place] [address] Jul, intermediate current use of anticoagulant therapy Z79.01 [facility] [place] [address] [facility] [address] [id number] [place] [id number] Jul, intermediate current use of anticoagulant therapy Z79.01 [facility] [place] [address] [facility] [address] [id number] [place] [id number] Jul, 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 [facility] [place] [address] [place] [address] [address] [id number] [place] [id number] Jul, Chronic obstructive pulmonary disease, unspecified COPD type J44.9 [facility] [place] [address] [place] [address] [address] [id number] [place] [id number] Jul, 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 [facility] [place] [address] [place] [address] [address] [id number] [place] [id number] Jul, [facility] [place] [address] [place] [address] [address] [id number] [place] [id number] Jul, Bleeding from mouth K13.79 and Lip lesion K13.0 [facility] [place] [address] [place] [address] [address] [id number] [place] [address] Jul, intermediate current use of anticoagulant therapy Z79.01 [facility] [place] [address] [facility] [address] [id number] [place] [address] Jul, intermediate current use of anticoagulant therapy Z79.01 [facility] [place] [address] [facility] [address] [id number] [place] [id number] Jul, [facility] [place] [address] [facility] [address] [id number] [place] [address] Jun, Unspecified atrial fibrillation I48.91 [facility] [place] [address] [facility] [address] [id number] [place] [id number] 13 May, 2017 Unspecified atrial fibrillation I48.91 [facility] [place] [address] [place] [address] C [id number] [place] [id number] 12 May, 2017 Chronic atrial fibrillation I48.2 ; BMI 40.0-44.9, adult Z68.41 ; Hyperlipidemia LDL goal <100 E78.5 ; 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 ; Essential hypertension I10 ; Obstructive sleep apnea G47.33 ; Elevated PSA, less than 10 ng/ml R97.20 and Chronic obstructive pulmonary disease, unspecified COPD type J44.9 [facility] [place] [address] [place] [address] C [id number] [place] [id number] Apr, [facility] [place] [address] [place] [address] C [id number] [place] [id number] Apr, Elevated PSA R97.20 [facility] [address] [id number] [place] [address] Apr, Mild persistent asthma, unspecified whether complicated J45.30 [facility] [place] [address] [place] [address] C [id number] [place] [id number] Apr, Chronic obstructive pulmonary disease, unspecified COPD type J44.9 [facility] [place] [address] [place] [address] C [id number] [place] [id number] Mar, [facility] [place] [address] [place] [address] C [id number] [place] [id number] Mar, [facility] [place] [address] [place] [address] C [id number] [place] [address] Mar, [facility] [place] [address] [place] [address] C [id number] [place] [address] Mar, Chronic atrial fibrillation I48.2 ; Hyperlipidemia LDL goal <100 E78.5 ; Essential hypertension I10 ; Obstructive sleep apnea G47.33 ; Has stopped breathing R06.81 ; Elevated PSA, less than 10 ng/ml R97.20 ; Chronic obstructive pulmonary disease, unspecified COPD type J44.9 ; Encounter for immunization Z23 and intermediate current use of anticoagulant therapy Z79.01 [facility] [place] [address] [place] [address] C [id number] [place] [id number] Feb, [facility] [place] [address] [place] [address] [id number] [place] [id number] Dec, [facility] [place] [address] [place] [address] [id number] [place] [id number] Nov, Chronic atrial fibrillation I48.2 and Elevated PSA R97.20 [facility] [place] [address] [place] [address] [id number] [place] [id number] Nov, Chronic atrial fibrillation I48.2 ; Hyperlipidemia LDL goal <100 E78.5 ; Essential hypertension I10 ; Dyspnea on exertion R06.09 and Elevated PSA R97.20 [facility] [address] [place] [address] [id number] [place] [id number] August, intermediate current use of anticoagulant therapy Z79.01 ; Bronchitis J40 and Persistent atrial fibrillation I48.1 [facility] [address] [place] [address] [id number] [place] [id number] August, [facility] [place] [address] [place] [address] [id number] [place] 6[address]107 May, intermediate current use of anticoagulant therapy Z79.01 ; Encounter for long -term (current) use of other medications Z79.899 ; Fever, unspecified fever cause R50.9 and Influenza A J10.[address] [id number] [place] [id number] Apr, [facility] [place] [address] [place] [address] [id number] [place] [id number] Apr, Elevated prostate specific antigen [PSA] R97.20 [facility] [place] [address] [place] [address] [id number] [place] [id number] Feb, [facility] [place] [address] [place] [address] [id number] [place] 887[address] Feb, intermediate current use of anticoagulant therapy Z79.01 ; Atrial fibrillation 427.31 ; Encounter for long-term (current) use of other medications Z79.899 ; Chronic atrial fibrillation I48.2 ; Encounter for immunization Z23 and Actinic keratoses L57.0 [facility] [place] [address] [facility] [address] [id number] [place] [id number] 14 Dec, 2015 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 and Encounter for immunization Z23 [facility] [place] [address] [place] [address] C [id number] [place] [id number] Nov, Hemangioma D18.00 and Actinic keratosis L57.0 [facility] [place] [address] [place] [address] [id number] [place] [id number] Nov, Chronic atrial fibrillation I48.2 ; intermediate current use of anticoagulant therapy Z79.01 and Skin lesions L98.9 [facility] [place] [address] [place] [address] [id number] [place] [id number] Oct, Elevated prostate specific antigen [PSA] R97.2 ; Mixed hyperlipidemia E78.2 and Essential (primary) hypertension I10 [facility] [place] [address] [place] [address] [id number] [place] [id number] August, [facility] [place] [address] [place] [address] [id number] [place] 5440[address] August, Encounter for long-term (current) use of other medications Z79.899 ; intermediate current use of anticoagulant therapy Z79.01 and Chronic atrial fibrillation I48.2 [facility] [place] [address] [place] [address] [id number] [place] 511[address]13 Jul, Unspecified atrial fibrillation I48.91 ; Encounter for long-term (current ) use of other medications Z79.899 and intermediate current use of anticoagulant therapy Z79.01 [facility] [place] [address] [place] [address] [id number] [place] 50785[address]56 Jun, Atrial fibrillation 427.31 ; Encounter for long-term (current) use of other medications Z79.899 and 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 [facility] [place] [address] [place] [address] C [id number] [place] [id number] Jun, Unspecified atrial fibrillation I48.91 ; Encounter for long-term (current ) use of other medications Z79.899 ; intermediate current use of anticoagulant therapy Z79.01 and Community acquired bacterial pneumonia J15.9 [facility] [place] [address] [place] [address] [id number] [place], [place] [id number] Jun, Community acquired bacterial pneumonia J15.9 [facility] [place] [address] [place] [address] [id number] [place], [place] [id number] May, Chronic atrial fibrillation I48.2 ; Encounter for long-term (current) use of other medications Z79.899 and intermediate current use of anticoagulant therapy Z79.01 [facility] [address] [place] [address] [id number] [place], [place] [id number] Apr, Elevated prostate specific antigen [PSA] R97.2 [facility] [address] [place] [address] [id number] [facility] [place] [id number] Feb, Chronic atrial fibrillation I48.2 ; intermediate current use of anticoagulant therapy Z79.01 and Encounter for long-term (current) use of other medications Z79.899 [facility] [place] [address] [place] [address] [id number] [place] [id number] Dec, Atrial fibrillation 427.31 and intermediate (current) use of anticoagulants V58.61 [facility] [place] [address] [place] [address] [id number] [place] [id number] Sep, [address] [id number] [place] [id number] Sep, Atrial fibrillation 427.31 ; Elevated PSA 790.93 ; Benign prostate hyperplasia 600.00 and Renal insufficiency 593.[address] [id number] [place] [id number] Sep, Atrial fibrillation 427.31 ; Essential hypertension, benign 401.1 ; Elevated prostate specific antigen (PSA) 790.93 and Mixed hyperlipidemia 272.2 [facility] [address] [facility] [id number] [place] 150[address] Jul, [facility] [address] [id number] [place] [address] Jul, [facility] [address] [facility] [id number] [place] 14337[address] Jun, [facility] [place] [address] [id number] [place] [id number] Jun, [facility] [place] [facility] [address] [facility] [id number] [place] [address] Apr, [facility] [place] [address] [id number] [place] [id number] Apr, [facility] [place] [address] [id number] [place] [id number] Mar, [facility] [place] [facility] [address] [facility] [id number] [place] [address] Mar, [facility] [place] [address] [facility] [address] [id number] [place] [id number] Mar, [facility] [place] [facility] [address] [facility] [id number] [facility] [place] Mar, [facility] [address] [facility] [id number] [place] [address] Feb, [facility] [place] [address] [facility] [address] [id number] [place] [id number] Feb, [facility] [address] [facility] [id number] [facility] [place] [address] Jan, [facility] [place] [address] [facility] [address] [id number] [place] 8[address]50[address] Jan, [facility] [address] [facility] [id number] [place] [address] Dec, [facility] [place] [address] [facility] [address] [id number] [place] [id number] Dec, [facility] [place] [facility] [address] [facility] [id number] [place] [address] Oct, [facility] [place] [address] [id number] [place] 964372985 Oct, [facility] [place] [address] [facility] [address] [id number] [place] [id number] Oct, [facility] [place] [facility] [address] [facility] [id number] [place]- [address] Oct, [facility] [place] [address] [id number] [place] [id number] Sep, [facility] [place] [facility] [address] [id number] [facility] [place] [address] Sep, [facility] [place] [facility] [address] [id number] [place] [address] August, [facility] [place] [address] [id number] [place] [id number] August, [facility] [place] [facility] [address] [id number] [place] [address] August, [facility] [place] [facility] [address] [id number] [place] [address] August, [facility] [place] [address] [id number] [place] [id number] August, [facility] [place] [address] [facility] [address] [id number] [place] [id number] August, [facility] [place] [facility] [address] [id number] [place] [address] August, [facility] [place] [address] [facility] [address] [id number] [place] [id number] Jul, [facility] [place] [facility] [address] [id number] [place] [address] Jul, [facility] [place] [address] [id number] [place] [id number] Jul, [facility] [place] [facility] [address] [id number] [place] [address] Jul, [facility] [place] [address] [id number] [place] [id number] May, [facility] [place] [facility] [address] [id number] [place] [address] May, [facility] [place] [address] [id number] [place] 970685659 Apr, [facility] [address] [facility] [id number] [place] [address] Apr, [facility] [place] [address] [facility] [address] [id number] [place] [id number] Mar, [facility] [address] [facility] [id number] [place] [address] Mar, [facility] [place] [address] [facility] [address] [id number] [place] [id number] Feb, [facility] [address] [facility] [id number] [place] [address] Feb, [facility] [address] [facility] [id number] [place] [address] Feb, [facility] [address] [facility] [id number] [place] [address] Feb, [facility] [place] [address] [facility] [address] [id number] [place] [id number] Feb, [facility] [place] [address] [facility] [address] [id number] [place] [id number] Feb, [facility] [place] [address] [facility] [address] [id number] [place] [id number] Jan, [facility] [address] [facility] [id number] [place] [address] Jan, [facility] [place] [address] [facility] [address] [id number] [place] [id number] Dec, [facility] [place] [address] [facility] [address] [id number] [place] [id number] Dec, IMMUNIZATIONS No Known Immunizations SOCIAL HISTORY Never Assessed REASON FOR VISIT Requests return call PLAN OF CARE VITAL SIGNS MEDICATIONS Unknown [...]
--- OUTSIDE RECORDS SUMMARY | 2018-06-27 07:18 | XMS REPORT ---
Author Author MERARY WISE [facility] e[employer]Works Address Unknown Phone Unavailable Care Team Providers Care Consulting Services Associate Name Role Phone MERARY WISE CP Unavailable Allergies, Adverse Reactions, Alerts Substance Reaction Event Type Sulfasalazine Info Not Available Drug Allergy Problems Problem Type Condition Code Onset Dates Condition Status Problem Acute pharyngitis 462 Active Problem Elevated prostate specific antigen (PSA) 790.93 Active Problem Mixed hyperlipidemia 272.2 Active Problem Acute upper respiratory infections of unspecified site 465.9 Active Problem Need for prophylactic vaccination and inoculation, Influenza V04.81 Active Problem Tear of medial cartilage or meniscus of knee, current 836.0 Active Problem Essential hypertension, benign 401.1 Active Problem Nocturia 788.43 Active Problem Atrial fibrillation 427.31 Active Problem Actinic keratosis 702.0 Active Assessment detention (current) use of anticoagulants V58.61 Active Assessment Atrial fibrillation 427.31 Active Problem Pain in joint, lower leg 719.46 Active Medications Medication Code System Code Instructions Start Date End Date Status Dosage Losartan Potassium-HCTZ [facility] 46497530281 100-25 TAKE ONE TABLET BY MOUTH ONCE DAILY Simvastatin [facility] 30022640043 20MG TAKE ONE TABLET BY MOUTH AT BEDTIME Warfarin Sodium [facility] 37576601391 6MG TAKE ONE TABLET BY MOUTH ONCE DAILY Lanoxin [facility] [address]-72 250 MCG August 25, 2013 TAKE 1 Tablet by Oral route 1 time per day Bisoprolol-Hydrochlorothiazide [facility] 24340226391 10/6.25MG TAKE ONE TABLET BY MOUTH ONCE DAILY Cialis [facility] 70952324880 5MG TAKE ONE TABLET BY MOUTH ONCE DAILY Zocor [facility] [address]-09 20 mg August 25, 2013 1 Tablet by Oral route 1 time per day at bedtime Efudex [facility] [address]-09 5 % June 22, 2014 1 neha by Topical route 2 times per day Claritin [facility] [address]-74 10 mg Feb 20, 2013 1 Tablet by Oral route 1 time per day PRN Doxazosin Mesylate [facility] [address]-24 4 MG Orally Once a day 1 tablet Procedures Procedure Coding System Code Date [facility] VISIT ESTABLISHED PATIENT CPT-4 G0467 Dec 30, 2014 Office Visit, Est Pt., Level 3 CPT-4 56095 Dec 30, 2014 PROTHROMBIN TIME CPT-4 48515 Dec 30, 2014 Vital Signs Date/Time: Dec 30, 2014 Temperature 98.3 F Weight 276 lbs Height 70 in BMI 39.60 Index Blood Pressure Diastolic 90 mmHg Blood Pressure Systolic 136 mmHg Cardiac Monitoring Heart Rate 66 bpm Results Name Result Date Reference Range Unit Abnormality Flag INR (IN HOUSE) Summary Purpose eClinicalWorks Submission
--- OUTSIDE RECORDS SUMMARY | 2018-06-27 07:18 | XMS REPORT ---
Author Author MERARY WISE [facility] [place] Address [address] [place] [address] Care Team Providers Care Freight Service Inspector Name Role Phone MERARY WISE Unavailable PROBLEMS Type Condition ICD9-CM Code LKW10-UX Code Onset Dates Condition Status SNOMED Code Problem Atrial fibrillation 427.31 Active 56475926 Problem Acute upper respiratory infections of unspecified site 465.9 Active 31462078 Problem Need for prophylactic vaccination and inoculation, Influenza V04.81 Active 996800327 Problem nursing home current use of anticoagulant therapy Z79.01 Active 263456700 Problem Chronic atrial fibrillation I48.2 Active 591858535 Problem Essential (primary) hypertension I10 Active 52913388 Problem Tear of medial cartilage or meniscus of knee, current 836.0 Active 061111761 Problem Elevated prostate specific antigen [PSA] R97.2 Active 199652230 Problem Mixed hyperlipidemia E78.2 Active 190283395 Assessment Hemangioma D18.00 Nov, Active 977819108 Problem Pain in joint, lower leg 719.46 Active 366944270 Problem Elevated prostate specific antigen (PSA) 790.93 Active 323577308 Problem Nocturia 788.43 Active 223363848 Problem Acute pharyngitis 462 Active 008068573 Problem Essential hypertension, benign 401.1 Active 7345484 Problem Mixed hyperlipidemia 272.2 Active 932042423 Problem Actinic keratosis 702.0 Active 011284974 ALLERGIES Substance Reaction Event Type Date Status Sulfasalazine Unknown Drug Allergy Nov, Active SOCIAL HISTORY No smoking Hx information available PLAN OF CARE VITAL SIGNS Height 70 in 2015-12-08 Weight 274.8 lbs 2015-12-08 Heart Rate 66 bpm 2015-12-08 Respiratory Rate 18 2015-12-08 BMI 39.43 kg/m2 2015-12-08 Blood pressure systolic 156 mmHg 2015-12-08 Blood pressure diastolic 92 mmHg 2015-12-08 MEDICATIONS Medication Instructions Dosage Frequency Start Date End Date Duration Status Zocor 20 mg 1 Tablet by Oral route 1 time per day at bedtime August, Active Doxazosin Mesylate 4MG Orally Once a day 1 tablet 24h 30 Active Efudex 5 % 1 neha by Topical route 2 times per day Jun, Active Simvastatin 20MG TAKE ONE TABLET BY MOUTH AT BEDTIME 90 Active Cialis 5MG TAKE ONE TABLET BY MOUTH ONCE DAILY 30 Active Lanoxin 250 MCG TAKE 1 Tablet by Oral route 1 time per day August, 90 days Active Losartan Potassium-HCTZ 100-25 TAKE ONE TABLET BY MOUTH ONCE DAILY 90 Active Claritin 10 mg 1 Tablet by Oral route 1 time per day PRN Feb, Active Bisoprolol-Hydrochlorothiazide 10/6.25MG TAKE ONE TABLET BY MOUTH ONCE DAILY 90 Active Warfarin Sodium 6MG TAKE ONE TABLET BY MOUTH ONCE DAILY 90 Active RESULTS Name Result Date Reference Range PATHOLOGY REPORT 2015-12-08 . . . . . . . . PDF Report 2015-12-08 PDF Report1 [facility] PROCEDURES Procedure Date Ordered Related Diagnosis Body Site EXC BENIGN LEISON 1.1-2 cm (specify location) 2015-12-08 N/A CRYOTHERAPY OF SKIN 2015-12-08 N/A [facility] VISIT ESTABLISHED PATIENT Dec 08, 2015 EXC TR-EXT B9 ROSANNA 1.1-2 CM Dec 08, 2015 CRYOTHERAPY OF SKIN Dec 08, 2015 Office Visit, Est Pt., Level 3 Dec 08, 2015 IMMUNIZATIONS No Known Immunizations
--- OUTSIDE RECORDS SUMMARY | 2018-06-27 07:18 | XMS REPORT ---
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 Active 212927543 Problem Elevated prostate specific antigen [PSA] R97.2 Active 171415400 Problem Persistent atrial fibrillation I48.1 Active 358659584 Problem Chronic atrial fibrillation I48.2 Active 551934898 ALLERGIES No Information SOCIAL HISTORY Never Assessed PLAN OF CARE VITAL SIGNS MEDICATIONS Medication Instructions Dosage Frequency Start Date End Date Duration Status Bisoprolol-Hydrochlorothiazide 10-6.25 mg Orally Once a day TAKE ONE TABLET BY MOUTH ONCE DAILY 24h Active RESULTS No Results PROCEDURES No Known procedures IMMUNIZATIONS No Known Immunizations MEDICAL (GENERAL) HISTORY [...]
--- OUTSIDE RECORDS SUMMARY | 2018-06-27 07:19 | XMS REPORT ---
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 Active 233598548 Problem Elevated prostate specific antigen [PSA] R97.2 Active 607815171 Problem Persistent atrial fibrillation I48.1 Active 855898262 Problem Chronic atrial fibrillation I48.2 Active 943798762 ALLERGIES Substance Reaction Event Type Date Status Sulfasalazine Unknown Drug Allergy August, Active SOCIAL HISTORY Never Assessed PLAN OF CARE Activity Details Follow Up 4 Weeks Reason: VITAL SIGNS Height 70 in 2016-08-16 Weight 280.6 lbs 2016-08-16 Temperature 98.1 degrees Fahrenheit 2016-08-16 Heart Rate 64 bpm 2016-08-16 Respiratory Rate 16 2016-08-16 BMI 40.26 kg/m2 2016-08-16 Blood pressure systolic 122 mmHg 2016-08-16 Blood pressure diastolic 80 mmHg 2016-08-16 MEDICATIONS Medication Instructions Dosage Frequency Start Date End Date Duration Status Zithromax Tri-Jamaal 500 MG Orally Once a day 1 TAB 24h 03 days Active Zocor 20 mg 1 Tablet by Oral route 1 time per day at bedtime August, Active Cialis 5MG TAKE ONE TABLET BY MOUTH ONCE DAILY 30 Active Simvastatin 20MG TAKE ONE TABLET BY MOUTH AT BEDTIME 90 Active Losartan Potassium-HCTZ 100-25 TAKE ONE TABLET BY MOUTH ONCE DAILY 90 Active Doxazosin Mesylate 4MG Orally Once a day 1 tablet 24h 90 Active Efudex 5 % 1 neha by Topical route 2 times per day Jun, Active Bisoprolol-Hydrochlorothiazide 10-6.25 mg Orally Once a day TAKE ONE TABLET BY MOUTH ONCE DAILY 24h Active Warfarin Sodium 6MG TAKE ONE TABLET BY MOUTH ONCE DAILY 90 Active Lanoxin 250 MCG TAKE 1 Tablet by Oral route 1 time per day August, 90 days Active Claritin 10 mg 1 Tablet by Oral route 1 time per day PRN Feb, Active RESULTS Name Result Date Reference Range INR (IN HOUSE) INR 2.6 1.10 - 3.30 PREVIOUS INR 2.5 CURRENT COUMADIN DOSE 6mg QD NEW COUMADIN DOSE Lot # [id number] Exp date 01/2017 Xray : Chest (IN HOUSE) 2016-08-16 PROCEDURES Procedure Date Ordered Result Body Site PROTHROMBIN TIME August 16, 2016 CHEST X-RAY August 16, 2016 [facility] VISIT ESTABLISHED PATIENT August 16, 2016 IMMUNIZATIONS No Known Immunizations MEDICAL (GENERAL) [...]
--- OUTSIDE RECORDS SUMMARY | 2018-06-27 07:19 | XMS REPORT ---
Author Author KASIE CHAPMAN [facility] Address [address] [place] [address] Care Team Providers Care Curb Attendant Name Role Phone KASIE CHAPMAN Unavailable PROBLEMS Type Condition ICD9-CM Code JJM03-KR Code Onset Dates Condition Status SNOMED Code Problem half-way current use of anticoagulant therapy Z79.01 Active 425721145 Problem Persistent atrial fibrillation I48.1 Active 961013743 Problem Chronic atrial fibrillation I48.2 Active 172352685 Problem Mixed hyperlipidemia E78.2 Active 199226092 Problem Essential (primary) hypertension I10 Active 94020787 Problem Elevated prostate specific antigen [PSA] R97.2 Active 308958418 Problem 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 859298415 Problem Unspecified atrial fibrillation I48.91 Active 10903608 Problem Hyperlipidemia LDL goal <100 E78.5 Active 73448956 Problem Essential hypertension I10 Active 05848165 Problem Obstructive sleep apnea G47.33 Active 71412800 Problem Chronic obstructive pulmonary disease, unspecified COPD type J44.9 Active 51190892 ALLERGIES Substance Reaction Event Type Date Status Sulfasalazine Unknown Drug Allergy Mar, Active ENCOUNTERS Encounter Location Date Diagnosis [facility] [place] [id number] [place] [id number] Sep, 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 C [id number] [place] [id number] Sep, [facility] [place] [address] [place] [address] C [id number] [place] [id number] August, half-way current use of anticoagulant therapy Z79.01 [facility] [place] [address] 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 [facility] [place] [address] [facility] [address] [id number] [place] [address] Jul, 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 [facility] [place] [address] [facility] [address] [id number] [place] [id number] Jul, 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 [facility] [place] [address] [facility] [address] [id number] [place] [id number] Jul, 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 [facility] [place] [address] [facility] [address] [id number] [place] [address] Jul, 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 [facility] [place] [address] [facility] [address] [id number] [place] [id number] Jul, Chronic obstructive pulmonary disease, unspecified COPD type J44.9 [facility] [place] [address] [facility] [address] [id number] [place] [id number] Jul, 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 [facility] [place] [address] [facility] [address] [id number] [place] [id number] Jul, [facility] [place] [address] [facility] [address] [id number] [place] [id number] Jul, Bleeding from mouth K13.79 and Lip lesion K13.0 [facility] [place] [address] [facility] [address] [id number] [place] [address] Jul, half-way current use of anticoagulant therapy Z79.01 [facility] [place] [address] [facility] [address] [id number] [place] [id number] Jul, 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 [facility] [place] [address] [facility] [address] [id number] [place] [id number] Jul, [facility] [address] [place] [address] [address] [id number] [place] [id number] Jun, Unspecified atrial fibrillation I48.91 [facility] [address] [place] [address] C [id number] [place] [id number] May, Unspecified atrial fibrillation I48.[address] [id number] [place], [place] [id number] May, Chronic atrial fibrillation I48.2 ; BMI 40.0-44.9, adult Z68.41 ; Hyperlipidemia LDL goal <100 E78.5 ; half-way current use of anticoagulant therapy Z79.01 ; Essential hypertension I10 ; Obstructive sleep apnea G47.33 ; Elevated PSA, less than 10 ng/ml R97.20 and Chronic obstructive pulmonary disease, unspecified COPD type J44.[address] [id number] [place] [id number] Apr, [address] [id number] [place] [id number] Apr, Elevated PSA R97.20 [facility] [address] [id number] [place] [address] 15 Apr, 2017 Mild persistent asthma, unspecified whether complicated J45.[address] [id number] [place], [place] [id number] Apr, Chronic obstructive pulmonary disease, unspecified COPD type J44.9 [facility] [address] [place] [address] [address] [id number] [place] [id number] Mar, [facility] [place] [id number] [place] [id number] Mar, [facility] [place] [address] [place] [address] [address] [id number] [place] [id number] Mar, [facility] [address] [place] [address] [address] [id number] [place] [id number] Mar, Chronic atrial fibrillation I48.2 ; Hyperlipidemia LDL goal <100 E78.5 ; Essential hypertension I10 ; Obstructive sleep apnea G47.33 ; Has stopped breathing R06.81 ; Elevated PSA, less than 10 ng/ml R97.20 ; Chronic obstructive pulmonary disease, unspecified COPD type J44.9 ; Encounter for immunization Z23 and 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 [facility] [place] [address] [place] [address] C [id number] [place] [id number] Feb, [facility] [place] [address] [place] [address] C [id number] [place] [id number] Dec, [facility] [place] [address] [place] [address] C [id number] [place] [id number] Nov, Chronic atrial fibrillation I48.2 and Elevated PSA R97.20 [facility] [place] [address] [place] [address] C [id number] [place] [id number] Nov, Chronic atrial fibrillation I48.2 ; Hyperlipidemia LDL goal <100 E78.5 ; Essential hypertension I10 ; Dyspnea on exertion R06.09 and Elevated PSA R97.20 [facility] [place] [address] [place] [address] [id number] [place] [id number] August, 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 ; Bronchitis J40 and Persistent atrial fibrillation I48.1 [facility] [place] [address] [place] [address] C [id number] [place] [id number] August, [facility] [place] [address] [place] [address] C [id number] [place] [id number] May, half-way current use of anticoagulant therapy Z79.01 ; Encounter for long -term (current) use of other medications Z79.899 ; Fever, unspecified fever cause R50.9 and Influenza A J10.1 [facility] [place] [address] [place] [address] C [id number] [place] [id number] Apr, [facility] [place] [address] [place] [address] C [id number] [place] [id number] Apr, Elevated prostate specific antigen [PSA] R97.20 [facility] [place] [address] [place] [address] C [id number] [place] [id number] Feb, [facility] [place] [address] [place] [address] C [id number] [place] [id number] Feb, 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 C [id number] [place] [id number] Nov, Hemangioma D18.00 and Actinic keratosis L57.0 [facility] [place] [address] [place] [address] C [id number] [place] [id number] Nov, Chronic atrial fibrillation I48.2 ; half-way current use of anticoagulant therapy Z79.01 and Skin lesions L98.9 [facility] [place] [address] [place] [address] C [id number] [place] [id number] Oct, Elevated prostate specific antigen [PSA] R97.2 ; Mixed hyperlipidemia E78.2 and Essential (primary) hypertension I10 [facility] [place] [address] [place] [address] C [id number] [place] [id number] August, [facility] [place] [address] [place] [address] C [id number] [place] [id number] August, Encounter for long-term (current) use of other medications Z79.899 ; half-way current use of anticoagulant therapy Z79.01 and Chronic atrial fibrillation I48.2 [facility] [place] [address] [place] [address] C [id number] [place] [id number] Jul, Unspecified atrial fibrillation I48.91 ; Encounter for long-term (current ) use of other medications Z79.899 and 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 and Community acquired bacterial pneumonia J15.[address] [id number] [place] [id number] Jun, Community acquired bacterial pneumonia J15.9 [facility] [address] [place] [address] C [id number] [place] [id number] May, Chronic atrial fibrillation I48.2 ; Encounter for long-term (current) use of other medications Z79.899 and half-way current use of anticoagulant therapy Z79.[address] [id number] [place] [address] Apr, Elevated prostate specific antigen [PSA] R97.[address] [id number] [place] [id number] Feb, Chronic atrial fibrillation I48.2 ; 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 and Encounter for long-term (current) use of other medications Z79.[address] [id number] [place] 9[address]47[address] Dec, Atrial fibrillation 427.31 and local company intermodal truck driver (current) use of anticoagulants V58.[address] [id number] [place] [id number] Sep, [address] [id number] [place] [address] Sep, Atrial fibrillation 427.31 ; Elevated PSA 790.93 ; Benign prostate hyperplasia 600.00 and Renal insufficiency 593.[address] [id number] [place] [address] Sep, Atrial fibrillation 427.31 ; Essential hypertension, benign 401.1 ; Elevated prostate specific antigen (PSA) 790.93 and Mixed hyperlipidemia 272.2 [facility] [address] [facility] [id number] [place] [address] Jul, [facility] [address] [facility] [id number] [place] [address] Jul, [facility] [address] [id number] [facility] [place] [address] Jun, [facility] [place] [address] [facility] [address] [id number] [place] [id number] Jun, [facility] [place] [facility] [address] [facility] [id number] [facility] [place] [address] Apr, [facility] [place] [address] [facility] [address] [id number] [place] [id number] Apr, [facility] [place] [address] [facility] [address] [id number] [place] [id number] Mar, [facility] [place] [facility] [address] [facility] [id number] [place] [address] Mar, [facility] [place] [address] [facility] [address] [id number] [place] [id number] Mar, [facility] [place] [facility] [address] [facility] [id number] [place] [address] Mar, [facility] [place] [facility] [address] [facility] [id number] [facility] [place] [address] Feb, [facility] [place] [address] [facility] [address] [id number] [place] [id number] Feb, [facility] [place] [facility] [address] [facility] [id number] [facility] [place] [address] Jan, [facility] [place] [address] [facility] [address] [id number] [place] [id number] Jan, [facility] [place] [facility] [address] [facility] [id number] [facility] [place] [address] Dec, [facility] [place] [address] [facility] [address] [id number] [place] [id number] Dec, [facility] [place] [facility] [address] [facility] [id number] [facility] Oct, [facility] [place] [address] [facility] [address] [id number] [place] [address] Oct, [facility] [place] [address] [id number] [place] [id number] Oct, [facility] [place] [facility] [address] [id number] [facility] [place] [address] Oct, [facility] [place] [address] [facility] [address] [id number] [place] [id number] Sep, [facility] [place] [facility] [address] [id number] [place] Sep, [facility] [place] [facility] [address] [id number] [facility] [place] [address] August, [facility] [place] [address] [id number] [place] [id number] August, [facility] [place] [facility] [address] [facility] [id number] [place] [address] August, [facility] [place] [facility] [address] [id number] [place] [address] August, [facility] [place] [address] [id number] [place] [id number] August, [facility] [place] [address] [id number] [place] [id number] August, [facility] [place] [facility] [address] [id number] [facility] [place] [address] August, [facility] [place] [address] [id number] [place] [id number] Jul, [facility] [address] [id number] [place] [address] Jul, [facility] [place] [address] [id number] [place] [id number] Jul, [facility] [address] [id number] [place] [address] Jul, [facility] [place] [address] [id number] [place] [id number] May, [facility] [address] [facility] [id number] [place] [address] May, [facility] [place] [address] [facility] [address] [id number] [place] [id number] Apr, [facility] [address] [facility] [id number] [place] [address] Apr, [facility] [place] [address] [facility] [address] [id number] [place] [id number] Mar, [facility] [address] [facility] [id number] [place] [address] Mar, [facility] [place] [address] [facility] [address] [id number] [place] [id number] Feb, [facility] [address] [facility] [id number] [place] [address] Feb, [facility] [address] [facility] [id number] [place] [address] Feb, [facility] [address] [facility] [id number] [place] [address] Feb, [facility] [place] [address] [facility] [address] [id number] [place] [id number] Feb, [facility] [place] [address] [facility] [address] [id number] [place] [id number] Feb, [facility] [place] [address] [facility] [address] [id number] [place] [id number] Jan, [facility] [address] [facility] [id number] [facility] [place] [address] Jan, [facility] [place] [address] [facility] [address] [id number] [place] [id number] Dec, [facility] [place] [address] [facility] [address] [id number] [place] [id number] Dec, IMMUNIZATIONS Vaccine Route Administration Date Status FLUARIX QUAD (3 AND UP) 2017 IM Intramuscular Mar 16, 2017 Administered SOCIAL HISTORY Never Assessed REASON FOR VISIT review test,inr,flu shot, INR - 2.9 PLAN OF CARE Activity Details Follow Up 2 Months Reason: VITAL SIGNS MEDICATIONS Medication Instructions Dosage Frequency Start Date End Date Duration Status Claritin 10 mg 1 Tablet by Oral route 1 time per day PRN Feb, Active Efudex 5 % 1 neha by Topical route 2 times per day Jun, Active Lanoxin 250 MCG TAKE 1 Tablet by Oral route 1 time per day August, 90 days Active Doxazosin Mesylate 4MG Orally Once a day 1 tablet 24h 90 Active Cialis 5MG TAKE ONE TABLET BY MOUTH ONCE DAILY 30 Active Simvastatin 20MG TAKE ONE TABLET BY MOUTH AT BEDTIME 90 Active Zithromax Tri-Jamaal 500 MG Orally Once a day 1 TAB 24h 03 days Active Warfarin Sodium 6MG TAKE ONE TABLET BY MOUTH ONCE DAILY 90 Active Bisoprolol-Hydrochlorothiazide 10/6.25MG Orally Once a day TAKE ONE TABLET BY MOUTH ONCE DAILY 24h 90 Active Losartan Potassium-HCTZ 100-25 TAKE ONE TABLET BY MOUTH ONCE DAILY 90 Active Zocor 20 mg 1 Tablet by Oral route 1 time per day at bedtime August, Active Asmanex HFA 200 MCG/ACT Inhalation Twice a day 1 puff 12h Mar, Active Lanoxin 0.25MG Orally Once a day TAKE 1 Tablet 24h Active RESULTS Name Result Date Reference Range INR (IN HOUSE) 2017-03-16 INR 2.9 1.10 - 3.30 PREVIOUS INR 2.6 CURRENT COUMADIN DOSE NEW COUMADIN DOSE Lot # [id number] Exp date 02/06/2018 PROCEDURES Procedure Date Ordered Result Body Site FLUARIX QUAD (3 AND UP) 2016Mar 16, 2017 SINGLE IMMUNIZATION ADMIN Mar 16, 2017 [facility] VISIT ESTABLISHED PATIENT Mar 16, 2017 PROTHROMBIN TIME Mar 16, 2017 INSTRUCTIONS MEDICATIONS ADMINISTERED No Known [...]
--- OUTSIDE RECORDS SUMMARY | 2018-06-27 07:19 | XMS REPORT ---
Author Author MERARY WISE Organization [employer] Address Unknown Phone Unavailable Care Team Providers Care Leather Goods I Assembler Name Role Phone MERARY WISE CP Unavailable Allergies No Known Allergies Problems Problem Type Condition Code Onset Dates Condition Status Problem Acute pharyngitis 462 Active Problem Elevated prostate specific antigen (PSA) 790.93 Active Problem Mixed hyperlipidemia 272.2 Active Assessment Elevated prostate specific antigen [PSA] R97.2 Active Problem Pain in joint, lower leg 719.46 Active Problem Acute upper respiratory infections of unspecified site 465.9 Active Problem Need for prophylactic vaccination and inoculation, Influenza V04.81 Active Problem Tear of medial cartilage or meniscus of knee, current 836.0 Active Problem Essential hypertension, benign 401.1 Active Problem Nocturia 788.43 Active Problem Atrial fibrillation 427.31 Active Problem Actinic keratosis 702.0 Active Medications No Known Medications Procedures Procedure Coding System Code Date VENIPUNCT, ROUTINE* CPT-4 10770 Apr 28, 2015 ASSAY OF PSA, TOTAL CPT-4 24492 Apr 28, 2015 Results Name Result Date Reference Range Unit Abnormality Flag PSA ----Prostate Specific Ag, Serum 6.1 [id number] 0.0-4.0 ng/mL H ROUTINE VENIPUNCTURE Summary Purpose [employer] Submission
--- OUTSIDE RECORDS SUMMARY | 2018-06-27 07:19 | XMS REPORT ---
Author [facility] Address [address] [place] [address] Care Team Providers Care Track Watchman Name Role Phone MERARY WISE Unavailable PROBLEMS Type Condition ICD9-CM Code PNY75-XI Code Onset Dates Condition Status SNOMED Code Problem alf current use of anticoagulant therapy Z79.01 Active 402255032 Problem Persistent atrial fibrillation I48.1 Active 924229149 Problem Chronic atrial fibrillation I48.2 Active 134763280 Problem Mixed hyperlipidemia E78.2 Active 964201874 Problem Essential (primary) hypertension I10 Active 55613075 Problem Elevated prostate specific antigen [PSA] R97.2 Active 518732834 Problem 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 854976251 Problem Unspecified atrial fibrillation I48.91 Active 39918164 Problem Hyperlipidemia LDL goal <100 E78.5 Active 23633496 Problem Essential hypertension I10 Active 05968426 Problem Obstructive sleep apnea G47.33 Active 14145831 Problem Chronic obstructive pulmonary disease, unspecified COPD type J44.9 Active 90721334 ALLERGIES No Information ENCOUNTERS Encounter Location Date Diagnosis [facility] [place] [address] [facility] [address] [id number] [place] [id number] Sep, [facility] [place] [address] [facility] [address] [id number] [place] [address] August, alf current use of anticoagulant therapy Z79.01 [facility] [place] [address] [id number] [place], [place] [id number] August, [facility] [place] [address] [id number] [place] [address] August, alf current use of anticoagulant therapy Z79.01 [facility] [place] [address] [id number] [place] [address] August, 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 [facility] [place] [address] [id number] [place] [address] Jul, alf current use of anticoagulant therapy Z79.01 [facility] [place] [address] [facility] [address] [id number] [place] [address] Jul, alf current use of anticoagulant therapy Z79.01 [facility] [place] [address] [facility] [address] [id number] [place] [address] Jul, alf current use of anticoagulant therapy Z79.01 [facility] [place] [address] [facility] [address] [id number] [place] [id number] 16 Jul, 2017 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 [facility] [place] [address] [place] [address] [address] [id number] [place] [address] Jul, 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 [facility] [place] [address] [place] [address] [address] [id number] [place] [address] Jul, Chronic obstructive pulmonary disease, unspecified COPD type J44.9 [facility] [place] [address] [place] [address] [address] [id number] [place] [id number] Jul, alf current use of anticoagulant therapy Z79.01 [facility] [place] [address] [place] [address] [address] [id number] [place] [address] Jul, [facility] [place] [address] [place] [address] [address] [id number] [place] [address] Jul, Bleeding from mouth K13.79 and Lip lesion K13.0 [facility] [place] [address] [place] [address] [address] [id number] [place] [address]7668 Jul, 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 [facility] [place] [address] [facility] [address] [id number] [place] [address] Jul, alf current use of anticoagulant therapy Z79.01 [facility] [place] [address] [facility] [address] [id number] [place] [address] Jul, [facility] [place] [address] [facility] [address] [id number] [place] [address] Jun, Unspecified atrial fibrillation I48.91 [facility] [place] [address] [place] [address] C [id number] [place] [id number] 13 May, 2017 Unspecified atrial fibrillation I48.91 [facility] [place] [address] [place] [address] C [id number] [place] [id number] 12 May, 2017 Chronic atrial fibrillation I48.2 ; BMI 40.0-44.9, adult Z68.41 ; Hyperlipidemia LDL goal <100 E78.5 ; alf current use of anticoagulant therapy Z79.01 ; Essential hypertension I10 ; Obstructive sleep apnea G47.33 ; Elevated PSA, less than 10 ng/ml R97.20 and Chronic obstructive pulmonary disease, unspecified COPD type J44.9 [facility] [place] [address] [place] [address] C [id number] [place] [id number] Apr, [facility] [place] [address] [place] [address] [id number] [place] 9[address]47[address] Apr, Elevated PSA R97.20 [facility] [address] [id number] [place] [address] Apr, Mild persistent asthma, unspecified whether complicated J45.30 [facility] [place] [address] [place] [address] C [id number] [place] [address] Apr, Chronic obstructive pulmonary disease, unspecified COPD type J44.9 [facility] [place] [address] [place] [address] C [id number] [place] [id number] Mar, [facility] [place] [address] [place] [address] [id number] [place] [address] Mar, [facility] [place] [address] [place] [address] C [id number] [place] [id number] Mar, [facility] [place] [address] [place] [address] C [id number] [place] [address] Mar, Chronic atrial fibrillation I48.2 ; Hyperlipidemia LDL goal <100 E78.5 ; Essential hypertension I10 ; Obstructive sleep apnea G47.33 ; Has stopped breathing R06.81 ; Elevated PSA, less than 10 ng/ml R97.20 ; Chronic obstructive pulmonary disease, unspecified COPD type J44.9 ; Encounter for immunization Z23 and alf current use of anticoagulant therapy Z79.01 [facility] [place] [address] [place] [address] [id number] [place] [address] Feb, [facility] [place] [address] [place] [address] [id number] [place] [address]98[address] Dec, [facility] [place] [address] [place] [address] [id number] [place] [address] Nov, Chronic atrial fibrillation I48.2 and Elevated PSA R97.20 [facility] [place] [address] [place] [address] [id number] [place] [address] Nov, Chronic atrial fibrillation I48.2 ; Hyperlipidemia LDL goal <100 E78.5 ; Essential hypertension I10 ; Dyspnea on exertion R06.09 and Elevated PSA R97.20 [facility] [address] [place] [address] [id number] [place] 928112[address]48 August, alf current use of anticoagulant therapy Z79.01 ; Bronchitis J40 and Persistent atrial fibrillation I48.1 [facility] [place] [address] [place] [address] [id number] [place] [id number] August, [facility] [place] [address] [place] [address] [id number] [place] [address]89[address] May, alf current use of anticoagulant therapy Z79.01 ; Encounter for long -term (current) use of other medications Z79.899 ; Fever, unspecified fever cause R50.9 and Influenza A J10.[address] [id number] [place] [address] Apr, [facility] [place] [address] [place] [address] [id number] [place] 3144[address]101 Apr, Elevated prostate specific antigen [PSA] R97.20 [facility] [place] [address] [place] [address] [id number] [place] [id number] Feb, [facility] [place] [address] [place] [address] [id number] [place] 525231510 Feb, 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 ; Atrial fibrillation 427.31 ; Encounter for long-term (current) use of other medications Z79.899 ; Chronic atrial fibrillation I48.2 ; Encounter for immunization Z23 and Actinic keratoses L57.0 [facility] [place] [address] [facility] [address] [id number] [place] [id number] 14 Dec, 2015 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 and Encounter for immunization Z23 [facility] [place] [address] [place] [address] C [id number] [place] [id number] Nov, Hemangioma D18.00 and Actinic keratosis L57.0 [facility] [place] [address] [place] [address] [id number] [place] [id number] Nov, Chronic atrial fibrillation I48.2 ; alf current use of anticoagulant therapy Z79.01 and Skin lesions L98.9 [facility] [place] [address] [place] [address] C [id number] [place] [id number] Oct, Elevated prostate specific antigen [PSA] R97.2 ; Mixed hyperlipidemia E78.2 and Essential (primary) hypertension I10 [facility] [place] [address] [place] [address] [id number] [place] [id number] August, [facility] [place] [address] [place] [address] [id number] [place] [address]29[address] August, Encounter for long-term (current) use of other medications Z79.899 ; alf current use of anticoagulant therapy Z79.01 and Chronic atrial fibrillation I48.2 [facility] [place] [address] [place] [address] [id number] [place] 11036[address]73 Jul, Unspecified atrial fibrillation I48.91 ; Encounter for long-term (current ) use of other medications Z79.899 and 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 [facility] [place] [address] [place] [address] [id number] [place] [address] Jun, Atrial fibrillation 427.31 ; Encounter for long-term (current) use of other medications Z79.899 and alf current use of anticoagulant therapy Z79.01 [facility] [place] [address] [place] [address] C [id number] [place] 917274727 Jun, Unspecified atrial fibrillation I48.91 ; Encounter for long-term (current ) use of other medications Z79.899 ; 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 and Community acquired bacterial pneumonia J15.9 [facility] [place] [address] [place] [address] [id number] [place] [id number] Jun, Community acquired bacterial pneumonia J15.9 [facility] [place] [address] [place] [address] [id number] [place] 697009674 May, Chronic atrial fibrillation I48.2 ; Encounter for long-term (current) use of other medications Z79.899 and 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 [facility] [place] [address] [place] [address] [id number] [place] [id number] Apr, Elevated prostate specific antigen [PSA] R97.2 [facility] [address] [place] [address] [id number] [place] [id number] Feb, Chronic atrial fibrillation I48.2 ; alf current use of anticoagulant therapy Z79.01 and Encounter for long-term (current) use of other medications Z79.899 [facility] [place] [address] [place] [address] [id number] [place] [id number] Dec, Atrial fibrillation 427.31 and termite control servicer (current) use of anticoagulants V58.61 [facility] [id number] [place] [address] Sep, [address] [id number] [place] 110[address]326 Sep, Atrial fibrillation 427.31 ; Elevated PSA 790.93 ; Benign prostate hyperplasia 600.00 and Renal insufficiency 593.[address] [id number] [place] 832567566 Sep, Atrial fibrillation 427.31 ; Essential hypertension, benign 401.1 ; Elevated prostate specific antigen (PSA) 790.93 and Mixed hyperlipidemia 272.2 [facility] [address] [facility] [address] [id number] [address] Jul, [facility] [address] [address] Jul, [facility] [address] [place] [id number] [address] Jun, [facility] [place] [address] [id number] [place] [address]48[address] Jun, [facility] [place] [facility] [address] [facility] [address] [id number] [place] [address] Apr, [facility] [place] [address] [id number] [place] [address]87816[address] Apr, [facility] [place] [address] [facility] [address] [id number] [place] [id number] Mar, [facility] [address] [facility] [address] [id number] [place] [address] Mar, [facility] [place] [address] [facility] [address] [id number] [place] [id number] Mar, [facility] [address] [facility] [address] [id number] [place] [address] Mar, [facility] [address] [facility] [address] [id number] [place] [address] Feb, [facility] [place] [address] [facility] [address] [id number] [place] 938608651 Feb, [facility] [address] [facility] [address] [id number] [place] [address] Jan, [facility] [place] [address] [facility] [address] [id number] [place] 7347466[address] Jan, [facility] [address] [facility] [address] [id number] [place] [address] Dec, [facility] [place] [address] [facility] [address] [id number] [place] 501350205 Dec, [facility] [place] [facility] [address] [facility] [address] [id number] [place] [address] Oct, [facility] [place] [address] [id number] [place] [id number] Oct, [facility] [place] [address] [facility] [address] [id number] [place] 606[address] Oct, [facility] [address] [facility] [address] [id number] [place] [address] Oct, [facility] [place] [address] [id number] [place] [id number] Sep, [facility] [place] [facility] [address] [id number] [place] [address] Sep, [facility] [place] [facility] [address] [id number] [place] [address] August, [facility] [place] [address] [id number] [place] [address] August, [facility] [place] [facility] [address] [id number] [place] [address] August, [facility] [place] [facility] [address] [id number] [place] [address] August, [facility] [place] [address] [id number] [place] 212945898 August, [facility] [place] [address] [id number] [place] 14[address]41[address] August, [facility] [place] [facility] [address] [id number] [place] [address] August, [facility] [place] [address] [facility] [address] [id number] [place] [address]88[address] Jul, [facility] [place] [facility] [address] [id number] [place] [address] Jul, [facility] [place] [address] [id number] [place] 374[address] Jul, [facility] [place] [facility] [address] [id number] [place] [address] Jul, [facility] [place] [address] [id number] [place] [address]217[address] May, [facility] [place] [facility] [address] [id number] [place] [address] May, [facility] [place] [address] [id number] [place] [id number] Apr, [facility] [address] [facility] [address] [id number] [place] [address] Apr, [facility] [place] [address] [facility] [address] [id number] [place] [id number] Mar, [facility] [address] [facility] [address] [id number] [place] [address] Mar, [facility] [place] [address] [facility] [address] [id number] [place] [id number] Feb, [facility] [address] [facility] [address] [id number] [place] [address] Feb, [facility] [address] [facility] [address] [id number] [address] Feb, [facility] [address] [facility] [address] [id number] [place] [address] Feb, [facility] [place] [address] [facility] [address] [id number] [place] [id number] Feb, [facility] [place] [address] [facility] [address] [id number] [place] [address]32 Feb, [facility] [place] [address] [facility] [address] [id number] [place] [address] Jan, [facility] [address] [facility] [address] [id number] [place] [address] Jan, [facility] [place] [address] [facility] [address] [id number] [place] 899604634 Dec, [facility] [place] [address] [facility] [address] [id number] [place] 799155802 Dec, IMMUNIZATIONS No Known Immunizations SOCIAL HISTORY Never Assessed REASON FOR VISIT PLAN OF CARE VITAL SIGNS MEDICATIONS Medication Instructions Dosage Frequency Start Date End Date Duration Status Zostavax 32862 UNT/0.65ML as directed Mar, Active RESULTS No Results PROCEDURES No Known [...]
--- OUTSIDE RECORDS SUMMARY | 2018-06-27 07:19 | XMS REPORT ---
Author Author MERARY WISE [facility] [place] Address [address] [place] [address] Care Team Providers Care Continuity Person Name Role Phone MERARY WISE Unavailable PROBLEMS Type Condition ICD9-CM Code OHP81-JF Code Onset Dates Condition Status SNOMED Code Problem Atrial fibrillation 427.31 Active 15931687 Problem Acute upper respiratory infections of unspecified site 465.9 Active 55163146 Problem Need for prophylactic vaccination and inoculation, Influenza V04.81 Active 460776270 Problem longterm current use of anticoagulant therapy Z79.01 Active 766671738 Problem Chronic atrial fibrillation I48.2 Active 990035263 Problem Essential (primary) hypertension I10 Active 47368410 Problem Tear of medial cartilage or meniscus of knee, current 836.0 Active 514934283 Problem Elevated prostate specific antigen [PSA] R97.2 Active 516704876 Problem Mixed hyperlipidemia E78.2 Active 648578843 Assessment 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 Dec, Active 352737125 Problem Pain in joint, lower leg 719.46 Active 147061153 Assessment Encounter for immunization Z23 14 Dec, 2015 Active 501485831 Problem Elevated prostate specific antigen (PSA) 790.93 Active 460606245 Problem Nocturia 788.43 Active 707418512 Problem Acute pharyngitis 462 Active 494929256 Problem Essential hypertension, benign 401.1 Active 9547813 Problem Mixed hyperlipidemia 272.2 Active 625956261 Problem Actinic keratosis 702.0 Active 310288140 ALLERGIES Substance Reaction Event Type Date Status Sulfasalazine Unknown Drug Allergy Dec, Active SOCIAL HISTORY No smoking Hx information available PLAN OF CARE VITAL SIGNS Height 70 in 2015-12-22 Weight 280.2 lbs 2015-12-22 Heart Rate 68 bpm 2015-12-22 Respiratory Rate 18 2015-12-22 BMI 40.20 kg/m2 2015-12-22 Blood pressure systolic 134 mmHg 2015-12-22 Blood pressure diastolic 82 mmHg 2015-12-22 MEDICATIONS Medication Instructions Dosage Frequency Start Date End Date Duration Status Efudex 5 % 1 neha by Topical route 2 times per day Jun, Active Cialis 5MG TAKE ONE TABLET BY MOUTH ONCE DAILY 30 Active Bisoprolol-Hydrochlorothiazide 10/6.25MG TAKE ONE TABLET BY MOUTH ONCE DAILY 90 Active Claritin 10 mg 1 Tablet by Oral route 1 time per day PRN Feb, Active Lanoxin 250 MCG TAKE 1 Tablet by Oral route 1 time per day August, 90 days Active Doxazosin Mesylate 4MG Orally Once a day 1 tablet 24h 90 Active Warfarin Sodium 6MG TAKE ONE TABLET BY MOUTH ONCE DAILY 90 Active Losartan Potassium-HCTZ 100-25 TAKE ONE TABLET BY MOUTH ONCE DAILY 90 Active Simvastatin 20MG TAKE ONE TABLET BY MOUTH AT BEDTIME 90 Active Zocor 20 mg 1 Tablet by Oral route 1 time per day at bedtime August, Active RESULTS No Results PROCEDURES Procedure Date Ordered Related Diagnosis Body Site [facility] VISIT ESTABLISHED PATIENT Dec 22, 2015 Office Visit, Est Pt., Level 2 Dec 22, 2015 SINGLE IMMUNIZATION ADMIN Dec 22, 2015 FLUZONE HIGH DOSE 65 AND UP 2015Dec 22, 2015 IMMUNIZATIONS Vaccine Route Administration Date Status FLUZONE HIGH DOSE 65 AND UP 2015 IM Intramuscular Dec 22, 2015 Administered
--- OUTSIDE RECORDS SUMMARY | 2018-06-27 07:19 | XMS REPORT ---
Author Author VALERIA DICKENS Organization [employer] Address Unknown Phone Unavailable Care Team Providers Care Stratigrapher Name Role Phone VALERIA DICKENS CP Unavailable Allergies No Known Allergies Problems [...] infections of unspecified site 465.9 Active Assessment Essential (primary) hypertension I10 Active Problem Pain in joint, lower leg 719.46 Active Problem Acute pharyngitis 462 Active Assessment Mixed hyperlipidemia E78.2 Active Problem Mixed hyperlipidemia 272.2 Active Assessment Elevated prostate specific antigen [PSA] R97.2 Active Problem Elevated prostate specific antigen (PSA) 790.93 Active Medications No Known Medications Procedures Procedure Coding System Code Date VENIPUNCT, ROUTINE* CPT-4 20120 October 19, 2015 [facility] NOB[facility] October 19, 2015 Results No Known Results Summary Purpose [employer] Submission
--- OUTSIDE RECORDS SUMMARY | 2018-06-27 07:20 | XMS REPORT ---
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 Name Role Phone CHRISTOSKASIE JONES Unavailable PROBLEMS Type Condition ICD9-CM Code JRO89-WT Code Onset Dates Condition Status SNOMED Code Problem assisted current use of anticoagulant therapy Z79.01 Active 400904823 Problem Persistent atrial fibrillation I48.1 Active 708258633 Problem Chronic atrial fibrillation I48.2 Active 161071304 Problem Mixed hyperlipidemia E78.2 Active 304643453 Problem Essential (primary) hypertension I10 Active 19021587 Problem Elevated prostate specific antigen [PSA] R97.2 Active 439236637 Problem 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 730249875 Problem Unspecified atrial fibrillation I48.91 Active 86114254 Problem Hyperlipidemia LDL goal <100 E78.5 Active 93796383 Problem Essential hypertension I10 Active 46246375 Problem Obstructive sleep apnea G47.33 Active 22073987 Problem Chronic obstructive pulmonary disease, unspecified COPD type J44.9 Active 96923359 ALLERGIES No Information ENCOUNTERS Encounter Location Date Diagnosis [address] C [id number] [place] [id number] 18 Sep, 2017 assisted current use of anticoagulant therapy Z79.01 [facility] [place] [address] [place] [address] C [id number] [place] [id number] 15 Sep, 2017 assisted current use of anticoagulant therapy Z79.01 [facility] [place] [address] [place] [address] C [id number] [place] [id number] 13 Sep, 2017 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 [facility] [address] [place] [address] C [id number] [place] [id number] 11 Sep, 2017 Chronic obstructive pulmonary disease, unspecified COPD type J44.9 [facility] [address] [place] [address] C [id number] [place] [id number] Sep, 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 [facility] [place] [address] [id number] [place] [id number] Sep, 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 [facility] [place] [address] [id number] [place] [id number] Sep, [facility] [place] [address] [facility] [address] [id number] [place] [address] August, assisted current use of anticoagulant therapy Z79.01 [facility] [place] [address] [id number] [place] [id number] August, [facility] [place] [address] [facility] [address] [id number] [place] [id number] August, assisted current use of anticoagulant therapy Z79.01 [facility] [place] [address] [facility] [address] [id number] [place] [address] August, assisted current use of anticoagulant therapy Z79.01 [facility] [place] [address] [facility] [address] [id number] [place] [id number] Jul, 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 [facility] [place] [address] [facility] [address] [id number] [place] [address] Jul, assisted current use of anticoagulant therapy Z79.01 [facility] [place] [address] [facility] [address] [id number] [place] [id number] Jul, 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 [facility] [place] [address] [facility] [address] [id number] [place] [address] Jul, assisted current use of anticoagulant therapy Z79.01 [facility] [place] [address] [facility] [address] [id number] [place] [id number] 13 Jul, 2017 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 [facility] [place] [address] [id number] [place] [address] Jul, Chronic obstructive pulmonary disease, unspecified COPD type J44.9 [facility] [place] [address] [id number] [place] [address] Jul, 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 [facility] [place] [address] [facility] [address] [id number] [place] [id number] Jul, [facility] [place] [address] [place] [address] C [id number] [place] [address] Jul, Bleeding from mouth K13.79 and Lip lesion K13.0 [facility] [place] [address] [place] [address] C [id number] [place] 027[address] Jul, assisted current use of anticoagulant therapy Z79.01 [facility] [place] [address] [facility] [address] [id number] [place] 8[address]1266 Jul, assisted current use of anticoagulant therapy Z79.01 [facility] [place] [address] [facility] [address] [id number] [place] [id number] Jul, [facility] [place] [address] [place] [address] C [id number] [place] [id number] Jun, Unspecified atrial fibrillation I48.91 [facility] [place] [address] [place] [address] C [id number] [place] [id number] May, Unspecified atrial fibrillation I48.91 [facility] [place] [address] [place] [address] C [id number] [place] [id number] May, Chronic atrial fibrillation I48.2 ; BMI 40.0-44.9, adult Z68.41 ; Hyperlipidemia LDL goal <100 E78.5 ; 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 ; Essential hypertension I10 ; Obstructive sleep apnea G47.33 ; Elevated PSA, less than 10 ng/ml R97.20 and Chronic obstructive pulmonary disease, unspecified COPD type J44.9 [facility] [place] [address] [place] [address] C [id number] [place] [id number] Apr, [facility] [place] [address] [place] [address] C [id number] [place] 894[address]68[address] Apr, Elevated PSA R97.20 [facility] [address] [id number] [place] [address] Apr, Mild persistent asthma, unspecified whether complicated J45.30 [facility] [place] [address] [place] [address] C [id number] [place] [id number] Apr, Chronic obstructive pulmonary disease, unspecified COPD type J44.9 [facility] [place] [address] [facility] [address] [id number] [place] [id number] Mar, [facility] [place] [address] [facility] [address] [id number] [place] [address] Mar, [facility] [place] [address] [facility] [address] [id number] [place] [address] Mar, [facility] [place] [address] [facility] [address] [id number] [place] [address] Mar, Chronic atrial fibrillation I48.2 ; Hyperlipidemia LDL goal <100 E78.5 ; Essential hypertension I10 ; Obstructive sleep apnea G47.33 ; Has stopped breathing R06.81 ; Elevated PSA, less than 10 ng/ml R97.20 ; Chronic obstructive pulmonary disease, unspecified COPD type J44.9 ; Encounter for immunization Z23 and assisted current use of anticoagulant therapy Z79.01 [facility] [place] [address] [place] [address] [address] [id number] [place] [id number] Feb, [facility] [place] [address] [place] [address] [address] [id number] [place] [id number] Dec, [facility] [place] [address] [place] [address] [address] [id number] [place] [address] Nov, Chronic atrial fibrillation I48.2 and Elevated PSA R97.20 [facility] [place] [address] [place] [address] [address] [id number] [place] [id number] Nov, Chronic atrial fibrillation I48.2 ; Hyperlipidemia LDL goal <100 E78.5 ; Essential hypertension I10 ; Dyspnea on exertion R06.09 and Elevated PSA R97.20 [facility] [place] [address] [facility] [address] [id number] [place] 616[address]67 August, 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 ; Bronchitis J40 and Persistent atrial fibrillation I48.1 [facility] [place] [address] [facility] [address] [id number] [place] [id number] August, [facility] [place] [address] [facility] [address] [id number] [place] 32[address] May, 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 ; Encounter for long -term (current) use of other medications Z79.899 ; Fever, unspecified fever cause R50.9 and Influenza A J10.1 [facility] [place] [address] [place] [address] C [id number] [place] [address] Apr, [facility] [place] [address] [place] [address] C [id number] [place] 216[address] Apr, Elevated prostate specific antigen [PSA] R97.20 [facility] [place] [address] [place] [address] C [id number] [place] [id number] Feb, [facility] [place] [address] [place] [address] C [id number] [place] 849[address] Feb, assisted current use of anticoagulant therapy Z79.01 ; Atrial fibrillation 427.31 ; Encounter for long-term (current) use of other medications Z79.899 ; Chronic atrial fibrillation I48.2 ; Encounter for immunization Z23 and Actinic keratoses L57.0 [facility] [place] [address] [place] [address] C [id number] [place] 17816[address] Dec, 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 and Encounter for immunization Z23 [facility] [place] [address] [place] [address] C [id number] [place] 850645747 Nov, Hemangioma D18.00 and Actinic keratosis L57.0 [facility] [place] [address] [place] [address] C [id number] [place] 51667[address] Nov, Chronic atrial fibrillation I48.2 ; 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 and Skin lesions L98.9 [facility] [place] [address] [place] [address] C [id number] [place] [id number] Oct, Elevated prostate specific antigen [PSA] R97.2 ; Mixed hyperlipidemia E78.2 and Essential (primary) hypertension I10 [facility] [place] [address] [place] [address] C [id number] [place] [id number] August, [facility] [place] [address] [place] [address] C [id number] [place] 758658644 August, Encounter for long-term (current) use of other medications Z79.899 ; assisted current use of anticoagulant therapy Z79.01 and Chronic atrial fibrillation I48.2 [facility] [place] [address] [facility] [address] [id number] [place] 520[address]395 Jul, Unspecified atrial fibrillation I48.91 ; Encounter for long-term (current ) use of other medications Z79.899 and assisted current use of anticoagulant therapy Z79.01 [facility] [place] [address] [facility] [address] [id number] [place] 896[address] Jun, Atrial fibrillation 427.31 ; Encounter for long-term (current) use of other medications Z79.899 and assisted current use of anticoagulant therapy Z79.01 [facility] [place] [address] [facility] [address] [id number] [place] 6942[address] Jun, Unspecified atrial fibrillation I48.91 ; Encounter for long-term (current ) use of other medications Z79.899 ; assisted current use of anticoagulant therapy Z79.01 and Community acquired bacterial pneumonia J15.9 [facility] [place] [address] [facility] [address] [id number] [place] 897194123 Jun, Community acquired bacterial pneumonia J15.9 [facility] [place] [address] [facility] C [id number] [place] 890[address]0079 May, Chronic atrial fibrillation I48.2 ; Encounter for long-term (current) use of other medications Z79.899 and 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 [facility] [place] [address] [facility] [address] [id number] [place] 664267070 Apr, Elevated prostate specific antigen [PSA] R97.2 [facility] [place] [address] [facility] C [id number] [place] 2301[address]441 Feb, Chronic atrial fibrillation I48.2 ; assisted current use of anticoagulant therapy Z79.01 and Encounter for long-term (current) use of other medications Z79.899 [facility] [place] [address] [facility] [address] [id number] [place] 195596705 Dec, Atrial fibrillation 427.31 and assisted (current) use of anticoagulants V58.61 [facility] [place] [address] [id number] [place] 4264[address]891 Sep, [facility] [place] [address] [id number] [place] 237975082 Sep, Atrial fibrillation 427.31 ; Elevated PSA 790.93 ; Benign prostate hyperplasia 600.00 and Renal insufficiency 593.9 [facility] [place] [address] [id number] [place] 2427424[address] Sep, Atrial fibrillation 427.31 ; Essential hypertension, benign 401.1 ; Elevated prostate specific antigen (PSA) 790.93 and Mixed hyperlipidemia 272.2 [facility] [address] [facility] [id number] [address] Jul, [facility] [address] [facility] [id number] [address] Jul, [facility] [address] [facility] [id number], [place] [address] 16 Jun, 2014 [facility] [place] [address] [facility] [address] [id number] [place] [id number] Jun, [facility] [address] [facility] [id number] [address] Apr, [facility] [place] [address] [facility] [address] [id number] [place] [id number] Apr, [facility] [place] [address] [facility] [address] [id number] [place] [id number] Mar, [facility] [address] [facility] [id number] [address] Mar, [facility] [place] [address] [id number] [place] [id number] Mar, [facility] [address] [facility] [id number], [place] [address] Mar, [facility] [address] [facility] [id number] [address] Feb, [facility] [place] [address] [id number] [place] [id number] Feb, [facility] [place] [facility] [address] [id number] [place] [address] Jan, [facility] [place] [address] [facility] [address] [id number] [place] [id number] Jan, [facility] [place] [facility] [address] [id number] [place] [address] Dec, [facility] [place] [address] [facility] [address] [id number] [place] [id number] Dec, [facility] [place] [facility] [address] [id number] [place] [address] Oct, [facility] [place] [address] [facility] [address] [id number] [place] 724557194 Oct, [facility] [place] [address] [facility] [address] [id number] [place] [id number] Oct, [facility] [place] [facility] [address] [id number] [place] [address] Oct, [facility] [place] [address] [facility] [address] [id number] [place] 604192859 Sep, [facility] [place] [facility] [address] [facility] [id number] [facility] [place] [address] Sep, [facility] [place] [facility] [address] [facility] [id number] [place] [address] August, [facility] [place] [address] [facility] [address] [id number] [place] [id number] August, [facility] [place] [facility] [address] [facility] [id number] [place] [address]- [address] August, [facility] [place] [facility] [address] [id number] [place] [address]- [address] August, [facility] [place] [address] [facility] [address] [id number] [place] [id number] August, [facility] [place] [address] [facility] [address] [id number] [place] [id number] August, [facility] [address] [id number] [place] [address] August, [facility] [place] [address] [id number] [place] [id number] Jul, [facility] [address] [id number] [place] [address] Jul, [facility] [place] [address] [id number] [place] 823927482 Jul, [facility] [address] [id number] [place] [address]- 2017 Jul, [facility] [place] [address] [id number] [place] [id number] May, [facility] [address] [id number] [place] [address] May, [facility] [place] [address] [facility] [address] [id number] [place] [id number] Apr, [facility] [place] [facility] [address] [id number] [facility] [place] [address] Apr, [facility] [place] [address] [facility] [address] [id number] [place] [id number] Mar, [facility] [address] [id number] [facility] [place] [address] Mar, [facility] [place] [address] [facility] [address] [id number] [place] [address] Feb, [facility] [place] [facility] [address] [id number] [place] [address] Feb, [facility] [place] [facility] [address] [id number] [place] [address] Feb, [facility] [place] [facility] [address] [id number] [place] [address]- [address] Feb, [facility] [place] [address] [facility] [address] [id number] [place] 15[address] Feb, [facility] [place] [address] [facility] [address] [id number] [place] [id number] Feb, [facility] [place] [address] [facility] [address] [id number] [place] [id number] Jan, [facility] [address] [facility] [id number] [place] [address] Jan, [facility] [place] [address] [facility] [address] [id number] [place] [id number] Dec, [facility] [place] [address] [facility] [address] [id number] [place] [id number] Dec, IMMUNIZATIONS No Known Immunizations SOCIAL HISTORY Never Assessed REASON FOR VISIT Refill request PLAN OF CARE VITAL SIGNS MEDICATIONS Medication Instructions Dosage Frequency Start Date End Date Duration Status Asmanex HFA 200 MCG/ACT Inhalation Twice a day 1 puff 12h Mar, Active RESULTS No Results PROCEDURES No [...]
--- OUTSIDE RECORDS SUMMARY | 2018-06-27 07:20 | XMS REPORT ---
Author Author MERARY WISE [facility] [place] Address [address] [place] [address] Care Team Providers Care Electrical Inspector Name Role Phone MERARY WISE Unavailable PROBLEMS Type Condition ICD9-CM Code ENX79-LC Code Onset Dates Condition Status SNOMED Code Problem FDC current use of anticoagulant therapy Z79.01 Active 094480802 Problem Persistent atrial fibrillation I48.1 Active 440154047 Problem Chronic atrial fibrillation I48.2 Active 416663487 Problem Mixed hyperlipidemia E78.2 Active 077685881 Problem Essential (primary) hypertension I10 Active 12696199 Problem Elevated prostate specific antigen [PSA] R97.2 Active 765556091 Problem 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 661153711 Problem Unspecified atrial fibrillation I48.91 Active 64631167 Problem Hyperlipidemia LDL goal <100 E78.5 Active 16539682 Problem Essential hypertension I10 Active 89450134 Problem Obstructive sleep apnea G47.33 Active 80920845 Problem Chronic obstructive pulmonary disease, unspecified COPD type J44.9 Active 12847345 ALLERGIES No Information ENCOUNTERS Encounter Location Date Diagnosis [facility] [place] [address] [facility] [address] [id number] [place] [id number] August, [facility] [place] [address] [facility] [address] [id number] [place] [id number] Jul, FDC current use of anticoagulant therapy Z79.01 [facility] [place] [address] [id number] [facility] [place] [id number] Jul, 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 [facility] [place] [address] [id number] [place] [id number] Jul, 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 [facility] [place] [address] [id number] [place] [id number] Jul, FDC current use of anticoagulant therapy Z79.01 [facility] [place] [address] [facility] [address] [id number] [place] [id number] Jul, 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 [facility] [place] [address] [place] [address] C [id number] [place] [id number] Jul, Chronic obstructive pulmonary disease, unspecified COPD type J44.9 [facility] [place] [address] [place] [address] C [id number] [place] [id number] Jul, 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 [facility] [place] [address] [facility] [address] [id number] [place] [id number] Jul, [facility] [place] [address] [place] [address] C [id number] [place] [id number] Jul, Bleeding from mouth K13.79 and Lip lesion K13.0 [facility] [place] [address] [place] [address] C [id number] [place] [id number] Jul, 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 [facility] [place] [address] [place] [address] [address] [id number] [place] [id number] Jul, 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 [facility] [place] [address] [place] [address] C [id number] [place] [id number] Jul, [facility] [place] [address] [place] [address] C [id number] [place] [id number] Jun, Unspecified atrial fibrillation I48.91 [facility] [place] [address] [place] [address] C [id number] [place] [id number] May, Unspecified atrial fibrillation I48.91 [facility] [place] [address] [place] [address] C [id number] [place] [id number] May, Chronic atrial fibrillation I48.2 ; BMI 40.0-44.9, adult Z68.41 ; Hyperlipidemia LDL goal <100 E78.5 ; FDC current use of anticoagulant therapy Z79.01 ; Essential hypertension I10 ; Obstructive sleep apnea G47.33 ; Elevated PSA, less than 10 ng/ml R97.20 and Chronic obstructive pulmonary disease, unspecified COPD type J44.9 [facility] [place] [address] [place] [address] [address] [id number] [place] [id number] Apr, [facility] [place] [address] [facility] [address] [id number] [place] [id number] Apr, Elevated PSA R97.20 [facility] [address] [id number] [place] [address] Apr, Mild persistent asthma, unspecified whether complicated J45.30 [facility] [place] [address] [facility] [address] [id number] [place] [id number] Apr, Chronic obstructive pulmonary disease, unspecified COPD type J44.9 [facility] [place] [address] [place] [address] [address] [id number] [place] [id number] Mar, [facility] [place] [address] [place] [address] [address] [id number] [place] [id number] Mar, [facility] [place] [address] [place] [address] [address] [id number] [place] [id number] Mar, [facility] [place] [address] [place] [address] [address] [id number] [place] [id number] Mar, Chronic atrial fibrillation I48.2 ; Hyperlipidemia LDL goal <100 E78.5 ; Essential hypertension I10 ; Obstructive sleep apnea G47.33 ; Has stopped breathing R06.81 ; Elevated PSA, less than 10 ng/ml R97.20 ; Chronic obstructive pulmonary disease, unspecified COPD type J44.9 ; Encounter for immunization Z23 and 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 [facility] [place] [address] [place] [address] [address] [id number] [place] [id number] Feb, [facility] [place] [address] [place] [address] [address] [id number] [place] [id number] Dec, [facility] [place] [address] [place] [address] [address] [id number] [place] [id number] Nov, Chronic atrial fibrillation I48.2 and Elevated PSA R97.20 [facility] [place] [address] [place] [address] [address] [id number] [place] [id number] Nov, Chronic atrial fibrillation I48.2 ; Hyperlipidemia LDL goal <100 E78.5 ; Essential hypertension I10 ; Dyspnea on exertion R06.09 and Elevated PSA R97.20 [facility] [place] [address] [place] [address] C [id number] [place] [id number] August, 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 ; Bronchitis J40 and Persistent atrial fibrillation I48.1 [facility] [place] [address] [place] [address] C [id number] [place] [id number] August, [facility] [place] [address] [place] [address] C [id number] [place] [id number] May, FDC current use of anticoagulant therapy Z79.01 ; Encounter for long -term (current) use of other medications Z79.899 ; Fever, unspecified fever cause R50.9 and Influenza A J10.1 [facility] [place] [address] [place] [address] C [id number] [place] [id number] Apr, [facility] [place] [address] [place] [address] [id number] [place] [id number] Apr, Elevated prostate specific antigen [PSA] R97.20 [facility] [place] [address] [place] [address] C [id number] [place] [id number] Feb, [facility] [place] [address] [place] [address] C [id number] [place] 738[address]45[address] Feb, 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 ; Atrial fibrillation 427.31 ; Encounter for long-term (current) use of other medications Z79.899 ; Chronic atrial fibrillation I48.2 ; Encounter for immunization Z23 and Actinic keratoses L57.0 [facility] [place] [address] [place] [address] C [id number] [place] [id number] Dec, 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 and Encounter for immunization Z23 [facility] [place] [address] [place] [address] C [id number] [place] [id number] Nov, Hemangioma D18.00 and Actinic keratosis L57.0 [facility] [place] [address] [place] [address] C [id number] [place] [id number] Nov, Chronic atrial fibrillation I48.2 ; 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 and Skin lesions L98.9 [facility] [place] [address] [facility] [address] [id number] [place] [id number] Oct, Elevated prostate specific antigen [PSA] R97.2 ; Mixed hyperlipidemia E78.2 and Essential (primary) hypertension I10 [facility] [place] [address] [facility] [address] [id number] [place] [id number] August, [facility] [place] [address] [place] [address] [id number] [place] [id number] August, Encounter for long-term (current) use of other medications Z79.899 ; FDC current use of anticoagulant therapy Z79.01 and Chronic atrial fibrillation I48.2 [facility] [place] [address] [place] [address] [id number] [place] [id number] Jul, Unspecified atrial fibrillation I48.91 ; Encounter for long-term (current ) use of other medications Z79.899 and 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 [facility] [place] [address] [place] [address] [id number] [place] [id number] Jun, Atrial fibrillation 427.31 ; Encounter for long-term (current) use of other medications Z79.899 and 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 [facility] [place] [address] [place] [address] [id number] [place] [id number] Jun, Unspecified atrial fibrillation I48.91 ; Encounter for long-term (current ) use of other medications Z79.899 ; FDC current use of anticoagulant therapy Z79.01 and Community acquired bacterial pneumonia J15.9 [facility] [place] [address] [place] [address] [id number] [place] [id number] Jun, Community acquired bacterial pneumonia J15.9 [facility] [place] [address] [place] [address] C [id number] [place] [id number] May, Chronic atrial fibrillation I48.2 ; Encounter for long-term (current) use of other medications Z79.899 and FDC current use of anticoagulant therapy Z79.01 [facility] [place] [address] [facility] [address] [id number] [place] [id number] Apr, Elevated prostate specific antigen [PSA] R97.2 [facility] [place] [address] [facility] [address] [id number] [place] [id number] Feb, Chronic atrial fibrillation I48.2 ; FDC current use of anticoagulant therapy Z79.01 and Encounter for long-term (current) use of other medications Z79.899 [facility] [place] [address] [facility] [address] [id number] [place] [id number] 23 Dec, 2014 Atrial fibrillation 427.31 and FDC (current) use of anticoagulants V58.61 [facility] [place] [address] [facility] [address] [id number] [place] [id number] Sep, [facility] [place] [address] [facility] [address] [id number] [place] 076300537 Sep, Atrial fibrillation 427.31 ; Elevated PSA 790.93 ; Benign prostate hyperplasia 600.00 and Renal insufficiency 593.9 [facility] [place] [address] [facility] [id number] [place] [address]228177 Sep, Atrial fibrillation 427.31 ; Essential hypertension, benign 401.1 ; Elevated prostate specific antigen (PSA) 790.93 and Mixed hyperlipidemia 272.2 [facility] [address] [address] Jul, [facility] [address] [address] Jul, [facility] [address] [id number] [address] Jun, [facility] [address] [place] [address] [id number] [place] [id number] Jun, [facility] [address] [id number], [place] [address] Apr, [facility] [place] [address] [facility] [id number] [place] [id number] Apr, [facility] [place] [address] [place] [address] [id number] [place] [id number] Mar, [facility] [address] [id number] [address] Mar, [facility] [place] [address] [id number] [place] [id number] Mar, [facility] [address] [id number] [place] [address] Mar, [facility] [address] [id number] [place] [address] Feb, [facility] [place] [address] [id number] [place] [id number] Feb, [facility] [address] [id number] [place] [address] Jan, [facility] [place] [address] [id number] [place] [id number] Jan, [facility] [address] [id number] [place] [address] Dec, [facility] [place] [address] [id number] [place] [id number] Dec, [facility] [address] [id number] [place] [address] Oct, [facility] [place] [address] [id number] [place] [id number] Oct, [facility] [place] [address] [id number] [place] [id number] Oct, [facility] [place] [facility] [address] [id number] [facility] [place] [address] Oct, [facility] [place] [address] [id number] [place] [id number] Sep, [facility] [place] [facility] [address] [id number] [facility] [place] [address] Sep, [facility] [place] [facility] [address] [id number] [place] [address] August, [facility] [place] [address] [id number] [place] [id number] August, [facility] [address] [id number] [facility] [address] August, [facility] [place] [facility] [address] [id number] [place] [address] August, [facility] [place] [address] [facility] [address] [id number] [place] [id number] August, [facility] [place] [address] [id number] [place] [id number] August, [facility] [address] [facility] [id number] [place] [address] August, [facility] [place] [address] [facility] [address] [id number] [place] [id number] Jul, [facility] [address] [facility] [id number] [place] [address] Jul, [facility] [place] [address] [facility] [address] [id number] [place] [id number] Jul, [facility] [place] [facility] [address] [facility] [id number] [place] [address] Jul, [facility] [place] [address] [facility] [address] [id number] [place] [id number] May, [facility] [place] [facility] [address] [facility] [id number] [place] [address] May, [facility] [place] [address] [facility] [address] [id number] [place] [id number] Apr, [facility] [place] [facility] [address] [facility] [id number] [place] [address] Apr, [facility] [place] [address] [facility] [address] [id number] [place] [id number] Mar, [facility] [address] [facility] [id number] [place] [address] Mar, [facility] [place] [address] [facility] [address] [id number] [place] [id number] Feb, [facility] [place] [facility] [address] [facility] [id number] [place] [address] Feb, [facility] [address] [facility] [id number] [place] [address] Feb, [facility] [address] [facility] [id number] [place] [address] Feb, [facility] [place] [address] [facility] [address] [id number] [place] [id number] Feb, [facility] [place] [address] [facility] [address] [id number] [place] [id number] Feb, [facility] [place] [address] [facility] [address] [id number] [place] [id number] Jan, [facility] [address] [facility] [id number] [place] [address] Jan, [facility] [place] [address] [facility] [address] [id number] [place] [id number] Dec, [facility] [place] [address] [facility] [id number] [place] [id number] Dec, IMMUNIZATIONS No Known Immunizations SOCIAL HISTORY Never Assessed REASON FOR VISIT Lab (walk-in). Kwame PLAN OF CARE Activity Details Follow Up prn Reason: VITAL SIGNS MEDICATIONS Unknown Medications RESULTS Name Result Date Reference Range TSH 2016-11-17 TSH 3.910 0.450-4.500 CBC 2016-11-17 WBC 6.2 3.4-10.8 RBC 5.31 4.14-5.80 Hemoglobin 15.2 12.6-17.7 Hematocrit 47.3 37.5-51.0 MCV 89 79-97 MCH 28.6 26.6-33.0 MCHC 32.1 31.5-35.7 RDW 14.7 12.3-15.4 Platelets 128 150-379 Neutrophils 68 Lymphs 21 Monocytes 7 Eos 3 Basos 1 Neutrophils (Absolute) 4.3 1.4-7.0 Lymphs (Absolute) 1.3 0.7-3.1 Monocytes(Absolute) 0.4 0.1-0.9 Eos (Absolute) 0.2 0.0-0.4 Baso (Absolute) 0.0 0.0-0.2 Immature Granulocytes 0 Immature Grans (Abs) 0.0 0.0-0.1 PSA 2016-11-17 Prostate Specific Ag, Serum 6.2 0.0-4.0 LIPID PANEL 2016-11-17 Cholesterol, Total 121 100-199 Triglycerides 110 0-149 HDL Cholesterol 32 >39 VLDL Cholesterol Kaleb 22 5-40 LDL Cholesterol Calc 67 0-99 CMP 2016-11-17 Glucose, Serum 97 65-99 BUN 16 8-27 Creatinine, Serum 1.23 0.76-1.27 eGFR If NonAfricn Am 60 >59 eGFR If Africn Am 69 >59 BUN/Creatinine Ratio 13 10-24 Sodium, Serum 142 134-144 Potassium, Serum 3.9 3.5-5.2 Chloride, Serum 97 96-106 Carbon Dioxide, Total 27 18-29 Calcium, Serum 8.9 8.6-10.2 Protein, Total, Serum 7.1 6.0-8.5 Albumin, Serum 4.4 3.6-4.8 Globulin, Total 2.7 1.5-4.5 A/G Ratio 1.6 1.2-2.2 Bilirubin, Total 0.7 0.0-1.2 Alkaline Phosphatase, S 54 39-117 AST (SGOT) 27 0-40 ALT (SGPT) 17 0-44 PROCEDURES Procedure Date Ordered Result Body Site LAB [facility] Nov 17, 2016 VENIPUNCT, ROUTINE* Nov 17, 2016 INSTRUCTIONS MEDICATIONS ADMINISTERED No Known Medications MEDICAL [...]
--- OUTSIDE RECORDS SUMMARY | 2018-06-27 07:21 | XMS REPORT ---
Author Author MERARY WISE [facility] Address [address] [place] [address] Care Team Providers Care Computer Systems Software Architect Name Role Phone MERARY WISE Unavailable PROBLEMS Type Condition ICD9-CM Code GQW35-IL Code Onset Dates Condition Status SNOMED Code Problem Mixed hyperlipidemia 272.2 Active 116104230 Problem Essential (primary) hypertension I10 Active 94167666 Problem Mixed hyperlipidemia E78.2 Active 840062600 Problem Essential hypertension I10 Active 92614824 Problem Hyperlipidemia LDL goal <100 E78.5 Active 80275665 Problem residential current use of anticoagulant therapy Z79.01 Active 310195605 Problem Elevated prostate specific antigen [PSA] R97.2 Active 256176553 Problem Persistent atrial fibrillation I48.1 Active 009110846 Problem Chronic atrial fibrillation I48.2 Active 530925723 Problem Elevated prostate specific antigen (PSA) 790.93 Active 606918838 Problem Nocturia 788.43 Active 345379745 Problem Need for prophylactic vaccination and inoculation, Influenza V04.81 Active 832018700 Problem Tear of medial cartilage or meniscus of knee, current 836.0 Active 948370411 Problem Acute upper respiratory infections of unspecified site 465.9 Active 61231210 Problem Acute pharyngitis 462 Active 739191729 Problem Pain in joint, lower leg 719.46 Active 249093348 Problem Atrial fibrillation 427.31 Active 79449488 Problem Actinic keratosis 702.0 Active 762900247 Problem Essential hypertension, benign 401.1 Active 0325064 ALLERGIES No Information SOCIAL HISTORY Never Assessed PLAN OF CARE VITAL SIGNS MEDICATIONS Medication Instructions Dosage Frequency Start Date End Date Duration Status Lanoxin 250 MCG Orally Once a day TAKE 1 Tablet 24h August, Active RESULTS No Results PROCEDURES No Known [...]
--- OUTSIDE RECORDS SUMMARY | 2018-06-27 07:21 | XMS REPORT ---
Author Author MERARY WISE [facility] eClinicalWorks Address Unknown Phone Unavailable Care Team Providers Care Range Rider Name Role Phone MERARY WISE CP Unavailable [...] Active Problem Actinic keratosis 702.0 Active Assessment Encounter for long-term (current) use of other medications Z79.899 Active Assessment shelter current use of anticoagulant therapy Z79.01 Active Assessment Chronic atrial fibrillation I48.2 Active Problem Pain in joint, lower leg 719.46 Active Medications Medication Code System Code Instructions Start Date End Date Status Dosage Doxazosin Mesylate [facility] [address]-73 4 MG Orally Once a day 1 tablet Simvastatin [facility] 59279309766 20MG TAKE ONE TABLET BY MOUTH AT BEDTIME Lanoxin [facility] [address]-70 250 MCG August 25, 2013 TAKE 1 Tablet by Oral route 1 time per day Claritin [facility] [address]-59 10 mg Feb 20, 2013 1 Tablet by Oral route 1 time per day PRN Bisoprolol-Hydrochlorothiazide [facility] 81682628490 10/6.25MG TAKE ONE TABLET BY MOUTH ONCE DAILY Losartan Potassium-HCTZ [facility] 54898050211 100-25 TAKE ONE TABLET BY MOUTH ONCE DAILY Efudex [facility] [address]-37 5 % June 22, 2014 1 neha by Topical route 2 times per day Zocor [facility] [address]-59 20 mg August 25, 2013 1 Tablet by Oral route 1 time per day at bedtime Warfarin Sodium [facility] 74520999605 6MG TAKE ONE TABLET BY MOUTH ONCE DAILY Cialis [facility] 25920819241 5MG TAKE ONE TABLET BY MOUTH ONCE DAILY Procedures Procedure Coding System Code Date [facility] VISIT ESTABLISHED PATIENT CPT-4 G0467 Feb 10, 2015 Office Visit, Est Pt., Level 3 CPT-4 39298 Feb 10, 2015 PROTHROMBIN TIME CPT-4 37456 Feb 10, 2015 Vital Signs Date/Time: Feb 10, 2015 Temperature 98.8 F Weight 284 lbs Height 70 in BMI 40.75 Index Blood Pressure Diastolic 80 mmHg Blood Pressure Systolic 130 mmHg Cardiac Monitoring Heart Rate 64 bpm Results Name Result Date Reference Range Unit Abnormality Flag INR (IN HOUSE) Summary Purpose eClinicalWorks Submission
--- OUTSIDE RECORDS SUMMARY | 2018-06-27 07:21 | XMS REPORT | Continuity of Care Document ---
Author Author [facility] Organization [facility] Address Unknown Phone Unavailable Allergies Active Description Code Type Severity Reaction Onset Reported/Identified Relationship to Patient Clinical Status Yes MISC-FOOD MISC_FA Unknown N/A Yes Sulfa (Sulfonamide Antibiotics) 491 Unknown N/A Yes Sulfasalazine Drug Allergy N/ A N/A 02/20/2013 Yes Sulfa (Sulfonamide Antibiotics) [id number] Drug Allergy Unknown FROM CHILDHOOD 06/20/2018 Medications Medication Packaging Start Date Stop Date Route Dosage Sig ACETAMINOPHEN 11/09/2016 11/09/2016 Q4HPRN SODIUM CHLORIDE 0.9 % 11/09/2016 11/09/2016 PRNIV ALUM-MAG HYDROXIDE-SIMETH 201611/09/2016 PRN MAGNESIUM HYDROXIDE 11/09/2016 11/09/2016 PRN NITROGLYCERIN 11/09/2016 11/09/2016 PRNCP ASPIRIN 11/09/201606/2016 ONCE ASPIRIN 11/09/201606/2016 0700 Problems Date Dx Coded Attending Type Code Diagnosis Diagnosed By 02/20/2013 MERARY WISE MD 427.31 ATRIAL FIBRILLATION 02/20/2013 MERARY WISE MD V04.81 FLU SHOT 02/20/2013 MERARY WISE MD 427.31 ATRIAL FIBRILLATION 02/20/2013 MERARY WISE MD V04.81 FLU SHOT 02/20/2013 MERARY WISE MD 427.31 ATRIAL FIBRILLATION 02/20/2013 MERARY WISE MD V04.81 FLU SHOT 02/20/2013 MERARY WISE MD 427.31 ATRIAL FIBRILLATION 02/20/2013 MERARY WISE MD V04.81 FLU SHOT 02/20/2013 MERARY WISE MD 427.31 ATRIAL FIBRILLATION 02/20/2013 MERARY WISE MD V04.81 FLU SHOT 02/20/2013 MERARY WISE MD 427.31 ATRIAL FIBRILLATION 02/20/2013 MERARY WISE MD V04.81 FLU SHOT 02/20/2013 SINGER PERALTA, MERARY Demarco 427.31 ATRIAL FIBRILLATION 02/20/2013 SINGER PERALTA, MERARY Demarco V04.81 FLU SHOT 02/20/2013 SINGER PERALTA, MERARY Demarco 427.31 ATRIAL FIBRILLATION 02/20/2013 SINGER PERALTA, MERARY Demarco V04.81 FLU SHOT 02/20/2013 SINGER PERALTA, MERARY Demarco 427.31 ATRIAL FIBRILLATION 02/20/2013 SINGER PERALTA, MERARY Demarco V04.81 FLU SHOT 02/20/2013 SINGER PERALTA, MERARY Demarco 427.31 ATRIAL FIBRILLATION 02/20/2013 SINGER PERALTA, MERARY Demarco V04.81 FLU SHOT 02/20/2013 SINGER PERALTA, MERARY Demarco 427.31 ATRIAL FIBRILLATION 02/20/2013 MERARY WISE MD V04.81 FLU SHOT 08/25/2013 MERARY WISE MD 272.2 MIXED HYPERLIPIDEMIA 08/25/2013 MERARY WISE MD 401.1 BENIGN ESSENTIAL HYPERTENSION 08/25/2013 MERARY WISE MD 788.43 NOCTURIA 08/25/2013 MERARY WISE MD 790.93 ELEVATED PROSTATE SPECIFIC ANTIGEN [PSA] 08/25/2013 MERARY WISE MD 272.2 MIXED HYPERLIPIDEMIA 08/25/2013 MERARY WISE MD 401.1 BENIGN ESSENTIAL HYPERTENSION 08/25/2013 MERARY WISE MD 788.43 NOCTURIA 08/25/2013 MERARY WISE MD 790.93 ELEVATED PROSTATE SPECIFIC ANTIGEN [PSA] 08/25/2013 MERARY WISE MD 272.2 MIXED HYPERLIPIDEMIA 08/25/2013 MERARY WISE MD 401.1 BENIGN ESSENTIAL HYPERTENSION 08/25/2013 MERARY WISE MD 788.43 NOCTURIA 08/25/2013 MERARY WISE MD 790.93 ELEVATED PROSTATE SPECIFIC ANTIGEN [PSA] 08/25/2013 MERARY WISE MD 272.2 MIXED HYPERLIPIDEMIA 08/25/2013 MERARY WISE MD 401.1 BENIGN ESSENTIAL HYPERTENSION 08/25/2013 MERARY WISE MD 788.43 NOCTURIA 08/25/2013 MERARY WISE MD 790.93 ELEVATED PROSTATE SPECIFIC ANTIGEN [PSA] 08/25/2013 MERARY WISE MD 272.2 MIXED HYPERLIPIDEMIA 08/25/2013 MERARY WISE MD 401.1 BENIGN ESSENTIAL HYPERTENSION 08/25/2013 MERARY WISE MD 788.43 NOCTURIA 08/25/2013 MERARY WISE MD 790.93 ELEVATED PROSTATE SPECIFIC ANTIGEN [PSA] 08/25/2013 MERARY WISE MD 272.2 MIXED HYPERLIPIDEMIA 08/25/2013 MERARY WISE MD 401.1 BENIGN ESSENTIAL HYPERTENSION 08/25/2013 MERARY WISE MD 788.43 NOCTURIA 08/25/2013 MERARY WISE MD 790.93 ELEVATED PROSTATE SPECIFIC ANTIGEN [PSA] 08/25/2013 MERARY WISE MD 272.2 MIXED HYPERLIPIDEMIA 08/25/2013 MERARY WISE MD 401.1 BENIGN ESSENTIAL HYPERTENSION 08/25/2013 MERARY WISE MD 788.43 NOCTURIA 08/25/2013 MERARY WISE MD 790.93 ELEVATED PROSTATE SPECIFIC ANTIGEN [PSA] 08/25/2013 MERARY WISE MD 272.2 MIXED HYPERLIPIDEMIA 08/25/2013 MERARY WISE MD 401.1 BENIGN ESSENTIAL HYPERTENSION 08/25/2013 MERARY WISE MD 788.43 NOCTURIA 08/25/2013 MERARY WISE MD 790.93 ELEVATED PROSTATE SPECIFIC ANTIGEN [PSA] 10/01/2013 MERARY WISE MD 719.46 PAIN KNEE 10/01/2013 MERARY WISE MD 719.46 PAIN KNEE 10/01/2013 MERARY WISE MD 719.46 PAIN KNEE 10/01/2013 MERARY WISE MD 719.46 PAIN KNEE 10/01/2013 MERARY WISE MD 719.46 PAIN KNEE 10/01/2013 MERARY WISE MD 719.46 PAIN KNEE 10/01/2013 MERARY WISE MD 719.46 PAIN KNEE 10/16/2013 MERARY WISE MD 836.0 TEAR OF MEDIAL CARTILAGE OR MENISCUS OF KNEE CURRENT 10/16/2013 MERARY WISE MD 836.0 TEAR OF MEDIAL CARTILAGE OR MENISCUS OF KNEE CURRENT 10/16/2013 MERARY WISE MD 836.0 TEAR OF MEDIAL CARTILAGE OR MENISCUS OF KNEE CURRENT 10/16/2013 MERARY WISE MD 836.0 TEAR OF MEDIAL CARTILAGE OR MENISCUS OF KNEE CURRENT 10/16/2013 MERARY WISE MD 836.0 TEAR OF MEDIAL CARTILAGE OR MENISCUS OF KNEE CURRENT 10/16/2013 MERARY WISE MD 836.0 TEAR OF MEDIAL CARTILAGE OR MENISCUS OF KNEE CURRENT 10/16/2013 MERARY WISE MD 836.0 TEAR OF MEDIAL CARTILAGE OR MENISCUS OF KNEE CURRENT 10/30/2013 MERARY WISE MD 462 PHARYNGITIS ACUTE 10/30/2013 MERARY WISE MD 462 PHARYNGITIS ACUTE 10/30/2013 MERARY WISE MD 462 PHARYNGITIS ACUTE 10/30/2013 MERARY WISE MD 462 PHARYNGITIS ACUTE 10/30/2013 MERARY WISE MD 462 PHARYNGITIS ACUTE 10/30/2013 MERARY WISE MD 462 PHARYNGITIS ACUTE 10/30/2013 MERARY WISE MD 462 PHARYNGITIS ACUTE 03/20/2014 MERARY WISE MD 465.9 UPPER RESPIRATORY INFECTION 03/20/2014 MERARY WISE MD 465.9 UPPER RESPIRATORY INFECTION 03/20/2014 MERARY WISE MD 465.9 UPPER RESPIRATORY INFECTION 12/02/2016 JESSICA ACUNA M S E78.2 MIXED HYPERLIPIDEMIA [facility]2016 JESSICA ACUNA S I10 ESSENTIAL (PRIMARY) HYPERTENSION [facility] 12/02/2016 JESSICA ACUNA M S I48.2 CHRONIC ATRIAL FIBRILLATION [facility] 12/02/2016 ARMAND JESSICA M S R06.09 OTHER FORMS OF DYSPNEA [facility] 12/02/2016 ARMAND JESSICA M P R07.89 OTHER CHEST PAIN [facility] 12/02/2016 ARMAND JESSICA M A R07.9 CHEST PAIN, UNSPECIFIED [facility] 12/02/2016 ARMANDJESSICA M S R53.83 OTHER FATIGUE [facility] 12/02/2016 ARMAND JESSICA M S 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 [facility] 12/02/2016 JESSICA ACUNA S Z79.82 OPERATING THEATRE TECHNICIAN (CURRENT) USE OF ASPIRIN JESSICA ACUNA 12/02/2016 JESSICA ACUNA S Z79.899 OTHER PRISON (CURRENT) DRUG THERAPY JESSICA ACUNA 06/24/2018 QUINTNE PERALTA, CHARITO Hardwick Ot 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, UNSPECIFIED 06/24/2018 CHARITO SHIPLEY MD, Ot I48.91 UNSPECIFIED ATRIAL FIBRILLATION 06/24/2018 CHARITO SHIPLEY MD Ot Z01.810 ENCOUNTER FOR PREPROCEDURAL CARDIOVASCUL 06/24/2018 CHARITO SHIPLEY MD, Ot Z01.811 ENCOUNTER FOR PREPROCEDURAL RESPIRATORY 06/24/2018 CHARITO SHIPLEY MD, Ot Z01.812 ENCOUNTER FOR PREPROCEDURAL LABORATORY E 06/24/2018 CHARITO SHIPLEY MD, Ot Z11.2 ENCOUNTER FOR SCREENING FOR OTHER BACTER Procedures Code [place] [address] INR (IN HOUSE) 02/20/2013 G0008 FLU ADMINISTRATION ( MEDICARE ONLY) 02/27/2013 58044 INR (IN HOUSE) 05/28/2013 12014 ROUTINE VENIPUNCTURE 08/25/2013 2882468 GFR CALC (RESULT ONLY) 08/26/2013 31114 CMP 08/26/2013 00542 LIPID PANEL 08/26/2013 63144 CBC 08/26/2013 90424 PSA TOTAL 08/26/2013 38561 INR (IN HOUSE) 08/27/2013 32252 INR (IN HOUSE) 10/30/2013 93361 INR (IN HOUSE) 12/26/2013 55672 INR (IN HOUSE) 02/25/2014 94497 INFLUENZA A & B (IN-HOUSE) 03/26/2014 48123 INR (IN HOUSE) 04/23/2014 Results Test Result Range CBC with Auto Diff - 11/09/16 14:05 WBC - WHITE CELL COUNT 6.2 X10(3) 4.5- 11.0 RBC - RED CELL COUNT 5.24 X10(6) 4.60 -6.20 PLATELET COUNT 116 X10(3) 150- 450 HEMOGLOBIN 15.1 g/dl 13.5- 18.0 HEMATOCRIT 45.0 % 40.0- 54.0 MCV 85.9 fL 80.0- 96.0 MCH 29 pg 27-31 MCHC 33.6 % 32.0- 36.0 LYMPHS 20.9 % 20.0- 45.0 MONOS 10.4 % 0.0-15.0 NEUTROPHILS 68.7 % 40.0- 80.0 HOLD SPECIMEN FOR BLOOD BANK - 11/09/16 14:05 HOLD SPECIMEN FOR BLOOD BANK ARC INR (PROTIME) - 11/09/16 14:05 INR 1.07 0.90-1.40 BMP - BASIC METABOLIC PANEL - 11/09/16 14:05 GLUCOSE 85 mg/dl 74-106 BUN 15 mg/dl 7-18 CREATININE 1.37 mg/dl 0.70- 1.30 eGFR 52 mL/min >60 SODIUM (NA) 141 mEq/L 136- 146 POTASSIUM, BLOOD 3.6 mEq/L 3.5- 5.1 CHLORIDE 103 mEq/L 98- 107 CO2 (BICARBONATE) 31 mEq/L 21-32 CALCIUM 9.0 mg/dl 8.5- 10.1 GLUCOSE, ACCUCHEK - 11/09/16 15:00 GLUCOSE (ACCUCHEK) 227 mg/dl 74- 105 LIPID PANEL - 11/17/16 09:00 Cholesterol, Total 121 mg/dL 100-199 Triglycerides 110 mg/dL 0-149 HDL Cholesterol 32 mg/dL >39 VLDL Cholesterol Kaleb 22 mg/dL 5-40 LDL Cholesterol Calc 67 mg/dL 0-99 CMP - 11/17/16 09:00 Glucose, Serum 97 mg/dL 65-99 BUN 16 mg/dL 8-27 Creatinine, Serum 1.23 mg/dL 0.76-1.27 eGFR If NonAfricn Am 60 mL/min/1.73 >59 eGFR If Africn Am 69 mL/min/1.73 >59 BUN/Creatinine Ratio 13 10-24 Sodium, Serum 142 mmol/L 134-144 Potassium, Serum 3.9 mmol/L 3.5-5.2 Chloride, Serum 97 mmol/L 96-106 Carbon Dioxide, Total 27 mmol/L 18-29 Calcium, Serum 8.9 mg/dL 8.6-10.2 Protein, Total, Serum 7.1 g/dL 6.0-8.5 Albumin, Serum 4.4 g/dL 3.6-4.8 Globulin, Total 2.7 g/dL 1.5-4.5 A/G Ratio 1.6 1.2-2.2 Bilirubin, Total 0.7 mg/dL 0.0-1.2 Alkaline Phosphatase, S 54 IU/L 39-117 AST (SGOT) 27 IU/L 0-40 ALT (SGPT) 17 IU/L 0-44 PSA - 04/25/17 09:20 PSA, TOTAL 8.8 ng/mL < OR=4.0 [facility] - 05/22/17 09:01 GLUCOSE 101 mg/dL 65-99 UREA NITROGEN (BUN) 14 mg/dL 7-25 CREATININE 1.19 mg/dL 0.70-1.18 eGFR NON-AFR. SERBIAN 62 mL/min/1.73m2 > OR=60 eGFR 71 mL/min/1.73m2 > OR=60 BUN/CREATININE RATIO 12 (calc) 6-22 SODIUM 145 mmol/L 135-146 POTASSIUM 4.2 mmol/L 3.5-5.3 CHLORIDE 100 mmol/L 98-110 CARBON DIOXIDE 36 mmol/L 20-31 CALCIUM 9.1 mg/dL 8.6-10.3 PROTEIN, TOTAL 7.1 g/dL 6.1-8.1 ALBUMIN 4.3 g/dL 3.6-5.1 GLOBULIN 2.8 g/dL (calc) 1.9-3.7 ALBUMIN/GLOBULIN RATIO 1.5 (calc) 1.0-2.5 BILIRUBIN, TOTAL 1.2 mg/dL 0.2-1.2 ALKALINE PHOSPHATASE 52 U/L 40-115 AST 23 U/L 10-35 ALT 16 U/L 9-46 PSA - 10/15/17 08:37 PSA, TOTAL 5.9 ng/mL < OR=4.0 Methicillin resistant Staphylococcus aureus (MRSA) screening culture - 13:00 Methicillin resistant Staphylococcus aureus (MRSA) screening culture NEG [facility] Whole blood basic metabolic panel - 06/20/18 13:25 Serum or plasma sodium measurement (moles/volume) 141 mmol/L 135-145 Serum or plasma potassium measurement (moles/volume) 3.7 mmol/L 3.6-5.0 Serum or plasma chloride measurement (moles/volume) 102 mmol/L 98-107 Carbon dioxide 29 mmol/L 21-32 Serum or plasma anion gap determination (moles/volume) 10 mmol/L 5-14 Serum or plasma urea nitrogen measurement (mass/volume) 15 mg/dL 7-18 Serum or plasma creatinine measurement (mass/volume) 1.15 mg/dL 0.60-1.30 Serum or plasma urea nitrogen/creatinine mass ratio 13 NRG Serum or plasma creatinine measurement with calculation of estimated glomerular filtration rate > NRG Serum or plasma glucose measurement (mass/volume) 83 mg/dL 70-105 Serum or plasma calcium measurement (mass/volume) 8.9 mg/dL 8.5-10.1 Encounters ACCT No. Visit Date/Time Discharge Status Pt. Type Provider Facility Loc./Unit Complaint [id number] 11/09/2016 13:32:00 11/09/2016 21:55:00 DIS Outpatient JESSICA ACUNA [facility] [address], [place], [place] [address] 06/25/2018 09:00:00 ACT Outpatient KASIE CHAPMAN [facility] [address] [id number] 10/15/2017 08:20:00 Document Registration [id number] 05/22/2017 08:40:00 Document Registration [id number] 04/25/2017 08:40:00 Document Registration [id number] 11/17/2016 09:00:00 Document Registration [id number] 03/06/2017 09:56:21 03/06/2017 23: 59:59 CLS Outpatient [id number] 03/06/2017 09:56:07 03/06/2017 23: 59:59 CLS Outpatient [id number] 03/06/2017 09:54:32 03/06/2017 23: 59:59 CLS Outpatient [id number] 03/06/2017 09:54:18 03/06/2017 23: 59:59 CLS Outpatient [id number] 03/06/2017 09:52:47 03/06/2017 23: 59:59 CLS Outpatient [id number] 03/06/2017 09:52:34 03/06/2017 23: 59:59 CLS Outpatient [id number] 03/06/2017 09:52:33 03/06/2017 23: 59:59 CLS Outpatient [id number] 01/06/2017 06:37:47 01/06/2017 23: 59:59 CLS Outpatient [id number] 01/06/2017 06:32:53 01/06/2017 23: 59:59 CLS Outpatient [id number] 01/06/2017 06:32:52 01/06/2017 23: 59:59 CLS Outpatient [id number] 01/05/2017 07:28:51 01/05/2017 23: 59:59 CLS Outpatient [id number] 01/03/2017 09:49:21 01/03/2017 23: 59:59 CLS Outpatient [id number] 01/03/2017 09:47:37 01/03/2017 23: 59:59 CLS Outpatient [id number] 01/03/2017 09:47:22 01/03/2017 23: 59:59 CLS Outpatient [id number] 06/20/2018 12:46:00 06/20/2018 16:00:00 DIS Outpatient CHARITO SHIPLEY MD [facility] PREOP SQUAMOUS CELL CARCINOMA [id number] 06/27/2018 07:30:00 PEN Preadmit CHARITO SHIPLEY MD [facility] SDC SQUAMOUS CELL CARCINOMA [id number] 06/01/2015 13:28:01 ACT Unknown [id number] 04/23/2014 08:51:00 04/23/2014 23:59:59 CLS Outpatient MERARY WISE MD [id number] 03/26/2014 09:31:00 03/26/2014 23:59:59 CLS Outpatient MERARY WISE MD [id number] 03/20/2014 11:26:00 03/20/2014 23:59:59 CLS Outpatient MERARY WISE MD [id number] 02/25/2014 08:55:00 02/25/2014 23:59:59 CLS Outpatient MERARY WISE MD [id number] 12/26/2013 08:57:00 12/26/2013 23:59:59 CLS Outpatient MERARY WISE MD [id number] 12/26/2013 08:57:00 12/26/2013 23:59:59 CLS Outpatient MERARY WISE MD [id number] 10/30/2013 08:27:00 10/30/2013 23:59:59 CLS Outpatient MERARY WISE MD [id number] 08/27/2013 08:53:00 08/27/2013 23:59:59 CLS Outpatient MERARY WISE MD [id number] 05/28/2013 09:50:00 05/28/2013 23:59:59 CLS Outpatient MERARY WISE MD [id number] 02/20/2013 08:26:00 02/20/2013 23:59:59 [facility] Outpatient MERARY WISE MD [id number] 02/20/2013 08:26:00 02/20/2013 23:59:59 CLS Outpatient MERARY WISE MD
--- OUTSIDE RECORDS SUMMARY | 2018-06-27 07:21 | XMS REPORT ---
Author Author [facility] WISE [facility] Address [address] [place] [address] Care Team Providers Care Duct Cleaner Name Role Phone MERARY WISE Unavailable PROBLEMS Type Condition ICD9-CM Code AUM98-FO Code Onset Dates Condition Status SNOMED Code Problem correction current use of anticoagulant therapy Z79.01 Active 071257746 Problem Persistent atrial fibrillation I48.1 Active 278559617 Problem Chronic atrial fibrillation I48.2 Active 644476510 Problem Mixed hyperlipidemia E78.2 Active 412065422 Problem Essential (primary) hypertension I10 Active 75799331 Problem Elevated prostate specific antigen [PSA] R97.2 Active 874833899 Problem 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 443269750 Problem Unspecified atrial fibrillation I48.91 Active 86680497 Problem Hyperlipidemia LDL goal <100 E78.5 Active 79284615 Problem Essential hypertension I10 Active 97913765 Problem Obstructive sleep apnea G47.33 Active 43596152 Problem Chronic obstructive pulmonary disease, unspecified COPD type J44.9 Active 18065804 ALLERGIES No Information ENCOUNTERS Encounter Location Date Diagnosis [facility] [place] [address] [facility] [id number] [place] [id number] Sep, [facility] [place] [address] [facility] [facility] [id number] [place] [id number] August, correction current use of anticoagulant therapy Z79.01 [facility] [place] [address] [id number] [place] [id number] August, [facility] [place] [address] [id number] [place] [id number] August, correction current use of anticoagulant therapy Z79.01 [facility] [place] [address] [id number] [place] [id number] August, terminal gauger current use of anticoagulant therapy Z79.01 [facility] [place] [address] [id number] [place] [id number] Jul, correction current use of anticoagulant therapy Z79.01 [facility] [place] [address] [facility] [id number] [place] [address] Jul, correction current use of anticoagulant therapy Z79.01 [facility] [place] [address] [facility] [address] [id number] [place] [address] Jul, correction current use of anticoagulant therapy Z79.01 [facility] [place] [address] [facility] [facility] [id number] [place] [id number] 16 Jul, 2017 terminal gauger current use of anticoagulant therapy Z79.01 [facility] [place] [address] [place] [address] [address] [id number] [place] [id number] Jul, 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 [facility] [place] [address] [place] [address] [address] [id number] [place] [id number] Jul, Chronic obstructive pulmonary disease, unspecified COPD type J44.9 [facility] [place] [address] [place] [address] [address] [id number] [place] [address] Jul, correction current use of anticoagulant therapy Z79.01 [facility] [place] [address] [place] [address] [address] [id number] [place] [id number] Jul, [facility] [place] [address] [place] [address] [address] [id number] [place] [id number] Jul, Bleeding from mouth K13.79 and Lip lesion K13.0 [facility] [place] [address] [place] [address] [address] [id number] [place] 8129[address] Jul, terminal gauger current use of anticoagulant therapy Z79.01 [facility] [place] [address] [facility] [address] [id number] [place] [address] Jul, correction current use of anticoagulant therapy Z79.01 [facility] [place] [address] [facility] [id number] [place] [id number] Jul, [facility] [place] [address] [facility] [address] [id number] [place] [id number] Jun, Unspecified atrial fibrillation I48.91 [facility] [place] [address] [place] [address] C [id number] [place] [id number] 13 May, 2017 Unspecified atrial fibrillation I48.91 [facility] [place] [address] [place] [address] C [id number] [place] [id number] 12 May, 2017 Chronic atrial fibrillation I48.2 ; BMI 40.0-44.9, adult Z68.41 ; Hyperlipidemia LDL goal <100 E78.5 ; correction current use of anticoagulant therapy Z79.01 ; Essential hypertension I10 ; Obstructive sleep apnea G47.33 ; Elevated PSA, less than 10 ng/ml R97.20 and Chronic obstructive pulmonary disease, unspecified COPD type J44.9 [facility] [place] [address] [place] [address] C [id number] [place] [id number] Apr, [facility] [place] [address] [place] [address] [id number] [place] [id number] Apr, Elevated PSA R97.20 [facility] [address] [id number] [place] [address] Apr, Mild persistent asthma, unspecified whether complicated J45.30 [facility] [place] [address] [place] [address] C [id number] [place] [id number] Apr, Chronic obstructive pulmonary disease, unspecified COPD type J44.9 [facility] [place] [address] [place] [address] C [id number] [place] [id number] Mar, [facility] [place] [address] [place] [address] [id number] [place] [id number] Mar, [facility] [place] [address] [place] [address] C [id number] [place] [id number] Mar, [facility] [place] [address] [place] [address] C [id number] [place] [address] Mar, Chronic atrial fibrillation I48.2 ; Hyperlipidemia LDL goal <100 E78.5 ; Essential hypertension I10 ; Obstructive sleep apnea G47.33 ; Has stopped breathing R06.81 ; Elevated PSA, less than 10 ng/ml R97.20 ; Chronic obstructive pulmonary disease, unspecified COPD type J44.9 ; Encounter for immunization Z23 and correction current use of anticoagulant therapy Z79.01 [facility] [place] [address] [place] [address] [id number] [place] [id number] Feb, [facility] [place] [address] [place] [address] [id number] [place] [id number] Dec, [facility] [place] [address] [place] [address] [id number] [place] [id number] Nov, Chronic atrial fibrillation I48.2 and Elevated PSA R97.20 [facility] [place] [address] [place] [address] [id number] [place] 455[address] Nov, Chronic atrial fibrillation I48.2 ; Hyperlipidemia LDL goal <100 E78.5 ; Essential hypertension I10 ; Dyspnea on exertion R06.09 and Elevated PSA R97.20 [facility] [address] [place] [address] [id number] [place] [address]239[address] August, correction current use of anticoagulant therapy Z79.01 ; Bronchitis J40 and Persistent atrial fibrillation I48.1 [facility] [place] [address] [place] [address] [id number] [place] [id number] August, [facility] [place] [address] [place] [address] [id number] [place] [id number] May, correction current use of anticoagulant therapy Z79.01 ; Encounter for long -term (current) use of other medications Z79.899 ; Fever, unspecified fever cause R50.9 and Influenza A J10.[address] [id number] [place] [id number] Apr, [facility] [place] [address] [place] [address] [id number] [place] [id number] Apr, Elevated prostate specific antigen [PSA] R97.20 [facility] [place] [address] [place] [address] [id number] [place] 643321998 Feb, [facility] [place] [address] [place] [address] [id number] [place] [id number] Feb, terminal gauger current use of anticoagulant therapy Z79.01 ; Atrial fibrillation 427.31 ; Encounter for long-term (current) use of other medications Z79.899 ; Chronic atrial fibrillation I48.2 ; Encounter for immunization Z23 and Actinic keratoses L57.0 [facility] [place] [address] 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 and Encounter for immunization Z23 [facility] [place] [address] [place] [address] C [id number] [place] 987[address]2574 Nov, Hemangioma D18.00 and Actinic keratosis L57.0 [facility] [place] [address] [place] [address] [id number] [place] [id number] Nov, Chronic atrial fibrillation I48.2 ; correction current use of anticoagulant therapy Z79.01 and Skin lesions L98.9 [facility] [place] [address] [place] [address] C [id number] [place] [id number] Oct, Elevated prostate specific antigen [PSA] R97.2 ; Mixed hyperlipidemia E78.2 and Essential (primary) hypertension I10 [facility] [place] [address] [place] [address] [id number] [place] 12532[address]70 August, [facility] [place] [address] [place] [address] [id number] [place] [id number] August, Encounter for long-term (current) use of other medications Z79.899 ; correction current use of anticoagulant therapy Z79.01 and Chronic atrial fibrillation I48.2 [facility] [place] [address] [place] [address] [id number] [place] [id number] Jul, Unspecified atrial fibrillation I48.91 ; Encounter for long-term (current ) use of other medications Z79.899 and terminal gauger current use of anticoagulant therapy Z79.01 [facility] [place] [address] [place] [address] [id number] [place] [id number] Jun, Atrial fibrillation 427.31 ; Encounter for long-term (current) use of other medications Z79.899 and correction current use of anticoagulant therapy Z79.01 [facility] [place] [address] [place] [address] C [id number] [place] [id number] Jun, Unspecified atrial fibrillation I48.91 ; Encounter for long-term (current ) use of other medications Z79.899 ; terminal gauger current use of anticoagulant therapy Z79.01 and Community acquired bacterial pneumonia J15.9 [facility] [place] [address] [place] [address] [id number] [place] [id number] Jun, Community acquired bacterial pneumonia J15.9 [facility] [place] [address] [place] [address] [id number] [place] [id number] May, Chronic atrial fibrillation I48.2 ; Encounter for long-term (current) use of other medications Z79.899 and terminal gauger current use of anticoagulant therapy Z79.01 [facility] [place] [address] [place] [address] [id number] [place] [id number] Apr, Elevated prostate specific antigen [PSA] R97.2 [facility] [address] [place] [address] [id number] [place] [id number] Feb, Chronic atrial fibrillation I48.2 ; correction current use of anticoagulant therapy Z79.01 and Encounter for long-term (current) use of other medications Z79.899 [facility] [place] [address] [place] [address] [id number] [place] [id number] Dec, Atrial fibrillation 427.31 and terminal gauger (current) use of anticoagulants V58.61 [facility] [id number] [place] [id number] Sep, [address] [id number] [place] [address] Sep, Atrial fibrillation 427.31 ; Elevated PSA 790.93 ; Benign prostate hyperplasia 600.00 and Renal insufficiency 593.[address] [id number] [place] 637657602 Sep, Atrial fibrillation 427.31 ; Essential hypertension, benign 401.1 ; Elevated prostate specific antigen (PSA) 790.93 and Mixed hyperlipidemia 272.2 [facility] [address] [facility] [id number] [place] [id number] Jul, [facility] [address] [address] Jul, [facility] [address] [place] [id number] [address] Jun, [facility] [place] [address] [id number] [place] [id number] Jun, [facility] [place] [facility] [address] [facility] [id number] [place] [address] Apr, [facility] [place] [address] [id number] [place] 4[address] Apr, [facility] [place] [address] [id number] [place] [id number] Mar, [facility] [address] [facility] [id number] [place] [address] Mar, [facility] [place] [address] [facility] [address] [id number] [place] 955[address]34[address] Mar, [facility] [address] [facility] [id number] [place] [address] Mar, [facility] [address] [facility] [id number] [place] [address] Feb, [facility] [place] [address] [facility] [address] [id number] [place] [id number] Feb, [facility] [address] [facility] [id number] [place] [address] Jan, [facility] [place] [address] [facility] [address] [id number] [place] [address] Jan, [facility] [address] [facility] [id number] [place] [address] Dec, [facility] [place] [address] [facility] [address] [id number] [place] 320760195 Dec, [facility] [place] [facility] [address] [facility] [id number] [place] [address] Oct, [facility] [place] [address] [id number] [place] [id number] Oct, [facility] [place] [address] [facility] [address] [id number] [place] [id number] Oct, [facility] [address] [facility] [id number] [place] [address] Oct, [facility] [place] [address] [id number] [place] 689889637 Sep, [facility] [place] [facility] [address] [id number] [place] [address] Sep, [facility] [place] [facility] [address] [id number] [place] [address] August, [facility] [place] [address] [id number] [place] [id number] August, [facility] [place] [facility] [address] [id number] [place] [address] August, [facility] [place] [facility] [address] [id number] [place] [address] August, [facility] [place] [address] [id number] [place] [id number] August, [facility] [place] [address] [id number] [place] [id number] August, [facility] [place] [facility] [address] [id number] [place] [address] August, [facility] [place] [address] [id number] [place] [id number] Jul, [facility] [place] [facility] [address] [id number] [place] [address] Jul, [facility] [place] [address] [id number] [place] 215[address]1456 Jul, [facility] [place] [facility] [address] [id number] [place] [address] Jul, [facility] [place] [address] [id number] [place] [id number] May, [facility] [place] [facility] [address] [id number] [place] [address] May, [facility] [place] [address] [id number] [place] [id number] Apr, [facility] [address] [facility] [id number] [place] [address] Apr, [facility] [place] [address] [facility] [address] [id number] [place] [id number] Mar, [facility] [address] [facility] [id number] [place] [address] Mar, [facility] [place] [address] [facility] [address] [id number] [place] [id number] Feb, [facility] [address] [facility] [id number] [place] [address] Feb, [facility] [address] [facility] [id number] [place] [address] Feb, [facility] [address] [facility] [id number] [place] [address] Feb, [facility] [place] [address] [facility] [address] [id number] [place] [id number] Feb, [facility] [place] [address] [facility] [address] [id number] [place] 555364[address] Feb, [facility] [place] [address] [facility] [address] [id number] [place] [id number] Jan, [facility] [address] [facility] [id number] [place] [address] Jan, [facility] [place] [address] [facility] [address] [id number] [place] [id number] Dec, [facility] [place] [address] [facility] [address] [id number] [place] [id number] Dec, IMMUNIZATIONS No Known Immunizations SOCIAL HISTORY Never Assessed REASON FOR VISIT PLAN OF CARE VITAL SIGNS MEDICATIONS Medication Instructions Dosage Frequency Start Date End Date Duration Status Zoster Vaccine Live 92997 UNT/0.65ML as directed Mar, Active RESULTS No [...]
--- OUTSIDE RECORDS SUMMARY | 2018-06-27 07:21 | XMS REPORT ---
Author MERARY Swain [facility] e[employer] Address Unknown Phone Unavailable Care Team Providers Care Supervisor Respiratory Name Role Phone MERARY WISE CP Unavailable Allergies, Adverse Reactions, Alerts Substance Reaction Event Type Sulfasalazine Info Not Available Drug Allergy Problems Problem Type Condition Code Onset Dates Condition Status Problem Actinic keratosis 702.0 Active Problem Need for prophylactic vaccination and inoculation, Influenza V04.81 Active Problem Atrial fibrillation 427.31 Active Problem Chronic atrial fibrillation I48.2 Active Assessment Encounter for immunization Z23 Active Problem Elevated prostate specific antigen [PSA] R97.2 Active Assessment Actinic keratoses L57.0 Active Problem intermediate project 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.01 Active Problem Tear of medial cartilage or meniscus of knee, current 836.0 Active Problem Acute upper respiratory infections of unspecified site 465.9 Active Problem Mixed hyperlipidemia E78.2 Active Problem Essential (primary) hypertension I10 Active Assessment Atrial fibrillation 427.31 Active Assessment intermediate project 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.01 Active Assessment Chronic atrial fibrillation I48.2 Active Assessment Encounter for long-term (current) use of other medications Z79.899 Active Problem Mixed hyperlipidemia 272.2 Active Problem Elevated prostate specific antigen (PSA) 790.93 Active Problem Pain in joint, lower leg 719.46 Active Problem Nocturia 788.43 Active Problem Acute pharyngitis 462 Active Problem Essential hypertension, benign 401.1 Active Medications Medication Code System Code Instructions Start Date End Date Status Dosage Lanoxin [facility] [address]-29 250 MCG August 25, 2013 TAKE 1 Tablet by Oral route 1 time per day Efudex [facility] [address]-17 5 % June 22, 2014 1 neha by Topical route 2 times per day Simvastatin [facility] 80079710768 20MG TAKE ONE TABLET BY MOUTH AT BEDTIME Warfarin Sodium [facility] 38963160717 6MG TAKE ONE TABLET BY MOUTH ONCE DAILY Claritin [facility] [address]-00 10 mg Feb 20, 2013 1 Tablet by Oral route 1 time per day PRN Zocor NDC [address]-80 20 mg August 25, 2013 1 Tablet by Oral route 1 time per day at bedtime Doxazosin Mesylate [facility] 50708479571 4MG Orally Once a day 1 tablet Cialis [facility] 80300991863 5MG TAKE ONE TABLET BY MOUTH ONCE DAILY Losartan Potassium-HCTZ [facility] 83917761067 100-25 TAKE ONE TABLET BY MOUTH ONCE DAILY Bisoprolol-Hydrochlorothiazide [facility] 70358933560 10/6.25MG TAKE ONE TABLET BY MOUTH ONCE DAILY Lanoxin [facility] 97902269358 0.25MG TAKE 1 Tablet by Oral route 1 time per day Procedures Procedure Coding System Code Date PCV 13 CPT-4 25908 Feb 23, 2016 SINGLE IMMUNIZATION ADMIN CPT-4 06192 Feb 23, 2016 PROTHROMBIN TIME CPT-4 39027 Feb 23, 2016 Office Visit, Est Pt., Level 3 CPT-4 98103 Feb 23, 2016 [facility] VISIT ESTABLISHED PATIENT CPT-4 G0467 Feb 23, 2016 Vital Signs Date/Time: Feb 23, 2016 Cardiac Monitoring Heart Rate 64 bpm Weight 283.4 lbs Height 70 in BMI 40.66 Index Blood Pressure Diastolic 82 mmHg Blood Pressure Systolic 130 mmHg Results Name Result Date Reference Range Unit Abnormality Flag INR (IN HOUSE) ----Exp date 20160223 ----INR 2.8 20160223 1.10 - 3.30 ----PREVIOUS INR 3.0 20160223 ----CURRENT COUMADIN DOSE 6mg QD [id number] ----Lot # [id number] Immunizations Vaccine Administration Date PCV 13 Feb 23, 2016 Summary Purpose eClinicalWorks Submission
[2018-06-27 07:43] LABS: INR 1.2 (0.8-1.4)
[2018-06-27] MEDS ORDERED: LACTATED RINGERS 1,000 ML IV PRN (07:56)
[2018-06-27] MEDS ORDERED: fentaNYL INJECTION 100 MCG/2 ML AMP ONE (08:27)
[2018-06-27] MEDS ORDERED: PROPOFOL INJECTION 50 ML IV ONE (08:27)
[2018-06-27] MEDS ORDERED: MIDAZOLAM 2 MG/2 ML (VERSED) VIAL ONE (08:27)
[2018-06-27] MEDS ORDERED: ONDANSETRON 4 MG/2 ML (SDV) Z0FRAN ONE (08:32)
[2018-06-27] MEDS ORDERED: DEXAMETHASONE 10 MG/ML (DECADRON) 1 ML VIAL ONE (08:32)
[2018-06-27] MEDS ORDERED: SEVOFLURANE (ULTANE) 15 ML INHAL SOLN ONE ×2 (08:32→09:49)
[2018-06-27] MEDS ORDERED: LIDOCAINE PF 2% 5 ML (XYLOCAINE) VIAL ONE (08:32)
[2018-06-27] MEDS ORDERED: LIDOCAINE/EPI 1%-1:100,000 (XYLOCAINE) 20ML ONE (08:41)
[2018-06-27] MEDS ORDERED: MUPIROCIN 2% OINT 22 GM (BACTROBAN) TUBE ONE (08:44)
[2018-06-27] MEDS ORDERED: GLYCOPYRROLATE 0.2 MG/ML (ROBINUL) 2 ML VIAL ONE (09:42)
--- NOTE | 2018-06-27 09:47 | Progress Note-Post Operative ---
Post-Operative Progess Note Surgeon (s)/Mid Level Provider (s) Surgeon CHARITO SHIPLEY MD Mid Level Provider n/a Pre-Operative Diagnosis Lower Lip Skin Lesions-mucosal surface Post-Operative Diagnosis same Post-Op Procedure Note Date of Procedure: Jun 27, 2018 Name of Procedure Performed: Lip Shave Procedure Description & Findings Description and Findings: n/a Anesthesia Type lma Estimated Blood Loss minimal Packing none. Specimen(s) collected/removed lower lip mocosal surface to pathology CHARITO SHIPLEY MD Jun 27, 2018 09:47
[2018-06-27] MEDS ORDERED: ACETAMINOPHEN 325 MG TABLET PO PRN (10:00)
[2018-06-27] MEDS ORDERED: HYDROcodone/APAP 5 MG/325 MG (LORTAB) TAB PO PRN (10:00)
[2018-06-27] MEDS ORDERED: morphine INJ 10 MG/ML 1ML (SYR OR VIAL) ONE (10:27)
[2018-06-27 11:00] VITALS: BP 156/84
[2018-06-27] MEDS ORDERED: morphine INJ 10 MG/ML 1ML (SYR OR VIAL) IVP ONE (11:15)
[2018-06-27] MEDS ORDERED: ONDANSETRON 4 MG/2 ML (SDV) Z0FRAN IVP PRN (11:15)
[2018-06-27] MEDS ORDERED: HYDR-3812 PO (11:25)
[2018-06-27 11:30] VITALS: BP 155/81
[2018-06-27 12:00] VITALS: BP 161/97
[2018-06-27 12:05] VITALS: BP 161/97
--- NOTE | 2018-06-27 14:11 | Anesthesia-General Post-Op ---
General Patient Condition Mental Status/LOC: Same as Preop Cardiovascular: Satisfactory Nausea/Vomiting: Absent Respiratory: Satisfactory Pain: Controlled Complications: Absent Post Op Complications Complications None Follow Up Care/Instructions Patient Instructions None needed. Anesthesia/Patient Condition Patient Condition Patient is doing well, no complaints, stable vital signs, no apparent adverse anesthesia problems. No complications reported per nursing. BUCK SHIELDS CRNA Jun 27, 2018 14:11
== END 2018-06-27 12:11 | disposition home or self-care (01) ==
LOC: SDC 06:52
PROVIDERS: ATTEND Otolaryngology Otolaryngology/Facial Plastic Surgery
DX: C44.02 Squamous cell carcinoma of skin of lip (principal); I48.91 Unspecified atrial fibrillation; I10 Essential (primary) hypertension; J44.9 Chronic obstructive pulmonary disease, unspecified; G47.33 Obstructive sleep apnea (adult) (pediatric); Z79.01 Long term (current) use of anticoagulants; Z79.82 Long term (current) use of aspirin; Z79.899 Other long term (current) drug therapy
CPT/HCPCS: 36415; 85610; 85730